=== PATIENT | male | born 1955 | race Caucasian/White ===

== ENCOUNTER → 2017-12-31 08:33 | Outpatient (CLI) | payer OTHER, SELFPAY ==
--- NOTE | 2017-12-31 | DI.CT.S_ITS ---
PROCEDURE: CT ABDOMEN PELVIS W CON INDICATIONS: 62 year-old male with left abdominal pain. TECHNIQUE: After the administration of oral and intravenous contrast, 5 mm thick sections acquired from the diaphragms to the symphysis. 5 mm thick coronal and sagittal reformats were performed. For radiation dose reduction, the following was used: automated exposure control, adjustment of mA and/or kV according to patient size. COMPARISON: [facility], RF, UGI WITH SM BOWEL FOLLOW THRU, 05/30/2017, 9:23. [facility], CT, ABDOMEN/PELVIS WITH CONTRAST, 05/03/2017, 10:11. FINDINGS: Image quality: Excellent. ABDOMEN: Lung bases: Lung bases are clear. Heart size is normal. Solid organs: Liver is normal in size and enhancement. Gallbladder wall thickness is normal. Biliary system is non-dilated. Pancreas enhances normally. Spleen is normal in size and enhancement. No adrenal nodules. Kidneys are normal in size and enhancement, without hydronephrosis. Peritoneum and bowel: Stomach, small bowel, and colon loops are normal in caliber and wall thickness. No free fluid or air. Nodes and vessels: No retroperitoneal or mesenteric adenopathy. Aorta and inferior vena cava are normal in caliber, with diffuse aortoiliac atherosclerosis. The celiac trunk, superior and inferior mesenteric arteries appear patent, without hemodynamically significant stenoses. Miscellaneous: No ventral hernias. On axial image 46, left mid abdominal wall dystrophic calcification is again noted, consistent with remote trauma or surgery. PELVIS: Genitourinary: Bladder wall thickness is normal. Prostate gland is normal in size. Miscellaneous: No inguinal hernias or adenopathy. Bones: No suspicious bony lesions. No vertebral body compression fractures. Patient is status post L2-L5 discectomies with interbody fusion, bilateral posterior fixation and fusion, and laminectomies as before. Medial right iliac bone graft donor site is again noted. IMPRESSION: 1. No acute intra-abdominal abnormalities to explain left abdominal pain. Left mid abdominal wall dystrophic calcification as before, consistent with remote trauma or surgery. 2. Status post L2-L5 posterior lumbar interbody fusion as before. Dictated by: Colten Alvarado M.D. on 12/31/2017 at 10:27 Approved by: Colten Alvarado M.D. on 12/31/2017 at 10:39
[2017-12-31 09:06] LABS: BUN Creatinine Ratio 14.4 (6-22); Blood Urea Nitrogen 13 mg/dL (9-20); Estimated Glomerular Filt Rate > 60.0 mL/min (>60)
== END ==
PROVIDERS: PCP Internal Medicine; Visit Provider Surgery
DX: R10.9 Unspecified abdominal pain (principal)
CPT/HCPCS: 36415; 74177; 82565; 84520; Q9967

== ENCOUNTER 2018-06-11 15:40 | Emergency (ER) | payer OTHER, MEDICARE, SELFPAY ==
[2018-06-11] VITALS (11 sets, daily range): BP systolic 63–138; BP diastolic 36–68; PULSE 64–89; RESP 17–18; TEMP 35.9; O2SAT 94–100
[2018-06-11] MEDS: SODIUM CHLORIDE 0.9% 1,000 ML 1000 ML IV (15:50)
[2018-06-11] MEDS: ONDANSETRON 4 MG/2 ML INJ IV (15:55)
[2018-06-11] MEDS: NITROGLYCERIN 0.4 MG SL TAB SL (16:00)
--- NOTE | 2018-06-11 16:11 | DI.RAD.S_ITS ---
PROCEDURE: XR CHEST 1V INDICATIONS: chest pain TECHNIQUE: One view of the chest was acquired. COMPARISON: [facility], CHEST 1 VIEW, 05/13/2017, 20:41. [facility], CHEST 1 VIEW, 01/21/2014, 8:57. FINDINGS: Surgical changes and devices: None. Lungs and pleura: No pleural effusions or pneumothorax. Lungs are clear. Mediastinum: Mediastinal contours appear normal. Heart size is normal. Bones and chest wall: No suspicious bony lesions. Overlying soft tissues appear unremarkable. IMPRESSION: Normal for age, source of current symptoms is not seen. Dictated by: Mustapha Mcneill M.D. on 06/11/2018 at 17:02 Approved by: Mustapha Mcneill M.D. on 06/11/2018 at 17:03
--- NOTE | 2018-06-11 16:17 | DI.CT.S_ITS ---
PROCEDURE: CT ABDOMEN PELVIS W CON INDICATIONS: abdominal pain post-op TECHNIQUE: After the administration of intravenous contrast, 5 mm thick sections acquired from the diaphragm to the symphysis. 5 mm coronal and sagittal reformats were acquired. For radiation dose reduction, the following was used: automated exposure control, adjustment of mA and/or kV according to patient size. COMPARISON: [facility], CT, CT ABDOMEN PELVIS W CON, 12/31/2017, 9:32. FINDINGS: Image quality: Excellent. ABDOMEN: Lung bases: Lung bases are clear. Heart size is normal. Solid organs: Liver is normal in size and enhancement. Gallbladder is unremarkable. Biliary system is non dilated. Pancreas enhances normally. Spleen is normal in size and enhancement. No adrenal nodules. Kidneys demonstrate normal size and enhancement, without hydronephrosis. Peritoneum and bowel: There are prominently dilated fluid-filled loops of small bowel throughout the abdomen and pelvis. There is no definitively identified free air. There is mild dependent fluid in the pelvis as well as minimal scattered areas within the abdomen and pelvis including the paracolic gutters bilaterally. Air is noted within the colon which does not demonstrate significant collapse. Scattered stool is present. Nodes and vessels: No retroperitoneal or mesenteric adenopathy by size criteria. Aorta and inferior vena cava are normal in size. Miscellaneous: No ventral hernias. No hernia is present. Air is noted within the subcutaneous tissues of the left hemiabdomen possibly related to recent surgery or iatrogenic injections. PELVIS: Genitourinary: Bladder wall thickness is normal. Miscellaneous: No inguinal hernias or adenopathy. Bones: No suspicious bony lesions. No vertebral body compression fractures. Posterior lumbar fusion is noted. IMPRESSION: 1. There are prominently dilated loops of small bowel within the abdomen pelvis without definitive transition point identified. Overall appearance is most consistent with significant partial small bowel obstruction. Scattered areas of free fluid are present. Dictated by: Jewell Monahan M.D. on 06/11/2018 at 16:50 Approved by: Jewell Monahan M.D. on 06/11/2018 at 16:54
[2018-06-11] MEDS: PROCHLORPERAZINE 10 MG/2 ML VIAL IV (16:21)
[2018-06-11 16:24] LABS: Add Manual Diff / Slide Review NO; Basophils Percent Auto 0.2 % (0-2); Eosinophils Percent Auto 1.9 % (2-4); Hematocrit 50.4 % (41-53); Hemoglobin 16.7 g/dL (13.5-17.5); Lymphocytes Percent Auto 4.9 % (25-40); Mean Corpuscular HGB Conc 33.2 % (30-36); Mean Corpuscular Hemoglobin 31.8 PG (26-34); Mean Corpuscular Volume 95.9 fL (80-100); Monocytes Percent Auto 3.9 % (3-14); Neutrophils Absolute Auto 10800 /uL (3000-5900); Neutrophils Percent Auto 89.1 % (50-75); Platelet Count 306 X10^3/uL (150-400); Red Blood Cell Count 5.26 X10^6/uL (4.5-5.9); Red Cell Distribution Width 14.6 % (11.6-14.8); White Blood Cell Count 12.1 X10^3/uL (4.5-11.0)
[2018-06-11 16:25] LABS: Prothrombin Time 10.8 SECONDS (10.1-12.7)
--- NOTE | 2018-06-11 16:26 | ED_ITS ---
HPI - Chest Pain General Chief Complaint: Chest Pain Stated Complaint: CHEST PAIN, VOMITING S/P SURGERY Time Seen by Provider: 06/11/18 15:59 Source: patient and family Mode of arrival: ambulatory Limitations: no limitations History of Present Illness HPI narrative: Patient complains of epigastric pain ever since his incisional and left inguinal hernia repairs 1 week ago. He states that he went to see his surgeon at in follow-up today, and that his surgeon thought that his symptoms were secondary to gastric reflux. However, on the way back from the doctor's office, he started to feel worse, developing worsening pain and nausea. He states that the pain really got bad after he vomited a couple of times. He states he has a burning sensation that goes up into his substernal area. He denies shortness of breath. He has no history of coronary artery disease or other heart problems. He states he has been up and about has been defecating without difficulty. He denies any fevers or recent infection. His postoperative course has otherwise been unremarkable. He rates his pain a 7/ 10. Laying flat on his back makes it worse and nothing makes it better. Pain does not radiate. Related Data Home Medications Medication Instructions Recorded Confirmed [KYOLIC IMMUNE 103] 1 tab PO BID #0 05/10/17 06/11/18 C-Ketam 1 applic TOPICAL TID 06/11/18 06/11/18 Thermacare Heatwrap Joint 06/11/18 06/11/18 Vitamin B Complex With Probiotics 1 tab PO BID 06/11/18 06/11/18 albuterol sulfate [ProAir HFA] 1 puff INHALATION PRN PRN 06/11/18 06/11/18 amlodipine 10 mg PO QPM 06/11/18 06/11/18 ascorbic acid (vitamin C) 1 g PO BID 06/11/18 06/11/18 aspirin 81 mg PO DAILY 06/11/18 06/11/18 chlorthalidone 25 mg PO DAILY 06/11/18 06/11/18 cholecalciferol (vitamin D3) 400 unit PO QPM 06/11/18 06/11/18 [Vitamin D3] clobetasol 1 applic TOPICAL BID 06/11/18 06/11/18 fluticasone-salmeterol [Advair 1 puff INHALATION BID 06/11/18 06/11/18 Diskus] ibuprofen 600 mg PO QID PRN 06/11/18 06/11/18 levothyroxine 175 mcg PO DAILY 06/11/18 06/11/18 lidocaine 1 patch TOPICAL DAILY 06/11/18 06/11/18 losartan 100 mg PO QPM 06/11/18 06/11/18 magnesium citrate 500 mg PO BID 06/11/18 06/11/18 metformin 500 mg PO BID 06/11/18 06/11/18 metoprolol succinate 100 mg PO DAILY 06/11/18 06/11/18 nitroglycerin [Nitrostat] 0.4 mg SUBLINGUAL Q5-15M PRN 06/11/18 06/11/18 ondansetron 8 mg PO BID-TID PRN 06/11/18 06/11/18 oxycodone-acetaminophen [Percocet] 1 tab PO PRN PRN 06/11/18 06/11/18 polyethylene glycol 3350 1 dose PO DIRECTED 06/11/18 06/11/18 sennosides-docusate sodium [Senna 10 tab PO DAILY 06/11/18 06/11/18 with Docusate Sodium] sitagliptin-metformin [Janumet] 1 tab PO BID 06/11/18 06/11/18 tiotropium bromide [Spiriva with 1 cap INHALATION DAILY 06/11/18 06/11/18 HandiHaler] Previous Rx's Medication Instructions Recorded trazodone 100 mg OR QPM #30 tab 09/28/16 Allergies Allergy/AdvReac Type Severity Reaction Status Date / Time doxazosin [DOXAZOSIN] Allergy Severe swelling Unverified 06/11/18 16:20 varenicline [From CHANTIX] Allergy Mild aggitation Unverified 06/11/18 16:20 lisinopril [LISINOPRIL] Allergy Unknown COUGH Unverified 06/11/18 16:20 morphine Allergy Unknown GOES Unverified 06/11/18 16:20 CRAZY atorvastatin [ATORVASTATIN] AdvReac Unknown MUSCLE ACHE Unverified 06/11/18 16: 20 carvedilol [CARVEDILOL] AdvReac Unknown DIZZINESS Unverified 06/11/18 16:20 CHOLESTEROL MEDS Allergy Unknown Uncoded 06/11/18 16:20 Review of Systems Review of Systems All systems reviewed & are unremarkable except as noted in HPI and below Constitutional Denies chills, Denies fever(s), Denies lethargy and Denies weakness Eyes Denies change in vision, Denies eye discharge, Denies irritation and Denies loss of vision ENT Ears, Nose, Mouth, and Throat: Denies change in voice, Denies neck pain and Denies sore throat Cardiovascular Reports chest pain (Burning), Denies irregular heart rhythm, Denies lightheadedness, Denies palpitations, Denies dyspnea, Denies dyspnea on exertion and Denies orthopnea Respiratory Denies cough, Denies dyspnea, Denies dyspnea on exertion and Denies wheezing Gastrointestinal Gastrointestinal: Reports abdominal pain (Epigastric), Denies change in bowel habits, Denies diarrhea, Reports nausea and Reports vomiting Genitourinary Denies hematuria, Denies flank pain, Denies urinary incontinence and Denies urinary urgency Musculoskeletal Denies neck pain Integumentary/Breasts Denies pruritus, Denies erythema, Denies rash and Denies wounds Neurologic Denies confusion, Denies loss of vision and Denies weakness Psychiatric Denies anxiety, Denies confusion, Denies depression, Denies homicidal ideation and Denies suicidal ideation Endocrine Denies palpitations Hematologic/Lymphatic Denies easy bruising Allergic/Immunologic Denies wheezing PFSH Medical History Hypothyroidism (Acute) HTN (hypertension) (Acute) Surgical History S/P hernia repair (Acute) Social History Smoking Status: Never smoker Exam Initial Vital Signs Initial Vital Signs: Vital Signs Temperature 96.7 F L 06/11/18 15:51 Pulse Rate 81 06/11/18 15:51 Respiratory Rate 17 06/11/18 15:51 Blood Pressure 128/64 06/11/18 15:51 Pulse Oximetry 99 06/11/18 15:51 Const General: cooperative, well developed and acute distress (Patient is hyperventilating and groaning in pain. He is intermittently dry heaving. Patient appears uncomfortable.) Nutritional Appearance: well nourished Orientation: alert, awake, oriented x3 and not confused [facility] Head: normocephalic and atraumatic Ears: external ears normal Nose: external nose normal and No nasal discharge Face and sinus: face symmetric and No dry mucous membranes Mouth: oral mucosae normal and moist mucous membranes Teeth and gingiva: dentition normal Eyes General: appearance normal, both eyes and all related structures Eyelids: eyelids normal Conjunctivae: conjunctivae normal Sclera: sclerae normal Pupils: PERRL EOM: EOM intact bilaterally Neck Neck: normal visual inspection, trachea midline, No lymphadenopathy, No midline deformity and No JVD Lymphatic: No lymphedema Chest Chest: normal inspection of the chest Resp Effort & Inspection: normal respiratory effort, able to speak in complete sentences, no respiratory distress and no use of accessory muscles Auscultation: clear to auscultation bilaterally, no rales, no rhonchi and no wheezes Cardio Rate: regular rate Rhythm: regular rhythm Heart Sounds: no click, no gallops, no murmurs and no rubs Pulses: normal peripheral pulses GI Inspection: non-distended Palpation: soft, no hepatosplenomegaly, No guarding, No pulsatile mass and tender (Moderate, localized to the epigastrium; otherwise minimally tender elsewhere, with the exception of appropriate tenderness around the surgical incision is in his left lower abdomen.) Auscultation: normal bowel sounds Back/Spine/Pelvis Back: No CVA tenderness Cervical Spine: cervical ROM normal and No pain with cervical ROM Thoracic/Lumbar Spine: thoracic and lumbar spine normal to inspection Skin General: no rashes or lesions noted, No jaundice and No petechiae Neuro General: alert, oriented x3, gait normal and no focal motor deficits Speech: speech normal Extrem General: full ROM, no clubbing, cyanosis or edema, no pedal edema and no calf tenderness Psych Appearance: well kempt Mental Status: mental status grossly normal Attitude: cooperative Thought Content: normal and suicidality Judgment: judgment good Course Course Narrative: Patient was given a 1 L bolus 0.9 normal saline and kept on the surveillance monitor. He was given 1 tablet and nitroglycerin by nursing staff after which he still stated initially that his pain had improved to a 4/10, but then began stating he felt worse. Patient was found to have a brief dip in his blood pressure to 67/38. Patient was laid flat blood pressure was rechecked in a few minutes found to have risen to 90/55. I did feel that the patient is most likely etiology of his symptoms was GI in nature; however, I felt that given the proximity to the heart and the symptoms radiating up into the chest, that he should also have a cardiac panel sent. I did also order CT scan the abdomen and pelvis to evaluate the patient aorta and his surgical sites. CT was done and showed a partial small-bowel obstruction. Patient had vomited about 1 L of gastric and possibly fecal contents, after which he reported feeling some relief. NG tube was placed and attached to low wall suction. As we did not have any inpatient beds available, I did contact to try to transfer this patient back to the facility where he had his surgery. did a call back and states that Dr. Joyce, the patient's surgeon, had accepted the patient in transfer. They stated the patient could be transferred as as a bed was found. Orders Ordered: ED Orders 06/11/18 15:57 EKG-12 Lead Stat 06/11/18 15:59 Complete Blood Count AUTO DIFF Stat Comprehensive Metabolic Panel Stat Lactate (Lactic Acid) Stat Lipase Stat Partial Thromboplastin Time Stat Prothrombin Time INR Stat Troponin & CK Cardiac Panel Stat 06/11/18 16:11 XR chest 1V Stat 06/11/18 16:17 CT abdomen pelvis w con Stat 06/11/18 17:37 CXR [XR chest 1V] Stat 06/11/18 17:40 Urine Microscopic Stat Nitroglycerin (Nitrostat) 0.4 mg SL [id number] PRN PRN Reason: Chest Pain Last Admin: 06/11/18 16:00 Dose: 0.4 mg Discontinued Medications Hydromorphone HCl (Dilaudid) 1 mg IV NOW ONE Stop: 06/11/18 16:59 Last Admin: 06/11/18 17:00 Dose: 1 mg Sodium Chloride (Normal Saline 0.9%) 1,000 mls @ 1,000 mls/hr IV BOLUS ONE Stop: 06/11/18 17:11 Last Infusion: 06/11/18 17:59 Dose: 0 mls/hr Admin: 06/11/18 15:50 Dose: 1,000 mls/hr Lorazepam (Ativan) 1 mg IV NOW ONE Stop: 06/11/18 17:59 Last Admin: 06/11/18 18:00 Dose: 1 mg Ondansetron HCl (Zofran) 4 mg IV NOW ONE Stop: 06/11/18 16:10 Last Admin: 06/11/18 15:55 Dose: 4 mg Prochlorperazine (Compazine) 10 mg IV NOW ONE Stop: 06/11/18 16:18 Last Admin: 06/11/18 16:21 Dose: 10 mg Vital Signs - 8 hr 06/11/18 15:51 06/11/18 16:00 06/11/18 16:05 Temperature 96.7 F L Pulse Rate 81 85 80 Respiratory Rate 17 Blood Pressure 128/64 128/64 Blood Pressure [Left Arm] 128/64 110/53 L Pulse Oximetry 99 06/11/18 16:10 06/11/18 16:15 06/11/18 16:21 Temperature Pulse Rate 85 88 76 Respiratory Rate Blood Pressure 138/68 Blood Pressure [Left Arm] 63/36 L 90/54 L Pulse Oximetry 06/11/18 16:30 06/11/18 16:40 06/11/18 16:43 Temperature Pulse Rate 85 88 80 Respiratory Rate 18 Blood Pressure 110/53 L Blood Pressure [Left Arm] 136/54 L 110/64 Pulse Oximetry 100 06/11/18 18:21 Temperature Pulse Rate 64 Respiratory Rate 18 Blood Pressure Blood Pressure [Left Arm] 123/64 Pulse Oximetry 100 MDM - Chest Pain Medical Records Data Attestation: I reviewed the patient's medical records. Lab Data Attestation: I reviewed the patient's lab results. Result diagrams: 06/11/18 15:59 06/11/18 15:59 Lab Results 06/11/18 06/11/18 06/11/18 Range/Units 15:59 15:59 15:59 WBC 12.1 H (4.5-11.0) X10^3/uL RBC 5.26 (4.5-5.9) X10^6/uL Hgb 16.7 (13.5-17.5) g/dL Hct 50.4 (41-53) % MCV 95.9 (80-100) fL MCH 31.8 (26-34) PG MCHC 33.2 (30-36) % RDW 14.6 (11.6-14.8) % Plt Count 306 (150-400) X10^3/uL Neut % (Auto) 89.1 H (50-75) % Lymph % (Auto) 4.9 L (25-40) % Chase % (Auto) 3.9 (3-14) % Eos % (Auto) 1.9 L (2-4) % Baso % (Auto) 0.2 (0-2) % Neut # (Auto) 17165 H (9714-0017) /uL PT 10.8 (10.1-12.7) SECONDS INR 1.0 (0.9-1.3) APTT 30 (26.4-36.2) SECONDS Sodium 135 L (137-145) mmol/L Potassium 4.3 (3.4-5.1) mmol/L Chloride 98 (98-107) mmol/L Carbon Dioxide 21 L (22-32) mmol/L BUN 22 H (9-20) mg/dL Creatinine 1.90 H (0.66-1.25) mg/dL Estimated GFR 36.3 L (>60) mL/min BUN/Creatinine Ratio 11.6 (6-22) Glucose 138 H (80-110) mg/dL Lactate (0.7-2.1) mmol/L Calcium 9.8 (8.4-10.2) mg/dL Total Bilirubin 0.7 (0.2-1.3) mg/dL AST 70 H (17-59) IU/L ALT 80 H (21-72) IU/L Alkaline Phosphatase 64 (38-126) U/L Total Creatine Kinase 23 L (55-170) U/L CK-MB (CK-2) TNP CK-MB (CK-2) Rel Index TNP Troponin I 0.016 (0.01-0.034) ng/mL Total Protein 7.2 (6.3-8.2) g/dL Albumin 4.4 (3.5-5.0) g/dL Globulin 2.8 (1.7-4.1) g/dL Albumin/Globulin Ratio 1.6 (1.0-2.8) Lipase 183 (23-300) U/L Urine RBC (0-5/HPF) Urine WBC (0-5/HPF) Ur Squamous Epith Cells Amorphous Sediment Urine Bacteria (None) Urine Mucus (Negative) Ur Culture Indicated? Micro UA Comment 06/11/18 06/11/18 Range/Units 15:59 17:40 WBC (4.5-11.0) X10^3/uL RBC (4.5-5.9) X10^6/uL Hgb (13.5-17.5) g/dL Hct (41-53) % MCV (80-100) fL MCH (26-34) PG MCHC (30-36) % RDW (11.6-14.8) % Plt Count (150-400) X10^3/uL Neut % (Auto) (50-75) % Lymph % (Auto) (25-40) % Chase % (Auto) (3-14) % Eos % (Auto) (2-4) % Baso % (Auto) (0-2) % Neut # (Auto) (8528-5975) /uL PT (10.1-12.7) SECONDS INR (0.9-1.3) APTT (26.4-36.2) SECONDS Sodium (137-145) mmol/L Potassium (3.4-5.1) mmol/L Chloride (98-107) mmol/L Carbon Dioxide (22-32) mmol/L BUN (9-20) mg/dL Creatinine (0.66-1.25) mg/dL Estimated GFR (>60) mL/min BUN/Creatinine Ratio (6-22) Glucose (80-110) mg/dL Lactate 1.4 (0.7-2.1) mmol/L Calcium (8.4-10.2) mg/dL Total Bilirubin (0.2-1.3) mg/dL AST (17-59) IU/L ALT (21-72) IU/L Alkaline Phosphatase (38-126) U/L Total Creatine Kinase (55-170) U/L CK-MB (CK-2) CK-MB (CK-2) Rel Index Troponin I (0.01-0.034) ng/mL Total Protein (6.3-8.2) g/dL Albumin (3.5-5.0) g/dL Globulin (1.7-4.1) g/dL Albumin/Globulin Ratio (1.0-2.8) Lipase (23-300) U/L Urine RBC None seen (0-5/HPF) Urine WBC 1-5/hpf (0-5/HPF) Ur Squamous Epith Cells 1-5 /hpf Amorphous Sediment 2+ Urine Bacteria Occasional (0-1) (None) Urine Mucus 1+ H (Negative) Ur Culture Indicated? Cult not indicated Micro UA Comment Not Reportable Urine Dip Bedside Urine Glucose Negative Bedside Urine Bilirubin - Negative Bedside Urine Ketone +/- 5 Urine Specific [place] 1.015 Bedside Urine Occult Blood - Negative Bedside Urine pH 5.5 Bedside Urine Protein ++ 100 Bedside Urine Urobilinogen - Negative Bedside Urine Nitrite - Negative Bedside Urine Leukocytes - Negative Esterase Imaging Data CT scan - abdomen: Attestation: I personally reviewed and interpreted this imaging study as follows: My impression: SBO Radiologist's impression: PROCEDURE: CT ABDOMEN PELVIS W CON INDICATIONS: abdominal pain post-op TECHNIQUE: After the administration of intravenous contrast, 5 mm thick sections acquired from the diaphragm to the symphysis. 5 mm coronal and sagittal reformats were acquired. For radiation dose reduction, the following was used: automated exposure control, adjustment of mA and/or kV according to patient size. COMPARISON: [facility], CT, CT ABDOMEN PELVIS W CON, 12/31/2017, 9:32. FINDINGS: Image quality: Excellent. ABDOMEN: Lung bases: Lung bases are clear. Heart size is normal. Solid organs: Liver is normal in size and enhancement. Gallbladder is unremarkable. Biliary system is non dilated. Pancreas enhances normally. Spleen is normal in size and enhancement. No adrenal nodules. Kidneys demonstrate normal size and enhancement, without hydronephrosis. Peritoneum and bowel: There are prominently dilated fluid-filled loops of small bowel throughout the abdomen and pelvis. There is no definitively identified free air. There is mild dependent fluid in the pelvis as well as minimal scattered areas within the abdomen and pelvis including the paracolic gutters bilaterally. Air is noted within the colon which does not demonstrate significant collapse. Scattered stool is present. Nodes and vessels: No retroperitoneal or mesenteric adenopathy by size criteria. Aorta and inferior vena cava are normal in size. Miscellaneous: No ventral hernias. No hernia is present. Air is noted within the subcutaneous tissues of the left hemiabdomen possibly related to recent surgery or iatrogenic injections. PELVIS: Genitourinary: Bladder wall thickness is normal. Miscellaneous: No inguinal hernias or adenopathy. Bones: No suspicious bony lesions. No vertebral body compression fractures. Posterior lumbar fusion is noted. IMPRESSION: 1. There are prominently dilated loops of small bowel within the abdomen pelvis without definitive transition point identified. Overall appearance is most consistent with significant partial small bowel obstruction. Scattered areas of free fluid are present. Dictated by: Jewell Monahan M.D. on 06/11/2018 at 16:50 Approved by: Jewell Monahan M.D. on 06/11/2018 at 16:54 Chest x-ray: Attestation: I personally reviewed and interpreted this imaging study as follows: My impression: Radiologist's impression: PROCEDURE: XR CHEST 1V INDICATIONS: chest pain TECHNIQUE: One view of the chest was acquired. COMPARISON: [facility], CHEST 1 VIEW, 05/13/2017, 20:41. [facility], CHEST 1 VIEW, 01/21/2014, 8:57. FINDINGS: Surgical changes and devices: None. Lungs and pleura: No pleural effusions or pneumothorax. Lungs are clear. Mediastinum: Mediastinal contours appear normal. Heart size is normal. Bones and chest wall: No suspicious bony lesions. Overlying soft tissues appear unremarkable. IMPRESSION: Normal for age, source of current symptoms is not seen. PROCEDURE: XR CHEST 1V INDICATIONS: post ng tube insertion. TECHNIQUE: One view of the chest was acquired. COMPARISON: [facility], XR CHEST 1V, 06/11/2018, 16:39. FINDINGS: Surgical changes and devices: An NG tube is present, the tip of which is projected over the gastric fundus. Lungs and pleura: No pleural effusions or pneumothorax. Lungs are clear. Mediastinum: Mediastinal contours appear normal. Heart size is normal. Bones and chest wall: No suspicious bony lesions. Overlying soft tissues appear unremarkable. IMPRESSION: No acute cardiopulmonary findings. Appropriate position of the NG tube. Dictated by: Idania Moreland M.D. on 06/11/2018 at 17:57 Approved by: Idania Moreland M.D. on 06/11/2018 at 17:58 Dictated by: Mustapha Mcneill M.D. on 06/11/2018 at 17:02 Approved by: Mustapha Mcneill M.D. on 06/11/2018 at 17:03 ECG Data Attestation: I personally reviewed and interpreted this ECG as follows: (See below) Interpretation: Twelve lead EKG performed on June 11, 2018 at 3:52 p.m.: Regular ventricular rhythm with a rate of 77 beats per minute ME interval 173 millisecond QRS duration 94 millisecond QTC interval 415 millisecond Normal axis No ectopy Interpretation: Normal sinus rhythm; possible left atrial enlargement; anteroseptal myocardial infarction of indeterminate age; in summary abnormal EKG as interpreted by ED MD. Discharge Plan Departure Prescriptions: No Action trazodone 100 MG tablet 100 mg OR QPM Qty: 30 RF: 3 [KYOLIC IMMUNE 103] 1 tab PO BID Qty: 0 RF: 0 levothyroxine 175 mcg tablet 175 mcg PO DAILY RF: 0 fluticasone-salmeterol [Advair Diskus] 250-50 mcg/dose blister with device 1 puff Inhalation BID RF: 0 clobetasol 0.05 % cream 1 applic Topical BID RF: 0 chlorthalidone 25 mg tablet 25 mg PO DAILY RF: 0 ondansetron 8 mg tablet,disintegrating 8 mg PO BID-TID PRN (Reason: Nausea) RF: 0 amlodipine 10 mg tablet 10 mg PO QPM RF: 0 ibuprofen 600 mg tablet 600 mg PO QID PRN (Reason: pain) RF: 0 losartan 100 mg tablet 100 mg PO QPM RF: 0 sitagliptin-metformin [Janumet] 50-1,000 mg tablet 1 tab PO BID RF: 0 metformin 500 mg tablet 500 mg PO BID RF: 0 metoprolol succinate 100 mg tablet extended release 24 hr 100 mg PO DAILY RF: 0 polyethylene glycol 3350 17 gram/dose powder 1 dose PO DIRECTED RF: 0 albuterol sulfate [ProAir HFA] 90 mcg/actuation HFA aerosol inhaler 1 puff Inhalation PRN PRN (Reason: Shortness Of Breath) RF: 0 tiotropium bromide [Spiriva with HandiHaler] 18 mcg capsule, w/inhalation device 1 cap Inhalation DAILY RF: 0 oxycodone-acetaminophen [Percocet] 5 MG/325 MG tablet 1 tab PO PRN PRN (Reason: pain) RF: 0 nitroglycerin [Nitrostat] 0.4 mg Tablet, Sublingual 0.4 mg SUBLINGUAL Q5-15M PRN (Reason: Chest Pain) RF: 0 aspirin 81 mg Tablet,Delayed Release (Dr/Ec) 81 mg PO DAILY RF: 0 Thermacare Heatwrap Joint RF: 0 sennosides-docusate sodium [Senna with Docusate Sodium] 8.6 MG/50 MG tablet 10 tab PO DAILY RF: 0 lidocaine 5 % Adhesive Patch,Medicated 1 patch TOPICAL DAILY RF: 0 ascorbic acid (vitamin C) 1,000 mg Tablet 1 g PO BID RF: 0 cholecalciferol (vitamin D3) [Vitamin D3] 400 unit Capsule 400 unit PO QPM RF: 0 C-Ketam 1 applic Topical TID RF: 0 Vitamin B Complex With Probiotics 1 tab PO BID RF: 0 magnesium citrate 500 mg 500 mg PO BID RF: 0
[2018-06-11 16:28] LABS: PTT Partial Thromboplastin Tim 30 SECONDS (26.4-36.2)
[2018-06-11 16:31] LABS: Alanine Aminotransferase 80 IU/L (21-72); Albumin 4.4 g/dL (3.5-5.0); Albumin Globulin Ratio 1.6 (1.0-2.8); Alkaline Phosphatase 64 U/L (38-126); Aspartate Aminotransferase 70 IU/L (17-59); BUN Creatinine Ratio 11.6 (6-22); Bilirubin Total 0.7 mg/dL (0.2-1.3); Blood Urea Nitrogen 22 mg/dL (9-20); Calcium 9.8 mg/dL (8.4-10.2); Carbon Dioxide 21 mmol/L (22-32); Chloride 98 mmol/L (98-107); Creatine Kinase 23 U/L (55-170); Estimated Glomerular Filt Rate 36.3 mL/min (>60); Globulin 2.8 g/dL (1.7-4.1); Glucose 138 mg/dL (80-110); HEMOLYSIS < 15 (0-50); Lipase 183 U/L (23-300); Potassium 4.3 mmol/L (3.4-5.1); Sodium 135 mmol/L (137-145); Total Protein 7.2 g/dL (6.3-8.2)
[2018-06-11 16:32] LABS: Lactate (Lactic Acid) 1.4 mmol/L (0.7-2.1)
[2018-06-11 16:43] LABS: Troponin I 0.016 ng/mL (0.01-0.034)
--- NOTE | 2018-06-11 16:53 | PC.NURSE ---
Patient vomiting large amount of brown bile with fecal matter;
--- NOTE | 2018-06-11 16:55 | PC.NURSE ---
Normal saline bolus started;
[2018-06-11] MEDS: HYDROMORPHONE 1 MG INJ IV (17:00)
--- NOTE | 2018-06-11 17:37 | DI.RAD.S_ITS ---
PROCEDURE: XR CHEST 1V INDICATIONS: post ng tube insertion. TECHNIQUE: One view of the chest was acquired. COMPARISON: [facility], , XR CHEST 1V, 06/11/2018, 16:39. FINDINGS: Surgical changes and devices: An NG tube is present, the tip of which is projected over the gastric fundus. Lungs and pleura: No pleural effusions or pneumothorax. Lungs are clear. Mediastinum: Mediastinal contours appear normal. Heart size is normal. Bones and chest wall: No suspicious bony lesions. Overlying soft tissues appear unremarkable. IMPRESSION: No acute cardiopulmonary findings. Appropriate position of the NG tube. Dictated by: Idania Moreland M.D. on 06/11/2018 at 17:57 Approved by: Idania Moreland M.D. on 06/11/2018 at 17:58
[2018-06-11] MEDS: LORazepam 2 MG/ML SYRINGE 1 MG IV ×2 (18:00→20:16)
[2018-06-11 18:08] LABS: RBC Urine None Seen (0-5/HPF)
[2018-06-11 18:25] LABS: Amorphous Sediment Urine 2+; Bacteria Urine Occasional (0-1); Culture Indicated Urine Cult Not Indicated; Mucus Urine 1+ (Negative); Squamous Epithelial Cell Urine 1-5 /HPF; WBC Urine 1-5/HPF (0-5/HPF)
[2018-06-11] MEDS: SODIUM CHLORIDE 0.9% 1,000 ML 150 ML IV (21:15)
== END 2018-06-11 22:00 | disposition short-term general hospital (02) ==
PROVIDERS: Emergency Provider Emergency Medicine; PCP Internal Medicine
DX: K56.609 Unspecified intestinal obstruction, unspecified as to partial versus complete obstruction (principal)
CPT/HCPCS: 36591; 71045; 74177; 80053; 81003; 81015; 82550; 83605; 83690; 84484; 85025; 85610; 85730; 93005; 96361; 96374; 96375; 96376; 99285; J0780; J1170; J2060; J2405; Q9967

== ENCOUNTER → 2018-07-17 13:30 | Outpatient (REF) | payer OTHER, MEDICARE, SELFPAY | LOC: LAB 13:30 | PROVIDERS: PCP Internal Medicine; Visit Provider Physician Assistant | DX: B00.1 Herpesviral vesicular dermatitis (principal); L08.9 Local infection of the skin and subcutaneous tissue, unspecified | CPT/HCPCS: 87070; 87147; 87205; 87255 ==

== ENCOUNTER → 2018-08-06 13:20 | Outpatient (CLI) | payer OTHER, MEDICARE, SELFPAY ==
--- NOTE | 2018-08-06 | DI.ECHO.S_ITS ---
[facility] +---------+ : : [address] : : : : [id number] : : : : Phone: [phone] Echocardiogram Report + + :Name: JAIME KING Study Date: 08/06/2018 Height: 72 in : :[facility] Exam Location: [facility] Weight: 163 lb : : Gender: Male BSA: 2.0 m2 : :: 1955 Age: 63 yrs BP: 174/68 mmHg: :Reason For Study: DYSPNEA : :Ordering Physician: Fifi : :Amrit Performed By: Michelle Dos Santos : :Referring: FIFI HINES : + + Interpretation Summary Normal sinus rhythm. Normal LV size, wall thickness. Overall there is normal wall motion with the exception of mid-inferior and mid-inferoseptal segments which demonstrate mild hypokinesis. In hindsight these findings are old compared to prior study 04/11/2017. Mild LA enlargement; otherwise normal chamber sizes. No significant valvular abnormalities. Compared to prior study 04/11/2017 no significant changes have occurred. Procedure: A two-dimensional transthoracic echocardiogram with color flow and Doppler was performed. The study quality was technically adequate. Images from the parasternal window were difficult to obtain and are suboptimal in quality. Comparison is made with the echocardiogram of 04/11/17. The patient was in normal sinus rhythm during the exam. Left Ventricle: The left ventricle is normal in size. There is normal left ventricular wall thickness. The left ventricular ejection fraction is normal. The ejection fraction is estimated to be 55-60%. Diastolic parameters suggest a pseudonormalization pattern, consistent with probable elevated filling pressures. Right Ventricle: The right ventricle is normal in size and function. Atria: The left atrium is mildly dilated. The right atrium is mild to moderately dilated. There is no Doppler evidence for an interatrial shunt. Mitral Valve: The mitral valve is normal. There is trace mitral regurgitation. Aortic Valve: The aortic valve is trileaflet. There is mild aortic valve sclerosis. The aortic valve opens well. There is trace aortic regurgitation. Tricuspid Valve: The tricuspid valve is normal. There is trace tricuspid regurgitation. The right ventricular systolic pressure is estimated to be at least 24 mmHg based on an estimated right atrial pressure of 3 mm Hg. Pulmonic Valve: The pulmonic valve is not well visualized. Great Vessels: The aortic root is moderately dilated. The ascending aorta is normal in size. The aortic arch is normal in size. The pulmonary is not well visualized. The IVC is of normal diameter and collapses greater than 50% with a sniff. This suggests a low right atrial pressure of 3 mm Hg. Pericardium/ Pleura There is no pericardial effusion. There is no pleural effusion. MMode/2D Measurements & Calculations LVIDd: 5.5 cm LVOT diam: 2.5 cm LVIDs: 3.1 cm Ao root diam: 4.3 cm FS: 42.9 % asc Aorta Diam: 3.5 cm EPSS: 0.49 cm Ao Arch Diam (distal): 2.6 cm IVSd: 0.84 cm LVPWd: 1.0 cm LV hughes. diameter/BSA (cm/m^2): 2.8 LV sys. diameter/BSA (cm/m^2): 1.6 LA A2 area: 25.6 cm2 RA long axis: 4.7 cm LA A4 area: 22.9 cm2 RA area: 20.2 cm2 LA length (vol): 6.0 cm RA vol: 74.2 ml LA vol: 82.3 ml RA : 38.0 ml/m2 LA vol index: 42.1 ml/m2 IVC diam: 1.9 cm RVD1 (basal): 4.5 cm RVD2 (mid): 3.2 cm TAPSE: 2.9 cm Doppler Measurements & Calculations Ao V2 max: 119.1 cm/sec LVOT Max Miah: 80.9 cm/sec Ao V2 mean: 80.4 cm/sec LV V1 max P.6 mmHg Ao max P.7 mmHg LV V1 VTI: 18.0 cm Ao mean P.9 mmHg CARLO(I,D): 3.5 cm2 Ao V2 VTI: 25.0 cm CARLO(V,D): 3.3 cm2 sev ratio: 0.72 CARLO indexed to BSA (cm^2/m^2): 1.8 MV E max miah: 67.8 cm/sec TR max miah: 226.2 cm/sec MV A max miah: 58.3 cm/sec TR max P.5 mmHg MV E/A: 1.2 PA V2 max: 46.9 cm/sec Med Peak E' Miah: 6.5 cm/sec PA V2 mean: 32.7 cm/sec E/E' med: 10.4 PA mean P.47 mmHg Lat Peak E' Miah: 9.2 cm/sec PA pr(Accel): 24.1 mmHg E/E' lat: 7.4 E/e' average: 8.9 MV dec time: 0.19 sec SVLVOT): 88.2 ml Reading Physician:07:23 PM
== END ==
PROVIDERS: Family Provider Internal Medicine; PCP Internal Medicine; Visit Provider Internal Medicine
DX: I35.8 Other nonrheumatic aortic valve disorders (principal); R06.00 Dyspnea, unspecified
CPT/HCPCS: 93306

== ENCOUNTER 2018-10-17 16:01 | Emergency (ER) | payer OTHER, MEDICARE, SELFPAY ==
[2018-10-17 16:13] VITALS: BP 179/85; PULSE 91; RESP 15; TEMP 36.8; O2SAT 93; BMI 21.7
--- NOTE | 2018-10-17 16:18 | DI.RAD.S_ITS ---
PROCEDURE: XR FINGER LT MIN 2V INDICATIONS: pain to digit TECHNIQUE: AP hand, 2 views of the thumb acquired. COMPARISON: None. FINDINGS: Bones: A trained associated lucency is identified involving the tuft of the distal phalanx of the thumb, which is only seen on the frontal view and not definitely confirmed on the lateral view. No displaced fractures or dislocations are evident. An old ulnar styloid process fracture appears to be present. Scattered soft tissue calcifications are evident along the ulnar aspect of the head of the middle phalanx of the middle finger and the radial aspect of the proximal phalanx of the thumb. Mild degenerative changes of the metacarpophalangeal and interphalangeal joints of the hand are present. Soft tissues: No suspicious soft tissue calcifications. A metallic density appears to be present along the radial aspect of the distal phalanx of the middle finger. No additional radiopaque foreign bodies are evident. Soft tissue swelling of the thumb is present. IMPRESSION: Possible puncture injury involving the tuft of the distal phalanx of the thumb. Clinical correlation is recommended. Dictated by: Kurtis Montoya M.D. on 10/17/2018 at 15:34 Approved by: Kurtis Montoya M.D. on 10/17/2018 at 15:38
--- NOTE | 2018-10-17 20:10 | ED_ITS ---
HPI - Skin/Abscess/Foreign Bdy <RENATA Gracia - Last Filed: 10/17/18 22:01> General Chief complaint: Skin/Abscess/Foreign Body Stated complaint: states thumb of left hand is infected Time Seen by Provider: 10/17/18 19:03 Source: patient Mode of arrival: ambulatory Limitations: no limitations History of Present Illness HPI narrative: 63-year-old male who is a nonsmoker with history of COPD. here for complaint of pain into his left thumb area. He reports that last year he injured his thumb with a drill causing injury to the distal left thumb that caused damage to the nail bed. He reports that his nail has not been growing back much until the last several weeks. He states that the nail has grown back over the last several weeks and is now causing pain and swelling to the distal part of his left thumb. He denies any new trauma to the area. Increased pain with palpation to that area. No drainage from the area. No other concerns or complaints. Related Data Home Medications Medication Instructions Recorded Confirmed [KYOLIC IMMUNE 103] 1 tab PO BID #0 05/10/17 06/11/18 C-Ketam 1 applic TOPICAL TID 06/11/18 06/11/18 Thermacare Heatwrap Joint 06/11/18 06/11/18 Vitamin B Complex With Probiotics 1 tab PO BID 06/11/18 06/11/18 albuterol sulfate [ProAir HFA] 1 puff INHALATION PRN PRN 06/11/18 06/11/18 amlodipine 10 mg PO QPM 06/11/18 06/11/18 ascorbic acid (vitamin C) 1 g PO BID 06/11/18 06/11/18 aspirin 81 mg PO DAILY 06/11/18 06/11/18 chlorthalidone 25 mg PO DAILY 06/11/18 06/11/18 cholecalciferol (vitamin D3) 400 unit PO QPM 06/11/18 06/11/18 [Vitamin D3] clobetasol 1 applic TOPICAL BID 06/11/18 06/11/18 fluticasone propion-salmeterol 1 puff INHALATION BID 06/11/18 06/11/18 [Advair Diskus] ibuprofen 600 mg PO QID PRN 06/11/18 06/11/18 levothyroxine 175 mcg PO DAILY 06/11/18 06/11/18 lidocaine 1 patch TOPICAL DAILY 06/11/18 06/11/18 losartan 100 mg PO QPM 06/11/18 06/11/18 magnesium citrate 500 mg PO BID 06/11/18 06/11/18 metformin 500 mg PO BID 06/11/18 06/11/18 metoprolol succinate 100 mg PO DAILY 06/11/18 06/11/18 nitroglycerin [Nitrostat] 0.4 mg SUBLINGUAL Q5-15M PRN 06/11/18 06/11/18 ondansetron 8 mg PO BID-TID PRN 06/11/18 06/11/18 oxycodone-acetaminophen [Percocet] 1 tab PO PRN PRN 06/11/18 06/11/18 polyethylene glycol 3350 1 dose PO DIRECTED 06/11/18 06/11/18 sennosides-docusate sodium [Senna 10 tab PO DAILY 06/11/18 06/11/18 with Docusate Sodium] sitagliptin-metformin [Janumet] 1 tab PO BID 06/11/18 06/11/18 tiotropium bromide [Spiriva with 1 cap INHALATION DAILY 06/11/18 06/11/18 HandiHaler] Previous Rx's Medication Instructions Recorded trazodone 100 mg OR QPM #30 tab 09/28/16 cephalexin 500 mg PO QID #28 cap 10/17/18 Allergies Allergy/AdvReac Type Severity Reaction Status Date / Time doxazosin [DOXAZOSIN] Allergy Severe swelling Unverified 06/11/18 16:20 varenicline [From CHANTIX] Allergy Mild aggitation Unverified 06/11/18 16:20 lisinopril [LISINOPRIL] Allergy Unknown COUGH Unverified 06/11/18 16:20 morphine Allergy Unknown GOES Unverified 06/11/18 16:20 CRAZY atorvastatin [ATORVASTATIN] AdvReac Unknown MUSCLE ACHE Unverified 06/11/18 16:20 carvedilol [CARVEDILOL] AdvReac Unknown DIZZINESS Unverified 06/11/18 16:20 CHOLESTEROL MEDS Allergy Unknown Uncoded 06/11/18 16:20 Review of Systems <RENATA Gracia - Last Filed: 10/17/18 22:01> Constitutional Denies chills, Denies fever(s), Denies lethargy and Denies weakness Eyes Denies change in vision, Denies eye discharge, Denies irritation and Denies loss of vision ENT Ears, Nose, Mouth, and Throat: Denies change in voice, Denies neck pain and Denies sore throat Cardiovascular Denies chest pain, Denies irregular heart rhythm, Denies lightheadedness, Denies palpitations, Denies dyspnea, Denies dyspnea on exertion and Denies orthopnea Respiratory Denies cough, Denies dyspnea, Denies dyspnea on exertion and Denies wheezing Gastrointestinal Gastrointestinal: Denies abdominal pain, Denies change in bowel habits, Denies diarrhea, Denies nausea and Denies vomiting Genitourinary Denies hematuria, Denies flank pain, Denies urinary incontinence and Denies urinary urgency Musculoskeletal Denies back pain, Denies muscle weakness, Denies neck pain, Denies numbness and Denies tingling Comments: Swelling and redness to the distal left thumb Integumentary/Breasts Denies pruritus, Denies erythema, Denies rash and Denies wounds Neurologic Denies loss of vision, Denies numbness, Denies tingling and Denies weakness Endocrine Denies palpitations Allergic/Immunologic Denies wheezing PFSH <RENATA Gracia - Last Filed: 10/17/18 22:01> Medical History Hypothyroidism (Acute) HTN (hypertension) (Acute) Surgical History S/P hernia repair (Acute) Social History Smoking Status: Never smoker Social History Smoking Status: Never smoker Exam <RENATA Gracia - Last Filed: 10/17/18 22:01> Initial Vital Signs Initial Vital Signs: Vital Signs Temperature 98.3 F 10/17/18 16:13 Pulse Rate 91 H 10/17/18 16:13 Respiratory Rate 15 10/17/18 16:13 Blood Pressure 179/85 H 10/17/18 16:13 Pulse Oximetry 93 10/17/18 16:13 HENMT Mouth: oral mucosae normal and moist mucous membranes Eyes General: appearance normal, both eyes and all related structures Eyelids: eyelids normal Conjunctivae: conjunctivae normal Sclera: sclerae normal Pupils: PERRL EOM: EOM intact bilaterally Resp Effort & Inspection: normal respiratory effort, able to speak in complete sentences, no respiratory distress and no use of accessory muscles Auscultation: clear to auscultation bilaterally, no rales, no rhonchi and no wheezes Cardio Rate: regular rate Rhythm: regular rhythm Heart Sounds: no click, no gallops, no murmurs and no rubs Pulses: normal peripheral pulses Skin General: no rashes or lesions noted, No jaundice and No petechiae Neuro General: alert, oriented x3, gait normal and no focal motor deficits Speech: speech normal Extrem Other: Distal left thumb is swollen and erythematous. There is induration and fluctuance to the distal thumb. Distal sensation is intact. Distal cap refill less than 2 sec. Distal thumb nail appears to be growing into the distal the left thumb <Pancho Pantoja DO - Last Filed: 10/18/18 00:31> Initial Vital Signs Initial Vital Signs: Vital Signs Temperature 98.3 F 10/17/18 16:13 Pulse Rate 91 H 10/17/18 16:13 Respiratory Rate 15 10/17/18 16:13 Blood Pressure 179/85 H 10/17/18 16:13 Pulse Oximetry 93 10/17/18 16:13 Course <RENATA Gracia - Last Filed: 10/17/18 22:01> Orders Ordered: ED Orders 10/17/18 16:18 XR finger LT min 2V Stat 10/17/18 20:08 Wound Culture and Gram Stain Stat Vital Signs - 8 hr 10/17/18 20:19 Temperature 98.7 F Pulse Rate 96 H Respiratory Rate 15 Blood Pressure [Right Arm] 166/79 H Pulse Oximetry 91 <DO Tu Newsome Last Filed: 10/18/18 00:31> Orders Ordered: ED Orders 10/17/18 16:18 XR finger LT min 2V Stat 10/17/18 20:08 Wound Culture and Gram Stain Stat Vital Signs - 8 hr 10/17/18 20:19 Temperature 98.7 F Pulse Rate 96 H Respiratory Rate 15 Blood Pressure [Right Arm] 166/79 H Pulse Oximetry 91 MDM - Skin/Abscess/Foreign Bdy <Rambo ColindresMACKENZIEP - Last Filed: 10/17/18 22:01> [facility] Narrative Medical decision making narrative: X-ray of the left thumb was obtained and shows a possible puncture injury involving the top of the distal phalanx of the thumb. Most likely this is from injury from last year. Her nail appears to be groin in the distal part of the left thumb a causing infection and felon. Distal filling was lanced with an 18 gauge needle and purulent material was able to be expressed. Culture was obtained and is pending. Sharp edges of the distal thumb nail was removed will have him use warm soaks a few times a day over the next couple of days he is also placed on cephalexin to treat infection. Due to tuft injury he is referred Orthopedics for further evaluation and treatment if needed. Discharge Plan Departure Patient Disposition: Home Clinical Impression: Felon of finger of left hand Discharge Date/Time: 10/17/18 20:23 Interventions: ED Discharge Assessment Last Done: 10/17/18 20:22 Instructions: DI for Felon Activity Restrictions/Additional Instructions: X-ray of the left thumb shows puncture injury to the distal left thumb most likely this is due to injury from last year. Signs and symptoms presents as felon which is a infection/collection of pus to the distal thumb area. This pus was removed in the emergency room. Appears that the thumb nail is growing into the distal area of the thumb causing the infection. Small amount of the sharp edges of the distal nail were removed to prevent further complications. Do warm moist soaks to the thumb a few times a day over the next few days. Dress the wound with bacitracin daily. UR placed on antibiotic called Keflex take as directed. Use [id number] Tylenol as needed for any discomfort. Follow up with Orthopedics you may call the number at number provided to schedule follow- up appointment for any worsening symptoms return emergency room. Prescriptions: New cephalexin 500 mg capsule 500 mg PO QID Qty: 28 RF: 0 No Action trazodone 100 MG tablet 100 mg OR QPM Qty: 30 RF: 3 [KYOLIC IMMUNE 103] 1 tab PO BID Qty: 0 RF: 0 levothyroxine 175 mcg tablet 175 mcg PO DAILY RF: 0 fluticasone propion-salmeterol [Advair Diskus] 250-50 mcg/dose blister with device 1 puff Inhalation BID RF: 0 clobetasol 0.05 % cream 1 applic Topical BID RF: 0 chlorthalidone 25 mg tablet 25 mg PO DAILY RF: 0 ondansetron 8 mg tablet,disintegrating 8 mg PO BID-TID PRN (Reason: Nausea) RF: 0 amlodipine 10 mg tablet 10 mg PO QPM RF: 0 ibuprofen 600 mg tablet 600 mg PO QID PRN (Reason: pain) RF: 0 losartan 100 mg tablet 100 mg PO QPM RF: 0 sitagliptin-metformin [Janumet] 50-1,000 mg tablet 1 tab PO BID RF: 0 metformin 500 mg tablet 500 mg PO BID RF: 0 metoprolol succinate 100 mg tablet extended release 24 hr 100 mg PO DAILY RF: 0 polyethylene glycol 3350 17 gram/dose powder 1 dose PO DIRECTED RF: 0 albuterol sulfate [ProAir HFA] 90 mcg/actuation HFA aerosol inhaler 1 puff Inhalation PRN PRN (Reason: Shortness Of Breath) RF: 0 tiotropium bromide [Spiriva with HandiHaler] 18 mcg capsule, w/inhalation device 1 cap Inhalation DAILY RF: 0 oxycodone-acetaminophen [Percocet] 5 MG/325 MG tablet 1 tab PO PRN PRN (Reason: pain) RF: 0 nitroglycerin [Nitrostat] 0.4 mg Tablet, Sublingual 0.4 mg SUBLINGUAL Q5-15M PRN (Reason: Chest Pain) RF: 0 aspirin 81 mg Tablet,Delayed Release (Dr/Ec) 81 mg PO DAILY RF: 0 Thermacare Heatwrap Joint RF: 0 sennosides-docusate sodium [Senna with Docusate Sodium] 8.6 MG/50 MG tablet 10 tab PO DAILY RF: 0 lidocaine 5 % Adhesive Patch,Medicated 1 patch TOPICAL DAILY RF: 0 ascorbic acid (vitamin C) 1,000 mg Tablet 1 g PO BID RF: 0 cholecalciferol (vitamin D3) [Vitamin D3] 400 unit Capsule 400 unit PO QPM RF: 0 C-Ketam 1 applic Topical TID RF: 0 Vitamin B Complex With Probiotics 1 tab PO BID RF: 0 magnesium citrate 500 mg 500 mg PO BID RF: 0 Referrals: Samra Ureña MD [Physician] - Nakia Marcus MD [Primary Care Provider] - <Pancho Pantoja DO - Last Filed: 10/18/18 00:31> Cosign ED Attending Naomi Attestation: I was immediately available in the department for consultation. Documentation has been reviewed. I agree with assessment and plan.
[2018-10-17 20:19] VITALS: BP 166/79; PULSE 96; RESP 15; TEMP 37.1; O2SAT 91
== END 2018-10-17 20:23 | disposition home or self-care (01) ==
PROVIDERS: Emergency Provider Nurse Practitioner Family; Family Provider Internal Medicine; PCP Internal Medicine
DX: L03.012 Cellulitis of left finger (principal)
CPT/HCPCS: 73140; 87070; 87075; 87077; 87147; 87186; 87205; 99282; 99283

== ENCOUNTER 2018-11-29 21:59 | Observation (INO) | payer OTHER, MEDICARE, SELFPAY ==
--- NOTE | 2018-11-29 | DI.RAD.S_ITS ---
PROCEDURE: XR CHEST 1V INDICATIONS: CHEST PAIN TECHNIQUE: One view of the chest was acquired. COMPARISON: [facility], CT, CT ANGIO CHEST PE PROTOCOL, 11/29/2018, 22:43. [facility], CR, CHEST 1 VIEW, 05/13/2017, 20:41. [facility], CR, XR CHEST 1V, 06/11/2018, 16:39. [facility], CR, XR CHEST 1V, 06/11/2018, 17:41. FINDINGS: Surgical changes and devices: Thyroidectomy clips are seen. Lungs and pleura: Lungs are clear. No pleural effusions or pneumothorax. Lungs are hyperexpanded. Mediastinum: The cardiac contours are within normal limits. The aorta demonstrates calcification and tortuosity. Bones and chest wall: No suspicious bony lesions. Age-appropriate bony degenerative changes are seen. Overlying soft tissues appear unremarkable. IMPRESSION: Hyperexpanded lungs, without an acute cardiopulmonary process identified. Dictated by: Quan Rodarte M.D. on 11/30/2018 at 7:45 Approved by: Quan Rodarte M.D. on 11/30/2018 at 7:46
[2018-11-29] MEDS: ALBUTEROL 2.5 MG/3 ML NEB (ADULT) INH (22:13)
[2018-11-29] MEDS: methylPREDNISolone 125 MG/2 ML VIAL IV (22:13)
[2018-11-29 22:14] VITALS: PULSE 97; RESP 26; O2SAT 92
[2018-11-29] MEDS: ALBUTEROL/IPRATROPIUM 3 ML AMPUL INH (22:14)
[2018-11-29 22:19] LABS: Add Manual Diff / Slide Review NO; Basophils Absolute Auto 100 /uL (0-100); Basophils Percent Auto 0.4 % (0-2); Eosinophils Absolute Auto 500 /uL (0-450); Hematocrit 48.1 % (41-53); Hemoglobin 15.6 g/dL (13.5-17.5); Lymphocytes Absolute Auto 2900 /uL (1100-4500); Lymphocytes Percent Auto 24.3 % (25-40); Mean Corpuscular HGB Conc 32.5 % (30-36); Mean Corpuscular Hemoglobin 31.1 PG (26-34); Mean Corpuscular Volume 95.9 fL (80-100); Monocytes Absolute Auto 900 /uL (0-900); Monocytes Percent Auto 7.7 % (3-14); Neutrophils Absolute Auto 7700 /uL (1500-7000); Neutrophils Percent Auto 63.6 % (50-75); Platelet Count 250 X10^3/uL (150-400); Red Blood Cell Count 5.02 X10^6/uL (4.5-5.9); Red Cell Distribution Width 15.5 % (11.6-14.8); White Blood Cell Count 12.1 X10^3/uL (4.5-11.0)
[2018-11-29 22:22] LABS: INR 0.9 (0.9-1.3); Prothrombin Time 10.1 SECONDS (10.1-12.7)
[2018-11-29 22:24] VITALS: PULSE 98; RESP 21; O2SAT 93
[2018-11-29] MEDS: ALBUTEROL 2.5 MG/3 ML NEB (ADULT) 5 MG INH (22:24)
[2018-11-29 22:25] LABS: Alanine Aminotransferase 22 IU/L (21-72); Albumin 4.2 g/dL (3.5-5.0); Albumin Globulin Ratio 1.4 (1.0-2.8); Alkaline Phosphatase 61 U/L (38-126); Aspartate Aminotransferase 23 IU/L (17-59); BUN Creatinine Ratio 13.3 (6-22); Bilirubin Total 0.3 mg/dL (0.2-1.3); Blood Urea Nitrogen 12 mg/dL (9-20); Calcium 8.7 mg/dL (8.4-10.2); Carbon Dioxide 23 mmol/L (22-32); Chloride 94 mmol/L (98-107); Creatine Kinase 144 U/L (55-170); Estimated Glomerular Filt Rate > 60.0 mL/min (>60); Globulin 2.9 g/dL (1.7-4.1); Glucose 141 mg/dL (80-110); HEMOLYSIS < 15 (0-50); PTT Partial Thromboplastin Tim 32 SECONDS (26.4-36.2); Potassium 3.8 mmol/L (3.4-5.1); Sodium 130 mmol/L (137-145); Total Protein 7.1 g/dL (6.3-8.2)
[2018-11-29 22:37] LABS: Troponin I < 0.012 ng/mL (0.01-0.034)
--- NOTE | 2018-11-29 22:38 | ED_ITS ---
HPI - SOB/Dyspnea General Chief Complaint: Shortness of Breath/Dyspnea Stated Complaint: SOB CHEST PAIN Time Seen by Provider: 11/29/18 22:10 Source: patient Mode of arrival: ambulatory Limitations: no limitations History of Present Illness Patient is a 63-year-old male presenting with acute onset shortness of breath. He does smoke cigarettes but no history of COPD he appears in acute distress speaking in only a few word sentences. He cannot get comfortable moving around. He has no chest pain. He was doing well this morning according to family and this suddenly started happening when he could not breathe. He does have an albuterol inhaler that he has been using and it is not helping. He has not had any fever. MD Complaint: shortness of breath Onset (ago): hour(s) Severity: severe Consistency/Duration: constant Relieving factors: nothing Exacerbating factors: nothing Known history of: COPD Associated symptoms: denies other symptoms Treatment prior to arrival: bronchodilator Related Data Home Medications Medication Instructions Recorded Confirmed [KYOLIC IMMUNE 103] 1 tab PO BID #0 05/10/17 11/30/18 C-Ketam 1 applic TOPICAL TID 06/11/18 11/30/18 Thermacare Heatwrap Joint 06/11/18 11/30/18 Vitamin B Complex With Probiotics 1 tab PO BID 06/11/18 11/30/18 albuterol sulfate [ProAir HFA] 1 puff INHALATION PRN PRN 06/11/18 11/30/18 amlodipine 10 mg PO QPM 06/11/18 11/30/18 ascorbic acid (vitamin C) 1 g PO BID 06/11/18 11/30/18 aspirin 81 mg PO DAILY 06/11/18 11/30/18 chlorthalidone 25 mg PO DAILY 06/11/18 11/30/18 cholecalciferol (vitamin D3) 400 unit PO QPM 06/11/18 11/30/18 [Vitamin D3] clobetasol 1 applic TOPICAL BID 06/11/18 11/30/18 fluticasone propion-salmeterol 1 puff INHALATION BID 06/11/18 11/30/18 [Advair Diskus] levothyroxine 175 mcg PO DAILY 06/11/18 11/30/18 lidocaine 1 patch TOPICAL DAILY 06/11/18 11/30/18 losartan 100 mg PO QPM 06/11/18 11/30/18 magnesium citrate 500 mg PO BID 06/11/18 11/30/18 metformin 500 mg PO BID 06/11/18 11/30/18 nitroglycerin [Nitrostat] 0.4 mg SUBLINGUAL Q5-15M PRN 06/11/18 11/30/18 sennosides-docusate sodium [Senna 10 tab PO DAILY 06/11/18 11/30/18 with Docusate Sodium] tiotropium bromide [Spiriva with 1 cap INHALATION DAILY 06/11/18 11/30/18 HandiHaler] Previous Rx's Medication Instructions Recorded trazodone 100 mg OR QPM #30 tab 09/28/16 Allergies Allergy/AdvReac Type Severity Reaction Status Date / Time doxazosin [DOXAZOSIN] Allergy Severe swelling Unverified 06/11/18 16:20 varenicline [From CHANTIX] Allergy Mild aggitation Unverified 06/11/18 16:20 lisinopril [LISINOPRIL] Allergy Unknown COUGH Unverified 06/11/18 16:20 morphine Allergy Unknown GOES Unverified 06/11/18 16:20 CRAZY atorvastatin [ATORVASTATIN] AdvReac Unknown MUSCLE ACHE Unverified 06/11/18 16:20 carvedilol [CARVEDILOL] AdvReac Unknown DIZZINESS Unverified 06/11/18 16:20 CHOLESTEROL MEDS Allergy Unknown Uncoded 06/11/18 16:20 Review of Systems Review of Systems ROS Unobtainable: All systems reviewed & are unremarkable except as noted in HPI and below Constitutional Denies chills, Denies fever(s), Denies lethargy and Denies weakness Eyes Denies change in vision, Denies eye discharge, Denies irritation and Denies loss of vision ENT Ears, Nose, Mouth, and Throat: Denies change in voice, Denies neck pain and Denies sore throat Respiratory Reports as per HPI Gastrointestinal Gastrointestinal: Denies abdominal pain, Denies change in bowel habits, Denies diarrhea, Denies nausea and Denies vomiting Genitourinary Denies hematuria, Denies flank pain, Denies urinary incontinence and Denies urinary urgency Musculoskeletal Denies neck pain Integumentary/Breasts Denies pruritus, Denies erythema, Denies rash and Denies wounds Neurologic Denies loss of vision and Denies weakness PFS Medical History Hypothyroidism (Acute) HTN (hypertension) (Acute) Surgical History S/P hernia repair (Acute) Social History household members: spouse Smoking Status: Current some day smoker Social History household members: spouse Smoking Status: Current some day smoker Exam Initial Vital Signs Initial Vital Signs: Vital Signs Pulse Rate 97 H 11/29/18 22:14 Respiratory Rate 26 H 11/29/18 22:14 Pulse Oximetry 92 11/29/18 22:14 Gen.: Acutely ill male in distress HEENT: Head is atraumatic, EOMI Neck: Supple no JVD Lungs: Decreased breath sounds bilaterally no wheezing no rales is speaking in 1 to two-word sentences Cardiac: Regular rate and rhythm no murmur Abdomen: Soft nontender nondistended Extremities: Moving all extremities peripheral pulses intact no edema 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 Skin: Warm and dry no erythema Course Orders Ordered: ED Orders 11/29/18 22:05 B Type Natriuretic Peptide Stat Complete Blood Count AUTO DIFF Stat Comprehensive Metabolic Panel Stat Magnesium Stat Partial Thromboplastin Time Stat Prothrombin Time INR Stat Troponin & CK Cardiac Panel Stat 11/29/18 22:10 Consult to Respiratory Therapy Evaluate & Treat EKG-12 Lead Stat 11/29/18 22:40 CT angio chest PE protocol Stat 11/29/18 22:48 Urinalysis and Microscopic Stat 11/30/18 Basic Metabolic Panel Routine Complete Blood Count AUTO DIFF Routine EKG-12 Lead Routine 11/30/18 01:01 Procalcitonin Stat 11/30/18 02:56 Respiratory Panel (Film Array) Stat 11/30/18 03:34 Consult to Discharge Planning Routine Acetaminophen (Tylenol) 650 mg PO Q6HR PRN PRN Reason: As Needed for Fever/Mild Pain Al Hydrox/Mg Hydrox/Simethicone (Maalox Plus) 30 ml PO Q6HR PRN PRN Reason: Dyspepsia Bisacodyl (Dulcolax) 10 mg PO DAILY PRN PRN Reason: Constipation Calcium Carbonate (Tums) 1,000 mg PO Q4HR PRN PRN Reason: Dyspepsia Docusate Sodium (Colace) 100 mg PO BID PRN PRN Reason: Constipation Enoxaparin Sodium (Lovenox) 40 mg SUBCUT DAILY NAVARRO Methylprednisolone (Solu-Medrol 125 Mg Vial) 60 mg IV Q12H NAVARRO Ondansetron HCl (Zofran) 4 mg IV Q8HR PRN PRN Reason: Nausea And Vomiting Discontinued Medications Albuterol (Ventolin) 2.5 mg INH NOW ONE Stop: 11/29/18 22:11 Last Admin: 11/29/18 22:13 Dose: 2.5 mg Albuterol (Ventolin) 5 mg INH NOW ONE Stop: 11/29/18 22:11 Last Admin: 11/29/18 22:24 Dose: 5 mg Albuterol/Ipratropium (Duoneb) 3 ml INH NOW ONE Stop: 11/29/18 22:11 Last Admin: 11/29/18 22:16 Dose: Not Given Albuterol/Ipratropium (Duoneb) 3 ml INH NOW ONE Stop: 11/29/18 22:11 Last Admin: 11/29/18 22:14 Dose: 3 ml Lorazepam (Ativan) 0.5 mg IV NOW ONE Stop: 11/29/18 22:42 Last Admin: 11/29/18 22:56 Dose: 0.5 mg Methylprednisolone (Solu-Medrol 125 Mg Vial) 125 mg IV NOW ONE Stop: 11/29/18 22:11 Last Admin: 11/29/18 22:13 Dose: 125 mg Vital Signs - 8 hr 11/29/18 23:08 11/30/18 00:39 11/30/18 01:18 Temperature 97.3 F L Pulse Rate 102 H 94 H 96 H Respiratory Rate 25 H 15 15 Blood Pressure 157/54 H Blood Pressure [Left Arm] 169/59 H 153/61 H Pulse Oximetry 93 88 L 88 L 11/30/18 01:30 11/30/18 02:21 11/30/18 04:26 Temperature 97.8 F 98.2 F Pulse Rate 94 H 90 Respiratory Rate 18 18 Blood Pressure 143/66 H 146/74 H Blood Pressure [Left Arm] Pulse Oximetry 95 MDM - SOB/Dyspnea Lab Data Attestation: I reviewed the patient's lab results. Result diagrams: 11/29/18 22:05 11/29/18 22:05 Lab Results 11/29/18 11/29/18 11/29/18 Range/Units 22:05 22:05 22:05 WBC 12.1 H (4.5-11.0) X10^3/uL RBC 5.02 (4.5-5.9) X10^6/uL Hgb 15.6 (13.5-17.5) g/dL Hct 48.1 (41-53) % MCV 95.9 (80-100) fL MCH 31.1 (26-34) PG MCHC 32.5 (30-36) % RDW 15.5 H (11.6-14.8) % Plt Count 250 (150-400) X10^3/uL Neut % (Auto) 63.6 (50-75) % Lymph % (Auto) 24.3 L (25-40) % Ford % (Auto) 7.7 (3-14) % Eos % (Auto) 4.0 (2-4) % Baso % (Auto) 0.4 (0-2) % Neut # (Auto) 7700 H (8547-3706) /uL Lymph # (Auto) 2900 (8676-0188) /uL Ford # (Auto) 900 (0-900) /uL Eos # (Auto) 500 H (0-450) /uL Baso # (Auto) 100 (0-100) /uL PT 10.1 (10.1-12.7) SECONDS INR 0.9 (0.9-1.3) APTT 32 D (26.4-36.2) SECONDS Sodium 130 L (137-145) mmol/L Potassium 3.8 (3.4-5.1) mmol/L Chloride 94 L (98-107) mmol/L Carbon Dioxide 23 (22-32) mmol/L BUN 12 (9-20) mg/dL Creatinine 0.90 (0.66-1.25) mg/dL Estimated GFR > 60.0 (>60) mL/min BUN/Creatinine Ratio 13.3 (6-22) Glucose 141 H (80-110) mg/dL Calcium 8.7 (8.4-10.2) mg/dL Magnesium 2.0 (1.6-2.3) mg/dL Total Bilirubin 0.3 (0.2-1.3) mg/dL AST 23 (17-59) IU/L ALT 22 (21-72) IU/L Alkaline Phosphatase 61 (38-126) U/L Total Creatine Kinase 144 (55-170) U/L CK-MB (CK-2) 2.37 (<2.37) ng/mL CK-MB (CK-2) Rel Index 1.6 (1.5-5.0) % Troponin I < 0.012 (0.01-0.034) ng/mL B-Natriuretic Peptide < 100 (<100) Total Protein 7.1 (6.3-8.2) g/dL Albumin 4.2 (3.5-5.0) g/dL Globulin 2.9 (1.7-4.1) g/dL Albumin/Globulin Ratio 1.4 (1.0-2.8) Procalcitonin (<0.5) ng/mL Urine Color Urine Appearance Urine pH (4.5-8.0) Ur Specific [place] (1.000-1.035) Urine Protein (Negative) Urine Glucose (UA) (Negative) g/dL Urine Ketones (NEGATIVE) Urine Occult Blood (Negative) Urine Nitrate (Negative) Urine Bilirubin (NEGATIVE) Urine Urobilinogen (0.2) E.U./dL Ur Leukocyte Esterase (NEGATIVE) Urine RBC (0-5/HPF) Urine WBC (0-5/HPF) Urine Bacteria (None) Ur Culture Indicated? Micro UA Comment Chlamy pneumoniae PCR (Not Detect) Adenovirus (PCR) (Not Detect) B.parapertussis DNA PCR (Not Detect) Coronavirus OC43 (PCR) (Not Detect) Coronavirus HKU1 (PCR) (Not Detect) Coronavirus 229E (PCR) (Not Detect) Coronavirus NL63 (PCR) (Not Detect) Human Metapneumovir PCR (Not Detect) Influenza Type A (PCR) (Not Detect) Influenza Type B (PCR) (Not Detect) M. pneumoniae (PCR) (Not Detect) Parainfluenza 1 (PCR) (Not Detect) Parainfluenza 2 (PCR) (Not Detect) Parainfluenza 3 (PCR) (Not Detect) Parainfluenza 4 (PCR) (Not Detect) RSV (PCR) (Not Detect) Entero/Rhino (PCR) (Not Detect) 11/29/18 11/30/18 11/30/18 Range/Units 22:48 01:01 02:56 WBC (4.5-11.0) X10^3/uL RBC (4.5-5.9) X10^6/uL Hgb (13.5-17.5) g/dL Hct (41-53) % MCV (80-100) fL MCH (26-34) PG MCHC (30-36) % RDW (11.6-14.8) % Plt Count (150-400) X10^3/uL Neut % (Auto) (50-75) % Lymph % (Auto) (25-40) % Ford % (Auto) (3-14) % Eos % (Auto) (2-4) % Baso % (Auto) (0-2) % Neut # (Auto) (0324-1455) /uL Lymph # (Auto) (1871-4997) /uL Ford # (Auto) (0-900) /uL Eos # (Auto) (0-450) /uL Baso # (Auto) (0-100) /uL PT (10.1-12.7) SECONDS INR (0.9-1.3) APTT (26.4-36.2) SECONDS Sodium (137-145) mmol/L Potassium (3.4-5.1) mmol/L Chloride (98-107) mmol/L Carbon Dioxide (22-32) mmol/L BUN (9-20) mg/dL Creatinine (0.66-1.25) mg/dL Estimated GFR (>60) mL/min BUN/Creatinine Ratio (6-22) Glucose (80-110) mg/dL Calcium (8.4-10.2) mg/dL Magnesium (1.6-2.3) mg/dL Total Bilirubin (0.2-1.3) mg/dL AST (17-59) IU/L ALT (21-72) IU/L Alkaline Phosphatase (38-126) U/L Total Creatine Kinase (55-170) U/L CK-MB (CK-2) (<2.37) ng/mL CK-MB (CK-2) Rel Index (1.5-5.0) % Troponin I (0.01-0.034) ng/mL B-Natriuretic Peptide (<100) Total Protein (6.3-8.2) g/dL Albumin (3.5-5.0) g/dL Globulin (1.7-4.1) g/dL Albumin/Globulin Ratio (1.0-2.8) Procalcitonin < 0.05 (<0.5) ng/mL Urine Color Yellow Urine Appearance Clear Urine pH 6.5 (4.5-8.0) Ur Specific [place] 1.020 (1.000-1.035) Urine Protein 2+ H (Negative) Urine Glucose (UA) Negative (Negative) g/dL Urine Ketones Negative (NEGATIVE) Urine Occult Blood Negative (Negative) Urine Nitrate Negative (Negative) Urine Bilirubin Negative (NEGATIVE) Urine Urobilinogen 0.2 (0.2) E.U./dL Ur Leukocyte Esterase Negative (NEGATIVE) Urine RBC None seen (0-5/HPF) Urine WBC None seen (0-5/HPF) Urine Bacteria None seen (None) Ur Culture Indicated? Cult not indicated Micro UA Comment Microscopic normal Chlamy pneumoniae PCR Not detected (Not Detect) Adenovirus (PCR) Not detected (Not Detect) B.parapertussis DNA PCR Not detected (Not Detect) Coronavirus OC43 (PCR) Not detected (Not Detect) Coronavirus HKU1 (PCR) Not detected (Not Detect) Coronavirus 229E (PCR) Not detected (Not Detect) Coronavirus NL63 (PCR) Not detected (Not Detect) Human Metapneumovir PCR Not detected (Not Detect) Influenza Type A (PCR) Not detected (Not Detect) Influenza Type B (PCR) Not detected (Not Detect) M. 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 Sinus rhythm rate [address] changes EKG 3. Normal sinus rhythm no changes rate 93 MDM Narrative Medical decision making narrative: Patient overall is feeling much better after multiple bronchodilators. He also was having some anxiety and got Ativan prior to his CT which he says seems to help the most. However patient does actually remain hypoxic. Patient will be admitted for COPD exacerbation. Discharge Plan Departure Patient Disposition: Admitted As Inpatient Clinical Impression: COPD exacerbation, Acute respiratory failure with hypoxia Discharge Date/Time: 11/30/18 01:18 Interventions: ED Discharge Assessment Last Done: 11/30/18 01:18 Admit Date/Time: 11/30/18 01:09 Admit Provider: Julio Luciano
--- NOTE | 2018-11-29 22:40 | DI.CT.S_ITS ---
PROCEDURE: CT ANGIO CHEST PE PROTOCOL INDICATIONS: hypoxia TECHNIQUE: After the administration of intravenous contrast, 2 mm thick sections acquired from the pulmonary apices to the posterior costophrenic angles. 3-dimensional maximum intensity projection (MIP) coronal and sagittal reformats were then acquired through the thorax. For radiation dose reduction, the following was used: automated exposure control, adjustment of mA and/or kV according to patient size. COMPARISON: [facility], CT, CT ABDOMEN PELVIS W CON, 06/11/2018, 16:32. [facility], CT, PE STUDY (CTA CHEST), 05/13/2017, 22:38. [facility], CR, XR CHEST 1V, 11/29/2018, 22:04. [facility], CT, PE STUDY (CTA CHEST), 01/21/2014, 9:55. FINDINGS: Image quality: There is streak artifact through the upper abdomen. Pulmonary arteries: Pulmonary arteries are normal in size, and demonstrate no intraluminal filling defects to suggest central pulmonary embolism. Lungs and pleura: Centrilobular emphysematous changes are seen. These are more prominent at the lung apices than at the lung bases. No pleural effusions or pneumothorax. Central and peripheral airways are patent. Mediastinum: Heart size is normal, without pericardial effusion. No mediastinal or hilar adenopathy. Thoracic aorta is normal in caliber and enhancement. Atherosclerotic calcification is seen, in and coronal artery calcification. Esophagus is normal in caliber. There is a small hiatal hernia. Bones and chest wall: No suspicious bony lesions. Ribs and thoracic spine appear intact throughout. Thyroid gland has been removed. No axillary or supraclavicular adenopathy. Lumbar spine fixation hardware is partially seen. Abdomen: Visualized upper abdominal solid organs appear normal in the early arterial phase of enhancement. IMPRESSION: Negative for pulmonary embolism. Emphysematous changes are seen. Incidental note is made of: Thyroidectomy Small hiatal hernia Atherosclerotic calcification, including coronary calcification Lumbar spine fixation hardware Note: No significant discrepancy from the preliminary report. Dictated by: Quan Rodarte M.D. on 11/30/2018 at 6:58 Approved by: Quan Rodarte M.D. on 11/30/2018 at 7:01
[2018-11-29 22:42] LABS: B Type Natriuretic Peptide < 100 (<100)
[2018-11-29] MEDS: LORazepam 2 MG/ML SYRINGE 0.5 MG IV (22:56)
[2018-11-29 22:58] LABS: Bacteria Urine None Seen; RBC Urine None Seen (0-5/HPF); WBC Urine None Seen (0-5/HPF)
[2018-11-29 22:59] LABS: Appearance Urine UA CLEAR; Bilirubin Urine UA NEGATIVE (NEGATIVE); Color Urine UA YELLOW; Glucose Urine UA NEGATIVE (Negative); Ketones Urine UA NEGATIVE (NEGATIVE); Leukocyte Esterase Urine UA NEGATIVE (NEGATIVE); Nitrite Urine UA NEGATIVE (Negative); Occult Blood Urine UA NEGATIVE (Negative); Protein Urine UA 2+ (Negative); Urobilinogen Urine UA 0.2 E.U./dL (0.2); pH Urine UA 6.5 (4.5-8.0)
[2018-11-29 23:06] LABS: Culture Indicated Urine Cult Not Indicated; Urine Comments Microscopic Normal
[2018-11-29 23:08] VITALS: BP 169/59; PULSE 102; RESP 25; TEMP 36.3; O2SAT 93
[2018-11-29 23:39] LABS: CKMB % Relative Index 1.6 % (1.5-5.0); Creatine Kinase MB 2.37 ng/mL (<2.37)
[2018-11-30] VITALS (20 sets, daily range): BP systolic 143–169; BP diastolic 54–91; PULSE 78–97; RESP 15–20; TEMP 36.4–37.4; O2SAT 88–98; BMI 22.6
[2018-11-30 01:33] LABS: Procalcitonin < 0.05 ng/mL (<0.5)
[2018-11-30 04:24] LABS: Adenovirus Not Detected (Not Detect); Bordetella pertussis Not Detected (Not Detect); Chlamydophila pneumoniae Not Detected (Not Detect); Coronavirus 229E Not Detected (Not Detect); Coronavirus HKU1 Not Detected (Not Detect); Coronavirus NL 63 Not Detected (Not Detect); Coronavirus OC43 Not Detected (Not Detect); Human Metapneumovirus Not Detected (Not Detect); Human Rhinovirus/Enterovirus Not Detected (Not Detect); Influenza A Not Detected (Not Detect); Influenza B Not Detected (Not Detect); Mycoplasma pneumoniae Not Detected (Not Detect); Parainfluenza Virus 1 Not Detected (Not Detect); Parainfluenza Virus 2 Not Detected (Not Detect); Parainfluenza Virus 3 Not Detected (Not Detect); Parainfluenza Virus 4 Not Detected (Not Detect); Respiratory Syncytial Virus Not Detected (Not Detect)
[2018-11-30 06:37] LABS: Add Manual Diff / Slide Review NO; Basophils Absolute Auto 0 /uL (0-100); Basophils Percent Auto 0.1 % (0-2); Eosinophils Absolute Auto 0 /uL (0-450); Eosinophils Percent Auto 0.1 % (2-4); Hematocrit 45.7 % (41-53); Hemoglobin 15.2 g/dL (13.5-17.5); Lymphocytes Absolute Auto 500 /uL (1100-4500); Lymphocytes Percent Auto 3.9 % (25-40); Mean Corpuscular HGB Conc 33.2 % (30-36); Mean Corpuscular Hemoglobin 31.6 PG (26-34); Mean Corpuscular Volume 95.3 fL (80-100); Monocytes Absolute Auto 100 /uL (0-900); Monocytes Percent Auto 0.6 % (3-14); Neutrophils Absolute Auto 11800 /uL (1500-7000); Neutrophils Percent Auto 95.3 % (50-75); Platelet Count 217 X10^3/uL (150-400); Red Cell Distribution Width 14.9 % (11.6-14.8); White Blood Cell Count 12.4 X10^3/uL (4.5-11.0)
--- NOTE | 2018-11-30 06:47 | P.HP_ITS ---
History of Present Illness Date Patient Seen: 11/30/18 Time Patient Seen: 03:00 Chief complaint: SOB CHEST PAIN Narrative: Thang Jimenes is a 63-year-old male patient with history significant for hypertension, COPD, diabetes, hypothyroidism, hyperlipidemia and chronic low back pain who presents to the ER with an acute exacerbation of shortness of breath. The patient describes an acute onset shortness of breath today to the point where he describes chest be coming very tight with associated symptoms being ?very scary? and he was panicky with diaphoresis. He has had 1 other episode similar to this in intensity. He uses inhalers Spiriva and Advair and albuterol routinely and did 3 albuterol nebulizer treatments prior to presenting to the ER for treatment. He has had a positive intermittent cough that has been nonproductive. He describes a sensitivity to chemicals and smells that will cause him to become acutely dyspneic. He has a history of COPD and is on nocturnal oxygen 2 liters/minute at home. He reports no prodromal symptoms but states he has shortness of breath off and on and use a mask frequently. Reports no recent fevers or chills, nasal congestion or sore throat. He denies chest pain or palpitations and has had no abdominal pain nausea vomiting, diarrhea or constipation. He reports no difficulty urinating Upon arrival in the ER patient had an ABG completed which showed pH of 7.39, pCO2 32.4, PO2 62, bicarb of 19.6, base excess of-5.0. He had a mild elevation in his white blood cell count of 12.1 with a hemoglobin of 15.6 and hematocrit 48.1. He had a D-dimer of 702.0 and a negative troponin 0.012 and a BNP of less than 100. His chemistries are unremarkable. He had a CT angio that revealed no PE and his chest x-ray shows no pneumonia or infiltrates. He received 2 albuterol and 2 duo nebs 1 with Solu-Medrol 125 mg IV. The patient is admitted for COPD exacerbation. Patient History Medical History (Updated 11/30/18 @ 06:57 by RENATA Navarro) Hypothyroidism (Acute) HTN (hypertension) (Acute) COPD (chronic obstructive pulmonary disease) (Acute) Chronic low back pain (Acute) Diabetes (Acute) Hyperlipidemia (Acute) Surgical History (Updated 11/30/18 @ 06:57 by RENATA Navarro) S/P hernia repair (Acute) History of back surgery (Acute) History of eye surgery (Acute) Social History household members: spouse Smoking Status: Current some day smoker Family & Social History Social History: household members spouse Prior Living Arrangements House Safety & Behavioral: Feels Safe in Current Yes Environment Been Physically Hurt or No Threatened By a Person Suicidal Ideation Description None Suicide Plan Description No Plan Tobacco & Substance use: Tobacco type cigarettes Smoking Status Current some day smoker alcohol intake frequency a few times a week Substance Use Type does not use Comment: Patient lives in a single family home with his to whom he has been for 30 years. His parents are both with his father passing away from heart disease and his mother from stroke and COPD. He has no siblings has 2 daughters both in good health. Smoking: Patient smokes 1 pack per day on and off since age 20. He quit in 2013. Alcohol: Patient states he will consume occasional Substance use: Patient denies recreation pharmaceuticals herbal cannabis products Meds Home Medications Medication Instructions Recorded Confirmed Type trazodone 100 mg OR QPM #30 tab 09/28/16 11/30/18 Rx [KYOLIC IMMUNE 103] 1 tab PO BID #0 05/10/17 11/30/18 History C-Ketam 1 applic TOPICAL TID 06/11/18 11/30/18 History Thermacare Heatwrap Joint 06/11/18 11/30/18 History Vitamin B Complex With Probiotics 1 tab PO BID 06/11/18 11/30/18 History albuterol sulfate [ProAir HFA] 1 puff INHALATION PRN PRN 06/11/18 11/30/18 History amlodipine 10 mg PO QPM 06/11/18 11/30/18 History ascorbic acid (vitamin C) 1 g PO BID 06/11/18 11/30/18 History aspirin 81 mg PO DAILY 06/11/18 11/30/18 History chlorthalidone 25 mg PO DAILY 06/11/18 11/30/18 History cholecalciferol (vitamin D3) 400 unit PO QPM 06/11/18 11/30/18 History [Vitamin D3] clobetasol 1 applic TOPICAL BID 06/11/18 11/30/18 History fluticasone propion-salmeterol 1 puff INHALATION BID 06/11/18 11/30/18 History [Advair Diskus] levothyroxine 175 mcg PO DAILY 06/11/18 11/30/18 History lidocaine 1 patch TOPICAL DAILY 06/11/18 11/30/18 History losartan 100 mg PO QPM 06/11/18 11/30/18 History magnesium citrate 500 mg PO BID 06/11/18 11/30/18 History metformin 500 mg PO BID 06/11/18 11/30/18 History nitroglycerin [Nitrostat] 0.4 mg SUBLINGUAL Q5-15M PRN 06/11/18 11/30/18 History sennosides-docusate sodium [Senna 10 tab PO DAILY 06/11/18 11/30/18 History with Docusate Sodium] tiotropium bromide [Spiriva with 1 cap INHALATION DAILY 06/11/18 11/30/18 History HandiHaler] Allergies Allergy/AdvReac Type Severity Reaction Status Date / Time doxazosin [DOXAZOSIN] Allergy Severe swelling Unverified 06/11/18 16:20 varenicline [From CHANTIX] Allergy Mild aggitation Unverified 06/11/18 16:20 lisinopril [LISINOPRIL] Allergy Unknown COUGH Unverified 06/11/18 16:20 morphine Allergy Unknown GOES Unverified 06/11/18 16:20 CRAZY atorvastatin [ATORVASTATIN] AdvReac Unknown MUSCLE ACHE Unverified 06/11/18 16:20 carvedilol [CARVEDILOL] AdvReac Unknown DIZZINESS Unverified 06/11/18 16:20 CHOLESTEROL MEDS Allergy Unknown Uncoded 06/11/18 16:20 Review of Systems Review of Systems All systems reviewed & are unremarkable except as noted in HPI and below Exam Vital Signs (past 8 hours): - 11/29/18 23:08 11/30/18 00:39 11/30/18 01:18 Temperature 97.3 F L Pulse Rate 102 H 94 H 96 H Respiratory Rate 25 H 15 15 Blood Pressure 157/54 H Blood Pressure [Left Arm] 169/59 H 153/61 H Pulse Oximetry 93 88 L 88 L 11/30/18 01:30 11/30/18 02:21 11/30/18 04:26 Temperature 97.8 F 98.2 F Pulse Rate 94 H 90 Respiratory Rate 18 18 Blood Pressure 143/66 H 146/74 H Blood Pressure [Left Arm] Pulse Oximetry 95 Oxygen Delivery Method Nasal Cannula Oxygen Flow Rate 3 Narrative Exam Narrative: GENERAL APPEARANCE: well developed, well nourished, in no acute distress. HEAD: Normocephalic, atraumatic, no scalp lesions. EYES: pupils equal, round, reactive to light and accommodation, sclera non- icteric, extraocular movement intact . EARS: normal external structures, no ear pain NOSE: sinuses non tender to percussion, no rhinorrhea ORAL CAVITY: mucosa moist without lesions or exudate, palate normal, tongue in midline. THROAT: normal, no erythema, no exudate, pharynx normal, uvula midline. NECK/THYROID: neck supple, no jugular venous distention, no carotid bruit, no thyromegaly, trachea midline. LYMPH NODES: no cervical or supraclavicular lymphadenopathy. SKIN: warm and dry, no suspicious lesions, no rashes, good turgor. HEART: regular rate and rhythm, S1-S2 without murmur, no rubs or gallops, brisk capillary refill, no edema LUNGS: Breath sounds diminished on auscultation bilaterally, no coarseness crackles or wheezing, no cough present CHEST: Symmetrical movement, no accessory muscle use, no pain to AP and lateral compression. ABDOMEN: Soft, no distention, no epigastric or abdominal tenderness on palpation, no guarding or peritoneal signs, no organomegaly, no flank or suprapubic tenderness, active bowel tones. BACK: Surgical scar with flattening lumbar lordosis, nontender to palpation EXTREMITIES: moves all extremities, strength is 5/5 and symmetrical, well perfused. NEUROLOGIC: AAO x4, no focal neurologic deficits, cranial nerves II-XII grossly intact , motor strength normal upper and lower extremities, sensory exam intact to light touch, hearing grossly normal to speech. PSYCH: alert, cognitive function intact, good eye contact, stable mood with c ongruent affect Objective Labs Result Diagrams: 11/30/18 06:30 11/30/18 06:30 Labs: Laboratory Results - last 24 hr 11/29/18 11/29/18 11/29/18 22:05 22:05 22:05 WBC 12.1 H RBC 5.02 Hgb 15.6 Hct 48.1 MCV 95.9 MCH 31.1 MCHC 32.5 RDW 15.5 H Plt Count 250 Neut % (Auto) 63.6 Lymph % (Auto) 24.3 L [place] % (Auto) 7.7 Eos % (Auto) 4.0 Baso % (Auto) 0.4 Neut # (Auto) 7700 H Lymph # (Auto) 2900 [place] # (Auto) 900 Eos # (Auto) 500 H Baso # (Auto) 100 PT 10.1 INR 0.9 APTT 32 D Sodium 130 L Potassium 3.8 Chloride 94 L Carbon Dioxide 23 BUN 12 Creatinine 0.90 Estimated GFR > 60.0 BUN/Creatinine Ratio 13.3 Glucose 141 H Calcium 8.7 Magnesium 2.0 Total Bilirubin 0.3 AST 23 ALT 22 Alkaline Phosphatase 61 Total Creatine Kinase 144 CK-MB (CK-2) 2.37 CK-MB (CK-2) Rel Index 1.6 Troponin I < 0.012 B-Natriuretic Peptide < 100 Total Protein 7.1 Albumin 4.2 Globulin 2.9 Albumin/Globulin Ratio 1.4 Procalcitonin Urine Color Urine Appearance Urine pH Ur Specific [place] Urine Protein Urine Glucose (UA) Urine Ketones Urine Occult Blood Urine Nitrate Urine Bilirubin Urine Urobilinogen Ur Leukocyte Esterase Urine RBC Urine WBC Urine Bacteria Ur Culture Indicated? Micro UA Comment Chlamy pneumoniae PCR Adenovirus (PCR) B.parapertussis DNA PCR Coronavirus OC43 (PCR) Coronavirus HKU1 (PCR) Coronavirus 229E (PCR) Coronavirus NL63 (PCR) Human Metapneumovir PCR Influenza Type A (PCR) Influenza Type B (PCR) M. pneumoniae (PCR) Parainfluenza 1 (PCR) Parainfluenza 2 (PCR) Parainfluenza 3 (PCR) Parainfluenza 4 (PCR) RSV (PCR) Entero/Rhino (PCR) 11/29/18 11/30/18 11/30/18 22:48 01:01 02:56 WBC RBC Hgb Hct MCV MCH MCHC RDW Plt Count Neut % (Auto) Lymph % (Auto) [place] % (Auto) Eos % (Auto) Baso % (Auto) Neut # (Auto) Lymph # (Auto) [place] # (Auto) Eos # (Auto) Baso # (Auto) PT INR APTT Sodium Potassium Chloride Carbon Dioxide BUN Creatinine Estimated GFR BUN/Creatinine Ratio Glucose Calcium Magnesium Total Bilirubin AST ALT Alkaline Phosphatase Total Creatine Kinase CK-MB (CK-2) CK-MB (CK-2) Rel Index Troponin I B-Natriuretic Peptide Total Protein Albumin Globulin Albumin/Globulin Ratio Procalcitonin < 0.05 Urine Color Yellow Urine Appearance Clear Urine pH 6.5 Ur Specific [place] 1.020 Urine Protein 2+ H Urine Glucose (UA) Negative Urine Ketones Negative Urine Occult Blood Negative Urine Nitrate Negative Urine Bilirubin Negative Urine Urobilinogen 0.2 Ur Leukocyte Esterase Negative Urine RBC None seen Urine WBC None seen Urine Bacteria None seen Ur Culture Indicated? Cult not indicated Micro UA Comment Microscopic normal Chlamy pneumoniae PCR Not detected Adenovirus (PCR) Not detected B.parapertussis DNA PCR Not detected Coronavirus OC43 (PCR) Not detected Coronavirus HKU1 (PCR) Not detected Coronavirus 229E (PCR) Not detected Coronavirus NL63 (PCR) Not detected Human Metapneumovir PCR Not detected Influenza Type A (PCR) Not detected Influenza Type B (PCR) Not detected M. pneumoniae (PCR) Not detected Parainfluenza 1 (PCR) Not detected Parainfluenza 2 (PCR) Not detected Parainfluenza 3 (PCR) Not detected Parainfluenza 4 (PCR) Not detected RSV (PCR) Not detected Entero/Rhino (PCR) Not detected 11/30/18 06:30 WBC 12.4 H RBC 4.80 Hgb 15.2 Hct 45.7 MCV 95.3 MCH 31.6 MCHC 33.2 RDW 14.9 H Plt Count 217 Neut % (Auto) 95.3 H D Lymph % (Auto) 3.9 L D [place] % (Auto) 0.6 L Eos % (Auto) 0.1 L Baso % (Auto) 0.1 Neut # (Auto) 74636 H Lymph # (Auto) 500 L [place] # (Auto) 100 Eos # (Auto) 0 Baso # (Auto) 0 PT INR APTT Sodium Potassium Chloride Carbon Dioxide BUN Creatinine Estimated GFR BUN/Creatinine Ratio Glucose Calcium Magnesium Total Bilirubin AST ALT Alkaline Phosphatase Total Creatine Kinase CK-MB (CK-2) CK-MB (CK-2) Rel Index Troponin I B-Natriuretic Peptide Total Protein Albumin Globulin Albumin/Globulin Ratio Procalcitonin Urine Color Urine Appearance Urine pH Ur Specific [place] Urine Protein Urine Glucose (UA) Urine Ketones Urine Occult Blood Urine Nitrate Urine Bilirubin Urine Urobilinogen Ur Leukocyte Esterase Urine RBC Urine WBC Urine Bacteria Ur Culture Indicated? Micro UA Comment Chlamy pneumoniae PCR Adenovirus (PCR) B.parapertussis DNA PCR Coronavirus OC43 (PCR) Coronavirus HKU1 (PCR) Coronavirus 229E (PCR) Coronavirus NL63 (PCR) Human Metapneumovir PCR Influenza Type A (PCR) Influenza Type B (PCR) M. pneumoniae (PCR) Parainfluenza 1 (PCR) Parainfluenza 2 (PCR) Parainfluenza 3 (PCR) Parainfluenza 4 (PCR) RSV (PCR) Entero/Rhino (PCR) Assessment & Plan Assessment & Plan narrative: This is a 63-year-old male patient who was admitted to the hospital with exacerbation of COPD and acute respiratory failure. 1. Acute respiratory failure -sudden onset of symptoms today with no identifiable trigger. Patient has self- treated with albuterol nebulizers 3 times prior to presenting for treatment at the ER -upon arrival in the ER the patient was acutely dyspneic and panicking. Patient complains of chest tightness but no chest pain. -ABG results pCO2 of 7.39, pCO2 of 32.4 PO2 of 60 with a bicarb 19.6 and base excess of -5. 2. Chronic obstructive pulmonary disease, acute on chronic -patient with dyspnea on and off that is chronic in nature, history of COPD with nocturnal oxygen at 2 liters/minute. -patient using Spiriva, Advair and albuterol inhalers at home -patient improved with DuoNeb and albuterol nebulizer treatments. -will continue DuoNeb every 6 hours as needed and albuterol nebulizer treatments every 2 hours as needed. -received Solu-Medrol 125 mg in the ER will continue Solu-Medrol 60 mg twice daily 3. Hypertension, chronic -patient with blood pressure 169/59 on arrival in the ER decreasing into the 140s following treatment -patient denies chest pain or headache. -will continue home medications of amlodipine 10 mg daily chlorthalidone 25 mg daily and losartan 100 mg daily. 4. Diabetes, chronic, presumed stable -patient denies hyper or hypoglycemic symptoms and has been taking metformin 500 mg twice daily. -glucose in the ER on admission was 141 -fingerstick blood sugar checks a.c. and HS -correctional insulin low-dose range 5. Hypothyroidism, chronic. -will continue levothyroxine 175 mcg daily The patient admitted to the hospital related to severity of symptoms and need for ongoing treatment and monitoring. Patient is admitted as an observation patient with expected length of stay to be less than 2 midnights. Scores GCS [place] coma scale eye opening: Spontaneous [place] coma scale verbal response: Orientated [place] coma scale motor response: Obey commands [place] coma scale total score: 15 Quality VTE Deep Vein Thrombosis/Pulmonary Embolism Present on Admission: No
[2018-11-30 07:00] LABS: BUN Creatinine Ratio 16.7 (6-22); Blood Urea Nitrogen 15 mg/dL (9-20); Calcium 8.9 mg/dL (8.4-10.2); Carbon Dioxide 25 mmol/L (22-32); Chloride 92 mmol/L (98-107); Estimated Glomerular Filt Rate > 60.0 mL/min (>60); Glucose 173 mg/dL (80-110); HEMOLYSIS 20 (0-50); Potassium 4.8 mmol/L (3.4-5.1); Sodium 128 mmol/L (137-145)
[2018-11-30] MEDS: ALBUTEROL/IPRATROPIUM 3 ML AMPUL INH ×2 (08:15→13:02)
[2018-11-30] MEDS: SODIUM CHLORIDE 0.9% FLUSH 10 ML IV ×2 (09:30→20:11)
[2018-11-30] MEDS: ENOXAPARIN 40 MG/0.4 ML SYRINGE SUBCUT (09:30)
[2018-11-30] MEDS: methylPREDNISolone 125 MG/2 ML VIAL 60 MG IV ×2 (09:31→20:14)
--- NOTE | 2018-11-30 11:54 | CM.DANOTE ---
DCP: Case received, EMR reviewed and met with patient. Introduced self and role. Was able to retrieve baseline history information from patient. DCP template was completed with information currently available. Patient is a 63 year old male who admitted early this morning to the care of the hospitalist team. PCP: Dr. Marcus. Payer: confirmed: [facility]/Medicare. Patient came to hospital via family vehicle due to complaints of shortness of breath, tightness in his chest. Patient has history of COPD, Diabetes, and HTN. He holds diagnosis of exacerbated COPD. Met with patient in room. Alert and oriented. He was concerned that he might have Pneumonia, for he has had this several times. He lives with his , Samira, in [place]. P: DCP to continue to follow. Patient should be able to go home when he is medically stable. Martita Paulson RN/Discharge Specialist
[2018-11-30] MEDS: ALBUTEROL 2.5 MG/3 ML NEB (ADULT) INH ×2 (18:01→22:06)
--- NOTE | 2018-11-30 18:25 | PM.PN.1 ---
Subjective Date Patient Seen: 11/30/18 Interval history: Patient is 63-year-old male admitted with COPD exacerbation. He complains of difficulty breathing and panic attacks due to same. Exam Vital Signs (past 8 hours): - 11/30/18 10:30 11/30/18 12:05 11/30/18 12:47 Temperature 97.9 F Pulse Rate 81 Respiratory Rate 16 Blood Pressure 155/80 H Pulse Oximetry 92 94 91 11/30/18 13:05 11/30/18 14:02 11/30/18 15:25 Temperature 98.8 F Pulse Rate 86 88 Respiratory Rate 20 20 Blood Pressure 169/91 H Pulse Oximetry 96 94 94 11/30/18 17:23 11/30/18 18:01 Temperature Pulse Rate 97 H Respiratory Rate 17 Blood Pressure Pulse Oximetry 94 97 Oxygen Delivery Method Nasal Cannula Oxygen Flow Rate 2 Narrative Exam Narrative: General: Alert and cooperative male with mildly labored breathing Lungs: Diminished throughout without wheeze Heart: Regular rhythm Extremities: No edema Objective Labs Result Diagrams: 11/30/18 06:30 11/30/18 06:30 Labs: Laboratory Results - last 24 hr 11/29/18 11/29/18 11/29/18 22:05 22:05 22:05 WBC 12.1 H RBC 5.02 Hgb 15.6 Hct 48.1 MCV 95.9 MCH 31.1 MCHC 32.5 RDW 15.5 H Plt Count 250 Neut % (Auto) 63.6 Lymph % (Auto) 24.3 L [place] % (Auto) 7.7 Eos % (Auto) 4.0 Baso % (Auto) 0.4 Neut # (Auto) 7700 H Lymph # (Auto) 2900 [place] # (Auto) 900 Eos # (Auto) 500 H Baso # (Auto) 100 PT 10.1 INR 0.9 APTT 32 D Sodium 130 L Potassium 3.8 Chloride 94 L Carbon Dioxide 23 BUN 12 Creatinine 0.90 Estimated GFR > 60.0 BUN/Creatinine Ratio 13.3 Glucose 141 H Calcium 8.7 Magnesium 2.0 Total Bilirubin 0.3 AST 23 ALT 22 Alkaline Phosphatase 61 Total Creatine Kinase 144 CK-MB (CK-2) 2.37 CK-MB (CK-2) Rel Index 1.6 Troponin I < 0.012 B-Natriuretic Peptide < 100 Total Protein 7.1 Albumin 4.2 Globulin 2.9 Albumin/Globulin Ratio 1.4 Procalcitonin Urine Color Urine Appearance Urine pH Ur Specific [place] Urine Protein Urine Glucose (UA) Urine Ketones Urine Occult Blood Urine Nitrate Urine Bilirubin Urine Urobilinogen Ur Leukocyte Esterase Urine RBC Urine WBC Urine Bacteria Ur Culture Indicated? Micro UA Comment Chlamy pneumoniae PCR Adenovirus (PCR) B.parapertussis DNA PCR Coronavirus OC43 (PCR) Coronavirus HKU1 (PCR) Coronavirus 229E (PCR) Coronavirus NL63 (PCR) Human Metapneumovir PCR Influenza Type A (PCR) Influenza Type B (PCR) M. pneumoniae (PCR) Parainfluenza 1 (PCR) Parainfluenza 2 (PCR) Parainfluenza 3 (PCR) Parainfluenza 4 (PCR) RSV (PCR) Entero/Rhino (PCR) 11/29/18 11/30/18 11/30/18 22:48 01:01 02:56 WBC RBC Hgb Hct MCV MCH MCHC RDW Plt Count Neut % (Auto) Lymph % (Auto) [place] % (Auto) Eos % (Auto) Baso % (Auto) Neut # (Auto) Lymph # (Auto) [place] # (Auto) Eos # (Auto) Baso # (Auto) PT INR APTT Sodium Potassium Chloride Carbon Dioxide BUN Creatinine Estimated GFR BUN/Creatinine Ratio Glucose Calcium Magnesium Total Bilirubin AST ALT Alkaline Phosphatase Total Creatine Kinase CK-MB (CK-2) CK-MB (CK-2) Rel Index Troponin I B-Natriuretic Peptide Total Protein Albumin Globulin Albumin/Globulin Ratio Procalcitonin < 0.05 Urine Color Yellow Urine Appearance Clear Urine pH 6.5 Ur Specific [place] 1.020 Urine Protein 2+ H Urine Glucose (UA) Negative Urine Ketones Negative Urine Occult Blood Negative Urine Nitrate Negative Urine Bilirubin Negative Urine Urobilinogen 0.2 Ur Leukocyte Esterase Negative Urine RBC None seen Urine WBC None seen Urine Bacteria None seen Ur Culture Indicated? Cult not indicated Micro UA Comment Microscopic normal Chlamy pneumoniae PCR Not detected Adenovirus (PCR) Not detected B.parapertussis DNA PCR Not detected Coronavirus OC43 (PCR) Not detected Coronavirus HKU1 (PCR) Not detected Coronavirus 229E (PCR) Not detected Coronavirus NL63 (PCR) Not detected Human Metapneumovir PCR Not detected Influenza Type A (PCR) Not detected Influenza Type B (PCR) Not detected M. pneumoniae (PCR) Not detected Parainfluenza 1 (PCR) Not detected Parainfluenza 2 (PCR) Not detected Parainfluenza 3 (PCR) Not detected Parainfluenza 4 (PCR) Not detected RSV (PCR) Not detected Entero/Rhino (PCR) Not detected 11/30/18 11/30/18 06:30 06:30 WBC 12.4 H RBC 4.80 Hgb 15.2 Hct 45.7 MCV 95.3 MCH 31.6 MCHC 33.2 RDW 14.9 H Plt Count 217 Neut % (Auto) 95.3 H D Lymph % (Auto) 3.9 L D [place] % (Auto) 0.6 L Eos % (Auto) 0.1 L Baso % (Auto) 0.1 Neut # (Auto) 66198 H Lymph # (Auto) 500 L [place] # (Auto) 100 Eos # (Auto) 0 Baso # (Auto) 0 PT INR APTT Sodium 128 L Potassium 4.8 Chloride 92 L Carbon Dioxide 25 BUN 15 Creatinine 0.90 Estimated GFR > 60.0 BUN/Creatinine Ratio 16.7 Glucose 173 H Calcium 8.9 Magnesium Total Bilirubin AST ALT Alkaline Phosphatase Total Creatine Kinase CK-MB (CK-2) CK-MB (CK-2) Rel Index Troponin I B-Natriuretic Peptide Total Protein Albumin Globulin Albumin/Globulin Ratio Procalcitonin Urine Color Urine Appearance Urine pH Ur Specific [place] Urine Protein Urine Glucose (UA) Urine Ketones Urine Occult Blood Urine Nitrate Urine Bilirubin Urine Urobilinogen Ur Leukocyte Esterase Urine RBC Urine WBC Urine Bacteria Ur Culture Indicated? Micro UA Comment Chlamy pneumoniae PCR Adenovirus (PCR) B.parapertussis DNA PCR Coronavirus OC43 (PCR) Coronavirus HKU1 (PCR) Coronavirus 229E (PCR) Coronavirus NL63 (PCR) Human Metapneumovir PCR Influenza Type A (PCR) Influenza Type B (PCR) M. pneumoniae (PCR) Parainfluenza 1 (PCR) Parainfluenza 2 (PCR) Parainfluenza 3 (PCR) Parainfluenza 4 (PCR) RSV (PCR) Entero/Rhino (PCR) Assessment & Plan Assessment & Plan narrative: 1. Acute respiratory failure -sudden onset of symptoms today with no identifiable trigger. Patient has self-treated with albuterol nebulizers 3 times prior to presenting for treatment at the ER -upon arrival in the ER the patient was acutely dyspneic and panicking. Patient complains of chest tightness but no chest pain. -pulse ox 88% initially, ABG results pCO2 of 7.39, pCO2 of 32.4 PO2 of 60 with a bicarb 19.6 and base excess of -5. -chest x-ray and CTA without acute findings, was noted to have emphysematous changes and coronary calcification on CT 2. Chronic obstructive pulmonary disease, acute on chronic -patient with dyspnea on and off that is chronic in nature, history of COPD with nocturnal oxygen at 2 liters/minute with his CPAP. -patient using Spiriva, Advair and albuterol inhalers at home -continue albuterol nebulizer q.4 hours -continue Solu-Medrol 60 mg q.12 hours -continue Spiriva and Advair per home routine 3. Hypertension, chronic -patient with blood pressure 169/59 on arrival in the ER decreasing into the 140s following treatment -patient denies chest pain or headache. -will continue home medications of amlodipine 10 mg daily chlorthalidone 25 mg daily and losartan 100 mg daily. 4. Diabetes, chronic, presumed stable -patient denies hyper or hypoglycemic symptoms and has been taking metformin 500 mg twice daily. -glucose in the ER on admission was 141 -fingerstick blood sugar checks a.c. and HS -correctional insulin low-dose range 5. Hypothyroidism, chronic. -continue levothyroxine 175 mcg daily 6. Panic attacks -patient reports increasing panic attacks over the last few months to the point where he is having frequent episodes, used to take Zoloft 100 mg daily for depression, feels that respiratory exacerbations also can precipitate his panic attacks, finds lorazepam helpful prescribed in the past from ER -started sertraline 100 mg daily -ordered lorazepam 1 mg q.6 hours as needed for acute anxiety and to help him sleep as he is agitated from the IV steroids, explained to patient that lorazepam is for limited as needed use, that possibly we could discharge him with a prescription for small amount of tablets but long-term this sertraline is what will control the anxiety and panic attacks Continue inpatient management for COPD exacerbation Quality VTE Deep Vein Thrombosis/Pulmonary Embolism Present on Admission: No
[2018-11-30] MEDS: LOSARTAN 50 MG TABLET 100 MG PO (20:08)
[2018-11-30] MEDS: METFORMIN HCL 500 MG TABLET PO (20:08)
[2018-11-30] MEDS: FLUTICASONE/SALMETEROL 250/50 14 PUFF DISKUS INH (20:11)
[2018-11-30] MEDS: AMLODIPINE 5 MG TABLET 10 MG PO (20:11)
[2018-11-30] MEDS: TRAZODONE 100 MG TABLET PO (20:12)
[2018-11-30] MEDS: LORazepam 1 MG TABLET PO (20:55)
[2018-12-01] VITALS (8 sets, daily range): BP systolic 146–157; BP diastolic 74–80; PULSE 76–104; RESP 15–20; TEMP 36.8–37.5; O2SAT 95–100
[2018-12-01] MEDS: ALBUTEROL 2.5 MG/3 ML NEB (ADULT) INH ×2 (05:47→11:27)
--- NOTE | 2018-12-01 07:06 | P.PN_ITS ---
Subjective Date Patient Seen: 12/01/18 Interval history: The patient is resting in bed comfortably and in no acute distress. He or she denies headache, ear pain, rhinitis, sore throat, cough, shortness of breath, chest pain, abdominal pain, nausea, vomiting, fever, chills, dysuria, diarrhea or constipation. He or she is voiding and eliminating without difficulty. He or she is up ambulating without or with assistance. Exam Vital Signs (past 8 hours): - 11/30/18 23:50 12/01/18 04:00 12/01/18 05:48 Temperature 98 F 99.5 F Pulse Rate 93 H 104 H 76 Respiratory Rate 15 17 20 Blood Pressure 152/73 H 146/74 H Pulse Oximetry 94 96 96 Oxygen Delivery Method Nasal Cannula Oxygen Flow Rate 2 Narrative Exam Narrative: General: No acute distress, well-developed, well-nourished, appropriately interactive HEENT: Normocephalic, atraumatic. External ears without defect. Pupils equal, round, and reactive to light and accommodation. Anicteric sclerae, moist conjunctivae, and no lid lag. Oropharynx free of erythema and cobble stoning with moist mucosa. Neck: Supple with full range of motion. No jugular venous distension. No bruits. No lymphadenopathy or thyromegaly. Cardiovascular: Regular rate and rhythm without murmurs, rubs, or gallops appreciated Pulmonary: Clear to auscultation bilaterally without crackles, wheezes, or rhonchi. Normal respiratory effort with no use of accessory muscles. Abdomen: Bowel tones present. Soft, nontender, nondistended. No hepatosplenomegaly or masses appreciated. Extremities: No clubbing, cyanosis, or edema. Skin: Normal temperature, turgor, and texture; no rash, ulcers, or subcutaneous nodules appreciated. Neurological: Cranial nerves grossly intact. Normal muscle strength, tone, and bulk. Reflexes, coordination, and sensory function within normal limits. No known gait impairment. Psychiatric: Normal mood and affect. Alert and oriented to person, place, and time. Objective Labs Result Diagrams: 11/30/18 06:30 11/30/18 06:30 Assessment & Plan Assessment & Plan narrative: 1. Acute respiratory failure -sudden onset of symptoms today with no identifiable trigger. Patient has self- treated with albuterol nebulizers 3 times prior to presenting for treatment at the ER -upon arrival in the ER the patient was acutely dyspneic and panicking. Patient complains of chest tightness but no chest pain. -pulse ox 88% initially, ABG results pCO2 of 7.39, pCO2 of 32.4 PO2 of 60 with a bicarb 19.6 and base excess of -5. -chest x-ray and CTA without acute findings, was noted to have emphysematous changes and coronary calcification on CT 2. Chronic obstructive pulmonary disease, acute on chronic -patient with dyspnea on and off that is chronic in nature, history of COPD with nocturnal oxygen at 2 liters/minute with his CPAP. -patient using Spiriva, Advair and albuterol inhalers at home -continue albuterol nebulizer q.4 hours -continue Solu-Medrol 60 mg q.12 hours -continue Spiriva and Advair per home routine 3. Hypertension, chronic -patient with blood pressure 169/59 on arrival in the ER decreasing into the 140s following treatment -patient denies chest pain or headache. -will continue home medications of amlodipine 10 mg daily chlorthalidone 25 mg daily and losartan 100 mg daily. 4. Diabetes, chronic, presumed stable -patient denies hyper or hypoglycemic symptoms and has been taking metformin 500 mg twice daily. -glucose in the ER on admission was 141 -fingerstick blood sugar checks a.c. and HS -correctional insulin low-dose range 5. Hypothyroidism, chronic. -continue levothyroxine 175 mcg daily 6. Panic attacks -patient reports increasing panic attacks over the last few months to the point where he is having frequent episodes, used to take Zoloft 100 mg daily for depression, feels that respiratory exacerbations also can precipitate his panic attacks, finds lorazepam helpful prescribed in the past from ER -started sertraline 100 mg daily -ordered lorazepam 1 mg q.6 hours as needed for acute anxiety and to help him sleep as he is agitated from the IV steroids, explained to patient that lorazepam is for limited as needed use, that possibly we could discharge him with a prescription for small amount of tablets but long-term this sertraline is what will control the anxiety and panic attacks Quality VTE Deep Vein Thrombosis/Pulmonary Embolism Present on Admission: No
[2018-12-01] MEDS: FLUTICASONE/SALMETEROL 250/50 14 PUFF DISKUS INH (08:26)
[2018-12-01] MEDS: TIOTROPIUM BROMIDE 18 MCG INHALER INH (08:26)
[2018-12-01] MEDS: LEVOTHYROXINE 75 MCG TABLET PO (10:35)
[2018-12-01] MEDS: CHLORTHALIDONE 25 MG TABLET PO (10:35)
[2018-12-01] MEDS: ASPIRIN EC 81 MG TABLET PO (10:35)
[2018-12-01] MEDS: LEVOTHYROXINE 100 MCG TABLET PO (10:35)
[2018-12-01] MEDS: METFORMIN HCL 500 MG TABLET PO (10:36)
[2018-12-01] MEDS: SERTRALINE 50 MG TABLET 100 MG PO (10:36)
[2018-12-01] MEDS: SODIUM CHLORIDE 0.9% FLUSH 10 ML IV (10:37)
--- NOTE | 2018-12-01 14:57 | PM.DS.1 ---
History of Present Illness Date Patient Seen: 11/30/18 Chief complaint: SOB CHEST PAIN Narrative: Written by Julio YANEZ: Thang Jimenes is a 63-year-old male patient with history significant for hypertension, COPD, diabetes, hypothyroidism, hyperlipidemia and chronic low back pain who presents to the ER with an acute exacerbation of shortness of breath. The patient describes an acute onset shortness of breath today to the point where he describes chest be coming very tight with associated symptoms being ?very scary? and he was panicky with diaphoresis. He has had 1 other episode similar to this in intensity. He uses inhalers Spiriva and Advair and albuterol routinely and did 3 albuterol nebulizer treatments prior to presenting to the ER for treatment. He has had a positive intermittent cough that has been nonproductive. He describes a sensitivity to chemicals and smells that will cause him to become acutely dyspneic. He has a history of COPD and is on nocturnal oxygen 2 liters/minute at home. He reports no prodromal symptoms but states he has shortness of breath off and on and use a mask frequently. Reports no recent fevers or chills, nasal congestion or sore throat. He denies chest pain or palpitations and has had no abdominal pain nausea vomiting, diarrhea or constipation. He reports no difficulty urinating Upon arrival in the ER patient had an ABG completed which showed pH of 7.39, pCO2 32.4, PO2 62, bicarb of 19.6, base excess of-5.0. He had a mild elevation in his white blood cell count of 12.1 with a hemoglobin of 15.6 and hematocrit 48.1. He had a D-dimer of 702.0 and a negative troponin 0.012 and a BNP of less than 100. His chemistries are unremarkable. He had a CT angio that revealed no PE and his chest x-ray shows no pneumonia or infiltrates. He received 2 albuterol and 2 duo nebs 1 with Solu-Medrol 125 mg IV. The patient is admitted for COPD exacerbation. Discharge Providers Date of admission: 11/30/18 01:09 Discharge Date: 12/01/18 Primary care physician: Nakia Marcus MD Consults: 11/29/18 22:10 Consult to Respiratory Therapy Evaluate & Treat Comment: Physician Instructions: Evaluate and treat 11/30/18 03:34 Consult to Discharge Planning Routine Comment: 11/30/18 07:27 Consult to Respiratory Therapy Evaluate & Treat Comment: Physician Instructions: Evaluate and treat 11/30/18 12:47 Consult to Respiratory Therapy Evaluate & Treat Comment: Physician Instructions: Evaluate and treat Discharge provider: Gwendolyn Anderson DO Summary Discharge Diagnosis: 1. Acute hypoxemic respiratory failure, present on admission. Resolved. 2. Acute COPD exacerbation, present on admission. Resolving. 3. Hypertension, chronic, present on admission. Stable. 4. Diabetes, chronic, present on admission. Presumed stable. 5. Hypothyroidism, chronic, present on admission. Stable. 6. Panic attacks, chronic, present on admission. Stable. 7. Tobacco dependence, chronic, present on admission. Stable. Hospital Course: 1. Acute hypoxemic respiratory failure, present on admission. Resolved. -Patient presented with sudden onset of symptoms without identifiable trigger. Patient self-treated with albuterol nebulizers x 3 times prior to presenting to ED for treatment. -Upon arrival in the ER the patient was acutely dyspneic and panicking. Patient complains of chest tightness but no chest pain. -Patient's initial oxygen saturation was 88% on room air. ABG results pCO2 of 7.39, pCO2 of 32.4 PO2 of 60 with a bicarb 19.6 and base excess of -5. -Chest x-ray and CTA without acute findings but was noted to have emphysematous changes and coronary calcification on CT. 2. Acute COPD exacerbation, present on admission. Resolving. -Patient with dyspnea on and off that is chronic in nature. History of COPD with nocturnal oxygen at 2 liters/minute with his CPAP. -Continued home regimen with albuterol nebulizer every 4 hours, Spiriva and Advair. -Continued methylprednisolone and titrated to prednisone 40 mg daily x3 additional days (to start tomorrow) to complete a 5 day burst. 3. Hypertension, chronic, present on admission. Stable. -Patient with blood pressure 169/59 on arrival in the ER decreasing into the 140s following treatment. Patient is still running mildly hypertensive despite 3 antihypertensive medications. Consider maximizing chlorthalidone per PCP. -Patient denies chest pain or headache. -Continued home medications of amlodipine 10 mg daily, chlorthalidone 25 mg daily, and losartan 100 mg daily. 4. Diabetes, chronic, present on admission. Presumed stable. -Patient is on glucocorticoid which will falsely elevate A1c and glucose levels. Did not recheck hemoglobin A1c. Previous A1c 5.9% in 09/2017. Will need repeat later on in the future through PCP to assess glycemic control. -Continued metformin 500 mg twice daily. -Continued ACHS blood glucose checks and low dose correctional scale insulin. 5. Hypothyroidism, chronic, present on admission. Stable. -Continued levothyroxine 175 mcg daily. 6. Panic attacks, chronic, present on admission. Stable. -The patient reports increasing panic attacks over the last few months. He reports he used to take Zoloft 100 mg daily for depression and anxiety. He also reports that he feels as though his respiratory exacerbations can also precipitate his panic attacks and finds lorazepam helpful when prescribed by the ED in the past. -Reinstituted sertraline 100 mg daily. Prescribed lorazepam 1 mg daily only as needed for panic attack. Discussed benzodiazepine dependence in detail and the potential for fatal withdrawal if the medication is abused or taken differently than prescribed. 7. Tobacco dependence, chronic, present on admission. Stable. -Patient reports in remission and currently on nicotine patch. -Prescribed nicotine patch 21 mg daily as needed for nicotine withdrawal. Status at Discharge Functional status at discharge: independent ambulation Overall status at discharge: patient is progressing back to baseline Exam Vital Signs (past 8 hours): - 12/01/18 07:30 12/01/18 08:00 12/01/18 09:18 Temperature 98.2 F Pulse Rate 80 86 Respiratory Rate 15 17 Blood Pressure 157/75 H Pulse Oximetry 98 96 96 12/01/18 09:19 12/01/18 10:52 12/01/18 12:00 Temperature 98.8 F Pulse Rate 86 82 Respiratory Rate 17 17 Blood Pressure 152/80 H Pulse Oximetry 96 100 95 Oxygen Delivery Method Room Air Oxygen Flow Rate 2 Narrative Exam Narrative: General: Older male sitting in bedside chair and in no acute distress, well-developed, well-nourished, anxious but appropriately interactive. HEENT: Normocephalic, atraumatic. External ears without defect. Pupils equal, round, and reactive to light. Anicteric sclerae, moist conjunctivae, and no lid lag. Neck: Supple with full range of motion. No lymphadenopathy or thyromegaly. Cardiovascular: Regular rate and rhythm without murmurs, rubs, or gallops appreciated. Pulmonary: Diminished/tight but clear to auscultation bilaterally without crackles, wheezes, or rhonchi. Normal respiratory effort with no use of accessory muscles. Abdomen: Soft, bowel sounds present, nontender, nondistended. No hepatosplenomegaly or masses appreciated. Extremities: No clubbing, cyanosis, or edema. Skin: Normal temperature, turgor, and texture; no rash, ulcers, or subcutaneous nodules appreciated. Neurological: Cranial nerves grossly intact. No known gait impairment. Psychiatric: Extremely anxious mood and normal affect. Alert and oriented to person, place, and time. Objective Labs Result Diagrams: 11/30/18 06:30 11/30/18 06:30 Discharge Plan Discharge Plan Patient Disposition: Home Discharge comment: You are being discharged home. You have COPD emphysema type and were hospitalized for acute COPD exacerbation. Your inhalers may be converted over to nebulizer form through your [employer] and prescribed by your train gateman Dr. Abdi. You were prescribed prednisone 40 mg daily for 3 additional days to finish treatment for COPD exacerbation. Continue using your inhalers and nebulizer as prescribed. You were prescribed Zoloft 100 mg daily and lorazepam 1 mg once a day if needed ONLY for panic attack. You are also prescribed a nicotine patch to help with smoking cessation which may or may not be covered by her insurance. Please follow-up with your PCP, Dr. Marcus, tomorrow at your scheduled appointment to discuss your hospitalization and medications as above. Discharge Med Rec/Prescriptions Prescriptions: New lorazepam 1 mg Tablet 1 mg PO DAILY PRN (Reason: Panic Attack(S)) Qty: 10 RF: 0 sertraline [Zoloft] 50 mg Tablet 100 mg PO DAILY Qty: 60 RF: 0 prednisone 20 mg tablet 40 mg PO DAILY Qty: 6 RF: 0 nicotine 21 mg/24 hr patch 24 hour 1 patch Transdermal DAILY Qty: 21 RF: 0 Continued trazodone 100 MG tablet 100 mg OR QPM Qty: 30 RF: 3 [KYOLIC IMMUNE 103] 1 tab PO BID Qty: 0 RF: 0 levothyroxine 175 mcg tablet 175 mcg PO DAILY RF: 0 fluticasone propion-salmeterol 250-50 mcg/dose blister with device 1 puff Inhalation BID RF: 0 clobetasol 0.05 % cream 1 applic Topical BID RF: 0 chlorthalidone 25 mg tablet 25 mg PO DAILY RF: 0 amlodipine 10 mg tablet 10 mg PO QPM RF: 0 losartan 100 mg tablet 100 mg PO QPM RF: 0 metformin 500 mg tablet 500 mg PO BID RF: 0 albuterol sulfate 90 mcg/actuation HFA aerosol inhaler 1 puff Inhalation PRN PRN (Reason: Shortness Of Breath) RF: 0 tiotropium bromide 18 mcg capsule, w/inhalation device 1 cap Inhalation DAILY RF: 0 nitroglycerin [Nitrostat] 0.4 mg Tablet, Sublingual 0.4 mg SUBLINGUAL Q5-15M PRN (Reason: Chest Pain) RF: 0 aspirin 81 mg Tablet,Delayed Release (Dr/Ec) 81 mg PO DAILY RF: 0 Thermacare Heatwrap Joint RF: 0 sennosides-docusate sodium [Senna with Docusate Sodium] 8.6 MG/50 MG tablet 10 tab PO DAILY RF: 0 lidocaine 5 % Adhesive Patch,Medicated 1 patch TOPICAL DAILY RF: 0 ascorbic acid (vitamin C) 1,000 mg Tablet 1 g PO BID RF: 0 cholecalciferol (vitamin D3) [Vitamin D3] 400 unit Capsule 400 unit PO QPM RF: 0 C-Ketam 1 applic Topical TID RF: 0 Vitamin B Complex With Probiotics 1 tab PO BID RF: 0 magnesium citrate 500 mg 500 mg PO BID RF: 0 Follow up/Referrals: Nakia Marcus MD [Primary Care Provider] - Provider Discharge Instructions Diet: Carb-consistent/Diabetic, Low-fat, Low-sodium and Low-cholesterol Visit Report/Discharge Packet Instructions: DI for Emphysema, Chronic Obstructive Pulmonary Disease, DI for Chronic Obstructive Pulmonary Disease Discharge Data Primary Care Provider: Nakia Marcus Attending Provider: Julio Luciano Admit Date/Time: 11/30/18 01:09 Quality VTE Deep Vein Thrombosis/Pulmonary Embolism Present on Admission: No
--- NOTE | 2018-12-01 16:47 | PC.NURSE ---
Evening Shift/Discharge Note- Discharge instructions and educations reviewed with patient and signed. IV line removed and bandaid applied. All persaonl belongings packed up and room rechecked. Patiet left via wheelchair to private car at 1615.
== END 2018-12-01 16:15 | disposition home or self-care (01) ==
LOC: ED 11-30 01:02 → AC 11-30 07:35
PROVIDERS: Admitting Provider Nurse Practitioner Adult Health; Emergency Provider Emergency Medicine; Family Provider Internal Medicine; PCP Internal Medicine; Visit Provider Nurse Practitioner Adult Health
DX: J96.01 Acute respiratory failure with hypoxia (principal); F17.210 Nicotine dependence, cigarettes, uncomplicated; E03.9 Hypothyroidism, unspecified; I10 Essential (primary) hypertension; J44.1 Chronic obstructive pulmonary disease with (acute) exacerbation; E11.9 Type 2 diabetes mellitus without complications; F41.0 Panic disorder [episodic paroxysmal anxiety]; Z79.84 Long term (current) use of oral hypoglycemic drugs
CPT/HCPCS: 36591; 71045; 71275; 80048; 80053; 81001; 82550; 82553; 82962; 83735; 83880; 84145; 84484; 85025; 85610; 85730; 87633; 93005; 93010; 94640; 94760; 94762; 99283; 99285; G0378; J1650; J2060; J2930; J7613; Q9967

== ENCOUNTER → 2019-06-04 15:30 | Outpatient (ROUT) | payer BC, MEDICARE, SELFPAY ==
[2018-11-30 01:27] VITALS: BMI 22.6
[2019-06-04 15:55] LABS: Blood Urea Nitrogen 10 mg/dL (9-20); Calcium 9.2 mg/dL (8.4-10.2); Carbon Dioxide 28 mmol/L (22-32); Chloride 101 mmol/L (98-107); Estimated Glomerular Filt Rate > 60.0 mL/min (>60); Glucose 203 mg/dL (80-110); HEMOLYSIS < 15 (0-50); Potassium 4.3 mmol/L (3.4-5.1); Sodium 136 mmol/L (137-145)
[2019-06-04 16:26] LABS: Prostate Specific Antigen Scrn 0.717 ng/mL (0.1-4.0)
[2019-06-04 20:36] LABS: Hemoglobin A1C% w Est Avg Glu 5.5 % (4.0-6.0)
== END ==
PROVIDERS: PCP Internal Medicine; Visit Provider Internal Medicine
DX: Z12.5 Encounter for screening for malignant neoplasm of prostate (principal); I10 Essential (primary) hypertension; E11.9 Type 2 diabetes mellitus without complications
CPT/HCPCS: 80048; 83036; G0103

== ENCOUNTER → 2019-08-22 08:22 | Outpatient (CLI) | payer BC, MEDICARE, SELFPAY ==
[2018-11-30 01:27] VITALS: BMI 22.6
--- NOTE | 2019-08-22 | DI.RAD.S_ITS ---
PROCEDURE: XR CHEST 2V INDICATIONS: Chronic obstructive pulmonary disease with (acute) TECHNIQUE: 2 views of the chest were acquired. COMPARISON: [facility], CR, XR CHEST 1V, 11/29/2018, 22:04. [facility], CR, XR CHEST 1V, 06/11/2018, 17:41. FINDINGS: Surgical changes and devices: Partially visualized lumbar posterior fusion devices.. Lungs and pleura: Lungs are abnormal, with a flattening of the hemidiaphragms and a mild degree of interstitial prominence likely reflecting long-standing history. No pleural effusions or pneumothorax. Mediastinum: Mediastinal contours are normal. Heart size is normal. Bones and chest wall: No suspicious bony abnormalities. Soft tissues appear unremarkable. IMPRESSION: Apparent severe COPD. No pneumonia found. Source of acute exacerbation is not seen. Dictated by: Mustapha Mcneill M.D. on 08/22/2019 at 8:44 Approved by: Mustapha Mcneill M.D. on 08/22/2019 at 8:45
== END ==
PROVIDERS: PCP Internal Medicine; Visit Provider Student in an Organized Health Care Education/Training Program
DX: J44.1 Chronic obstructive pulmonary disease with (acute) exacerbation (principal)
CPT/HCPCS: 71046

== ENCOUNTER → 2020-05-27 14:55 | Outpatient (ROUT) | payer BC, MEDICARE, SELFPAY ==
[2018-11-30 01:27] VITALS: BMI 22.6
[2020-05-27 19:16] LABS: Creatinine Urine Random 64.7 mg/dL; Microalbumi Creatinin Ratio Ur 8902.6 ug/mg CR (<30)
== END ==
PROVIDERS: PCP Internal Medicine; Visit Provider Internal Medicine
DX: E11.9 Type 2 diabetes mellitus without complications (principal)
CPT/HCPCS: 82043; 82570

== ENCOUNTER → 2020-05-28 08:34 | Outpatient (CLI) | payer BC, MEDICARE, SELFPAY ==
[2018-11-30 01:27] VITALS: BMI 22.6
--- NOTE | 2020-05-28 | DI.RAD.S_ITS ---
PROCEDURE: XR CHEST 2V INDICATIONS: Chronic obstructive pulmonary disease with (acute) exacerbat TECHNIQUE: 2 views of the chest were acquired. COMPARISON: [facility], CT, CT ANGIO CHEST PE, 08/06/2018, 22:25. [facility], CR, XR CHEST 2V, 08/22/2019, 8:25. FINDINGS: Surgical changes and devices: Postsurgical changes in lumbar spine. Lungs and pleura: Hyperinflation consistent with COPD. No pleural effusions or pneumothorax. Mediastinum: Mediastinal contours are normal. Heart size is normal. Bones and chest wall: No suspicious bony abnormalities. Soft tissues appear unremarkable. IMPRESSION: No acute abnormalities. COPD. Dictated by: Margot Johnston M.D. on 05/28/2020 at 9:11 Approved by: Margot Johnston M.D. on 05/28/2020 at 9:13
== END ==
PROVIDERS: PCP Internal Medicine; Referring Provider Internal Medicine; Visit Provider Internal Medicine
DX: J44.1 Chronic obstructive pulmonary disease with (acute) exacerbation (principal)
CPT/HCPCS: 71046

== ENCOUNTER → 2020-05-31 08:04 | Outpatient (CLI) | payer BC, MEDICARE, SELFPAY ==
[2018-11-30 01:27] VITALS: BMI 22.6
[2020-05-31 09:35] LABS: Blood Urea Nitrogen 16 mg/dL (9-20); Estimated Glomerular Filt Rate > 60.0 mL/min (>60)
== END ==
PROVIDERS: PCP Internal Medicine; Referring Provider Internal Medicine; Visit Provider Internal Medicine
DX: R06.00 Dyspnea, unspecified (principal)
CPT/HCPCS: 36415; 82565; 84520

== ENCOUNTER → 2020-06-01 10:22 | Outpatient (CLI) | payer BC, MEDICARE, SELFPAY ==
[2018-11-30 01:27] VITALS: BMI 22.6
--- NOTE | 2020-06-01 | DI.CT.S_ITS ---
PROCEDURE: CT ANGIO CHEST INDICATIONS: Dyspnea, unspecified TECHNIQUE: After the administration of intravenous contrast, 2 mm thick sections acquired from the pulmonary apices to the posterior costophrenic angles. 3-dimensional maximum intensity projection (MIP) coronal and sagittal reformats were then acquired through the thorax. For radiation dose reduction, the following was used: automated exposure control, adjustment of mA and/or kV according to patient size. COMPARISON: [facility], CT, CT ANGIO CHEST PE PROTOCOL, 11/29/2018, 22:43. FINDINGS: Image quality: Excellent. Pulmonary arteries: Pulmonary arteries are normal in size, and demonstrate no intraluminal filling defects to suggest central pulmonary embolism. Lungs and pleura: Moderate to advanced centrilobular emphysema is seen. Scattered scarring/atelectasis in periphery of bilateral lung alvarado are noted. No pleural effusions or pneumothorax. Central and peripheral airways are patent. Mediastinum: Heart size is normal, without pericardial effusion. Enlarged mediastinal and hilar lymph nodes are noted measures up to 1.3 cm in short axis diameter in right hilar region, and up to 1.5 cm in short axis diameter in precarinal space. Moderate atherosclerotic calcifications are seen. Thoracic aorta is normal in caliber and enhancement. Esophagus is normal in caliber, without hiatal hernia. Bones and chest wall: No suspicious bony lesions. Degenerative endplate changes throughout visualized thoracic spine and upper lumbar spine is seen. Thickened cortex of multiple mid to lower thoracic spine vertebral bodies are seen with picture frame appearance concerning for Paget's disease. No acute compression fracture or spondylolisthesis. Patient is status post thyroidectomy... No axillary or supraclavicular adenopathy. Abdomen: Visualized upper abdominal solid organs appear normal in the early arterial phase of enhancement. IMPRESSION: 1. No evidence of pulmonary emboli. No thoracic aortic aneurysm or dissection. 2. Moderate to advanced centrilobular emphysema. Scattered atelectasis in periphery of bilateral lung alvarado. No focal infiltrate, pleural effusion or pneumothorax. 3. Nonspecific prominent mediastinal and bilateral hilar lymph nodes as above. Moderate atherosclerotic disease. 4. Thickened cortex involving multiple mid to lower thoracic spine vertebral bodies, which could represent Paget's disease, suggest clinical correlation. Dictated by: Hermann Padilla M.D. on 06/01/2020 at 10:16 Approved by: Hermann Padilla M.D. on 06/01/2020 at 10:31
== END ==
PROVIDERS: PCP Internal Medicine; Referring Provider Internal Medicine; Visit Provider Internal Medicine
DX: R06.00 Dyspnea, unspecified (principal); J43.2 Centrilobular emphysema; I25.10 Atherosclerotic heart disease of native coronary artery without angina pectoris; R59.0 Localized enlarged lymph nodes
CPT/HCPCS: 71275

== ENCOUNTER → 2020-06-02 15:50 | Outpatient (ROUT) | payer BC, MEDICARE, SELFPAY ==
[2018-11-30 01:27] VITALS: BMI 22.6
[2020-06-02 16:00] LABS: UR Morphine/Opiate cutoff 300 Negative (Negative); Ur Creatinine Normal (Normal); Ur Specific Gravity Normal (Normal); Urine Amphetamines Negative (Negative); Urine Cocaine Negative (Negative); Urine Tetrahydrocannabinol Negative (Negative); Urine pH Normal (Normal)
[2020-06-02 16:01] LABS: Urine Barbiturates Negative (Negative); Urine Benzodiazepines Negative (Negative); Urine MDMA Negative (Negative); Urine Methadone Negative (Negative); Urine Methamphetamines Negative (Negative); Urine Oxycodone Positive (Negative); Urine Phencyclidine Negative (Negative); Urine Tricyclic Antidepressant Negative (Negative)
== END ==
PROVIDERS: PCP Internal Medicine; Visit Provider Internal Medicine
DX: M54.40 Lumbago with sciatica, unspecified side (principal)
CPT/HCPCS: 80305

== ENCOUNTER 2020-08-04 13:49 | Emergency (ER) | payer OTHER, MEDICARE, SELFPAY ==
[2018-11-30 01:27] VITALS: BMI 22.6
[2020-08-04] VITALS (16 sets, daily range): BP systolic 193–224; BP diastolic 86–104; PULSE 69–88; RESP 17–41; TEMP 37; O2SAT 91–97; BMI 20.4
--- NOTE | 2020-08-04 14:20 | ED.CHESTPAIN ---
HPI - Chest Pain General Chief Complaint: Chest Pain Stated Complaint: high b/p/headaches/visual changes x2 weeks Time Seen by Provider: 08/04/20 14:06 Source: patient Mode of arrival: Wheelchair Limitations: no limitations History of Present Illness HPI narrative: Patient is a 65-year-old male with history of stroke and COPD presenting with increasing shortness of breath elevate her blood pressure and chest pain. He said over the last few weeks he has had increasing shortness of breath with exertion and occasional chest pain with exertion. He has an occasional cough but nonproductive. He has been monitoring his blood pressure over the last few days it seems arranged with a systolic of 160 up to 190 however currently he has a 222/104. He does not have chest pain now but clearly is short of breath. He says that he has needed his nebulizer machine at least 4 times a day over the past few days it does not seem to be helping. He denies any fever or chills. MD complaint: chest pain and other (Shortness of breath) Duration: progressively worsening Related Data Home Medications Medication Instructions Recorded Confirmed [KYOLIC IMMUNE 103] 1 tab PO BID #0 05/10/17 11/30/18 C-Ketam 1 applic TOPICAL TID 06/11/18 11/30/18 Thermacare Heatwrap Joint 06/11/18 11/30/18 Vitamin B Complex With Probiotics 1 tab PO BID 06/11/18 11/30/18 albuterol sulfate 1 puff INHALATION PRN PRN 06/11/18 11/30/18 amlodipine 10 mg PO QPM 06/11/18 11/30/18 ascorbic acid (vitamin C) 1 g PO BID 06/11/18 11/30/18 aspirin 81 mg PO DAILY 06/11/18 11/30/18 chlorthalidone 25 mg PO DAILY 06/11/18 11/30/18 cholecalciferol (vitamin D3) 400 unit PO QPM 06/11/18 11/30/18 [Vitamin D3] clobetasol 1 applic TOPICAL BID 06/11/18 11/30/18 fluticasone propion-salmeterol 1 puff INHALATION BID 06/11/18 11/30/18 levothyroxine 175 mcg PO DAILY 06/11/18 11/30/18 lidocaine 1 patch TOPICAL DAILY 06/11/18 11/30/18 losartan 100 mg PO QPM 06/11/18 11/30/18 magnesium citrate 500 mg PO BID 06/11/18 11/30/18 metformin 500 mg PO BID 06/11/18 11/30/18 nitroglycerin [Nitrostat] 0.4 mg SUBLINGUAL Q5-15M PRN 06/11/18 11/30/18 sennosides-docusate sodium [Senna 10 tab PO DAILY 06/11/18 11/30/18 with Docusate Sodium] tiotropium bromide 1 cap INHALATION DAILY 06/11/18 11/30/18 Previous Rx's Medication Instructions Recorded trazodone 100 mg OR QPM #30 tab 09/28/16 lorazepam 1 mg PO DAILY PRN #10 tab 12/01/18 nicotine 1 patch TRANSDERMAL DAILY #21 each 12/01/18 prednisone 40 mg PO DAILY #6 tab 12/01/18 sertraline [Zoloft] 100 mg PO DAILY #60 tab 12/01/18 doxycycline hyclate 100 mg PO BID #14 cap 08/04/20 prednisone 40 mg PO DAILY #10 tab 08/04/20 Allergies Allergy/AdvReac Type Severity Reaction Status Date / Time doxazosin [DOXAZOSIN] Allergy Severe swelling Verified 08/04/20 14:02 varenicline [From CHANTIX] Allergy Mild aggitation Verified 08/04/20 14:02 lisinopril [LISINOPRIL] Allergy Unknown COUGH Verified 08/04/20 14:02 morphine Allergy Unknown GOES Verified 08/04/20 14:02 CRAZY atorvastatin [ATORVASTATIN] AdvReac Unknown MUSCLE ACHE Verified 08/04/20 14:02 carvedilol [CARVEDILOL] AdvReac Unknown DIZZINESS Verified 08/04/20 14:02 CHOLESTEROL MEDS Allergy Unknown Uncoded 06/11/18 16:20 Review of Systems Review of Systems ROS Unobtainable: All systems reviewed & are unremarkable except as noted in HPI and below Constitutional Constitutional: Denies chills, Denies fever(s), Denies lethargy and Denies weakness ENT Ears, Nose, Mouth, and Throat: Denies dizziness Cardiovascular Cardiovascular: Reports as per HPI, Reports chest pain, Reports dyspnea, Reports dyspnea on exertion and Denies orthopnea Respiratory Respiratory: Reports as per HPI, Reports cough, Reports dyspnea and Reports dyspnea on exertion Gastrointestinal Gastrointestinal: Denies abdominal pain, Denies change in bowel habits, Denies diarrhea, Denies nausea and Denies vomiting Integumentary/Breasts Skin/Breast: Denies pruritus, Denies erythema, Denies rash and Denies wounds Neurologic Neurologic: Denies dizziness and Denies weakness Patient History Medical History Chronic low back pain COPD (chronic obstructive pulmonary disease) Diabetes HTN (hypertension) Hyperlipidemia Hypothyroidism Surgical History History of back surgery History of eye surgery S/P hernia repair Social History household members: spouse Smoking Status: Former smoker Smoking Status: Former smoker alcohol intake frequency: a few times a week Substance Use Type: does not use Exam Initial Vital Signs Initial Vital Signs: Vital Signs Temperature 98.6 F 08/04/20 14:02 Pulse Rate 88 08/04/20 14:02 Respiratory Rate 28 H 08/04/20 14:02 Blood Pressure 222/104 H 08/04/20 14:02 Pulse Oximetry 95 08/04/20 14:02 GENERAL: Alert 65-year-old male in moderate respiratory distress sitting straight an upright HEENT: Head atraumatic,EOMI, pupils reactive, face symmetric, moist mucous membranes CARDIOVASCULAR: Regular rate and rhythm without murmurs, rubs or gallops. RESPIRATORY: Decreased breath sounds bilaterally in about 5 word sentences ABDOMEN: Soft, nontender. Normoactive bowel sounds all 4 quadrants. No guarding or rebound. EXTREMITIES: Normal range of motion, no clubbing or edema. Neurovascularly intact NEUROLOGICAL: Alert and oriented x4.Normal gait and speech. SKIN: Warm, dry, no laceration, no petechiae, no rashes or lesions. Course Orders Ordered: ED Orders 08/04/20 14:08 COVID19 Stat 08/04/20 14:10 Complete Blood Count AUTO DIFF Stat Comprehensive Metabolic Panel Stat Lactate (Lactic Acid) Stat Magnesium Stat NT-proBNP (BNP-Adult 18+) Stat Partial Thromboplastin Time Stat Procalcitonin Stat Prothrombin Time INR Stat Troponin & CK Cardiac Panel Stat 08/04/20 14:20 Consult to Respiratory Therapy Evaluate & Treat EKG-12 Lead Stat 08/04/20 14:21 XR chest 1V Stat 08/04/20 14:57 Blood Culture Stat 08/04/20 16:06 Troponin I Stat Discontinued Medications Albuterol (Albuterol Hfa Prepack) 1 box MISC SEEINSTR ONE Stop: 08/04/20 14:07 Last Admin: 08/04/20 14:38 Dose: 1 box Documented by: VIN Albuterol/Ipratropium (Albuterol/Ipratropium 3 Ml Ampul) 3 ml INH NOW ONE Stop: 08/04/20 14:21 Last Admin: 08/04/20 15:07 Dose: 3 ml Documented by: VIN Labetalol HCl (Labetalol 20 Mg/4 Ml Syringe) 10 mg IV NOW ONE Stop: 08/04/20 15:38 Last Admin: 08/04/20 15:42 Dose: 10 mg Documented by: NACHO Labetalol HCl (Labetalol 20 Mg/4 Ml Syringe) 10 mg IV NOW ONE Stop: 08/04/20 17:12 Last Admin: 08/04/20 17:14 Dose: 10 mg Documented by: NACHO Methylprednisolone (Methylprednisolone 125 Mg/2 Ml Vial) 125 mg IV NOW ONE Stop: 08/04/20 14:21 Last Admin: 08/04/20 14:34 Dose: 125 mg Documented by: NACHO Vital Signs Vital signs: Vital Signs - 8 hr 08/04/20 14:02 08/04/20 14:06 08/04/20 14:30 Temperature 98.6 F Pulse Rate 88 81 84 Respiratory Rate 28 H 28 H 23 Blood Pressure 222/104 H Pulse Oximetry 95 97 93 08/04/20 14:31 08/04/20 14:38 08/04/20 15:00 Temperature Pulse Rate 80 81 Respiratory Rate 22 27 H Blood Pressure 224/94 H 224/98 H Pulse Oximetry 93 94 91 08/04/20 15:10 08/04/20 15:30 08/04/20 15:31 Temperature Pulse Rate 79 79 Respiratory Rate 23 24 Blood Pressure 213/100 H Pulse Oximetry 94 92 92 08/04/20 16:00 08/04/20 16:01 08/04/20 16:08 Temperature Pulse Rate 73 73 74 Respiratory Rate 27 H 26 H 41 H Blood Pressure 204/98 H 200/94 H Pulse Oximetry 92 92 93 08/04/20 16:30 08/04/20 17:00 08/04/20 17:30 Temperature Pulse Rate 82 74 69 Respiratory Rate 30 H 19 17 Blood Pressure 193/86 H 201/95 H 205/96 H Pulse Oximetry 94 94 92 08/04/20 17:39 Temperature Pulse Rate 75 Respiratory Rate 23 Blood Pressure 193/86 H Pulse Oximetry 95 MDM - Chest Pain Lab Data Attestation: I reviewed the patient's lab results. Result diagrams: 08/04/20 14:10 08/04/20 14:10 Labs: Lab Results 08/04/20 08/04/20 08/04/20 Range/Units 14:08 14:10 14:10 WBC 9.1 (4.5-11.0) X10^3/uL RBC 4.72 (4.5-5.9) X10^6/uL Hgb 15.6 (13.5-17.5) g/dL Hct 46.5 (41-53) % MCV 98.5 (80-100) fL MCH 33.1 (26-34) PG MCHC 33.6 (30-36) % RDW 14.9 H (11.6-14.8) % Plt Count 208 (150-400) X10^3/uL Neut % (Auto) 61.7 (50-75) % Lymph % (Auto) 22.1 L (25-40) % [place] % (Auto) 8.4 (3-14) % Eos % (Auto) 7.1 H (2-4) % Baso % (Auto) 0.7 (0-2) % Neut # (Auto) 5600 (5298-2234) /uL Lymph # (Auto) 2000 (7058-3203) /uL [place] # (Auto) 800 (0-900) /uL Eos # (Auto) 700 H (0-450) /uL Baso # (Auto) 100 (0-100) /uL PT 10.3 (10.1-12.7) SECONDS INR 0.9 (0.9-1.3) APTT 37 H D (26.4-36.2) SECONDS Sodium (137-145) mmol/L Potassium (3.4-5.1) mmol/L Chloride (98-107) mmol/L Carbon Dioxide (22-32) mmol/L BUN (9-20) mg/dL Creatinine (0.66-1.25) mg/dL Estimated GFR (>60) mL/min BUN/Creatinine Ratio (6-22) Glucose (80-110) mg/dL Lactate (0.7-2.1) mmol/L Calcium (8.4-10.2) mg/dL Magnesium (1.6-2.3) mg/dL Total Bilirubin (0.2-1.3) mg/dL AST (17-59) IU/L ALT (<50) IU/L Alkaline Phosphatase (38-126) U/L Total Creatine Kinase (55-170) U/L CK-MB (CK-2) CK-MB (CK-2) Rel Index Troponin I (0.01-0.034) ng/mL NT-Pro-B Natriuret Pep (<125) pg/mL Total Protein (6.3-8.2) g/dL Albumin (3.5-5.0) g/dL Globulin (1.7-4.1) g/dL Albumin/Globulin Ratio (1.0-2.8) Procalcitonin (<0.5) ng/mL SARS-CoV-2 (PCR) Negative (Negative) 08/04/20 08/04/20 08/04/20 Range/Units 14:10 14:10 14:10 WBC (4.5-11.0) X10^3/uL RBC (4.5-5.9) X10^6/uL Hgb (13.5-17.5) g/dL Hct (41-53) % MCV (80-100) fL MCH (26-34) PG MCHC (30-36) % RDW (11.6-14.8) % Plt Count (150-400) X10^3/uL Neut % (Auto) (50-75) % Lymph % (Auto) (25-40) % [place] % (Auto) (3-14) % Eos % (Auto) (2-4) % Baso % (Auto) (0-2) % Neut # (Auto) (6962-1493) /uL Lymph # (Auto) (4766-2161) /uL [place] # (Auto) (0-900) /uL Eos # (Auto) (0-450) /uL Baso # (Auto) (0-100) /uL PT (10.1-12.7) SECONDS INR (0.9-1.3) APTT (26.4-36.2) SECONDS Sodium (137-145) mmol/L Potassium (3.4-5.1) mmol/L Chloride (98-107) mmol/L Carbon Dioxide (22-32) mmol/L BUN (9-20) mg/dL Creatinine (0.66-1.25) mg/dL Estimated GFR (>60) mL/min BUN/Creatinine Ratio (6-22) Glucose (80-110) mg/dL Lactate 1.0 (0.7-2.1) mmol/L Calcium (8.4-10.2) mg/dL Magnesium 1.9 (1.6-2.3) mg/dL Total Bilirubin (0.2-1.3) mg/dL AST (17-59) IU/L ALT (<50) IU/L Alkaline Phosphatase (38-126) U/L Total Creatine Kinase 91 (55-170) U/L CK-MB (CK-2) TNP CK-MB (CK-2) Rel Index TNP Troponin I 0.013 (0.01-0.034) ng/mL NT-Pro-B Natriuret Pep 498 H (<125) pg/mL Total Protein (6.3-8.2) g/dL Albumin (3.5-5.0) g/dL Globulin (1.7-4.1) g/dL Albumin/Globulin Ratio (1.0-2.8) Procalcitonin < 0.05 (<0.5) ng/mL SARS-CoV-2 (PCR) (Negative) 08/04/20 08/04/20 Range/Units 14:10 16:06 WBC (4.5-11.0) X10^3/uL RBC (4.5-5.9) X10^6/uL Hgb (13.5-17.5) g/dL Hct (41-53) % MCV (80-100) fL MCH (26-34) PG MCHC (30-36) % RDW (11.6-14.8) % Plt Count (150-400) X10^3/uL Neut % (Auto) (50-75) % Lymph % (Auto) (25-40) % [place] % (Auto) (3-14) % Eos % (Auto) (2-4) % Baso % (Auto) (0-2) % Neut # (Auto) (8227-9762) /uL Lymph # (Auto) (1547-8916) /uL [place] # (Auto) (0-900) /uL Eos # (Auto) (0-450) /uL Baso # (Auto) (0-100) /uL PT (10.1-12.7) SECONDS INR (0.9-1.3) APTT (26.4-36.2) SECONDS Sodium 136 L (137-145) mmol/L Potassium 4.4 (3.4-5.1) mmol/L Chloride 104 (98-107) mmol/L Carbon Dioxide 30 (22-32) mmol/L BUN 19 (9-20) mg/dL Creatinine 1.17 (0.66-1.25) mg/dL Estimated GFR > 60.0 (>60) mL/min BUN/Creatinine Ratio 16.2 (6-22) Glucose 94 (80-110) mg/dL Lactate (0.7-2.1) mmol/L Calcium 9.3 (8.4-10.2) mg/dL Magnesium (1.6-2.3) mg/dL Total Bilirubin 0.3 (0.2-1.3) mg/dL AST 27 (17-59) IU/L ALT 23 (<50) IU/L Alkaline Phosphatase 57 (38-126) U/L Total Creatine Kinase (55-170) U/L CK-MB (CK-2) CK-MB (CK-2) Rel Index Troponin I < 0.012 (0.01-0.034) ng/mL NT-Pro-B Natriuret Pep (<125) pg/mL Total Protein 6.7 (6.3-8.2) g/dL Albumin 3.9 (3.5-5.0) g/dL Globulin 2.8 (1.7-4.1) g/dL Albumin/Globulin Ratio 1.4 (1.0-2.8) Procalcitonin (<0.5) ng/mL SARS-CoV-2 (PCR) (Negative) Imaging Data Chest x-ray: Radiologist's Impression: PROCEDURE: XR CHEST 1V INDICATIONS: short of breath TECHNIQUE: One view of the chest was acquired. COMPARISON: [facility], CR, XR CHEST 2V, 05/28/2020, 8:50. FINDINGS: Surgical changes and devices: None. Lungs and pleura: There is a mild coarsened appearance of the bases bilaterally. Mediastinum: Mediastinal contours appear normal. Heart size is normal. Bones and chest wall: No suspicious bony lesions. Overlying soft tissues appear unremarkable. IMPRESSION: Mild bibasilar coarsening possibly related to dependent change/edema. However, developing areas of pneumonia cannot be definitively excluded. Dictated by: Jewell Monahan M.D. on 08/04/2020 at 14:43 Approved by: Jewell Monahan M.D. on 08/04/2020 at 14:44 ECG Data Attestation: I personally reviewed and interpreted this ECG as follows: Prior ECG tracings: available for review Interpretation: Normal sinus rhythm rate 85 p.r. interval 168 QRS [address] changes Q-waves noted in anterior septal leads similar to previous EKG in 2018 MDM Narrative Medical decision making narrative: Patient improved with inhaler and spacer his breathing looks much better. Once COVID is negative he he is given a DuoNeb he looks significantly better. However his blood pressure remains elevated. He is given 2 doses of labetalol it helps some. Clonidine is on his medication list. I discussed with him it is very important to take his medication. He has been doing a good job of keeping a log of his blood pressure. At this time he shows no sign of end-organ damage 2-troponins. I recommend he follow up with primary care provider in regards to blood pressure control. I will treat him for COPD exacerbation. Discharge Plan Departure Patient Disposition: Home Clinical Impression: Asthma exacerbation in COPD, Hypertension Instructions: Chronic Obstructive Pulmonary Disease, Essential Hypertension Activity Restrictions/Additional Instructions: *You have been diagnosed with COPD exacerbation and hypertension *What to do: Please follow-up with her primary care provider in regards to your blood pressure. Continue to check it. I recommend checking it once a day same time every day either morning or night and was cording it as you have been. *Continue to take medications as directed Prednisone 40 mg once a day start tomorrow Doxycycline 100 mg twice daily for 7 days *Follow up with your primary care provider in 2-3 days *Return to ER if you should have increasing shortness of breath, blood pressure with top number greater than 185, chest pain, fever or any new, worsening or concerning symptoms Prescriptions: New doxycycline hyclate 100 mg capsule 100 mg PO BID Qty: 14 RF: 0 prednisone 20 mg tablet 40 mg PO DAILY Qty: 10 RF: 0 No Action trazodone 100 MG tablet 100 mg OR QPM Qty: 30 RF: 3 [KYOLIC IMMUNE 103] 1 tab PO BID Qty: 0 RF: 0 levothyroxine 175 mcg tablet 175 mcg PO DAILY RF: 0 fluticasone propion-salmeterol 250-50 mcg/dose blister with device 1 puff Inhalation BID RF: 0 clobetasol 0.05 % cream 1 applic Topical BID RF: 0 chlorthalidone 25 mg tablet 25 mg PO DAILY RF: 0 amlodipine 10 mg tablet 10 mg PO QPM RF: 0 losartan 100 mg tablet 100 mg PO QPM RF: 0 metformin 500 mg tablet 500 mg PO BID RF: 0 albuterol sulfate 90 mcg/actuation HFA aerosol inhaler 1 puff Inhalation PRN PRN (Reason: Shortness Of Breath) RF: 0 tiotropium bromide 18 mcg capsule, w/inhalation device 1 cap Inhalation DAILY RF: 0 nitroglycerin [Nitrostat] 0.4 mg Tablet, Sublingual 0.4 mg SUBLINGUAL Q5-15M PRN (Reason: Chest Pain) RF: 0 aspirin 81 mg Tablet,Delayed Release (Dr/Ec) 81 mg PO DAILY RF: 0 (DME) Thermacare Heatwrap Joint RF: 0 sennosides-docusate sodium [Senna with Docusate Sodium] 8.6 MG/50 MG tablet 10 tab PO DAILY RF: 0 lidocaine 5 % Adhesive Patch,Medicated 1 patch TOPICAL DAILY RF: 0 ascorbic acid (vitamin C) 1,000 mg Tablet 1 g PO BID RF: 0 cholecalciferol (vitamin D3) [Vitamin D3] 400 unit Capsule 400 unit PO QPM RF: 0 C-Ketam 1 applic Topical TID RF: 0 Vitamin B Complex With Probiotics 1 tab PO BID RF: 0 magnesium citrate 500 mg 500 mg PO BID RF: 0 lorazepam 1 mg Tablet 1 mg PO DAILY PRN (Reason: Panic Attack(S)) Qty: 10 RF: 0 sertraline [Zoloft] 50 mg Tablet 100 mg PO DAILY Qty: 60 RF: 0 prednisone 20 mg tablet 40 mg PO DAILY Qty: 6 RF: 0 nicotine 21 mg/24 hr patch 24 hour 1 patch Transdermal DAILY Qty: 21 RF: 0 Referrals: Nakia Marcus MD [Primary Care Provider] -
[2020-08-04 14:30] LABS: INR 0.9 (0.9-1.3); Prothrombin Time 10.3 SECONDS (10.1-12.7)
[2020-08-04 14:32] LABS: Add Manual Diff / Slide Review NO; Basophils Absolute Auto 100 /uL (0-100); Basophils Percent Auto 0.7 % (0-2); Eosinophils Absolute Auto 700 /uL (0-450); Eosinophils Percent Auto 7.1 % (2-4); Hematocrit 46.5 % (41-53); Hemoglobin 15.6 g/dL (13.5-17.5); Lymphocytes Absolute Auto 2000 /uL (1100-4500); Lymphocytes Percent Auto 22.1 % (25-40); Mean Corpuscular HGB Conc 33.6 % (30-36); Mean Corpuscular Hemoglobin 33.1 PG (26-34); Mean Corpuscular Volume 98.5 fL (80-100); Monocytes Absolute Auto 800 /uL (0-900); Monocytes Percent Auto 8.4 % (3-14); Neutrophils Absolute Auto 5600 /uL (1500-7000); Neutrophils Percent Auto 61.7 % (50-75); Platelet Count 208 X10^3/uL (150-400); Red Blood Cell Count 4.72 X10^6/uL (4.5-5.9); Red Cell Distribution Width 14.9 % (11.6-14.8); White Blood Cell Count 9.1 X10^3/uL (4.5-11.0)
[2020-08-04 14:33] LABS: PTT Partial Thromboplastin Tim 37 SECONDS (26.4-36.2)
[2020-08-04] MEDS: methylPREDNISolone 125 MG/2 ML VIAL IV (14:34)
[2020-08-04] MEDS: ALBUTEROL HFA PREPACK 1 BOX MISC (14:38)
[2020-08-04 14:41] LABS: Alanine Aminotransferase 23 IU/L (<50); Albumin 3.9 g/dL (3.5-5.0); Albumin Globulin Ratio 1.4 (1.0-2.8); Alkaline Phosphatase 57 U/L (38-126); Aspartate Aminotransferase 27 IU/L (17-59); BUN Creatinine Ratio 16.2 (6-22); Bilirubin Total 0.3 mg/dL (0.2-1.3); Blood Urea Nitrogen 19 mg/dL (9-20); Calcium 9.3 mg/dL (8.4-10.2); Carbon Dioxide 30 mmol/L (22-32); Chloride 104 mmol/L (98-107); Estimated Glomerular Filt Rate > 60.0 mL/min (>60); Globulin 2.8 g/dL (1.7-4.1); Glucose 94 mg/dL (80-110); HEMOLYSIS < 15 (0-50); Potassium 4.4 mmol/L (3.4-5.1); Sodium 136 mmol/L (137-145); Total Protein 6.7 g/dL (6.3-8.2)
[2020-08-04 14:43] LABS: Creatine Kinase 91 U/L (55-170); Magnesium 1.9 mg/dL (1.6-2.3)
[2020-08-04 14:47] LABS: COVID19 -Nasal RAPID Negative (Negative)
[2020-08-04 14:55] LABS: NT-proBNP (BNP-Adult 18+) 498 pg/mL (<125); Troponin I 0.013 ng/mL (0.01-0.034)
[2020-08-04 15:04] LABS: Procalcitonin < 0.05 ng/mL (<0.5)
[2020-08-04] MEDS: ALBUTEROL/IPRATROPIUM 3 ML AMPUL INH (15:07)
[2020-08-04] MEDS: LABETALOL 20 MG/4 ML SYRINGE 10 MG IV ×2 (15:42→17:14)
[2020-08-04 16:36] LABS: Troponin I < 0.012 ng/mL (0.01-0.034)
== END 2020-08-04 17:47 | disposition home or self-care (01) ==
PROVIDERS: Emergency Provider Emergency Medicine; PCP Internal Medicine
DX: J44.1 Chronic obstructive pulmonary disease with (acute) exacerbation (principal); R07.9 Chest pain, unspecified; R06.02 Shortness of breath; R05 Cough; E11.9 Type 2 diabetes mellitus without complications; I10 Essential (primary) hypertension; E78.5 Hyperlipidemia, unspecified; E03.9 Hypothyroidism, unspecified; Z20.822 Contact with and (suspected) exposure to COVID-19
CPT/HCPCS: 36415; 71045; 80053; 82550; 83605; 83735; 83880; 84145; 84484; 85025; 85610; 85730; 87040; 87635; 93005; 93010; 94640; 96374; 96375; 96376; 99284; 99285; C9803; J2930

== ENCOUNTER → 2020-09-08 14:47 | Outpatient (ROUT) | payer OTHER, MEDICARE, SELFPAY ==
[2018-11-30 01:27] VITALS: BMI 22.6
[2020-09-08 15:02] LABS: Alanine Aminotransferase 43 IU/L (<50); Aspartate Aminotransferase 36 IU/L (17-59); Cholesterol 156 mg/dL (140-199); HDL Cholesterol 43 mg/dL (40-60); LDL Cholesterol Calculated 88 mg/dL (<100); Triglycerides 127 mg/dL (35-150)
[2020-09-08 15:04] LABS: Hemoglobin A1C% w Est Avg Glu 6.9 % (4.0-6.0)
--- OUTSIDE RECORDS SUMMARY | 2020-10-07 16:38 | XMS_ITS | Referral Summary ---
:[address] [facility] Address [address] [place] [address] Care Team Providers Name Role Phone Dayton Marcus Primary Care Provider Reason for Referral Consultation (Routine) Status Reason Specialty Diagnoses / Referred By Referred To Procedures Contact Contact Authorized Specialty Diagnoses [facility] [address] [facility] [id number] [place], Phone: [place] [address] Electronically signed by Bharat Hines MD at Encounter Details Date Type Department Care Team Description 08/30/2020 Telephone [facility] Bharat Hines MD Pulmonology [facility] [address] [place] [address] [place], [place] [phone] Allergies Active Allergy Reactions Severity Noted Date Comments Atorvastatin Other (see comments) 01/11/2017 muscle aches Carvedilol Other (see comments) 01/11/2017 Dizzine ss Doxazosin Other (see comments) 01/11/2017 angioed noemí Isosorbide Mononitrate Other (see comments) High 08/24/2020 Throat/tongue swelling, unabl e to swallow (chokin g) Latex 03/26/2018 Lisinopril Cough 01/11/2017 Morphine Palpitations Low 07/24/2014 aggitation aggitation Severe agitatio n per patient Thyqchd-Vog-Ikc Other (see comments) High 07/24/2014 Myal kandace Reductase Inhibitors Severe muscle pain Varenicline Tartrate Other (see comments) Medium 01/11/2017 aggitation documented as of this encounter (statuses as of 10/07/2020) Medications Medication Sig Dispensed Refills Start End Date Status Date albuterol 2.5 mg inhale 1 vial 0 Active /3 mL (0.083 %) via nebulizer 3 7 nebulizer solution times a day as needed for shortness of breath. aspirin 81 mg EC Take 81 mg by 0 Active tablet mouth daily 5 levothyroxine Take 175 mcg by 0 Active (SYNTHROID, mouth daily 7 LEVOTHROID) 175 mcg tablet nitroglycerin take 1 by 0 Active (NITROSTAT) 0.4 mg Sublingual 4 SL tablet route once for 5 minutes up to 3 tabs for chest pain sennosides-docusat Take 10 tablets 0 Active e sodium by mouth every 6 (SENOKOT-S) 8.6-50 evening mg hot/cold therapy use as needed 0 Active aids (THERMACARE as needed MUSCLE THERAPY) pad traZODone take 1 tablet 0 Active (DESYREL) 100 mg by oral route tablet at bedtime ascorbic acid, Take 1,000 mg 0 A ctive vitamin C, by mouth 2 (VITAMIN C) 1,000 (two) times a mg tablet day cholecalciferol, Take 400 Units 0 Active vitamin D3, 400 by mouth daily unit tablet lidocaine Place 1 patch 0 Active (LIDODERM) 5 % on the skin 2 2 patch (two) times a day EPINEPHrine 1 mL. 0 Active (EPIPEN) 0.3 7 mg/0.3 mL injection syringe metFORMIN Take 500 mg by 0 Activ e (GLUCOPHAGE) 500 mouth 2 (two) mg tablet times a day with meals magnesium 250 mg Take 500 mg by 0 Active tablet mouth 2 (two) times a day sertraline Take 100 mg by 0 Acti ve (ZOLOFT) 100 mg mouth every tablet evening LORazepam (ATIVAN) Take 1 mg by 0 Active 1 mg tablet mouth every 6 (six) hours as needed for anxiety tiotropium bromide Inhale 2 puffs 1 Inhaler 11 Active (SPIRIVA RESPIMAT) daily 9 2.5 mcg/actuation inhaler POTASSIUM CITRATE Take by mouth 2 0 Active ORAL (two) times a day DIETARY SUPPLEMENT Take by mouth 0 Active ORAL Hydroxy B12 1000mcg daily DIETARY SUPPLEMENT Take by mouth 0 Active ORAL Kyolic Immune Formula 103 twice a day amLODIPine Take 1 tablet 30 tablet 11 Activ e (NORVASC) 10 mg (10 mg total) 9 tablet by mouth daily losartan (COZAAR) Take 1 tablet 30 tablet 11 Active 100 mg tablet (100 mg total) 9 by mouth daily chlorthalidone Take 1 tablet 30 tablet 11 A ctive (HYGROTON) 25 mg (25 mg total) 9 tablet by mouth daily nystatin-triamcino Apply 1 0 A ctive lone (MYCOLOG II) application 9 cream topically 2 (two) times a day oxyCODONE Take 10 mg by 0 Active (OxyCONTIN) 10 mg mouth every 12 12 hr (twelve) hours abuse-deterrent as needed tablet fluticasone Administer 1 0 Activ e propionate spray into each 0 (FLONASE) 50 nostril daily mcg/actuation as needed nasal spray ProAir HFA 90 Inhale 2 puffs 0 A ctive mcg/actuation every 4 (four) 0 inhaler hours as needed ezetimibe (ZETIA) Take 1 tablet 30 tablet 11 06/03/20 Active 10 mg tablet (10 mg total) 0 21 by mouth daily hydrALAZINE Take 1 tablet 0 Acti ve (APRESOLINE) 25 mg by mouth 3 1 tablet (three) times a day bempedoic acid Take 180 mg by 0 Active (Nexletol) 180 mg mouth daily tablet zinc (Chelated Take 1 tablet 0 A ctive Zinc) 50 mg tablet by mouth daily phytonadione, vit Take 100 mcg by 0 Active K1, (phytonadione, mouth daily vitamin K1,) 100 mcg tablet cloNIDine Take 1 tablet 180 tablet 3 08/26/19 Activ e (CATAPRES) 0.3 mg (0.3 mg total) 1 22 tablet by mouth 2 (two) times a day azithromycin Take 1 tablet 90 tablet 0 09/16/19 Dis continued (ZITHROMAX) 250 mg (250 mg total) 0 21 (Stop Taking at tabletIndications: by mouth 3 Discharge) COPD, severe (three) times a ([facility]) week predniSONE Take 10 mg by 0 09/16/19 Disco ntinued (DELTASONE) 10 mg mouth daily 1 21 (Stop Taking at tablet Discharge) budesonide-formote Inhale 2 puffs 0 Discontinued roL (SYMBICORT) 2 (two) times a 21 (Stop Taking at 160-4.5 day Rinse mouth Disc harge) mcg/actuation with water inhaler after use to reduce aftertaste and incidence of candidiasis. Do not swallow. documented as of this encounter (statuses as of 10/07/2020) Active Problems Problem Noted Date Sleep disorder 08/30/2020 Chronic hypoxemic respiratory failure 08/24/2020 Last Assessment & Plan: Patient has chronic hypoxemic respirator y failure from COPD. He previously only qualified for nocturnal oxygen however h e is now noting desaturation at night with oxygen and in the daytime without supple mental oxygen. We will plan to complete a 6-minute walk test on follow-up visit on he is recovered from a COPD exacerbation and have him titrate his supplemental ox ygen to saturations greater than 90%. He was in agreement with this plan. COPD, severe 08/06/2019 Last Assessment & Plan: Patient has severe COPD. He had to a respiratory status or patients last year and was started on azithromycin in addition to triple therapy with Symbicort, Spiriva, albuterol. He did have elevated AEC on July hospitalization. We did obt ain an ABG which showed no evidence of chronic hypercapnic respiratory failure though is pending sleep evaluation at [facility] and awaiting his appointm ent.. He was hospitalized again in [facility] and bronchodilators changed to nebulized versions for which she had significant clinical benefit as he was unlikely getting the other MDI medications abbiei alycia. He did not think he would be able to tolerate pulmonary rehabilitation but will perform exercises at home including weight exercises for upper body and cardiovascular activities. He does have PF Ts coming up at 10/08/2020 that I encoura ged him to follow through. He would like a portable nebulizer for which she has one at home and we will send a prescription. We will plan to follow-up in 2 [facility] to assess his progress. In the [facility] he should continue azithromycin, regular exercise program, and his ICS, LABA, LAMA nebulized (brovana, budesonide, duoneb). COPD exacerbation 08/06/2019 Last Assessment & Plan: Patient had another COPD exacerbation on 08/06/2020. He had an AEC of 700. He is improving with a prolonged corticosteroi d taper and increased use of rescue albuterol. Recommend he complete his cu rrent regimen and continue albuterol nebulized as needed. He is already on a zithromycin 3 times a week however there may be another trigger including atopic give n to exacerbations this winter. He did not have any benefit from Singulair in the p ast. We could consider asthma overlap with COPD and biologic asthma therapy in the future. Cerebrovascular accident (CVA) due to stenosis of righ t posterior cerebral 05/28/2017 artery Rectal bleeding 05/28/2017 Statin intolerance 05/28/2017 CAD (coronary artery disease) 05/11/2017 Overview: Reassuring - HTN only; Cath 06/27/2012 PVD (peripheral vascular disease) 05/11/2017 Overview: B/l TRIBAL JUDGE bruit - non-obstructive disease with biphasic flow bilateraly 02/2014 No AAA on screening u/s following abnorm al exam 02/2014 Diabetes 05/11/2017 Hypertension 05/11/2017 Last Assessment & Plan: Patient's hypertension appears to be per sistently uncontrolled despite escalation of his antihypertensives at his ED visit on 08/06/2020 and reports systolic blood pressures up to the 190s. I will defer to Dr. Azul regarding treatment. Dyslipidemia 05/11/2017 Family history of coronary artery disease 05/11/2017 Overview: Less than 60 years of age documented as of this encounter (statuses as of 10/07/2020) Immunizations Name Administration Dates Next Due FLU High Dose 65+ (Fluzone) 04/28/2020 Influenza, Seasonal, Injectable 05/19/2019, 05/02/2018, 04/22, 05/13/2015, 03/07/2015, 04/27/2014 Pneumococcal Conjugate PCV13 06/04/2019, 09/13/2015 ([id number]) Pneumococcal Polysaccharide PPV23 06/04/2019, 12/30/2001 ([id number]) TD Preservative Free (Tenivac) 12/30/2005 Tdap (Boostrix,Adacel) 06/04/2019 documented as of this encounter Social History Tobacco Use Types Packs/Day Years Used Date Former Smoker Cigarettes 1 40 Quit: 11/22/19 14 Smokeless Tobacco: Never Used Alcohol Use Drinks/Week oz/Week Comments No Sex Assigned at Date Recorded Male 02/05/2019 1:15 PM PDT Job Start Date Occupation Industry Not on file Not on file Not on file documented as of this encounter Miscellaneous Notes Telephone Encounter - Sujata Crabtree RN - 08/30/2020 12:48 PM PSTI called patient, notified of ABG results and Dr. Hines's recommendations as stated previously. Patient verbalized understanding and agreement with plan, requested we send referral over to [facility]. I told patient I will have our referrals team work on that. He is welcome to call back if he hasn'theard back from [facility] in a couple weeks. Patient verbalized understanding and agreement with plan, no further questions/concerns/requests at this time. Referrals team, will you send Sleep Med consult to [facility]? Thanks! elephone Encounter - Bharat Hines MD - 08/30/2020 8:23 AM PSTABG showed no evidence of CO2 retention so we have to proceed down route of sleep apnea testing to see if he is candidate and would benefit from CPAP or similar at night. I have placed the referral. documented in this encounter Plan of Treatment Upcoming Encounters Date Type Specialty Care Team Description 10/08/2020 Appointment Respiratory Therapy Mickey Hines MD [address] [place] [address] Scheduled Referrals Name Type Priority Associated Diagnoses Order S brenna KO Referral to Outpatient Referral Routine Sleep disorder Ordered: [facility] 08/30/2020 documented as of this encounter Visit Diagnoses Diagnosis Sleep disorder - Primary Unspecified sleep disturbance documented in this encounter Insurance Payer Benefit Plan / Group Subscriber ID Effective Dates Phone Address Type MEDICARE MEDICARE PART A AND B [id number] 2002-Present ANGELA MILLER [id number] 2020-Present documented as of this encounter Advance Directives Documents on File Type Date Recorded Patient Web Services Professional Explanati on Advance Directives 09/13/2020 5:[address] [facility] and Living Will Latest Code Status on File Code Status Date Activated Date Inactivated Comments DNR 09/13/2020 9:32 PM 09/16/2020 3:57 PM
== END ==
PROVIDERS: PCP Internal Medicine; Visit Provider Internal Medicine
DX: E78.5 Hyperlipidemia, unspecified (principal); E11.42 Type 2 diabetes mellitus with diabetic polyneuropathy
CPT/HCPCS: 80061; 83036; 84450; 84460

== ENCOUNTER → 2020-11-23 08:06 | Outpatient (CLI) | payer OTHER, MEDICARE, SELFPAY ==
[2018-11-30 01:27] VITALS: BMI 22.6
[2020-11-23 10:51] LABS: COVID19 -Nasal RAPID Negative (Negative)
== END ==
PROVIDERS: PCP Internal Medicine; Visit Provider Family Medicine Sleep Medicine
DX: Z20.822 Contact with and (suspected) exposure to COVID-19 (principal)
CPT/HCPCS: 87635; 95811

== ENCOUNTER → 2020-12-14 09:29 | Outpatient (CLI) | payer OTHER, MEDICARE, SELFPAY ==
[2018-11-30 01:27] VITALS: BMI 22.6
== END ==
PROVIDERS: Family Provider Internal Medicine; PCP Internal Medicine; Referring Provider Internal Medicine; Visit Provider Family Medicine
DX: E11.622 Type 2 diabetes mellitus with other skin ulcer (principal); M19.071 Primary osteoarthritis, right ankle and foot; M77.31 Calcaneal spur, right foot
CPT/HCPCS: 73630; 97597; 99204; 99213

== ENCOUNTER → 2020-12-14 10:16 | Outpatient (CLI) | payer OTHER, MEDICARE, SELFPAY ==
[2018-11-30 01:27] VITALS: BMI 22.6
--- NOTE | 2020-12-14 10:22 | DI.RAD.S_ITS ---
PROCEDURE: XR FOOT RT 2V INDICATIONS: Rt FOOT EVALUATE OSTEOMYSLITIS TECHNIQUE: 3 views of the foot were acquired. COMPARISON: None. FINDINGS: Bones: No fractures or dislocations. No suspicious bony lesions. No osseous erosive changes. No periosteal reaction. Plantar calcaneal bone spur. Midfoot osteoarthritis. Soft tissues: No tibiotalar joint effusion. Achilles tendon appears normal. No soft tissue gas. IMPRESSION: No jairo evidence of osteomyelitis. Plain film radiographs can be insensitive to osteomyelitis during the initial 15 days of the disease process. If there is clinical concern for osteomyelitis, then three-phase nuclear medicine bone scan should be considered for further evaluation. Dictated by: Sydnie Pringle MD, PhD on 12/14/2020 at 16:31 Approved by: Sydnie Pringle MD, PhD on 12/14/2020 at 16:32
== END ==
PROVIDERS: Family Provider Internal Medicine; PCP Internal Medicine; Referring Provider Family Medicine; Visit Provider Family Medicine
DX: E11.622 Type 2 diabetes mellitus with other skin ulcer (principal); M19.071 Primary osteoarthritis, right ankle and foot; M77.31 Calcaneal spur, right foot
CPT/HCPCS: 73630

== ENCOUNTER → 2020-12-22 10:39 | Outpatient (CLI) | payer OTHER, MEDICARE, SELFPAY ==
[2018-11-30 01:27] VITALS: BMI 22.6
== END ==
PROVIDERS: Family Provider Internal Medicine; PCP Internal Medicine; Referring Provider Internal Medicine; Visit Provider Family Medicine
DX: E11.621 Type 2 diabetes mellitus with foot ulcer (principal); L97.511 Non-pressure chronic ulcer of other part of right foot limited to breakdown of skin; E11.51 Type 2 diabetes mellitus with diabetic peripheral angiopathy without gangrene; E11.40 Type 2 diabetes mellitus with diabetic neuropathy, unspecified; J44.9 Chronic obstructive pulmonary disease, unspecified
CPT/HCPCS: 99213

== ENCOUNTER → 2021-01-04 15:32 | Outpatient (CLI) | payer OTHER, MEDICARE, SELFPAY ==
[2018-11-30 01:27] VITALS: BMI 22.6
== END ==
PROVIDERS: Family Provider Internal Medicine; PCP Internal Medicine; Referring Provider Internal Medicine; Visit Provider Family Medicine
DX: E11.621 Type 2 diabetes mellitus with foot ulcer (principal); L97.515 Non-pressure chronic ulcer of other part of right foot with muscle involvement without evidence of necrosis; E11.51 Type 2 diabetes mellitus with diabetic peripheral angiopathy without gangrene; E11.40 Type 2 diabetes mellitus with diabetic neuropathy, unspecified; I87.2 Venous insufficiency (chronic) (peripheral); J44.9 Chronic obstructive pulmonary disease, unspecified; Z87.891 Personal history of nicotine dependence
CPT/HCPCS: 99213

== ENCOUNTER → 2021-01-20 13:52 | Outpatient (CLI) | payer OTHER, MEDICARE, SELFPAY ==
[2018-11-30 01:27] VITALS: BMI 22.6
== END ==
PROVIDERS: Family Provider Internal Medicine; PCP Internal Medicine; Referring Provider Internal Medicine; Visit Provider Family Medicine
DX: E11.621 Type 2 diabetes mellitus with foot ulcer (principal); L97.512 Non-pressure chronic ulcer of other part of right foot with fat layer exposed; I73.9 Peripheral vascular disease, unspecified; Z95.820 Peripheral vascular angioplasty status with implants and grafts; J44.9 Chronic obstructive pulmonary disease, unspecified
CPT/HCPCS: 11042; 99213

== ENCOUNTER → 2021-04-27 07:34 | Outpatient (CLI) | payer OTHER, MEDICARE, SELFPAY ==
[2018-11-30 01:27] VITALS: BMI 22.6
--- NOTE | 2021-04-27 | DI.MRI.S_ITS ---
PROCEDURE: MR FOOT RT WO/W CON INDICATIONS: Non-pressure chronic ulcer TECHNIQUE: Noncontrast coronal T1 spin echo and STIR, sagittal T1 spin echo with fat saturation and STIR, axial T1 spin echo and T2 fast spin echo with fat saturation. After the administration of contrast, axial/sagittal/coronal T1 spin echo with fat saturation through the right foot . COMPARISON: None. FINDINGS: Image quality: Excellent. Bones: Lmwq-hv-kbctqttj midfoot and forefoot joint osteoarthritic changes are seen more prominent in 1st interphalangeal joint and 1st MTP joint. There is no marrow edema. No metatarsal stress fractures. No bony erosion or cortical destruction. No area of abnormal intraosseous enhancement. Soft tissues: Ulceration involving medial aspect of 1st MTP joint is seen. There is significant soft tissue swelling and edema particularly over dorsal aspect of midfoot and forefoot extending to dorsal aspect of 2nd and 3rd toes. No discrete drainable abscess collection is identified. No soft tissue masses are visualized. The scanned muscles demonstrate normal overall bulk and internal signal. IMPRESSION: 1. Ulceration involving medial aspect of 1st MTP joint. Extensive cellulitis in dorsal aspect of midfoot and forefoot particularly over 2nd and 3rd toes. No discrete drainable abscess collection is seen. No enhancing soft tissue mass. 2. No evidence of osteomyelitis. Midfoot and forefoot joint osteoarthritis more prominent in 1st toe as above. Dictated by: Hermann Padilla M.D. on 04/27/2021 at 10:16 Approved by: Hermann Padilla M.D. on 04/27/2021 at 10:19
== END ==
PROVIDERS: Family Provider Internal Medicine; PCP Internal Medicine; Referring Provider Podiatrist; Visit Provider Podiatrist
DX: L97.413 Non-pressure chronic ulcer of right heel and midfoot with necrosis of muscle (principal); M19.071 Primary osteoarthritis, right ankle and foot
CPT/HCPCS: 73720; A9579

== ENCOUNTER → 2021-05-31 08:47 | Outpatient (CLI) | payer OTHER, MEDICARE, SELFPAY ==
[2018-11-30 01:27] VITALS: BMI 22.6
== END ==
PROVIDERS: Family Provider Internal Medicine; PCP Internal Medicine; Referring Provider Internal Medicine; Visit Provider Family Medicine
DX: E11.52 Type 2 diabetes mellitus with diabetic peripheral angiopathy with gangrene (principal); L97.518 Non-pressure chronic ulcer of other part of right foot with other specified severity; Z95.820 Peripheral vascular angioplasty status with implants and grafts; J44.9 Chronic obstructive pulmonary disease, unspecified
CPT/HCPCS: 93923; 99214

== ENCOUNTER → 2021-05-31 10:45 | Outpatient (CLI) | payer OTHER, MEDICARE, SELFPAY ==
[2018-11-30 01:27] VITALS: BMI 22.6
[2021-05-31 11:25] LABS: HCO3 VBG 28 mmol/L (23-28); PO2 VBG 17 mmHg (35-45); Total CO2 VBG 30 mmol/L (24-29); pH VBG 7.39 (7.33-7.43)
[2021-05-31 11:26] LABS: Oxygen Saturation VBG 23 % (70-75)
[2021-05-31 12:10] LABS: Add Manual Diff / Slide Review NO; Basophils Absolute Auto 0 /uL (0-100); Eosinophils Absolute Auto 0 /uL (0-450); Hematocrit 31.5 % (41-53); Hemoglobin 10.2 g/dL (13.5-17.5); Lymphocytes Absolute Auto 1600 /uL (1100-4500); Lymphocytes Percent Auto 14.3 % (25-40); Mean Corpuscular HGB Conc 32.3 % (30-36); Mean Corpuscular Hemoglobin 30.7 PG (26-34); Mean Corpuscular Volume 95.1 fL (80-100); Monocytes Absolute Auto 800 /uL (0-900); Monocytes Percent Auto 6.8 % (3-14); Neutrophils Absolute Auto 9000 /uL (1500-7000); Neutrophils Percent Auto 78.9 % (50-75); Platelet Count 315 X10^3/uL (150-400); Red Blood Cell Count 3.31 X10^6/uL (4.5-5.9); Red Cell Distribution Width 15.1 % (11.6-14.8); White Blood Cell Count 11.5 X10^3/uL (4.5-11.0)
[2021-05-31 12:25] LABS: Hemoglobin A1C% w Est Avg Glu 6.2 % (4.0-6.0)
[2021-05-31 12:33] LABS: Erythrocyte Sedimentation Rate 81 MM/HR (0-15)
[2021-05-31 12:34] LABS: Alanine Aminotransferase 14 IU/L (<50); Albumin 4.2 g/dL (3.5-5.0); Alkaline Phosphatase 71 U/L (38-126); Aspartate Aminotransferase 19 IU/L (17-59); BUN Creatinine Ratio 16.5 (6-22); Bilirubin Total 0.2 mg/dL (0.2-1.3); Blood Urea Nitrogen 27 mg/dL (9-20); C-Reactive Protein Quant 2.6 mg/dL (<1.0); Calcium 9.2 mg/dL (8.4-10.2); Carbon Dioxide 28 mmol/L (22-32); Chloride 103 mmol/L (98-107); Estimated Glomerular Filt Rate 42.6 mL/min (>60); Globulin 2.1 g/dL (1.7-4.1); Glucose 95 mg/dL (80-110); HEMOLYSIS < 15 (0-50); Potassium 5.1 mmol/L (3.4-5.1); Sodium 138 mmol/L (137-145); Total Protein 6.3 g/dL (6.3-8.2)
[2021-05-31 12:39] LABS: Prealbumin 31.4 mg/dL (17.6-36.0)
== END ==
PROVIDERS: Family Provider Internal Medicine; PCP Internal Medicine; Referring Provider Family Medicine; Visit Provider Family Medicine
DX: E11.621 Type 2 diabetes mellitus with foot ulcer (principal); J44.9 Chronic obstructive pulmonary disease, unspecified
CPT/HCPCS: 36415; 80053; 82805; 83036; 84134; 85025; 85651; 86140

== ENCOUNTER → 2021-06-14 08:32 | Outpatient (CLI) | payer OTHER, MEDICARE, SELFPAY ==
[2018-11-30 01:27] VITALS: BMI 22.6
== END ==
PROVIDERS: Family Provider Internal Medicine; PCP Internal Medicine; Referring Provider Internal Medicine; Visit Provider Family Medicine
DX: E11.621 Type 2 diabetes mellitus with foot ulcer (principal); L97.518 Non-pressure chronic ulcer of other part of right foot with other specified severity; L97.515 Non-pressure chronic ulcer of other part of right foot with muscle involvement without evidence of necrosis; Z95.820 Peripheral vascular angioplasty status with implants and grafts; J44.9 Chronic obstructive pulmonary disease, unspecified; L08.9 Local infection of the skin and subcutaneous tissue, unspecified; E11.52 Type 2 diabetes mellitus with diabetic peripheral angiopathy with gangrene
CPT/HCPCS: 11042; 87070; 87077; 87186; 87205; 99214

== ENCOUNTER → 2021-06-15 08:18 | Outpatient (CLI) | payer OTHER, MEDICARE, SELFPAY ==
[2018-11-30 01:27] VITALS: BMI 22.6
--- NOTE | 2021-06-15 | DI.RAD.S_ITS ---
PROCEDURE: XR CHEST 1V INDICATIONS: PRE-HBO TREATMENT IN COPD TECHNIQUE: One view of the chest was acquired. COMPARISON: [facility], CR, XR CHEST 1V, 08/04/2020, 14:27. FINDINGS: Surgical changes and devices: None. Lungs and pleura: Coarsened interstitial markings. Upper lung zone lucency, compatible with emphysematous change. No consolidation, pleural effusions or pneumothorax. Mediastinum: Mediastinal contours appear normal. Heart size is normal. Bones and chest wall: No suspicious bony lesions. Partially imaged posterior element fixation of the lumbar spine. Calcific tendinopathy of the right rotator cuff. IMPRESSION: 1. No significant interval change. Dictated by: Manav Solitario M.D. on 06/15/2021 at 9:24 Approved by: Manav Solitario M.D. on 06/15/2021 at 9:31
== END ==
PROVIDERS: Family Provider Internal Medicine; PCP Internal Medicine; Referring Provider Family Medicine; Visit Provider Family Medicine
DX: J44.9 Chronic obstructive pulmonary disease, unspecified (principal)
CPT/HCPCS: 71045

== ENCOUNTER → 2021-06-21 09:37 | Outpatient (CLI) | payer OTHER, MEDICARE, SELFPAY ==
[2018-11-30 01:27] VITALS: BMI 22.6
== END ==
PROVIDERS: Family Provider Internal Medicine; PCP Internal Medicine; Referring Provider Internal Medicine; Visit Provider Family Medicine
DX: E11.621 Type 2 diabetes mellitus with foot ulcer (principal); L97.516 Non-pressure chronic ulcer of other part of right foot with bone involvement without evidence of necrosis; L97.513 Non-pressure chronic ulcer of other part of right foot with necrosis of muscle; E11.52 Type 2 diabetes mellitus with diabetic peripheral angiopathy with gangrene; Z85.820 Personal history of malignant melanoma of skin; J44.9 Chronic obstructive pulmonary disease, unspecified; L08.9 Local infection of the skin and subcutaneous tissue, unspecified; I73.9 Peripheral vascular disease, unspecified
CPT/HCPCS: 11043; 11046; 87070; 87075; 87186; 87205; 99214

== ENCOUNTER → 2021-06-22 12:51 | Outpatient (CLI) | payer OTHER, MEDICARE, SELFPAY ==
[2018-11-30 01:27] VITALS: BMI 22.6
--- NOTE | 2021-06-22 12:59 | DI.RAD.S_ITS ---
PROCEDURE: XR FOOT RT MIN 3V INDICATIONS: OSTEOMYELITIS 1ST DIGIT TECHNIQUE: 3 views of the foot were acquired. COMPARISON: [facility], CR, XR FOOT RT 2V, 12/14/2020, 10:31. FINDINGS: Bones: No acute, displaced fracture. No appreciable cortical irregularity/destruction of the 1st digit to suggest osteomyelitis. Mild narrowing of the 1st MTP and cuneonavicular articulations with with osteophytosis. Flattening of the 2nd metatarsal head, compatible with Freiberg's infraction. No suspicious bony lesions. Medial bipartite hallux sesamoid. Soft tissues: No tibiotalar joint effusion. Suggestion of an ulcer overlying the 1st in PT joint. IMPRESSION: No significant osseous abnormality. Dictated by: Manav Solitario M.D. on 06/22/2021 at 14:42 Approved by: Manav Solitario M.D. on 06/22/2021 at 14:45
== END ==
PROVIDERS: Family Provider Internal Medicine; PCP Internal Medicine; Referring Provider Internal Medicine; Visit Provider Internal Medicine
DX: M86.9 Osteomyelitis, unspecified (principal)
CPT/HCPCS: 73630

== ENCOUNTER → 2021-06-30 11:14 | Outpatient (CLI) | payer OTHER, MEDICARE, SELFPAY ==
[2018-11-30 01:27] VITALS: BMI 22.6
== END ==
PROVIDERS: Family Provider Internal Medicine; PCP Internal Medicine; Referring Provider Internal Medicine; Visit Provider Family Medicine
DX: E11.52 Type 2 diabetes mellitus with diabetic peripheral angiopathy with gangrene (principal); L97.516 Non-pressure chronic ulcer of other part of right foot with bone involvement without evidence of necrosis; Z95.820 Peripheral vascular angioplasty status with implants and grafts; J44.9 Chronic obstructive pulmonary disease, unspecified; L08.9 Local infection of the skin and subcutaneous tissue, unspecified
CPT/HCPCS: 99183; G0277

== ENCOUNTER → 2021-07-01 13:22 | Outpatient (CLI) | payer OTHER, MEDICARE, SELFPAY ==
[2018-11-30 01:27] VITALS: BMI 22.6
== END ==
PROVIDERS: Family Provider Internal Medicine; PCP Internal Medicine; Referring Provider Internal Medicine; Visit Provider Nurse Practitioner Family
DX: E11.52 Type 2 diabetes mellitus with diabetic peripheral angiopathy with gangrene (principal); L97.516 Non-pressure chronic ulcer of other part of right foot with bone involvement without evidence of necrosis; Z95.820 Peripheral vascular angioplasty status with implants and grafts; J44.9 Chronic obstructive pulmonary disease, unspecified; L08.9 Local infection of the skin and subcutaneous tissue, unspecified
CPT/HCPCS: 99183; G0277

== ENCOUNTER → 2021-07-05 13:01 | Outpatient (CLI) | payer OTHER, MEDICARE, SELFPAY ==
[2018-11-30 01:27] VITALS: BMI 22.6
== END ==
PROVIDERS: Family Provider Internal Medicine; PCP Internal Medicine; Referring Provider Internal Medicine; Visit Provider Family Medicine
DX: E11.52 Type 2 diabetes mellitus with diabetic peripheral angiopathy with gangrene (principal); L97.516 Non-pressure chronic ulcer of other part of right foot with bone involvement without evidence of necrosis; Z95.820 Peripheral vascular angioplasty status with implants and grafts; J44.9 Chronic obstructive pulmonary disease, unspecified; L08.9 Local infection of the skin and subcutaneous tissue, unspecified
CPT/HCPCS: 99183; G0277

== ENCOUNTER → 2021-07-11 13:38 | Outpatient (CLI) | payer OTHER, MEDICARE, SELFPAY ==
[2018-11-30 01:27] VITALS: BMI 22.6
== END ==
PROVIDERS: Family Provider Internal Medicine; PCP Internal Medicine; Referring Provider Internal Medicine; Visit Provider Family Medicine
DX: E11.52 Type 2 diabetes mellitus with diabetic peripheral angiopathy with gangrene (principal); L97.516 Non-pressure chronic ulcer of other part of right foot with bone involvement without evidence of necrosis; Z95.820 Peripheral vascular angioplasty status with implants and grafts; J44.9 Chronic obstructive pulmonary disease, unspecified; L08.9 Local infection of the skin and subcutaneous tissue, unspecified
CPT/HCPCS: 99183; G0277

== ENCOUNTER → 2021-07-12 13:03 | Outpatient (CLI) | payer OTHER, MEDICARE, SELFPAY ==
[2018-11-30 01:27] VITALS: BMI 22.6
== END ==
PROVIDERS: Family Provider Internal Medicine; PCP Internal Medicine; Referring Provider Internal Medicine; Visit Provider Family Medicine
DX: E11.52 Type 2 diabetes mellitus with diabetic peripheral angiopathy with gangrene (principal); L97.516 Non-pressure chronic ulcer of other part of right foot with bone involvement without evidence of necrosis; Z95.820 Peripheral vascular angioplasty status with implants and grafts; J44.9 Chronic obstructive pulmonary disease, unspecified; L08.9 Local infection of the skin and subcutaneous tissue, unspecified
CPT/HCPCS: 99183; G0277

== ENCOUNTER → 2021-07-13 12:00 | Outpatient (CLI) | payer OTHER, MEDICARE, SELFPAY ==
[2018-11-30 01:27] VITALS: BMI 22.6
== END ==
PROVIDERS: Family Provider Internal Medicine; PCP Internal Medicine; Referring Provider Internal Medicine; Visit Provider Family Medicine
DX: E11.52 Type 2 diabetes mellitus with diabetic peripheral angiopathy with gangrene (principal); L97.516 Non-pressure chronic ulcer of other part of right foot with bone involvement without evidence of necrosis; Z95.820 Peripheral vascular angioplasty status with implants and grafts; J44.9 Chronic obstructive pulmonary disease, unspecified; L08.9 Local infection of the skin and subcutaneous tissue, unspecified
CPT/HCPCS: 11043; 11046; 99183; 99213; G0277

== ENCOUNTER → 2021-07-19 13:00 | Outpatient (CLI) | payer OTHER, MEDICARE, SELFPAY ==
[2018-11-30 01:27] VITALS: BMI 22.6
== END ==
PROVIDERS: Family Provider Internal Medicine; PCP Internal Medicine; Referring Provider Internal Medicine; Visit Provider Family Medicine
DX: E11.52 Type 2 diabetes mellitus with diabetic peripheral angiopathy with gangrene (principal); L97.516 Non-pressure chronic ulcer of other part of right foot with bone involvement without evidence of necrosis; L08.9 Local infection of the skin and subcutaneous tissue, unspecified; Z95.820 Peripheral vascular angioplasty status with implants and grafts; J44.9 Chronic obstructive pulmonary disease, unspecified
CPT/HCPCS: 99183; G0277

== ENCOUNTER → 2021-07-21 14:32 | Outpatient (CLI) | payer OTHER, MEDICARE, SELFPAY ==
[2018-11-30 01:27] VITALS: BMI 22.6
== END ==
PROVIDERS: Family Provider Internal Medicine; PCP Internal Medicine; Referring Provider Internal Medicine; Visit Provider Nurse Practitioner Family
DX: E11.52 Type 2 diabetes mellitus with diabetic peripheral angiopathy with gangrene (principal); L97.516 Non-pressure chronic ulcer of other part of right foot with bone involvement without evidence of necrosis; Z95.820 Peripheral vascular angioplasty status with implants and grafts; J44.9 Chronic obstructive pulmonary disease, unspecified; L08.9 Local infection of the skin and subcutaneous tissue, unspecified
CPT/HCPCS: 99183; G0277

== ENCOUNTER → 2021-07-25 13:59 | Outpatient (CLI) | payer OTHER, MEDICARE, SELFPAY ==
[2018-11-30 01:27] VITALS: BMI 22.6
== END ==
PROVIDERS: Family Provider Internal Medicine; PCP Internal Medicine; Referring Provider Internal Medicine; Visit Provider Family Medicine
DX: E11.52 Type 2 diabetes mellitus with diabetic peripheral angiopathy with gangrene (principal); L97.516 Non-pressure chronic ulcer of other part of right foot with bone involvement without evidence of necrosis; Z95.820 Peripheral vascular angioplasty status with implants and grafts; J44.9 Chronic obstructive pulmonary disease, unspecified; L08.9 Local infection of the skin and subcutaneous tissue, unspecified
CPT/HCPCS: 99183; G0277

== ENCOUNTER → 2021-07-26 15:49 | Outpatient (CLI) | payer OTHER, SELFPAY ==
[2018-11-30 01:27] VITALS: BMI 22.6
== END ==
PROVIDERS: Family Provider Internal Medicine; PCP Internal Medicine; Referring Provider Internal Medicine; Visit Provider Family Medicine
DX: E11.621 Type 2 diabetes mellitus with foot ulcer (principal); L97.516 Non-pressure chronic ulcer of other part of right foot with bone involvement without evidence of necrosis; E11.52 Type 2 diabetes mellitus with diabetic peripheral angiopathy with gangrene; Z95.820 Peripheral vascular angioplasty status with implants and grafts; J44.9 Chronic obstructive pulmonary disease, unspecified; L08.9 Local infection of the skin and subcutaneous tissue, unspecified
CPT/HCPCS: 99183; G0277

== ENCOUNTER → 2021-07-27 14:17 | Outpatient (CLI) | payer OTHER, SELFPAY ==
[2018-11-30 01:27] VITALS: BMI 22.6
== END ==
PROVIDERS: Family Provider Internal Medicine; PCP Internal Medicine; Referring Provider Internal Medicine; Visit Provider Family Medicine
DX: E11.621 Type 2 diabetes mellitus with foot ulcer (principal); L97.516 Non-pressure chronic ulcer of other part of right foot with bone involvement without evidence of necrosis; E11.52 Type 2 diabetes mellitus with diabetic peripheral angiopathy with gangrene; Z95.820 Peripheral vascular angioplasty status with implants and grafts; J44.9 Chronic obstructive pulmonary disease, unspecified; L08.9 Local infection of the skin and subcutaneous tissue, unspecified
CPT/HCPCS: 99183; G0277

== ENCOUNTER → 2021-07-28 12:24 | Outpatient (CLI) | payer OTHER, SELFPAY ==
[2018-11-30 01:27] VITALS: BMI 22.6
== END ==
PROVIDERS: Family Provider Internal Medicine; PCP Internal Medicine; Referring Provider Internal Medicine; Visit Provider Family Medicine
DX: E11.621 Type 2 diabetes mellitus with foot ulcer (principal); L97.516 Non-pressure chronic ulcer of other part of right foot with bone involvement without evidence of necrosis; E11.52 Type 2 diabetes mellitus with diabetic peripheral angiopathy with gangrene; Z95.820 Peripheral vascular angioplasty status with implants and grafts; J44.9 Chronic obstructive pulmonary disease, unspecified; L08.9 Local infection of the skin and subcutaneous tissue, unspecified
CPT/HCPCS: 99183; G0277

== ENCOUNTER → 2021-08-01 12:59 | Outpatient (CLI) | payer OTHER, SELFPAY ==
[2018-11-30 01:27] VITALS: BMI 22.6
== END ==
PROVIDERS: Family Provider Internal Medicine; PCP Internal Medicine; Referring Provider Internal Medicine; Visit Provider Family Medicine
DX: E11.621 Type 2 diabetes mellitus with foot ulcer (principal); L97.516 Non-pressure chronic ulcer of other part of right foot with bone involvement without evidence of necrosis; E11.52 Type 2 diabetes mellitus with diabetic peripheral angiopathy with gangrene; Z95.820 Peripheral vascular angioplasty status with implants and grafts; J44.9 Chronic obstructive pulmonary disease, unspecified; L08.9 Local infection of the skin and subcutaneous tissue, unspecified
CPT/HCPCS: 99183; G0277

== ENCOUNTER → 2021-08-02 11:50 | Outpatient (CLI) | payer OTHER, SELFPAY ==
[2018-11-30 01:27] VITALS: BMI 22.6
== END ==
PROVIDERS: Family Provider Internal Medicine; PCP Internal Medicine; Referring Provider Internal Medicine; Visit Provider Family Medicine
DX: E11.621 Type 2 diabetes mellitus with foot ulcer (principal); L97.516 Non-pressure chronic ulcer of other part of right foot with bone involvement without evidence of necrosis; E11.52 Type 2 diabetes mellitus with diabetic peripheral angiopathy with gangrene; Z95.820 Peripheral vascular angioplasty status with implants and grafts; J44.9 Chronic obstructive pulmonary disease, unspecified; L08.9 Local infection of the skin and subcutaneous tissue, unspecified
CPT/HCPCS: 99183; G0277

== ENCOUNTER → 2021-08-03 14:35 | Outpatient (CLI) | payer OTHER, SELFPAY ==
[2018-11-30 01:27] VITALS: BMI 22.6
== END ==
PROVIDERS: Family Provider Internal Medicine; PCP Internal Medicine; Referring Provider Internal Medicine; Visit Provider Family Medicine
DX: E11.621 Type 2 diabetes mellitus with foot ulcer (principal); L97.516 Non-pressure chronic ulcer of other part of right foot with bone involvement without evidence of necrosis; E11.52 Type 2 diabetes mellitus with diabetic peripheral angiopathy with gangrene; Z95.820 Peripheral vascular angioplasty status with implants and grafts; J44.9 Chronic obstructive pulmonary disease, unspecified; L08.9 Local infection of the skin and subcutaneous tissue, unspecified
CPT/HCPCS: 99183; G0277

== ENCOUNTER → 2021-08-04 13:27 | Outpatient (CLI) | payer OTHER, SELFPAY ==
[2018-11-30 01:27] VITALS: BMI 22.6
== END ==
PROVIDERS: Family Provider Internal Medicine; PCP Internal Medicine; Referring Provider Internal Medicine; Visit Provider Family Medicine
DX: E11.621 Type 2 diabetes mellitus with foot ulcer (principal); L97.516 Non-pressure chronic ulcer of other part of right foot with bone involvement without evidence of necrosis; E11.52 Type 2 diabetes mellitus with diabetic peripheral angiopathy with gangrene; Z95.820 Peripheral vascular angioplasty status with implants and grafts; J44.9 Chronic obstructive pulmonary disease, unspecified; L08.9 Local infection of the skin and subcutaneous tissue, unspecified
CPT/HCPCS: 99183; G0277

== ENCOUNTER → 2021-08-05 14:38 | Outpatient (CLI) | payer OTHER, SELFPAY ==
[2018-11-30 01:27] VITALS: BMI 22.6
== END ==
PROVIDERS: Family Provider Internal Medicine; PCP Internal Medicine; Referring Provider Internal Medicine; Visit Provider Nurse Practitioner Family
DX: E11.621 Type 2 diabetes mellitus with foot ulcer (principal); L97.516 Non-pressure chronic ulcer of other part of right foot with bone involvement without evidence of necrosis; E11.52 Type 2 diabetes mellitus with diabetic peripheral angiopathy with gangrene; Z95.820 Peripheral vascular angioplasty status with implants and grafts; J44.9 Chronic obstructive pulmonary disease, unspecified; L08.9 Local infection of the skin and subcutaneous tissue, unspecified
CPT/HCPCS: 99183; G0277

== ENCOUNTER → 2021-08-08 14:10 | Outpatient (CLI) | payer OTHER, SELFPAY ==
[2018-11-30 01:27] VITALS: BMI 22.6
== END ==
PROVIDERS: Family Provider Internal Medicine; PCP Internal Medicine; Referring Provider Internal Medicine; Visit Provider Family Medicine
DX: E11.621 Type 2 diabetes mellitus with foot ulcer (principal); L97.516 Non-pressure chronic ulcer of other part of right foot with bone involvement without evidence of necrosis; E11.52 Type 2 diabetes mellitus with diabetic peripheral angiopathy with gangrene; L08.9 Local infection of the skin and subcutaneous tissue, unspecified; J44.9 Chronic obstructive pulmonary disease, unspecified; Z95.820 Peripheral vascular angioplasty status with implants and grafts
CPT/HCPCS: 11043; 87070; 87075; 87077; 87186; 87205; 99183; G0277

== ENCOUNTER → 2021-08-09 12:13 | Outpatient (CLI) | payer OTHER, SELFPAY ==
[2018-11-30 01:27] VITALS: BMI 22.6
== END ==
PROVIDERS: Family Provider Internal Medicine; PCP Internal Medicine; Referring Provider Internal Medicine; Visit Provider Family Medicine
DX: E11.621 Type 2 diabetes mellitus with foot ulcer (principal); L97.516 Non-pressure chronic ulcer of other part of right foot with bone involvement without evidence of necrosis; E11.52 Type 2 diabetes mellitus with diabetic peripheral angiopathy with gangrene; Z95.820 Peripheral vascular angioplasty status with implants and grafts; J44.9 Chronic obstructive pulmonary disease, unspecified; L08.9 Local infection of the skin and subcutaneous tissue, unspecified
CPT/HCPCS: 99183; G0277

== ENCOUNTER → 2021-08-10 13:05 | Outpatient (CLI) | payer OTHER, SELFPAY ==
[2018-11-30 01:27] VITALS: BMI 22.6
== END ==
PROVIDERS: Family Provider Internal Medicine; PCP Internal Medicine; Referring Provider Internal Medicine; Visit Provider Family Medicine
DX: E11.621 Type 2 diabetes mellitus with foot ulcer (principal); L97.516 Non-pressure chronic ulcer of other part of right foot with bone involvement without evidence of necrosis; E11.52 Type 2 diabetes mellitus with diabetic peripheral angiopathy with gangrene; Z95.820 Peripheral vascular angioplasty status with implants and grafts; J44.9 Chronic obstructive pulmonary disease, unspecified; L08.9 Local infection of the skin and subcutaneous tissue, unspecified
CPT/HCPCS: 99183; G0277

== ENCOUNTER → 2021-08-11 13:04 | Outpatient (CLI) | payer OTHER, SELFPAY ==
[2018-11-30 01:27] VITALS: BMI 22.6
== END ==
PROVIDERS: Family Provider Internal Medicine; PCP Internal Medicine; Referring Provider Internal Medicine; Visit Provider Family Medicine
DX: E11.621 Type 2 diabetes mellitus with foot ulcer (principal); L97.516 Non-pressure chronic ulcer of other part of right foot with bone involvement without evidence of necrosis; E11.52 Type 2 diabetes mellitus with diabetic peripheral angiopathy with gangrene; L08.9 Local infection of the skin and subcutaneous tissue, unspecified; J44.9 Chronic obstructive pulmonary disease, unspecified; Z95.820 Peripheral vascular angioplasty status with implants and grafts
CPT/HCPCS: 99183; G0277

== ENCOUNTER → 2021-08-15 11:08 | Outpatient (CLI) | payer OTHER, SELFPAY ==
[2018-11-30 01:27] VITALS: BMI 22.6
== END ==
PROVIDERS: Family Provider Internal Medicine; PCP Internal Medicine; Referring Provider Internal Medicine; Visit Provider Family Medicine
DX: E11.621 Type 2 diabetes mellitus with foot ulcer (principal); E11.52 Type 2 diabetes mellitus with diabetic peripheral angiopathy with gangrene; L97.516 Non-pressure chronic ulcer of other part of right foot with bone involvement without evidence of necrosis; L08.9 Local infection of the skin and subcutaneous tissue, unspecified; J44.9 Chronic obstructive pulmonary disease, unspecified; Z95.820 Peripheral vascular angioplasty status with implants and grafts
CPT/HCPCS: 99183; G0277

== ENCOUNTER → 2021-08-16 14:20 | Outpatient (CLI) | payer OTHER, SELFPAY ==
[2018-11-30 01:27] VITALS: BMI 22.6
== END ==
PROVIDERS: Family Provider Internal Medicine; PCP Internal Medicine; Referring Provider Internal Medicine; Visit Provider Family Medicine
DX: E11.621 Type 2 diabetes mellitus with foot ulcer (principal); E11.52 Type 2 diabetes mellitus with diabetic peripheral angiopathy with gangrene; L97.516 Non-pressure chronic ulcer of other part of right foot with bone involvement without evidence of necrosis; J44.9 Chronic obstructive pulmonary disease, unspecified; L08.9 Local infection of the skin and subcutaneous tissue, unspecified; Z95.820 Peripheral vascular angioplasty status with implants and grafts
CPT/HCPCS: 99183; G0277

== ENCOUNTER → 2021-08-17 11:29 | Outpatient (CLI) | payer OTHER, SELFPAY ==
[2018-11-30 01:27] VITALS: BMI 22.6
== END ==
PROVIDERS: Family Provider Internal Medicine; PCP Internal Medicine; Referring Provider Internal Medicine; Visit Provider Family Medicine
DX: E11.621 Type 2 diabetes mellitus with foot ulcer (principal); E11.52 Type 2 diabetes mellitus with diabetic peripheral angiopathy with gangrene; L97.516 Non-pressure chronic ulcer of other part of right foot with bone involvement without evidence of necrosis; L08.9 Local infection of the skin and subcutaneous tissue, unspecified; J44.9 Chronic obstructive pulmonary disease, unspecified; Z95.820 Peripheral vascular angioplasty status with implants and grafts
CPT/HCPCS: 99183; G0277

== ENCOUNTER → 2021-08-18 10:09 | Outpatient (CLI) | payer OTHER, SELFPAY ==
[2018-11-30 01:27] VITALS: BMI 22.6
== END ==
PROVIDERS: Family Provider Internal Medicine; PCP Internal Medicine; Referring Provider Internal Medicine; Visit Provider Family Medicine
DX: E11.621 Type 2 diabetes mellitus with foot ulcer (principal); E11.52 Type 2 diabetes mellitus with diabetic peripheral angiopathy with gangrene; L97.516 Non-pressure chronic ulcer of other part of right foot with bone involvement without evidence of necrosis; L08.9 Local infection of the skin and subcutaneous tissue, unspecified; J44.9 Chronic obstructive pulmonary disease, unspecified; Z95.820 Peripheral vascular angioplasty status with implants and grafts
CPT/HCPCS: 99183; G0277

== ENCOUNTER → 2021-08-22 11:51 | Outpatient (CLI) | payer OTHER, SELFPAY ==
[2018-11-30 01:27] VITALS: BMI 22.6
== END ==
PROVIDERS: Family Provider Internal Medicine; PCP Internal Medicine; Referring Provider Internal Medicine; Visit Provider Family Medicine
DX: E11.52 Type 2 diabetes mellitus with diabetic peripheral angiopathy with gangrene (principal); E11.621 Type 2 diabetes mellitus with foot ulcer; L97.516 Non-pressure chronic ulcer of other part of right foot with bone involvement without evidence of necrosis; L08.9 Local infection of the skin and subcutaneous tissue, unspecified; J44.9 Chronic obstructive pulmonary disease, unspecified; Z95.820 Peripheral vascular angioplasty status with implants and grafts; Z99.81 Dependence on supplemental oxygen; D84.89 Other immunodeficiencies; J96.11 Chronic respiratory failure with hypoxia; J82.83 Eosinophilic asthma; N18.30 Chronic kidney disease, stage 3 unspecified; E11.21 Type 2 diabetes mellitus with diabetic nephropathy; J34.89 Other specified disorders of nose and nasal sinuses; M79.10 Myalgia, unspecified site; R05.9 Cough, unspecified; E11.40 Type 2 diabetes mellitus with diabetic neuropathy, unspecified; B96.5 Pseudomonas (aeruginosa) (mallei) (pseudomallei) as the cause of diseases classified elsewhere
CPT/HCPCS: 99183; 99213; G0277

== ENCOUNTER → 2021-08-25 10:55 | Outpatient (CLI) | payer OTHER, SELFPAY ==
[2018-11-30 01:27] VITALS: BMI 22.6
== END ==
PROVIDERS: Family Provider Internal Medicine; PCP Internal Medicine; Referring Provider Internal Medicine; Visit Provider Family Medicine
DX: E11.52 Type 2 diabetes mellitus with diabetic peripheral angiopathy with gangrene (principal); L97.516 Non-pressure chronic ulcer of other part of right foot with bone involvement without evidence of necrosis; Z95.820 Peripheral vascular angioplasty status with implants and grafts; J44.9 Chronic obstructive pulmonary disease, unspecified; L08.9 Local infection of the skin and subcutaneous tissue, unspecified; B96.5 Pseudomonas (aeruginosa) (mallei) (pseudomallei) as the cause of diseases classified elsewhere; R05.9 Cough, unspecified; M79.10 Myalgia, unspecified site; J34.89 Other specified disorders of nose and nasal sinuses
CPT/HCPCS: 99183; G0277

== ENCOUNTER → 2021-08-26 11:07 | Outpatient (CLI) | payer OTHER, SELFPAY ==
[2018-11-30 01:27] VITALS: BMI 22.6
== END ==
PROVIDERS: Family Provider Internal Medicine; PCP Internal Medicine; Referring Provider Internal Medicine; Visit Provider Nurse Practitioner Family
DX: E11.621 Type 2 diabetes mellitus with foot ulcer (principal); E11.52 Type 2 diabetes mellitus with diabetic peripheral angiopathy with gangrene; L97.516 Non-pressure chronic ulcer of other part of right foot with bone involvement without evidence of necrosis
CPT/HCPCS: 99183; G0277

== ENCOUNTER → 2021-08-30 11:19 | Outpatient (CLI) | payer BC, MEDICARE, SELFPAY ==
[2018-11-30 01:27] VITALS: BMI 22.6
== END ==
PROVIDERS: Family Provider Internal Medicine; PCP Internal Medicine; Referring Provider Internal Medicine; Visit Provider Family Medicine
DX: E11.52 Type 2 diabetes mellitus with diabetic peripheral angiopathy with gangrene (principal); L97.516 Non-pressure chronic ulcer of other part of right foot with bone involvement without evidence of necrosis; Z95.820 Peripheral vascular angioplasty status with implants and grafts; J44.9 Chronic obstructive pulmonary disease, unspecified; L08.9 Local infection of the skin and subcutaneous tissue, unspecified; B96.5 Pseudomonas (aeruginosa) (mallei) (pseudomallei) as the cause of diseases classified elsewhere; R05.9 Cough, unspecified; M79.10 Myalgia, unspecified site; J34.89 Other specified disorders of nose and nasal sinuses
CPT/HCPCS: 99183; G0277

== ENCOUNTER → 2021-08-31 13:48 | Outpatient (CLI) | payer BC, MEDICARE, SELFPAY ==
[2018-11-30 01:27] VITALS: BMI 22.6
== END ==
PROVIDERS: Family Provider Internal Medicine; PCP Internal Medicine; Referring Provider Internal Medicine; Visit Provider Family Medicine
DX: E11.52 Type 2 diabetes mellitus with diabetic peripheral angiopathy with gangrene (principal); L97.516 Non-pressure chronic ulcer of other part of right foot with bone involvement without evidence of necrosis; Z95.820 Peripheral vascular angioplasty status with implants and grafts; J44.9 Chronic obstructive pulmonary disease, unspecified; L08.9 Local infection of the skin and subcutaneous tissue, unspecified; B96.5 Pseudomonas (aeruginosa) (mallei) (pseudomallei) as the cause of diseases classified elsewhere; R05.9 Cough, unspecified; M79.10 Myalgia, unspecified site; J34.89 Other specified disorders of nose and nasal sinuses
CPT/HCPCS: 99183; G0277

== ENCOUNTER → 2021-09-05 09:33 | Outpatient (CLI) | payer BC, MEDICARE, SELFPAY ==
[2018-11-30 01:27] VITALS: BMI 22.6
== END ==
PROVIDERS: Family Provider Internal Medicine; PCP Internal Medicine; Referring Provider Internal Medicine; Visit Provider Family Medicine
DX: E11.52 Type 2 diabetes mellitus with diabetic peripheral angiopathy with gangrene (principal); L97.516 Non-pressure chronic ulcer of other part of right foot with bone involvement without evidence of necrosis; Z95.820 Peripheral vascular angioplasty status with implants and grafts; J44.9 Chronic obstructive pulmonary disease, unspecified; L08.9 Local infection of the skin and subcutaneous tissue, unspecified; B96.5 Pseudomonas (aeruginosa) (mallei) (pseudomallei) as the cause of diseases classified elsewhere; R05.9 Cough, unspecified; M79.10 Myalgia, unspecified site; J34.89 Other specified disorders of nose and nasal sinuses
CPT/HCPCS: 99183; G0277

== ENCOUNTER → 2021-09-06 09:54 | Outpatient (CLI) | payer BC, MEDICARE, SELFPAY ==
[2018-11-30 01:27] VITALS: BMI 22.6
== END ==
PROVIDERS: Family Provider Internal Medicine; PCP Internal Medicine; Referring Provider Internal Medicine; Visit Provider Family Medicine
DX: E11.52 Type 2 diabetes mellitus with diabetic peripheral angiopathy with gangrene (principal); L97.516 Non-pressure chronic ulcer of other part of right foot with bone involvement without evidence of necrosis; Z95.820 Peripheral vascular angioplasty status with implants and grafts; J44.9 Chronic obstructive pulmonary disease, unspecified; L08.9 Local infection of the skin and subcutaneous tissue, unspecified; B96.5 Pseudomonas (aeruginosa) (mallei) (pseudomallei) as the cause of diseases classified elsewhere; R05.9 Cough, unspecified; M79.10 Myalgia, unspecified site; J34.89 Other specified disorders of nose and nasal sinuses
CPT/HCPCS: 99183; G0277

== ENCOUNTER → 2021-09-07 09:32 | Outpatient (CLI) | payer BC, MEDICARE, SELFPAY ==
[2018-11-30 01:27] VITALS: BMI 22.6
== END ==
PROVIDERS: Family Provider Internal Medicine; PCP Internal Medicine; Referring Provider Internal Medicine; Visit Provider Family Medicine
DX: E11.52 Type 2 diabetes mellitus with diabetic peripheral angiopathy with gangrene (principal); L97.516 Non-pressure chronic ulcer of other part of right foot with bone involvement without evidence of necrosis; Z95.820 Peripheral vascular angioplasty status with implants and grafts; J44.9 Chronic obstructive pulmonary disease, unspecified; L08.9 Local infection of the skin and subcutaneous tissue, unspecified; B96.5 Pseudomonas (aeruginosa) (mallei) (pseudomallei) as the cause of diseases classified elsewhere; R05.9 Cough, unspecified; M79.10 Myalgia, unspecified site; J34.89 Other specified disorders of nose and nasal sinuses
CPT/HCPCS: 99183; G0277

== ENCOUNTER → 2022-02-25 08:59 | Outpatient (CLI) | payer OTHER, SELFPAY ==
[2018-11-30 01:27] VITALS: BMI 22.6
--- NOTE | 2022-02-25 | DI.MRI.S_ITS ---
PROCEDURE: MR LUMBAR SPINE WO CON INDICATIONS: Dorsalgia, unspecified, Lumbar spinal stenosis TECHNIQUE: Noncontrast sagittal T1 spin echo and T2 fast echo, sagittal STIR, and T2 fast spin echo through the lumbar spine. In cases with scoliosis, additional coronal T2 fast spin echo may be performed. COMPARISON: [facility], CT, L-SPINE WITHOUT CONTRAST, 04/15/2014, 10:40. [facility], MR, L-SPINE WITHOUT CONTRAST, 10/08/2012, 10:07. FINDINGS: Image quality: Excellent. Alignment and Curvature: Trace retrolisthesis of L1 on L2 and of L5 on S1. Remote posterior laminectomy from L2-L3 through S1. Remote posterior lateral traci and pedicle screw fixation bridging L2 through L5, with bilateral pedicle screws in L2, L4, and L5. Multilevel interbody fusion from L2-L3 through L4-L5. Bone Marrow: Marrow is of normal overall signal. No acute vertebral body compression fractures. Spinal Cord: Conus medullaris terminates at the L2 level. Visualized cord demonstrates normal signal and size. Paraspinous Soft Tissues: No paravertebral masses. T12-L1: Normal appearance. L1-L2: Disc bulge. Facet hypertrophy. Moderate to severe canal stenosis. Moderate to severe right foraminal narrowing with flattening deformity on the exiting right L1 nerve root. Moderate left foraminal narrowing with flattening deformity on the exiting left L1 nerve root. L2-L3: Posterior decompressive laminectomy. No canal stenosis. Xpeh-wt-wzjiqvhv bilateral foraminal narrowing. L3-L4: Decompressive laminectomy. No canal stenosis. Oqpm-mj-lpjylsxu bilateral foraminal narrowing. L4-L5: Decompressive laminectomy. No canal stenosis. Ezwc-bb-flcmfrus bilateral foraminal narrowing. L5-S1: Decompressive laminectomy. No canal stenosis. Severe bilateral foraminal narrowing with bilateral foraminal L5 nerve root impingement. IMPRESSION: 1. Extensive previous multilevel laminectomy and fusion, spanning from L2 through S1. 2. Moderate to severe canal stenosis just above the laminectomy and fusion, at L1-L2. 3. There is significant bilateral foraminal narrowing at L1-L2 and L5-S1 as described above. Dictated by: Venancio Morris M.D. on 02/27/2022 at 16:31 Approved by: Venancio Morris M.D. on 02/27/2022 at 16:41
--- NOTE | 2022-02-25 | DI.MRI.S_ITS ---
PROCEDURE: MR THORACIC SPINE WO CON INDICATIONS: Dorsalgia, unspecified, Lumbar spinal stenosis TECHNIQUE: Noncontrast sagittal T1 spine echo and T2 fast spin echo, sagittal STIR, and T2 fast spin echo through the thoracic spine. COMPARISON: None. FINDINGS: Image quality: Excellent. Alignment and Curvature: Trace degenerative anterolisthesis of T5 and T6. Trace degenerative retrolisthesis of T11 on T12. Bone Marrow: Marrow is of normal overall signal. No acute vertebral body compression fractures. Spinal Cord: At T10-T11, the site of a large central posterior disc protrusion and canal stenosis secondary to disc protrusion and facet arthropathy, there is subtle diffuse cord signal abnormality consistent with myelomalacia. Paraspinous Soft Tissues: No paravertebral masses. Miscellaneous: T2-T3: Mild right paracentral disc protrusion without canal stenosis. Right foraminal disc bulge with zkvq-ao-zewxotfs right foraminal stenosis. T3-T4: No canal stenosis. Bilateral foraminal disc bulges without canal stenosis. T5-T6: Mild central posterior disc protrusion indenting on the cord without canal stenosis. No foraminal stenosis. T6-T7: Moderate left paracentral disc protrusion. There is no central canal stenosis. There is left lateral recess stenosis. There is no significant foraminal stenosis. T8-T9: Mild central posterior disc protrusion indents on the cord without canal stenosis. Mild bilateral foraminal stenosis. T10-T11: Moderately large central posterior disc protrusion and facet and ligament hypertrophy result in moderate to severe canal stenosis. There is vague cord signal abnormality consistent with myelomalacia. T11-T12: Mild diffuse disc bulge, eccentric to the right, without canal stenosis. Moderate bilateral foraminal stenosis with flattening deformity on the exiting bilateral T11 nerve roots. T12-L1: Mild disc bulge. Facet hypertrophy. No significant canal stenosis. Mlxz-mg-ktmatphc bilateral foraminal stenosis. IMPRESSION: 1. There is diffuse spondylitic change. 2. Multilevel disc protrusions are present. 3. The most significant finding is at T10-T11, where a moderately large central posterior disc protrusion contributes to moderate to severe canal stenosis. There is vague cord signal abnormality at this level consistent with myelomalacia. 4. At T11-T12, there is moderate bilateral foraminal narrowing. Dictated by: Venancio Morris M.D. on 02/27/2022 at 8:43 Approved by: Venancio Morris M.D. on 02/27/2022 at 8:52
== END ==
PROVIDERS: Family Provider Internal Medicine; PCP Internal Medicine; Referring Provider Internal Medicine; Visit Provider Internal Medicine
DX: M48.04 Spinal stenosis, thoracic region (principal); M48.062 Spinal stenosis, lumbar region with neurogenic claudication; M48.07 Spinal stenosis, lumbosacral region; M47.814 Spondylosis without myelopathy or radiculopathy, thoracic region; M51.24 Other intervertebral disc displacement, thoracic region; M54.9 Dorsalgia, unspecified; Z98.1 Arthrodesis status
CPT/HCPCS: 72146; 72148

== ENCOUNTER 2023-04-12 09:56 | Inpatient (IN) | payer BC, MEDICARE, SELFPAY ==
[2018-11-30 01:27] VITALS: BMI 22.6
[2023-04-12] VITALS (32 sets, daily range): BP systolic 155–209; BP diastolic 43–84; PULSE 64–91; RESP 14–30; TEMP 36.2–37.1; O2SAT 91–100; BMI 16.9; BMI 18.8
--- NOTE | 2023-04-12 10:13 | DI.CT.S_ITS ---
PROCEDURE: CT ABDOMEN PELVIS W CON INDICATIONS: IV contrast only/abdominal pain TECHNIQUE: After the administration of intravenous contrast, axial sections acquired from the lung bases to the pubic symphysis. Coronal and sagittal reformats were performed. For radiation dose reduction, the following was used: automated exposure control, adjustment of mA and/or kV according to patient size. COMPARISON: [facility], CT, CT ABDOMEN PELVIS W CON, 06/11/2018, 16:32. FINDINGS: Image quality: Good Lower chest: Basal scarring/atelectasis. The there are mitral annular calcifications. Nonspecific mild distal esophageal wall thickening. Solid organs: The liver is unremarkable. Gallbladder is unremarkable. Similar prominent biliary system. No pathologic pancreatic ductal dilation. No splenomegaly. No adrenal nodules. No hydronephrosis. Vessels and lymph nodes: There are atherosclerotic calcifications. The main portal vein appears patent. No abdominal aortic aneurysm. Atherosclerotic disease is moderate to severe. Bowel and peritoneum: Moderate diffuse dilation of the small bowel with a possible transition point in the mid abdomen centrally. Relatively under distended distal small bowel loops. The colon is also relatively under distended. No drainable abscess or pathologic ascites is identified. Body wall: Small left inguinal hernia, containing fluid. Pelvis: Bladder is unremarkable. The prostate is not well evaluated on CT. Bones: There are degenerative changes, no acute or suspicious osseous finding. Lower lumbar postsurgical changes. IMPRESSION: Small bowel obstruction, with suspected transition point in the mid abdomen central bowel loops. Small left inguinal hernia, currently with fluid on CT. Consider sonographic correlation for dynamic assessment of any involved bowel. Other findings as above. Dictated by: Joseph Joy M.D. on 04/12/2023 at 12:27 Approved by: Joseph Joy M.D. on 04/12/2023 at 12:35
--- NOTE | 2023-04-12 10:13 | ED_ITS ---
HPI - Abdominal Pain General Chief Complaint: Abdominal Pain Stated Complaint: N/V/ abd/back pain T-2 Time Seen by Provider: 04/12/23 10:11 Mode of arrival: Wheelchair History of Present Illness HPI narrative: Patient complains of lower abdominal pain for the past 1 week worsened today. Last bowel movement 2 days ago. He states his bowel movements have not been normal and regular. History abdominal hernia as well as multiple back surgeries. Patient states he is had Dilaudid without allergic reaction in the past. No urinary complaints. No black or bloody stools. No prior history of bowel obstruction. Patient is uncomfortable. Nontoxic appearing Related Data Home Medications Medication Instructions Recorded Confirmed C-Ketam 1 applic topical TID 06/11/18 04/12/23 Thermacare Heatwrap Joint 06/11/18 04/12/23 albuterol sulfate 90 mcg/actuation 1 puff inhalation PRN PRN 06/11/18 04/12/23 aerosol inhaler Shortness Of Breath amlodipine 10 mg tablet 10 mg PO QPM 06/11/18 04/12/23 ascorbic acid (vitamin C) 1,000 mg 1 g PO BID 06/11/18 04/12/23 tablet cholecalciferol (vitamin D3) 10 400 unit PO QPM 06/11/18 04/12/23 mcg (400 unit) capsule (Vitamin D3) levothyroxine 175 mcg tablet 175 mcg PO DAILY 06/11/18 04/12/23 lidocaine 5 % topical patch 1 patch topical DAILY 06/11/18 04/12/23 magnesium citrate 1,000 mg PO BID 06/11/18 04/12/23 nitroglycerin 0.4 mg sublingual 0.4 mg sublingual Q5-15M PRN Chest 06/11/18 04/12/23 tablet (Nitrostat) Pain arformoterol 15 mcg/2 mL solution 15 mcg inhalation DAILY 10/18/20 04/12/23 for nebulization (Brovana) azithromycin 250 mg tablet 250 mg PO .tiw 10/18/20 04/12/23 budesonide 0.5 mg/2 mL suspension 0.5 mg inhalation BID 10/18/20 04/12/23 for nebulization clonidine HCl 0.3 mg tablet 0.3 mg PO TID 10/18/20 04/12/23 lorazepam 1 mg tablet 0.5 mg PO DAILY PRN Panic Attack(S) 10/18/20 04/12/23 benralizumab 30 mg/mL subcutaneous 30 mg SUBCUT Q8W 02/13/23 04/12/23 auto-injector evolocumab 140 mg/mL subcutaneous 140 mg SUBCUT Q2W 02/13/23 04/12/23 pen injector (Pedro Pablo Pfeiffer) ferrous sulfate 325 mg (65 mg 65 mg PO 3XW 02/13/23 04/12/23 iron) tablet,delayed release folic acid 1 mg tablet 1 mg PO DAILY 02/13/23 04/12/23 furosemide 40 mg tablet 40 mg PO DAILY 02/13/23 04/12/23 hydralazine 50 mg tablet 100 mg PO TID 02/13/23 04/12/23 lactulose 10 gram/15 mL oral 20 g PO TID 02/13/23 04/12/23 solution (Enulose) losartan 100 mg tablet 50 mg PO DAILY 02/13/23 04/12/23 montelukast 10 mg tablet 10 mg PO BEDTIME 02/13/23 04/12/23 oxybutynin chloride 10 mg 10 mg PO DAILY 02/13/23 04/12/23 tablet,extended release 24 hr red beet root 250 mg-sour alvarez 2 tab PO DAILY 02/13/23 04/12/23 extract 0.5 mg chewable tablet vitamin B complex (B 1 tab PO DAILY 02/13/23 04/12/23 Complex-Vitamin B12 tablet) oxycodone 10 mg tablet,crush 10 mg PO BID PRN PAIN 04/12/23 04/12/23 resistant,extended release 12 hr (OxyContin) sertraline 50 mg tablet (Zoloft) 150 mg PO BEDTIME 04/12/23 04/12/23 trazodone 100 mg tablet 150 mg PO QPM 04/12/23 04/12/23 Allergies Allergy/AdvReac Type Severity Reaction Status Date / Time doxazosin [DOXAZOSIN] Allergy Severe swelling Verified 04/12/23 10:06 bempedoic acid Allergy Verified 04/12/23 10:06 [From Nexletol] gabapentin Allergy Verified 04/12/23 10:06 spironolactone Allergy Verified 04/12/23 10:06 Latex, Natural Rubber AdvReac Intermediate Blister Verified 04/13/23 19:26 varenicline [From CHANTIX] AdvReac Mild aggitation Verified 04/13/23 09:40 atorvastatin [ATORVASTATIN] AdvReac Unknown MUSCLE ACHE Verified 04/12/23 10:06 carvedilol [CARVEDILOL] AdvReac Unknown DIZZINESS Verified 04/12/23 10:06 lisinopril [LISINOPRIL] AdvReac Unknown COUGH Verified 04/13/23 09:40 morphine AdvReac Unknown GOES Verified 04/13/23 09:40 SAMEER Review of Systems Review of Systems Narrative: GENERAL: negative chills, fatigue, malaise, fever, sweats. HEENT: negative sinus pain, ear pain, sore throat RESPIRATORY: negative dyspnea, cough CARDIOVASCULAR: negative chest pain, palpitations GASTROINTESTINAL: negative nausea, vomiting, positive abdominal pain : negative dysuria, frequency, hematuria MUSCULOSKELETAL: negative muscle or bony pain SKIN: negative rash, skin lesions NEUROLOGIC: negative weakness, numbness ROS Unobtainable: All systems reviewed & are unremarkable except as noted in HPI and below Patient History Medical History Acute on chronic respiratory failure with hypoxia CAD (coronary artery disease) (05/11/17) Centrilobular emphysema Cerebrovascular accident (CVA) due to stenosis of right posterior cerebral artery (05/28/17) Chronic hypoxemic respiratory failure (08/24/20) Chronic pain syndrome (08/25/15) COPD exacerbation Family history of coronary artery disease (05/11/17) Fatigue due to sleep pattern disturbance Former smoker (08/25/15) HTN (hypertension) 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 Hyperlipidemia Hypothyroidism Insomnia due to medical condition Nocturnal hypoxemia Obstructive sleep apnea, adult Periodic limb movement disorder (PLMD) PVD (peripheral vascular disease) (05/11/17) Rectal bleeding (05/28/17) Statin intolerance (05/28/17) 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) Surgical History Fusion of spine of thoracolumbar region (08/25/15) Fusion of spine, thoracolumbar region History of eye surgery History of spinal surgery (08/25/15) S/P hernia repair Family History Family/Other Heart disease Father Heart disease Mother Loud snoring Obesity Hypertension Depression Dementia Other Family history of coronary artery disease Social History household members: spouse and family Smoking Status: Former smoker alcohol intake: current Smoking Status: Former smoker alcohol intake frequency: a few times a week Substance Use Type: does not use Exam Narrative Exam Narrative: GENERAL: in no distress, not toxic not dyspneic HEAD: Normocephalic. EYES: Pupils equal round ENT: Mucous membranes moist. NECK: Trachea midline. CARDIOVASCULAR: Regular rate and rhythm RESPIRATORY: Clear to auscultation. Breath sounds equal bilaterally. No wheezes, rales, or rhonchi. GASTROINTESTINAL: Abdomen is distended lower half. Tympanic on percussion. Tender to touch. Decreased bowel sounds. No peritoneal signs. No pain out of proportion to exam. EXTREMITIES: No gross deformities. Surgical Right leg amputation NEURO: AOx4. SKIN: Warm and dry PSYCH: Not anxious, is cooperative Initial Vital Signs Initial Vital Signs: Vital Signs Temperature 98.6 F 04/12/23 09:58 Pulse Rate 91 H 04/12/23 09:58 Respiratory Rate 28 H 04/12/23 09:58 Blood Pressure 164/77 H 04/12/23 09:58 Pulse Oximetry 95 04/12/23 09:58 Oxygen Delivery Method Room Air 04/12/23 09:58 Course Orders Ordered: Discontinued Medications Albuterol (Albuterol 2.5 Mg/3 Ml Neb (Adult)) 2.5 mg INH [id number] PRN PRN Reason: Shortness Of Breath Albuterol/Ipratropium (Albuterol/Ipratropium 3 Ml Ampul) 3 ml INH [id number] [facility] Last Admin: 04/13/23 23:02 Dose: 3 ml Documented By: Admin: 04/13/23 21:07 Dose: Not Given Documented By: Admin: 04/13/23 18:05 Dose: 3 ml Documented By: Admin: 04/13/23 14:56 Dose: 3 ml Documented By: Admin: 04/13/23 10:40 Dose: 3 ml Documented By: Admin: 04/13/23 07:00 Dose: Not Given Documented By: Admin: 04/12/23 19:53 Dose: 3 ml Documented By: MR Albuterol/Ipratropium (Albuterol/Ipratropium 3 Ml Ampul) 3 ml INH RTQ4HR PRN PRN Reason: Shortness Of Breath Budesonide (Budesonide 0.5 Mg/2 Ml Neb) 0.5 mg INH RTBID [facility] Last Admin: 04/13/23 20:52 Dose: 0.5 mg Documented By: Admin: 04/13/23 07:00 Dose: Not Given Documented By: Admin: 04/12/23 19:53 Dose: 0.5 mg Documented By: MR Famotidine (Famotidine 20 Mg/2 Ml Vial) 20 mg IV Q24H [facility] Last Admin: 04/13/23 21:10 Dose: 20 mg Documented By: Fentanyl (Fentanyl 100 Mcg/2 Ml Inj) 25 mcg IV NOW ONE Stop: 04/13/23 08:48 Last Admin: 04/13/23 08:53 Dose: 25 mcg Documented By: AMY Fentanyl (Fentanyl 100 Mcg/2 Ml Inj) 25 mcg IV Q1H PRN PRN Reason: Pain, Severe (7-10) Last Admin: 04/13/23 10:47 Dose: 25 mcg Documented By: AMY Hydromorphone HCl (Hydromorphone 1 Mg Inj) 1 mg IV NOW ONE Stop: 04/12/23 10:12 Last Admin: 04/12/23 10:14 Dose: 1 mg Documented By: Hydromorphone HCl (Hydromorphone 1 Mg Inj) 1 mg IV NOW ONE Stop: 04/12/23 10:48 Last Admin: 04/12/23 10:54 Dose: 1 mg Documented By: Hydromorphone HCl (Hydromorphone 1 Mg Inj) 1 mg IV Q3HR PRN PRN Reason: Pain, Moderate (4-6) Last Admin: 04/12/23 16:57 Dose: 1 mg Documented By: Admin: 04/12/23 15:09 Dose: 1 mg Documented By: Admin: 04/12/23 13:27 Dose: 1 mg Documented By: ST Hydromorphone HCl (Hydromorphone 0.5 Mg Inj) 2 mg IV Q2H PRN PRN Reason: Pain, Severe (7-10) Hydromorphone HCl (Hydromorphone 1 Mg Inj) 2 mg IV Q2H PRN PRN Reason: Pain, Severe (7-10) Last Admin: 04/13/23 02:26 Dose: 2 mg Documented By: Admin: 04/13/23 00:30 Dose: 2 mg Documented By: Admin: 04/12/23 20:56 Dose: 2 mg Documented By: Admin: 04/12/23 18:17 Dose: 2 mg Documented By: VICTORINA Hydromorphone HCl (Hydromorphone 0.5 Mg Inj) 0.5 mg IV Q2H PRN PRN Reason: Pain, Severe (7-10) Last Admin: 04/14/23 04:32 Dose: 0.5 mg Documented By: Admin: 04/13/23 21:00 Dose: 0.5 mg Documented By: FR Sodium Chloride (Normal Saline 0.9%) 500 mls @ 1,000 mls/hr IV BOLUS ONE Stop: 04/12/23 10:40 Last Infusion: 04/12/23 10:52 Dose: Infused Documented By: Admin: 04/12/23 10:22 Dose: 1,000 mls/hr Documented By: ST Sodium Chloride (Normal Saline 0.9%) 1,000 mls @ 1,000 mls/hr IV BOLUS ONE Stop: 04/12/23 13:36 Last Infusion: 04/12/23 14:41 Dose: Infused Documented By: Admin: 04/12/23 13:29 Dose: 1,000 mls/hr Documented By: ST Sodium Chloride (Normal Saline 0.9%) 500 mls @ 1,000 mls/hr IV BOLUS ONE Stop: 04/12/23 15:06 Last Infusion: 04/12/23 15:12 Dose: Infused Documented By: Admin: 04/12/23 14:41 Dose: 1,000 mls/hr Documented By: ST Sodium Chloride (Normal Saline 0.9%) 1,000 mls @ 100 mls/hr IV CONT [facility]O Last Infusion: 04/13/23 13:48 Dose: Infused Documented By: Admin: 04/13/23 03:48 Dose: 100 mls/hr Documented By: Infusion: 04/13/23 03:48 Dose: Infused Documented By: Admin: 04/12/23 18:08 Dose: 100 mls/hr Documented By: VICTORINA Propofol (Propofol) 1,000 mg in 100 mls @ 1.89 mls/hr IV TITRATE [facility]O; Protocol Last Admin: 04/14/23 11:12 Dose: 45 mcg/kg/min, 17.01 mls/hr Documented By: Titration: 04/14/23 10:24 Dose: Infused Documented By: Admin: 04/14/23 04:31 Dose: 45 mcg/kg/min, 17.01 mls/hr Documented By: Titration: 04/14/23 04:31 Dose: Infused Documented By: Admin: 04/14/23 02:02 Dose: 45 mcg/kg/min, 17.01 mls/hr Documented By: Titration: 04/14/23 02:02 Dose: Infused Documented By: Admin: 04/13/23 21:00 Dose: 40 mcg/kg/min, 15.12 mls/hr Documented By: Titration: 04/13/23 21:00 Dose: Infused Documented By: Titration: 04/13/23 17:24 Dose: 40 mcg/kg/min, 15.12 mls/hr Documented By: Admin: 04/13/23 15:49 Dose: 50 mcg/kg/min, 18.9 mls/hr Documented By: Titration: 04/13/23 15:49 Dose: Infused Documented By: Titration: 04/13/23 13:45 Dose: 50 mcg/kg/min, 18.9 mls/hr Documented By: Titration: 04/13/23 11:40 Dose: 0 mcg/kg/min, 0 mls/hr Documented By: Titration: 04/13/23 11:13 Dose: 50 mcg/kg/min, 18.9 mls/hr Documented By: Titration: 04/13/23 11:05 Dose: 45 mcg/kg/min, 17.01 mls/hr Documented By: Titration: 04/13/23 10:38 Dose: 40 mcg/kg/min, 15.12 mls/hr Documented By: Titration: 04/13/23 10:28 Dose: 35 mcg/kg/min, 13.23 mls/hr Documented By: Titration: 04/13/23 08:30 Dose: 30 mcg/kg/min, 11.34 mls/hr Documented By: Admin: 04/13/23 08:05 Dose: 5 mcg/kg/min, 1.89 mls/hr Documented By: AMY NOREPINEPHRINE BITARTRATE/D5W (Levophed) 4 mg in 250 mls @ 23.625 mls/hr IV TITRATE [facility]ARRO; Protocol Last Titration: 04/14/23 09:59 Dose: 0.1 mcg/kg/min, 23.625 mls/hr Documented By: Admin: 04/14/23 06:25 Dose: 0.15 mcg/kg/min, 35.438 mls/hr Documented By: Titration: 04/14/23 06:25 Dose: Infused Documented By: Admin: 04/13/23 23:14 Dose: 0.1 mcg/kg/min, 23.625 mls/hr Documented By: Admin: 04/13/23 09:27 Dose: Not Given Documented By: MAY Fentanyl 1,000 mcg/ Dextrose 250 mls @ 11.025 mls/hr IV TITRATE [facility]O; Protocol Last Admin: 04/14/23 10:52 Dose: 2.5 mcg/kg/hr, 39.375 mls/hr Documented By: Titration: 04/14/23 10:52 Dose: Infused Documented By: Admin: 04/14/23 04:31 Dose: 2.5 mcg/kg/hr, 39.375 mls/hr Documented By: Titration: 04/14/23 04:31 Dose: Infused Documented By: Admin: 04/13/23 21:00 Dose: 2 mcg/kg/hr, 31.5 mls/hr Documented By: Titration: 04/13/23 20:34 Dose: Infused Documented By: Titration: 04/13/23 13:45 Dose: 2 mcg/kg/hr, 31.5 mls/hr Documented By: Titration: 04/13/23 11:40 Dose: 0 mcg/kg/hr, 0 mls/hr Documented By: Titration: 04/13/23 11:25 Dose: 2 mcg/kg/hr, 31.5 mls/hr Documented By: Titration: 04/13/23 11:15 Dose: 1.3 mcg/kg/hr, 20.475 mls/hr Documented By: Titration: 04/13/23 11:05 Dose: 1.1 mcg/kg/hr, 17.325 mls/hr Documented By: Titration: 04/13/23 10:37 Dose: 1 mcg/kg/hr, 15.75 mls/hr Documented By: Titration: 04/13/23 10:28 Dose: 0.8 mcg/kg/hr, 12.6 mls/hr Documented By: Admin: 04/13/23 09:23 Dose: 0.7 mcg/kg/hr, 11.025 mls/hr Documented By: AMY Lactated Ringer's (Lactated Ringers) 1,000 mls @ 100 mls/hr IV CONT [facility]ARRO Last Infusion: 04/13/23 19:00 Dose: 0 mls/hr Documented By: Admin: 04/13/23 10:05 Dose: 100 mls/hr Documented By: AMY Piperacillin Sod/Tazobactam (Sod 3.375 gm/ Sodium Chloride) 100 mls @ 25 mls/hr IV Q8H [facility] Last Infusion: 04/14/23 06:15 Dose: Infused Documented By: Admin: 04/14/23 01:51 Dose: 25 mls/hr Documented By: Admin: 04/13/23 20:00 Dose: Not Given Documented By: Infusion: 04/13/23 15:20 Dose: Infused Documented By: Admin: 04/13/23 11:12 Dose: 25 mls/hr Documented By: AMY Albumin Human (Albuminar) 50 gm in 200 mls @ 60 mls/hr IV NOW ONE Stop: 04/13/23 14:46 Last Admin: 04/13/23 19:00 Dose: Not Given Documented By: FR dexmedeTOMIDine in 0.9 % NaCL (Precedex) 400 mcg in 100 mls @ 3.075 mls/hr IV TITRATE [facility]; Protocol Last Admin: 04/14/23 09:47 Dose: 1.4 mcg/kg/hr, 21.525 mls/hr Documented By: Titration: 04/14/23 09:47 Dose: Infused Documented By: Titration: 04/14/23 09:03 Dose: 1.4 mcg/kg/hr, 21.525 mls/hr Documented By: Titration: 04/14/23 07:25 Dose: 1.2 mcg/kg/hr, 18.45 mls/hr Documented By: Admin: 04/14/23 04:30 Dose: 1 mcg/kg/hr, 15.375 mls/hr Documented By: Titration: 04/14/23 04:30 Dose: Infused Documented By: Admin: 04/13/23 21:00 Dose: 0.6 mcg/kg/hr, 9.225 mls/hr Documented By: Titration: 04/13/23 21:00 Dose: Infused Documented By: Titration: 04/13/23 15:00 Dose: 0.5 mcg/kg/hr, 7.688 mls/hr Documented By: Admin: 04/13/23 14:36 Dose: 0.2 mcg/kg/hr, 3.075 mls/hr Documented By: AMY Dextrose/Lactated Ringer's (Dextrose 5%-Lactated Ringers) 1,000 mls @ 100 mls/hr IV CONT [facility]O Last Admin: 04/13/23 15:10 Dose: 100 mls/hr Documented By: AMY Sodium Bicarbonate 50 meq/ (Dextrose) 150 mls @ 150 mls/hr IV Q1H [facility] Stop: 04/14/23 00:59 Last Admin: 04/13/23 23:41 Dose: Not Given Documented By: FR Sodium Bicarbonate 50 meq/ (Dextrose) 100 mls @ 150 mls/hr IV Q1H [facility] Stop: 04/14/23 01:09 Last Infusion: 04/14/23 00:15 Dose: Infused Documented By: Admin: 04/13/23 23:30 Dose: 150 mls/hr Documented By: Infusion: 04/13/23 23:23 Dose: Infused Documented By: Admin: 04/13/23 22:42 Dose: 150 mls/hr Documented By: Infusion: 04/13/23 22:42 Dose: Infused Documented By: Admin: 04/13/23 22:21 Dose: 150 mls/hr Documented By: FR Calcium Gluconate 9.3 meq/ (Sodium Chloride) 70 mls @ 140 mls/hr IV NOW ONE Stop: 04/14/23 09:08 Last Infusion: 04/14/23 11:44 Dose: Infused Documented By: Admin: 04/14/23 09:29 Dose: 140 mls/hr Documented By: JUSTA Albumin Human (Albuminar) 25 gm in 100 mls @ 60 mls/hr IV Q3HR [facility] Stop: 04/14/23 13:00 Vancomycin HCl (Vancomycin) 1,000 mg in 200 mls @ 200 mls/hr IV NOW ONE Stop: 04/14/23 10:59 Last Infusion: 04/14/23 11:44 Dose: Infused Documented By: Admin: 04/14/23 09:15 Dose: 200 mls/hr Documented By: JUSTA Sodium Chloride (Normal Saline 0.9%) 500 mls @ 1,000 mls/hr IV BOLUS ONE Stop: 04/14/23 09:35 Last Infusion: 04/14/23 11:44 Dose: Infused Documented By: Admin: 04/14/23 09:15 Dose: 1,000 mls/hr Documented By: JUSTA Piperacillin Sod/Tazobactam (Sod 3.375 gm/ Sodium Chloride) 100 mls @ 25 mls/hr IV Q12H [facility] Lorazepam (Lorazepam 2 Mg/Ml Inj) 1 mg IV Q4HR PRN PRN Reason: Anxiety Last Admin: 04/13/23 02:19 Dose: 1 mg Documented By: Admin: 04/12/23 22:12 Dose: 1 mg Documented By: Admin: 04/12/23 18:38 Dose: 1 mg Documented By: VICTORINA Methylprednisolone (Methylprednisolone 125 Mg/2 Ml Vial) 80 mg IV NOW ONE Stop: 04/13/23 09:09 Last Admin: 04/13/23 09:47 Dose: 80 mg Documented By: AMY Methylprednisolone (Methylprednisolone 125 Mg/2 Ml Vial) 60 mg IV Q12H [facility] Stop: 04/16/23 06:01 Last Admin: 04/14/23 06:28 Dose: 60 mg Documented By: Admin: 04/13/23 18:39 Dose: 60 mg Documented By: AMY Midazolam HCl (Midazolam 2 Mg/2 Ml Vial) 2 mg IV Q6H PRN PRN Reason: agitated while intubated Last Admin: 04/14/23 09:20 Dose: 2 mg Documented By: JUSTA Midazolam HCl (Midazolam 5 Mg/Ml Vial) 1 mg IV Q2H PRN PRN Reason: acute agitation while intubate Naloxone HCl (Naloxone 0.4 Mg/Ml Vial) 0.2 mg IV Q2MIN PRN PRN Reason: Opiate Reversal Ondansetron HCl (Ondansetron 4 Mg/2 Ml Inj) 4 mg IV NOW ONE Stop: 04/12/23 10:12 Last Admin: 04/12/23 10:14 Dose: 4 mg Documented By: Ondansetron HCl (Ondansetron 4 Mg/2 Ml Inj) 4 mg IV Q4HR PRN PRN Reason: Nausea And Vomiting Last Admin: 04/13/23 02:19 Dose: 4 mg Documented By: Admin: 04/12/23 22:12 Dose: 4 mg Documented By: Admin: 04/12/23 18:38 Dose: 4 mg Documented By: VICTORINA Sodium Bicarbonate (Sodium Bicarb 8.4% Syringe) 50 meq IV 1615,1645,1715 [facility] Stop: 04/13/23 17:16 Last Admin: 04/13/23 17:21 Dose: 50 meq Documented By: Admin: 04/13/23 16:55 Dose: 50 meq Documented By: Admin: 04/13/23 16:24 Dose: 50 meq Documented By: AMY Sodium Bicarbonate (Sodium Bicarb 8.4% Syringe) 50 meq IV 1800,1815 [facility] Stop: 04/13/23 18:16 Last Admin: 04/13/23 18:39 Dose: 50 meq Documented By: Admin: 04/13/23 18:07 Dose: 50 meq Documented By: AMY Sodium Bicarbonate (Sodium Bicarb 8.4% Syringe) 150 meq IV NOW ONE Stop: 04/13/23 20:54 Last Admin: 04/13/23 23:39 Dose: 150 meq Documented By: Vancomycin HCl (Vancomycin Per Pharmacy) 1 request MISC NOW ONE Stop: 04/14/23 09:02 Vancomycin HCl (Vancomycin Per Pharmacy) 1 request MISC PRN PRN PRN Reason: vancomycin protocol Vital Signs Vital signs: Vital Signs - 8 hr 04/12/23 09:58 04/12/23 10:08 04/12/23 10:30 Temperature 98.6 F Pulse Rate 91 H 88 Respiratory Rate 28 H 30 H Blood Pressure 164/77 H 161/72 H Pulse Oximetry 95 98 Oxygen Delivery Method Room Air Nasal Cannula Oxygen Flow Rate 3 04/12/23 10:30 04/12/23 11:00 04/12/23 11:01 Temperature Pulse Rate 79 72 Respiratory Rate 28 H 24 Blood Pressure 162/69 H Pulse Oximetry 92 99 Oxygen Delivery Method Nasal Cannula Oxygen Flow Rate 3 04/12/23 11:01 04/12/23 11:30 04/12/23 11:31 Temperature Pulse Rate 73 68 71 Respiratory Rate 29 H 19 28 H Blood Pressure Pulse Oximetry 98 100 99 Oxygen Delivery Method Oxygen Flow Rate 04/12/23 11:31 04/12/23 11:44 04/12/23 11:44 Temperature Pulse Rate 70 Respiratory Rate 17 Blood Pressure 188/81 H 169/58 H Pulse Oximetry 98 Oxygen Delivery Method Oxygen Flow Rate 04/12/23 12:00 04/12/23 12:30 04/12/23 12:30 Temperature Pulse Rate 64 68 Respiratory Rate 18 14 Blood Pressure 171/81 H Pulse Oximetry 99 99 Oxygen Delivery Method Oxygen Flow Rate 04/12/23 13:00 04/12/23 13:01 04/12/23 13:01 Temperature Pulse Rate 82 82 Respiratory Rate Blood Pressure 164/84 H Pulse Oximetry 94 93 Oxygen Delivery Method Oxygen Flow Rate 04/12/23 13:30 04/12/23 13:31 04/12/23 13:31 Temperature Pulse Rate 80 79 Respiratory Rate 25 H 24 Blood Pressure 201/84 H Pulse Oximetry 91 93 Oxygen Delivery Method Oxygen Flow Rate 04/12/23 13:36 04/12/23 13:36 04/12/23 14:00 Temperature Pulse Rate 77 69 Respiratory Rate 17 24 Blood Pressure 176/82 H Pulse Oximetry 95 96 Oxygen Delivery Method Oxygen Flow Rate 04/12/23 14:01 04/12/23 14:01 04/12/23 14:30 Temperature Pulse Rate 73 71 Respiratory Rate 24 28 H Blood Pressure 155/77 H Pulse Oximetry 96 97 Oxygen Delivery Method Oxygen Flow Rate 04/12/23 14:31 04/12/23 14:31 Temperature Pulse Rate 68 Respiratory Rate 24 Blood Pressure 193/78 H Pulse Oximetry 97 Oxygen Delivery Method Oxygen Flow Rate MDM - Abdominal Pain Lab Data 04/14/23 04:05 04/14/23 04:05 Labs: Lab Results 04/12/23 04/12/23 04/12/23 Range/Units 10:05 11:25 15:12 WBC 12.5 H (4.5-11.0) X10^3/uL RBC 3.33 L (4.5-5.9) X10^6/uL Hgb 10.7 L (13.5-17.5) g/dL Hct 31.8 L (41-53) % MCV 95.3 (80-100) fL MCH 32.2 (26-34) PG MCHC 33.8 (30-36) % RDW 14.0 (11.6-14.8) % Plt Count 279 (150-400) X10^3/uL Neut % (Auto) 77.1 H (50-75) % Lymph % (Auto) 15.3 L (25-40) % [place] % (Auto) 7.1 (3-14) % Eos % (Auto) 0.0 L (2-4) % Baso % (Auto) 0.5 (0-2) % Neut # (Auto) 9600 H (3041-6475) /uL Lymph # (Auto) 1900 (2128-2884) /uL [place] # (Auto) 900 (0-900) /uL Eos # (Auto) 0 (0-450) /uL Baso # (Auto) 100 (0-100) /uL Sodium 130 L 132 L (137-145) mmol/L Potassium 4.5 4.2 (3.4-5.1) mmol/L Chloride 97 L 101 (98-107) mmol/L Carbon Dioxide 25 25 (22-32) mmol/L BUN 46 H 42 H (9-20) mg/dL Creatinine 2.46 H 2.28 H (0.66-1.25) mg/dL Estimated GFR 28 L 31 L (>60) mL/min BUN/Creatinine Ratio 18.7 18.4 (6-22) Glucose 105 82 (80-110) mg/dL Calcium 8.3 L 7.9 L (8.4-10.2) mg/dL Total Bilirubin 0.4 (0.2-1.3) mg/dL AST 27 (17-59) IU/L ALT 21 (<50) IU/L Alkaline Phosphatase 55 (38-126) U/L Total Protein 6.1 L (6.3-8.2) g/dL Albumin 3.8 (3.5-5.0) g/dL Globulin 2.3 (1.7-4.1) g/dL Albumin/Globulin Ratio 1.7 (1.0-2.8) Lipase 102 (23-300) U/L Imaging Data CT scan - abdomen/pelvis: Radiologist's Impression: [address] [address] [address] Scan Report Signed Patient: Ross Jimenes MR#: [id number] : 1955 Acct:[id number] Age/Sex: 67 / M Date of Service: 04/12/23 Loc: ED Accession Number: [id number] ?? Procedure: CT abdomen pelvis w con Ordering Provider: Ramon Garza MD PROCEDURE:? CT ABDOMEN PELVIS W CON ? INDICATIONS:? IV contrast only/abdominal pain ? TECHNIQUE:? After the administration of intravenous contrast, axial sections acquired from the lung bases to the pubic symphysis.? Coronal and sagittal reformats were performed.? For radiation dose reduction, the following was used:? automated exposure control, adjustment of mA and/or kV according to patient size.? ? COMPARISON:? [facility], CT, CT ABDOMEN PELVIS W CON, 06/11/2018, 16:32. ? FINDINGS:? Image quality:? Good ? Lower chest:? Basal scarring/atelectasis.? The there are mitral annular calcifications.? Nonspecific mild distal esophageal wall thickening. ? Solid organs:? The liver is unremarkable.? Gallbladder is unremarkable.? Similar prominent biliary system.? No pathologic pancreatic ductal dilation.? No splenomegaly.? No adrenal nodules.? No hydronephrosis. ? Vessels and lymph nodes:? There are atherosclerotic calcifications.? The main portal vein appears patent.? No abdominal aortic aneurysm.? Atherosclerotic disease is moderate to severe. ? Bowel and peritoneum:? Moderate diffuse dilation of the small bowel with a possible transition point in the mid abdomen centrally.? Relatively under distended distal small bowel loops.? The colon is also relatively under distended.? No drainable abscess or pathologic ascites is identified. ? Body wall:? Small left inguinal hernia, containing fluid. ? Pelvis:? Bladder is unremarkable.? The prostate is not well evaluated on CT. ? Bones:? There are degenerative changes, no acute or suspicious osseous finding.? Lower lumbar postsurgical changes. ? ? IMPRESSION:? Small bowel obstruction, with suspected transition point in the mid abdomen central bowel loops. Small left inguinal hernia, currently with fluid on CT.? Consider sonographic correlation for dynamic assessment of any involved bowel. ? Other findings as above. ? ? Dictated by: Joseph Joy M.D. on 04/12/2023 at 12:27 ? ? Approved by: Joseph Joy M.D. on 04/12/2023 at 12:35 ? [facility] Narrative Medical decision making narrative: Patient complains of lower abdominal pain for the past 1 week worsened today. Last bowel movement 2 days ago. He states his bowel movements have not been normal and regular. History abdominal hernia as well as multiple back surgeries. Patient states he is had Dilaudid without allergic reaction in the past. No urinary complaints. No black or bloody stools. No prior history of bowel obstruction. Patient is uncomfortable. Nontoxic appearing After history and exam Dilaudid normal saline Zofran CT abdomen pelvis CBC CMP lipase urinalysis [facility] CC: Abdominal pain Complicating co-morbidities: History of hernia Data collected from: Patient and daughter Medical records reviewed: No recent visit for this complaint Differential considered: Includes but not limited to aortic dissection aortic aneurysm bowel obstruction bowel perforation volvulus diverticulitis kidney stone appendicitis cholecystitis Exam documented above, pertinent findings include: Tender distended abdomen Lab Test results independently reviewed as above. Pertinent findings: WBC 12.5 hemoglobin 10.7 sodium 130 potassium 4.5 bicarb 25 BUN 46 creatinine 2.46 GFR 28 Imaging studies independently reviewed: CT abdomen pelvis small-bowel obstruction present Consultations: 12:40 p.m.. Spoke with general surgery Dr. Brink, he will follow in consult, given patient's comorbidities/medical history please admit to hospitalist, no NG tube indicated this time. There is no vomiting. He is ordering Gastrografin swallow test 1:00 p.m.. Spoke with hospitalist, Dr. Vera. He would like repeat creatinine to be done before admission 4:[address] Vera again, he will admit patient to observation Treatments: Dilaudid Zofran normal saline Re-evaluations: 12:45 p.m. spoke with patient and family. Needs admission for bowel obstruction. Pain is controlled at this time. No vomiting. Discussion: Appropriate for admission for small-bowel obstruction. General surgery has been contacted. As well as hospitalist services. Diagnosis: Small-bowel obstruction Discharge Plan Departure Patient Disposition: Admitted As Inpatient Clinical Impression: Small bowel obstruction Admit Date/Time: 04/12/23 16:20 Admit Provider: Julio Vera
[2023-04-12] MEDS: ONDANSETRON 4 MG/2 ML INJ IV ×3 (10:14→22:12)
[2023-04-12] MEDS: HYDROMORPHONE 1 MG INJ IV ×5 (10:14→16:57)
[2023-04-12] MEDS: SODIUM CHLORIDE 0.9% 500 ML 1000 ML IV ×2 (10:22→14:41)
[2023-04-12 11:05] LABS: Add Manual Diff / Slide Review NO; Basophils Absolute Auto 100 /uL (0-100); Basophils Percent Auto 0.5 % (0-2); Eosinophils Absolute Auto 0 /uL (0-450); Hematocrit 31.8 % (41-53); Hemoglobin 10.7 g/dL (13.5-17.5); Lymphocytes Absolute Auto 1900 /uL (1100-4500); Lymphocytes Percent Auto 15.3 % (25-40); Mean Corpuscular HGB Conc 33.8 % (30-36); Mean Corpuscular Hemoglobin 32.2 PG (26-34); Mean Corpuscular Volume 95.3 fL (80-100); Monocytes Absolute Auto 900 /uL (0-900); Monocytes Percent Auto 7.1 % (3-14); Neutrophils Absolute Auto 9600 /uL (1500-7000); Neutrophils Percent Auto 77.1 % (50-75); Platelet Count 279 X10^3/uL (150-400); Red Blood Cell Count 3.33 X10^6/uL (4.5-5.9); White Blood Cell Count 12.5 X10^3/uL (4.5-11.0)
--- NOTE | 2023-04-12 11:25 | PC.NURSE ---
Lab contacted to check on chemistry results. Told re-draw needed. notified pt has not been to CT.
[2023-04-12 12:27] LABS: Alanine Aminotransferase 21 IU/L (<50); Albumin 3.8 g/dL (3.5-5.0); Albumin Globulin Ratio 1.7 (1.0-2.8); Alkaline Phosphatase 55 U/L (38-126); Aspartate Aminotransferase 27 IU/L (17-59); BUN Creatinine Ratio 18.7 (6-22); Bilirubin Total 0.4 mg/dL (0.2-1.3); Blood Urea Nitrogen 46 mg/dL (9-20); Calcium 8.3 mg/dL (8.4-10.2); Carbon Dioxide 25 mmol/L (22-32); Chloride 97 mmol/L (98-107); Estimated Glomerular Filt Rate 28 mL/min (>60); Globulin 2.3 g/dL (1.7-4.1); Glucose 105 mg/dL (80-110); HEMOLYSIS < 15 (0-50); Lipase 102 U/L (23-300); Potassium 4.5 mmol/L (3.4-5.1); Sodium 130 mmol/L (137-145); Total Protein 6.1 g/dL (6.3-8.2)
--- NOTE | 2023-04-12 12:42 | DI.RAD.S_ITS ---
PROCEDURE: XR GASTROGRAFIN CHALLENGE COMPARISON: [facility], CT, CT ABDOMEN PELVIS W CON, 04/12/2023, 11:34. INDICATIONS: small bowel obstruction FINDINGS: Single view of the abdomen obtained 4 hours following the administration of oral contrast demonstrates persistent retention of contrast in the stomach. Multiple gas distended loops of small bowel are demonstrated consistent with small bowel obstruction as seen on recent CT. There is excreted contrast within the bladder from recent CT. IMPRESSION: 1. Persistent retention of oral contrast in the stomach. Recommend follow-up imaging in 4 hours for further evaluation. Dictated by: Gilbert Mayes M.D. on 04/12/2023 at 20:33 Approved by: Gilbert Mayes M.D. on 04/12/2023 at 20:40
[2023-04-12] MEDS: SODIUM CHLORIDE 0.9% 1,000 ML 1000 ML IV (13:29)
[2023-04-12 15:38] LABS: BUN Creatinine Ratio 18.4 (6-22); Blood Urea Nitrogen 42 mg/dL (9-20); Calcium 7.9 mg/dL (8.4-10.2); Carbon Dioxide 25 mmol/L (22-32); Chloride 101 mmol/L (98-107); Estimated Glomerular Filt Rate 31 mL/min (>60); Glucose 82 mg/dL (80-110); HEMOLYSIS < 15 (0-50); Potassium 4.2 mmol/L (3.4-5.1); Sodium 132 mmol/L (137-145)
--- NOTE | 2023-04-12 16:38 | PM.HP.1 ---
History of Present Illness History of Present Illness Date Patient Seen: 04/12/23 Time Patient Seen: 16:38 Chief complaint: N/V/ abd/back pain T-2 Narrative: Thang Jimenes is a 63-year-old male patient with history significant for hypertension, COPD, diabetes, hypothyroidism, hyperlipidemia, PVD with R leg amputation, prior CVA, and chronic low back pain with prior abdominal hernia surgeries who presents with abdominal pain, nausea, and vomiting for the past two days. He has been trying to manage at home but has had worsening abdominal pain, predominantly lower quadrant but now more diffuse with abdominal distension, nausea, and NBNB emesis. His last bowel movement was 3 days ago, he does not remember the last time he passed any gas. He has never had a bowel obstruction before. In the ER, patient was hypertensive. CT scan showed small bowel obstruction. Gastrografin study was ordered by the general surgeon. He appears uncomfortable but has no nausea or vomiting and does not currently have an NG tube. He was admitted to medicine given multiple medical comorbidities with general surgery consultation. 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 Hyperlipidemia Hypothyroidism Insomnia due to medical condition Nocturnal hypoxemia Obstructive sleep apnea, adult Periodic limb movement disorder (PLMD) PVD (peripheral vascular disease) (05/11/17) Rectal bleeding (05/28/17) Statin intolerance (05/28/17) 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) Surgical History Fusion of spine of thoracolumbar region (08/25/15) Fusion of spine, thoracolumbar region History of eye surgery History of spinal surgery (08/25/15) S/P hernia repair Family History Family/Other Heart disease Father Heart disease Mother Loud snoring Obesity Hypertension Depression Dementia Other Family history of coronary artery disease Social History household members: spouse Smoking Status: Former smoker Meds Home Medications and Allergies Home Medications Medication Instructions Recorded Confirmed Type trazodone 100 mg tablet 100 mg OR QPM #30 tabs 09/28/16 02/13/23 Rx C-Ketam 1 applic topical TID 06/11/18 02/13/23 History Thermacare Heatwrap Joint 06/11/18 02/13/23 History albuterol sulfate 90 mcg/actuation 1 puff inhalation PRN PRN 06/11/18 02/13/23 History aerosol inhaler Shortness Of Breath amlodipine 10 mg tablet 10 mg PO QPM 06/11/18 02/13/23 History ascorbic acid (vitamin C) 1,000 mg 1 g PO BID 06/11/18 02/13/23 History tablet aspirin 81 mg tablet,delayed 81 mg PO DAILY 06/11/18 02/13/23 History release cholecalciferol (vitamin D3) 10 400 unit PO QPM 06/11/18 02/13/23 History mcg (400 unit) capsule (Vitamin D3) levothyroxine 175 mcg tablet 175 mcg PO DAILY 06/11/18 02/13/23 History lidocaine 5 % topical patch 1 patch topical DAILY 06/11/18 02/13/23 History magnesium citrate 500 mg PO BID 06/11/18 02/13/23 History nitroglycerin 0.4 mg sublingual 0.4 mg sublingual Q5-15M PRN Chest 06/11/18 02/13/23 History tablet (Nitrostat) Pain sertraline 50 mg tablet (Zoloft) 100 mg PO DAILY #60 tabs 12/01/18 02/13/23 Rx arformoterol 15 mcg/2 mL solution 15 mcg inhalation DAILY 10/18/20 02/13/23 History for nebulization (Brovana) azithromycin 250 mg tablet 250 mg PO .tiw 10/18/20 02/13/23 History budesonide 0.5 mg/2 mL suspension 0.5 mg inhalation BID 10/18/20 02/13/23 History for nebulization clonidine HCl 0.3 mg tablet 0.3 mg PO BID 10/18/20 02/13/23 History lorazepam 1 mg tablet 0.5 mg PO DAILY PRN Panic Attack(S) 10/18/20 02/13/23 History oxycodone 10 mg tablet,crush 10 mg PO ONCE PRN 10/18/20 02/13/23 History resistant,extended release 12 hr (OxyContin) sennosides 8.6 mg tablet (Senokot) 8.6 mg PO DAILY 10/18/20 02/13/23 History benralizumab 30 mg/mL subcutaneous 30 mg SUBCUT Q8W 02/13/23 02/13/23 History auto-injector evolocumab 140 mg/mL subcutaneous 140 mg SUBCUT Q2W 02/13/23 02/13/23 History pen injector (Pedro Pablo Pfeiffer) ferrous sulfate 325 mg (65 mg 325 mg PO DAILY 02/13/23 02/13/23 History iron) tablet,delayed release folic acid 1 mg tablet 1 mg PO DAILY 02/13/23 02/13/23 History furosemide 40 mg tablet 40 mg PO DAILY 02/13/23 02/13/23 History hydralazine 50 mg tablet 50 mg PO TID 02/13/23 02/13/23 History lactulose 10 gram/15 mL oral 20 g PO TID 02/13/23 02/13/23 History solution (Enulose) losartan 100 mg tablet 50 mg PO QPM 02/13/23 02/13/23 History montelukast 10 mg tablet 10 mg PO DAILY 02/13/23 02/13/23 History oxybutynin chloride 10 mg 10 mg PO DAILY 02/13/23 02/13/23 History tablet,extended release 24 hr red beet root 250 mg-sour alvarez tab PO 02/13/23 02/13/23 History extract 0.5 mg chewable tablet vitamin B complex (B 1 tab PO DAILY 02/13/23 02/13/23 History Complex-Vitamin B12 tablet) Allergies Allergy/AdvReac Type Severity Reaction Status Date / Time doxazosin [DOXAZOSIN] Allergy Severe swelling Verified 04/12/23 10:06 varenicline [From CHANTIX] Allergy Mild aggitation Verified 04/12/23 10:06 lisinopril [LISINOPRIL] Allergy Unknown COUGH Verified 04/12/23 10:06 morphine Allergy Unknown GOES Verified 04/12/23 10:06 CRAZY bempedoic acid Allergy Verified 04/12/23 10:06 [From Nexletol] gabapentin Allergy Verified 04/12/23 10:06 spironolactone Allergy Verified 04/12/23 10:06 atorvastatin [ATORVASTATIN] AdvReac Unknown MUSCLE ACHE Verified 04/12/23 10:06 carvedilol [CARVEDILOL] AdvReac Unknown DIZZINESS Verified 04/12/23 10:06 CHOLESTEROL MEDS Allergy Unknown Uncoded 02/13/23 10:07 Review of Systems Review of Systems Narrative: All other systems reviewed with the patient and are negative unless otherwise stated. Exam Vital Signs (past 8 hours): - 04/12/23 09:58 04/12/23 10:08 04/12/23 10:30 Temperature 98.6 F Pulse Rate 91 H 88 Respiratory Rate 28 H 30 H Blood Pressure 164/77 H 161/72 H Pulse Oximetry 95 98 Oxygen Delivery Method Room Air Nasal Cannula Oxygen Flow Rate 3 04/12/23 10:30 04/12/23 11:00 04/12/23 11:01 Temperature Pulse Rate 79 72 Respiratory Rate 28 H 24 Blood Pressure 162/69 H Pulse Oximetry 92 99 Oxygen Delivery Method Nasal Cannula Oxygen Flow Rate 3 04/12/23 11:01 04/12/23 11:30 04/12/23 11:31 Temperature Pulse Rate 73 68 71 Respiratory Rate 29 H 19 28 H Blood Pressure Pulse Oximetry 98 100 99 Oxygen Delivery Method Oxygen Flow Rate 04/12/23 11:31 04/12/23 11:44 04/12/23 11:44 Temperature Pulse Rate 70 Respiratory Rate 17 Blood Pressure 188/81 H 169/58 H Pulse Oximetry 98 Oxygen Delivery Method Oxygen Flow Rate 04/12/23 12:00 04/12/23 12:30 04/12/23 12:30 Temperature Pulse Rate 64 68 Respiratory Rate 18 14 Blood Pressure 171/81 H Pulse Oximetry 99 99 Oxygen Delivery Method Oxygen Flow Rate 3 04/12/23 13:00 04/12/23 13:01 04/12/23 13:01 Temperature Pulse Rate 82 82 Respiratory Rate Blood Pressure 164/84 H Pulse Oximetry 94 93 Oxygen Delivery Method Oxygen Flow Rate 04/12/23 13:30 04/12/23 13:31 04/12/23 13:31 Temperature Pulse Rate 80 79 Respiratory Rate 25 H 24 Blood Pressure 201/84 H Pulse Oximetry 91 93 Oxygen Delivery Method Oxygen Flow Rate 04/12/23 13:36 04/12/23 13:36 04/12/23 14:00 Temperature Pulse Rate 77 69 Respiratory Rate 17 24 Blood Pressure 176/82 H Pulse Oximetry 95 96 Oxygen Delivery Method Oxygen Flow Rate 04/12/23 14:01 04/12/23 14:01 04/12/23 14:30 Temperature Pulse Rate 73 71 Respiratory Rate 24 28 H Blood Pressure 155/77 H Pulse Oximetry 96 97 Oxygen Delivery Method Oxygen Flow Rate 04/12/23 14:31 04/12/23 14:31 Temperature Pulse Rate 68 Respiratory Rate 24 Blood Pressure 193/78 H Pulse Oximetry 97 Oxygen Delivery Method Oxygen Flow Rate Oxygen Delivery Method Nasal Cannula Oxygen Flow Rate 3 Narrative Exam Narrative: General:? Patient is well developed and well nourished, appears very uncomfortable with emesis bag in his hand and constant motion trying to get comfortable. HEENT:? Normocephalic, atraumatic, extraocular muscles intact, oral pharynx is clear and mucous membranes are moist. Neck: supple and symmetric, trachea is midline, no cervical adenopathy. Negative for JVD Chest:? Normal AP diameter and contour without kyphoscoliosis, no tachypnea, equal chest rise bilaterally. Lungs:? CTA b/l no wheezing rhonchi or rales. Cardio:?RRR no m/r/g. Abdomen: Distended with diffuse tenderness. Musculoskeletal:? Muscle strength and tone are equal within normal limits, no deformity. Extremities: No edema or joint effusions. No cyanosis or clubbing. R leg amputation, well healed. Skin:? Pale,? Warm to touch,dry and intact without rashes, ulcerations or petechiae.? Neuro:? Alert and orientated x3, no focal deficits. Psych:? Patient has a well-kept appearance, appropriate affect, mental status attitude thought context and judgment are appropriate for age. Objective Labs 04/12/23 10:05 04/12/23 15:12 Labs: Laboratory Results - last 24 hr 04/12/23 04/12/23 04/12/23 10:05 11:25 15:12 WBC 12.5 H RBC 3.33 L Hgb 10.7 L Hct 31.8 L MCV 95.3 MCH 32.2 MCHC 33.8 RDW 14.0 Plt Count 279 Neut % (Auto) 77.1 H Lymph % (Auto) 15.3 L Piatt % (Auto) 7.1 Eos % (Auto) 0.0 L Baso % (Auto) 0.5 Neut # (Auto) 9600 H Lymph # (Auto) 1900 Piatt # (Auto) 900 Eos # (Auto) 0 Baso # (Auto) 100 Sodium 130 L 132 L Potassium 4.5 4.2 Chloride 97 L 101 Carbon Dioxide 25 25 BUN 46 H 42 H Creatinine 2.46 H 2.28 H Estimated GFR 28 L 31 L BUN/Creatinine Ratio 18.7 18.4 Glucose 105 82 Calcium 8.3 L 7.9 L Total Bilirubin 0.4 AST 27 ALT 21 Alkaline Phosphatase 55 Total Protein 6.1 L Albumin 3.8 Globulin 2.3 Albumin/Globulin Ratio 1.7 Lipase 102 Assessment & Plan Assessment & Plan narrative: 1. Small bowel obstruction, likely due to adhesions, present on admission - NPO, continue IV fluids. - general surgery consultation, they have ordered gastrograffin study - if any vomiting place NG tube. 2. GILMA - related to dehydration and bowel obstruction. Cr 2.46 on presentation improved to 2.28 with fluids. Baseline presumed to be around 1 based on previous lab values in our hospital system. - continue IV fluids and monitor Creatinine. - hold home diuretic and losartan. 3. Chronic obstructive pulmonary disease, chronic - replace home medications with formulary nebs - goal O2 >88% while on room air. 4. Hypertension, chronic -prn hydralazine IV for now for SBP >180, though his BP is expected to be high in the setting of pain. - resume home medications when able to tolerate PO. 5. Diabetes, chronic, presumed stable - blood sugars ordrered q6 along with sliding scale 6. Hypothyroidism, chronic. - resume levothyroxine when able to tolerate PO 7. PVD s/p R extremity amputation, hx of CVA and statin intolerance Code: Full, surrogate is patient's spouse and / or daughter DVT: SCD given possible surgery I have utilized all available immediate resources to obtain, update, or review the patient's current medications. Dispo: observation for now, if patient goes to OR or NG tube placed will make inpatient. Additional history obtained via discussion with the ER provider, family as well.I have reviewed prior documentation, labs and imaging as well as presenting documentation, imaging personally, and lab evaluation to formulate current assessment and plan as noted above. Quality MIPS - Admit I confirm the patient?s Advance Care Plan is present, Code status is documented, Surrogate decision maker is in patient?s record [If Yes, STOP here]: Yes
--- NOTE | 2023-04-12 16:59 | PC.NURSE ---
Called report to EVERARDO Rogers
--- NOTE | 2023-04-12 17:31 | P.CONS_ITS ---
History of Present Illness Consult details Date Patient Seen: 04/12/23 Chief complaint: N/V/ abd/back pain T-2 Narrative: Mr. Jimenes is a 67-year-old man history of peripheral vascular disease, diabetes and abdominal hernioplasty who presents to [facility] Emergency Department with complaint of abdominal pain and nausea. CT abdomen pelvis which I have reviewed personally demonstrates dilated loops of small bowel possible transition point within the mid abdomen, no free air or free fluid. At admission afebrile vital signs are within normal limits. White blood cell count 13, creatinine 2.3. Multiple comorbidities -obstructive sleep apnea -insulin-dependent diabetes -history CVA -COPD not on home oxygen -peripheral vascular disease status post right below-knee amputation -chronic kidney disease Meds Home Medications and Allergies Home Medications Medication Instructions Recorded Confirmed Type C-Ketam 1 applic topical TID 06/11/18 04/12/23 History Thermacare Heatwrap Joint 06/11/18 04/12/23 History albuterol sulfate 90 mcg/actuation 1 puff inhalation PRN PRN 06/11/18 02/13/23 History aerosol inhaler Shortness Of Breath amlodipine 10 mg tablet 10 mg PO QPM 06/11/18 04/12/23 History ascorbic acid (vitamin C) 1,000 mg 1 g PO BID 06/11/18 02/13/23 History tablet cholecalciferol (vitamin D3) 10 400 unit PO QPM 06/11/18 02/13/23 History mcg (400 unit) capsule (Vitamin D3) levothyroxine 175 mcg tablet 175 mcg PO DAILY 06/11/18 04/12/23 History lidocaine 5 % topical patch 1 patch topical DAILY 06/11/18 02/13/23 History magnesium citrate 500 mg PO BID 06/11/18 02/13/23 History nitroglycerin 0.4 mg sublingual 0.4 mg sublingual Q5-15M PRN Chest 06/11/18 04/12/23 History tablet (Nitrostat) Pain arformoterol 15 mcg/2 mL solution 15 mcg inhalation DAILY 10/18/20 02/13/23 History for nebulization (Brovana) azithromycin 250 mg tablet 250 mg PO .tiw 10/18/20 04/12/23 History budesonide 0.5 mg/2 mL suspension 0.5 mg inhalation BID 10/18/20 04/12/23 History for nebulization clonidine HCl 0.3 mg tablet 0.3 mg PO TID 10/18/20 04/12/23 History lorazepam 1 mg tablet 0.5 mg PO DAILY PRN Panic Attack(S) 10/18/20 04/12/23 History oxycodone 10 mg tablet,crush 10 mg PO ONCE PRN 10/18/20 02/13/23 History resistant,extended release 12 hr (OxyContin) sennosides 8.6 mg tablet (Senokot) 8.6 mg PO DAILY 10/18/20 02/13/23 History benralizumab 30 mg/mL subcutaneous 30 mg SUBCUT Q8W 02/13/23 04/12/23 History auto-injector evolocumab 140 mg/mL subcutaneous 140 mg SUBCUT Q2W 02/13/23 02/13/23 History pen injector (Pedro Pablo SureEranick) ferrous sulfate 325 mg (65 mg 65 mg PO 3XW 02/13/23 04/12/23 History iron) tablet,delayed release folic acid 1 mg tablet 1 mg PO DAILY 02/13/23 02/13/23 History furosemide 40 mg tablet 40 mg PO DAILY 02/13/23 04/12/23 History hydralazine 50 mg tablet 100 mg PO TID 02/13/23 04/12/23 History lactulose 10 gram/15 mL oral 20 g PO TID 02/13/23 02/13/23 History solution (Enulose) losartan 100 mg tablet 50 mg PO DAILY 02/13/23 04/12/23 History montelukast 10 mg tablet 10 mg PO BEDTIME 02/13/23 04/12/23 History oxybutynin chloride 10 mg 10 mg PO DAILY 02/13/23 04/12/23 History tablet,extended release 24 hr red beet root 250 mg-sour alvarez tab PO 02/13/23 02/13/23 History extract 0.5 mg chewable tablet vitamin B complex (B 1 tab PO DAILY 02/13/23 04/12/23 History Complex-Vitamin B12 tablet) oxycodone 10 mg tablet,crush 10 mg PO BID PRN PAIN 04/12/23 04/12/23 History resistant,extended release 12 hr (OxyContin) sertraline 50 mg tablet (Zoloft) 150 mg PO BEDTIME 04/12/23 04/12/23 History trazodone 100 mg tablet 150 mg PO QPM 04/12/23 04/12/23 History Allergies Allergy/AdvReac Type Severity Reaction Status Date / Time doxazosin [DOXAZOSIN] Allergy Severe swelling Verified 04/12/23 10:06 varenicline [From CHANTIX] Allergy Mild aggitation Verified 04/12/23 10:06 lisinopril [LISINOPRIL] Allergy Unknown COUGH Verified 04/12/23 10:06 morphine Allergy Unknown GOES Verified 04/12/23 10:06 CRAZY bempedoic acid Allergy Verified 04/12/23 10:06 [From Nexletol] gabapentin Allergy Verified 04/12/23 10:06 spironolactone Allergy Verified 04/12/23 10:06 atorvastatin [ATORVASTATIN] AdvReac Unknown MUSCLE ACHE Verified 04/12/23 10:06 carvedilol [CARVEDILOL] AdvReac Unknown DIZZINESS Verified 04/12/23 10:06 CHOLESTEROL MEDS Allergy Unknown Uncoded 02/13/23 10:07 Exam Vital Signs (past 8 hours): - 04/12/23 09:58 04/12/23 10:08 04/12/23 10:30 Temperature 98.6 F Pulse Rate 91 H 88 Respiratory Rate 28 H 30 H Blood Pressure 164/77 H 161/72 H Pulse Oximetry 95 98 Oxygen Delivery Method Room Air Nasal Cannula Oxygen Flow Rate 3 04/12/23 10:30 04/12/23 11:00 04/12/23 11:01 Temperature Pulse Rate 79 72 Respiratory Rate 28 H 24 Blood Pressure 162/69 H Pulse Oximetry 92 99 Oxygen Delivery Method Nasal Cannula Oxygen Flow Rate 3 04/12/23 11:01 04/12/23 11:30 04/12/23 11:31 Temperature Pulse Rate 73 68 71 Respiratory Rate 29 H 19 28 H Blood Pressure Pulse Oximetry 98 100 99 Oxygen Delivery Method Oxygen Flow Rate 04/12/23 11:31 04/12/23 11:44 04/12/23 11:44 Temperature Pulse Rate 70 Respiratory Rate 17 Blood Pressure 188/81 H 169/58 H Pulse Oximetry 98 Oxygen Delivery Method Oxygen Flow Rate 04/12/23 12:00 04/12/23 12:30 04/12/23 12:30 Temperature Pulse Rate 64 68 Respiratory Rate 18 14 Blood Pressure 171/81 H Pulse Oximetry 99 99 Oxygen Delivery Method Oxygen Flow Rate 3 04/12/23 13:00 04/12/23 13:01 04/12/23 13:01 Temperature Pulse Rate 82 82 Respiratory Rate Blood Pressure 164/84 H Pulse Oximetry 94 93 Oxygen Delivery Method Oxygen Flow Rate 04/12/23 13:30 04/12/23 13:31 04/12/23 13:31 Temperature Pulse Rate 80 79 Respiratory Rate 25 H 24 Blood Pressure 201/84 H Pulse Oximetry 91 93 Oxygen Delivery Method Oxygen Flow Rate 04/12/23 13:36 04/12/23 13:36 04/12/23 14:00 Temperature Pulse Rate 77 69 Respiratory Rate 17 24 Blood Pressure 176/82 H Pulse Oximetry 95 96 Oxygen Delivery Method Oxygen Flow Rate 04/12/23 14:01 04/12/23 14:01 04/12/23 14:30 Temperature Pulse Rate 73 71 Respiratory Rate 24 28 H Blood Pressure 155/77 H Pulse Oximetry 96 97 Oxygen Delivery Method Oxygen Flow Rate 04/12/23 14:31 04/12/23 14:31 04/12/23 15:00 Temperature Pulse Rate 68 67 Respiratory Rate 24 17 Blood Pressure 193/78 H Pulse Oximetry 97 97 Oxygen Delivery Method Oxygen Flow Rate 04/12/23 15:01 04/12/23 15:01 04/12/23 15:30 Temperature Pulse Rate 71 Respiratory Rate 17 19 Blood Pressure 182/74 H Pulse Oximetry 96 96 Oxygen Delivery Method Nasal Cannula Oxygen Flow Rate 3 04/12/23 15:31 04/12/23 15:31 04/12/23 16:00 Temperature Pulse Rate 75 Respiratory Rate 17 Blood Pressure 183/73 H 209/84 H Pulse Oximetry 96 Oxygen Delivery Method Oxygen Flow Rate 04/12/23 16:00 04/12/23 16:30 04/12/23 16:31 Temperature Pulse Rate 71 74 Respiratory Rate 14 15 Blood Pressure 171/77 H Pulse Oximetry 93 91 Oxygen Delivery Method Oxygen Flow Rate 04/12/23 16:31 04/12/23 17:02 Temperature Pulse Rate 74 Respiratory Rate 20 Blood Pressure Pulse Oximetry 93 94 Oxygen Delivery Method Nasal Cannula Oxygen Flow Rate 3 Oxygen Delivery Method Nasal Cannula Oxygen Flow Rate 3 Narrative Exam Narrative: General thin elderly man appears uncomfortable. Chest mildly labored respiration Cardiac sinus rhythm on monitor Abdomen distended no peritonitis tender. Objective Labs 04/12/23 10:05 04/12/23 15:12 Labs: Laboratory Results - last 24 hr 04/12/23 04/12/23 04/12/23 10:05 11:25 15:12 WBC 12.5 H RBC 3.33 L Hgb 10.7 L Hct 31.8 L MCV 95.3 MCH 32.2 MCHC 33.8 RDW 14.0 Plt Count 279 Neut % (Auto) 77.1 H Lymph % (Auto) 15.3 L Reagan % (Auto) 7.1 Eos % (Auto) 0.0 L Baso % (Auto) 0.5 Neut # (Auto) 9600 H Lymph # (Auto) 1900 Reagan # (Auto) 900 Eos # (Auto) 0 Baso # (Auto) 100 Sodium 130 L 132 L Potassium 4.5 4.2 Chloride 97 L 101 Carbon Dioxide 25 25 BUN 46 H 42 H Creatinine 2.46 H 2.28 H Estimated GFR 28 L 31 L BUN/Creatinine Ratio 18.7 18.4 Glucose 105 82 Calcium 8.3 L 7.9 L Total Bilirubin 0.4 AST 27 ALT 21 Alkaline Phosphatase 55 Total Protein 6.1 L Albumin 3.8 Globulin 2.3 Albumin/Globulin Ratio 1.7 Lipase 102 [facility] Medical History Acute on chronic respiratory failure with hypoxia CAD (coronary artery disease) (05/11/17) Centrilobular emphysema Cerebrovascular accident (CVA) due to stenosis of right posterior cerebral artery (05/28/17) Chronic hypoxemic respiratory failure (08/24/20) Chronic pain syndrome (08/25/15) COPD exacerbation Family history of coronary artery disease (05/11/17) Fatigue due to sleep pattern disturbance Former smoker (08/25/15) HTN (hypertension) 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 Hyperlipidemia Hypothyroidism Insomnia due to medical condition Nocturnal hypoxemia Obstructive sleep apnea, adult Periodic limb movement disorder (PLMD) PVD (peripheral vascular disease) (05/11/17) Rectal bleeding (05/28/17) Statin intolerance (05/28/17) 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) Surgical History Fusion of spine of thoracolumbar region (08/25/15) Fusion of spine, thoracolumbar region History of eye surgery History of spinal surgery (08/25/15) S/P hernia repair Family History Family/Other Heart disease Father Heart disease Mother Loud snoring Obesity Hypertension Depression Dementia Other Family history of coronary artery disease Social History household members: spouse Tobacco & Substance Use Smoking Status: Former smoker alcohol intake: current Assessment & Plan Assessment & Plan narrative: 67-year-old man history of COPD, peripheral vascular disease and insulin- dependent diabetes with a small-bowel obstruction. No peritonitis fever or free fluid demonstrated on imaging. At this point we will proceed with non operative management. Gastrografin challenge has been ordered if emesis nasogastric tube placement.
[2023-04-12] MEDS: SODIUM CHLORIDE 0.9% 1,000 ML 100 ML IV (18:08)
[2023-04-12] MEDS: HYDROMORPHONE 1 MG INJ 2 MG IV ×2 (18:17→20:56)
[2023-04-12] MEDS: LORazepam 2 MG/ML INJ 1 MG IV ×2 (18:38→22:12)
--- NOTE | 2023-04-12 19:01 | PC.NURSE ---
Day shift: Patient arrived to floor @ 1715. VSS, hypertensive, O2 sats are at 92% on 2L O2 via NC. Blood sugar checked at 1800: 80. Patient was in a position, rolling/shaking, and groaning in pain. Spoke with MD Vera who okay'ed 2mg IV Dilaudid, and also ordered 1mg IV Ativan. Given ordered medications with good effect, patient currently resting in bed stating he feels better and looks visibly relaxed. Call light within reach, bed alarm is on.
[2023-04-12] MEDS: ALBUTEROL/IPRATROPIUM 3 ML AMPUL INH (19:53)
[2023-04-12] MEDS: BUDESONIDE 0.5 MG/2 ML NEB INH (19:53)
[2023-04-13] VITALS (84 sets, daily range): BP systolic 73–212; BP diastolic 43–120; PULSE 71–113; RESP 9–40; TEMP 22–37.1; O2SAT 87–100
--- NOTE | 2023-04-13 | PATH_ITS ---
[facility] Accession Number: [id number] No. of containers..01 Tissue . 01 Material submitted: . small bowel - SMALL BOWEL . 01 Diagnosis: Small Bowel, Focal Resection: Small bowel with active inflammation and mildly increased intraepithelial lymphocytes with preserved villous architecture. Mesh (for gross examination) with associated serosal hemorrhage No infectious organisms, granulomas, significant villous blunting, dysplasia or malignancy identified. Resection margins appear viable. MRV 04/18/2023 1614 Local . 01 Comment: Per chart report, patient present's with small bowel obstruction, likely due to adhesions. The presence of mildly increased intraepithelial lymphocytes is a nonspecific finding but may be seen in a variety of conditions including early onset or treated celiac sprue. Correlation with serologic studies is recommended if clinically indicated. . 01 Electronically signed: . Yeimy Hernandez MD, Pathologist NPI- [id number] . 01 Gross description: . The specimen is received in formalin labeled with the patient's name, , and small bowel, and consists of an unoriented portion of small bowel measuring 21.8 cm in length by 2.8 cm in average diameter with a small amount of mesentery extending out to 2.7 cm. One staple line is inked blue. The opposite staple line is inked black. The mesenteric margin is inked green. The serosa has an adherent fragment of material consistent with mesh measuring 5.5 x 1.9 cm and is located 3.2 cm from the blue-inked margin. The lumen contains green fluid and is patent. The mucosa is joe and velvety with normal-appearing folds. No polyps, lesions, or disruptions adjacent to the adherent mesh are identified. The pugh average 0.2 cm thick with no diverticula or perforations identified. Palpation reveals a joe lymph node candidate measuring 0.3 cm in greatest dimension. Head Of Loss Prevention sections are submitted as follows: A1: Head Of Loss Prevention margins en face. A2: Full-thickness sections adjacent to adherent mesh. A3: Unremarkable full-thickness sections. A4: Single intact lymph node candidate. ([id number]) /FRR 04/14/2023 1838 Local . 01 Pathologist provided ICD-10: K52.89 . 01 CPT . 827816 Specimen Comment: A courtesy copy of this report has been sent to [phone] Performed at: 01 [facility] [address] [place] [address] [address] [facility], [place], [place] [id number] MD Gilbert Geronimo MD Phone: [phone]
--- NOTE | 2023-04-13 | DI.RAD.S_ITS ---
PROCEDURE: XR CHEST 1V INDICATIONS: CENTRAL LINE PLACEMENt, INTUBATION TECHNIQUE: One view of the chest was acquired. COMPARISON: [facility], CR, XR CHEST 1V, 06/15/2021, 8:18. FINDINGS: Surgical changes and devices: Endotracheal tube is in place. The tip is in good position above the coni. Right IJ central venous line is appropriate in its course. The tip terminates in the mid SVC. And OG tubes placed and the side hole is below the level of the diaphragm. The tip is not included on this field of view. There are overlying monitoring wires. Lungs and pleura: Left mid and lower lung alveolar opacity. Mild right lower lung opacity. Findings superimposed on mildly hyperlucent, hyperinflated lungs. Mediastinum: Mediastinal contours appear normal. Heart size is normal. Bones and chest wall: No suspicious bony lesions. Overlying soft tissues appear unremarkable. IMPRESSION: 1. Appropriate position of tubes and lines. 2. Bilateral pulmonary opacities, left much worse than right. Dictated by: Cortney Torres M.D. on 04/13/2023 at 10:30 Approved by: Cortney Torres M.D. on 04/13/2023 at 10:31
[2023-04-13] MEDS: HYDROMORPHONE 1 MG INJ 2 MG IV ×2 (00:30→02:26)
[2023-04-13] MEDS: LORazepam 2 MG/ML INJ 1 MG IV (02:19)
[2023-04-13] MEDS: ONDANSETRON 4 MG/2 ML INJ IV (02:19)
[2023-04-13] MEDS: NALOXONE 0.4 MG/ML VIAL IV ×2 (03:21→03:34)
[2023-04-13] MEDS: SODIUM CHLORIDE 0.9% 1,000 ML 100 ML IV (03:48)
--- NOTE | 2023-04-13 06:00 | DI.RAD.S_ITS ---
PROCEDURE: XR ABDOMEN 1V INDICATIONS: f/u gastrografin challenge and OG Placement TECHNIQUE: One view of the abdomen acquired. COMPARISON: None. FINDINGS: Surgical changes and devices: There is an orogastric tube present in the left upper quadrant of the abdomen. There are surgical clips projecting over the midline abdomen and lumbar spinal fusion hardware. Bowel: There is motion artifact on the film. Faintly opacified bowel loops are seen which appear distended. There may be oral contrast in the proximal colon. Soft tissues: Excreted contrast in the urinary bladder. No suspicious calcifications. There is a right iliac vascular stent. Heavy vascular calcification. Bones: No suspicious bony lesions. IMPRESSION: 1. Partial visualization of persistently dilated bowel loops. 2. Expected appearance of OG tube placement. 3. Heavy vascular calcification. Dictated by: Cortney Torres M.D. on 04/13/2023 at 10:27 Approved by: Cortney Torres M.D. on 04/13/2023 at 10:30
--- NOTE | 2023-04-13 06:16 | PM.EVENT ---
Event Note Event Note (Rapid Response, Code, or fall): received a call that pt is hypoxic and contines to experience pain chart reviewed 67 y/o M pt with sbo and hx of copd and multiple other medical problmes, surgery cosnulted with initial conservative management pt received narcotics for pain control. due to worsening hypoxia pt also received some narcan with some initial immprovemnt, however again showed hypoxia and pt expweiwncing abd pain. A gastrografin was ordered earlier which showed SBP. surgery was informed and ordered x ray ABGs ordered which showed hypovia and hypercarbic acidosis. pt transfered to icu. calling eICU pilling machine operator to discuss possible need for intubation. messages left at both [phone] and [phone] STAT labs orderd.
[2023-04-13 06:22] LABS: Add Manual Diff / Slide Review NO; Basophils Absolute Auto 0 /uL (0-100); Basophils Percent Auto 0.1 % (0-2); Eosinophils Absolute Auto 0 /uL (0-450); Hemoglobin 11.3 g/dL (13.5-17.5); Lymphocytes Absolute Auto 500 /uL (1100-4500); Lymphocytes Percent Auto 5.5 % (25-40); Mean Corpuscular HGB Conc 33.4 % (30-36); Monocytes Absolute Auto 0 /uL (0-900); Monocytes Percent Auto 0.6 % (3-14); Neutrophils Absolute Auto 8000 /uL (1500-7000); Neutrophils Percent Auto 93.8 % (50-75); Platelet Count 300 X10^3/uL (150-400); Red Blood Cell Count 3.54 X10^6/uL (4.5-5.9); Red Cell Distribution Width 13.8 % (11.6-14.8); White Blood Cell Count 8.5 X10^3/uL (4.5-11.0)
[2023-04-13 06:27] LABS: pH ABG 7.21 (7.35-7.45)
[2023-04-13 06:28] LABS: HCO3 ABG 25 mmol/L (23-27); Oxygen Saturation ABG 77 % (95-100); PCO2 ABG 61.7 mmHg (35-45); PO2 ABG 51 mmHg (80-100); TCO2 ABG 26 mmol/L (23-27)
[2023-04-13 06:29] LABS: Fractionated Inspired Oxygen 60
[2023-04-13 06:33] LABS: Blood Urea Nitrogen 47 mg/dL (9-20); Calcium 7.9 mg/dL (8.4-10.2); Carbon Dioxide 23 mmol/L (22-32); Chloride 103 mmol/L (98-107); Estimated Glomerular Filt Rate 25 mL/min (>60); Glucose 108 mg/dL (80-110); HEMOLYSIS < 15 (0-50); Magnesium 4.1 mg/dL (1.6-2.3); Potassium 4.5 mmol/L (3.4-5.1); Sodium 139 mmol/L (137-145)
--- NOTE | 2023-04-13 06:38 | PC.NURSE ---
Pain control difficult to manage, oxygen level declining. RT notified. Hospitalist notified, requested to contact surgery. Narcan given x 2, patient improved. Very large BM. Overall oxygen sats stabilized and improved. RT came up to do ABG resulting in critical levels. Hospitalist notified and transferred to ICU @ 0620.
[2023-04-13 07:06] LABS: Lactate (Lactic Acid) 1.3 mmol/L (0.7-2.1)
[2023-04-13] MEDS: propofoL 1,000 MG/100 ML VIAL 1.89 MG IV (08:05)
[2023-04-13 08:26] LABS: Fractionated Inspired Oxygen 60; HCO3 ABG 26 mmol/L (23-27); Oxygen Saturation ABG 83 % (95-100); PCO2 ABG 65.5 mmHg (35-45); PO2 ABG 59 mmHg (80-100); TCO2 ABG 28 mmol/L (23-27)
[2023-04-13 08:27] LABS: pH ABG 7.21 (7.35-7.45)
[2023-04-13] MEDS: fentaNYL 100 MCG/2 ML INJ 25 MCG IV ×2 (08:53→10:47)
--- NOTE | 2023-04-13 08:53 | P.PN_ITS ---
Subjective Subjective Date Patient Seen: 04/13/23 Time Patient Seen: 08:53 Interval history: respiratory decompensation overnight. Intubated this am. Abdomen remains distended. Gastrografin study demonstrates contrast remains within the stomach after four hours, 1 L of small bowel content suction from abdomen this am with NGT. Exam Vital Signs (past 8 hours): - 04/13/23 05:29 04/13/23 01:00 04/13/23 06:16 Temperature 97.5 F L Pulse Rate 113 H 109 H Respiratory Rate 25 H 23 Blood Pressure 160/55 H Pulse Oximetry 87 L 93 93 Oxygen Delivery Method Nasal Cannula Oxygen Flow Rate 16 2.5 Fraction of Inspired Oxygen 04/13/23 05:00 04/13/23 06:35 04/13/23 06:30 Temperature Pulse Rate Respiratory Rate Blood Pressure 102/55 L 102/55 L Pulse Oximetry 87 L Oxygen Delivery Method High Flow Nasal Cannula Simple Mask Oxygen Flow Rate 15 Fraction of Inspired Oxygen 60 04/13/23 06:30 04/13/23 06:47 04/13/23 06:47 Temperature Pulse Rate 111 H 110 H Respiratory Rate 24 37 H Blood Pressure 119/58 L Pulse Oximetry 96 87 L Oxygen Delivery Method Oxygen Flow Rate 10 Fraction of Inspired Oxygen 04/13/23 07:00 04/13/23 07:00 04/13/23 07:15 Temperature Pulse Rate 106 H 107 H Respiratory Rate 40 H 30 H Blood Pressure 114/58 L Pulse Oximetry 89 L 90 L Oxygen Delivery Method Oxygen Flow Rate Fraction of Inspired Oxygen 04/13/23 07:15 04/13/23 07:30 04/13/23 07:30 Temperature Pulse Rate 108 H Respiratory Rate 24 Blood Pressure 114/53 L 110/57 L Pulse Oximetry 92 Oxygen Delivery Method Oxygen Flow Rate Fraction of Inspired Oxygen 04/13/23 07:36 04/13/23 07:36 04/13/23 07:39 Temperature Pulse Rate 104 H 106 H Respiratory Rate 23 24 Blood Pressure 116/65 Pulse Oximetry 93 93 Oxygen Delivery Method Oxygen Flow Rate Fraction of Inspired Oxygen 04/13/23 07:39 04/13/23 07:42 04/13/23 07:42 Temperature Pulse Rate 107 H Respiratory Rate 24 Blood Pressure 152/94 H 157/70 H Pulse Oximetry 92 Oxygen Delivery Method Oxygen Flow Rate Fraction of Inspired Oxygen 04/13/23 07:45 04/13/23 07:45 04/13/23 07:48 Temperature Pulse Rate 106 H 108 H Respiratory Rate 23 26 H Blood Pressure 165/70 H Pulse Oximetry 92 92 Oxygen Delivery Method Oxygen Flow Rate Fraction of Inspired Oxygen 04/13/23 07:48 04/13/23 07:52 04/13/23 07:52 Temperature Pulse Rate 105 H Respiratory Rate 28 H Blood Pressure 167/72 H 128/63 Pulse Oximetry 94 Oxygen Delivery Method Oxygen Flow Rate Fraction of Inspired Oxygen 04/13/23 07:55 04/13/23 07:55 04/13/23 07:57 Temperature Pulse Rate 104 H Respiratory Rate 20 Blood Pressure 164/70 H 133/63 Pulse Oximetry 99 Oxygen Delivery Method Oxygen Flow Rate Fraction of Inspired Oxygen 04/13/23 07:57 04/13/23 08:00 04/13/23 08:00 Temperature Pulse Rate 108 H 102 H Respiratory Rate 13 16 Blood Pressure 130/61 Pulse Oximetry 98 99 Oxygen Delivery Method Oxygen Flow Rate Fraction of Inspired Oxygen Fraction of Inspired Oxygen 60 Oxygen Delivery Method High Flow Nasal Cannula,Simple Mask Oxygen Flow Rate 10 Narrative Exam Narrative: Gen-Elderly man sedated for [facility] ventilation. Cardiac-sinus tachycardia Abdomen-Distended no peritonitis Objective Labs 04/13/23 06:00 04/13/23 06:00 Labs: Laboratory Results - last 24 hr 04/12/23 04/12/23 04/12/23 10:05 11:25 15:12 WBC 12.5 H RBC 3.33 L Hgb 10.7 L Hct 31.8 L MCV 95.3 MCH 32.2 MCHC 33.8 RDW 14.0 Plt Count 279 Neut % (Auto) 77.1 H Lymph % (Auto) 15.3 L Bea[place]gard % (Auto) 7.1 Eos % (Auto) 0.0 L Baso % (Auto) 0.5 Neut # (Auto) 9600 H Lymph # (Auto) 1900 [place] # (Auto) 900 Eos # (Auto) 0 Baso # (Auto) 100 ABG pH ABG pCO2 ABG pO2 ABG HCO3 ABG Total CO2 ABG O2 Saturation ABG Base Excess FiO2 Sodium 130 L 132 L Potassium 4.5 4.2 Chloride 97 L 101 Carbon Dioxide 25 25 BUN 46 H 42 H Creatinine 2.46 H 2.28 H Estimated GFR 28 L 31 L BUN/Creatinine Ratio 18.7 18.4 Glucose 105 82 Lactate Calcium 8.3 L 7.9 L Magnesium Total Bilirubin 0.4 AST 27 ALT 21 Alkaline Phosphatase 55 Total Protein 6.1 L Albumin 3.8 Globulin 2.3 Albumin/Globulin Ratio 1.7 Lipase 102 04/13/23 04/13/23 04/13/23 05:43 06:00 06:00 WBC 8.5 RBC 3.54 L Hgb 11.3 L Hct 34.0 L MCV 96.0 MCH 32.0 MCHC 33.4 RDW 13.8 Plt Count 300 Neut % (Auto) 93.8 H Lymph % (Auto) 5.5 L Bea[place] % (Auto) 0.6 L Eos % (Auto) 0.0 L Baso % (Auto) 0.1 Neut # (Auto) 8000 H Lymph # (Auto) 500 L [place] # (Auto) 0 Eos # (Auto) 0 Baso # (Auto) 0 ABG pH 7.21 L* ABG pCO2 61.7 H* ABG pO2 51 L ABG HCO3 25 ABG Total CO2 26 ABG O2 Saturation 77 L* ABG Base Excess -3.0 L FiO2 60 Sodium 139 Potassium 4.5 Chloride 103 Carbon Dioxide 23 BUN 47 H Creatinine 2.76 H Estimated GFR 25 L BUN/Creatinine Ratio 17.0 Glucose 108 Lactate Calcium 7.9 L Magnesium 4.1 H Total Bilirubin AST ALT Alkaline Phosphatase Total Protein Albumin Globulin Albumin/Globulin Ratio Lipase 04/13/23 04/13/23 06:40 07:05 WBC RBC Hgb Hct MCV MCH MCHC RDW Plt Count Neut % (Auto) Lymph % (Auto) Bea[place]gard % (Auto) Eos % (Auto) Baso % (Auto) Neut # (Auto) Lymph # (Auto) [place] # (Auto) Eos # (Auto) Baso # (Auto) ABG pH 7.21 L* ABG pCO2 65.5 H* ABG pO2 59 L ABG HCO3 26 ABG Total CO2 28 H ABG O2 Saturation 83 L* ABG Base Excess -2.0 FiO2 60 Sodium Potassium Chloride Carbon Dioxide BUN Creatinine Estimated GFR BUN/Creatinine Ratio Glucose Lactate 1.3 Calcium Magnesium Total Bilirubin AST ALT Alkaline Phosphatase Total Protein Albumin Globulin Albumin/Globulin Ratio Lipase [facility] Medical History Acute on chronic respiratory failure with hypoxia CAD (coronary artery disease) (05/11/17) Centrilobular emphysema Cerebrovascular accident (CVA) due to stenosis of right posterior cerebral artery (05/28/17) Chronic hypoxemic respiratory failure (08/24/20) Chronic pain syndrome (08/25/15) COPD exacerbation Family history of coronary artery disease (05/11/17) Fatigue due to sleep pattern disturbance Former smoker (08/25/15) HTN (hypertension) 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 Hyperlipidemia Hypothyroidism Insomnia due to medical condition Nocturnal hypoxemia Obstructive sleep apnea, adult Periodic limb movement disorder (PLMD) PVD (peripheral vascular disease) (05/11/17) Rectal bleeding (05/28/17) Statin intolerance (05/28/17) 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) Surgical History Fusion of spine of thoracolumbar region (08/25/15) Fusion of spine, thoracolumbar region History of eye surgery History of spinal surgery (08/25/15) S/P hernia repair Family History Family/Other Heart disease Father Heart disease Mother Loud snoring Obesity Hypertension Depression Dementia Other Family history of coronary artery disease Social History household members: spouse Smoking Status: Former smoker alcohol intake: current Assessment & Plan Assessment & Plan narrative: 67 y.o man CKD, COPD with acute respiratory failure and a small bowel obstruction. Gastrografin study reviewed no passage of contrast out of the stomach. Bowel obstruction not resolving with conservative measures and abdominal distention is contributing to respiratory failure. Discussed findings with via telephone and recommended proceeding to OR for exploratory laparotomy. Overview of operation was discussed. Explained that this is a high risk operation given his severe comorbidities. We discussed risks of hemorrhage, infection, damage to surrounding structures, anastamotic leak, [place], CVA, renal failure, inability to extubate and . She expresses her understanding and provides consent for surgery and anaesthesia which was witnessed by the [employer] at bedside. Quality VTE Deep Vein Thrombosis/Pulmonary Embolism Present on Admission: No
--- NOTE | 2023-04-13 08:54 | PM.PROC.1 ---
Procedures Date/Time Date of procedure: 04/13/23 Time of procedure: 07:50 Intubation Time out performed: Yes Sedative: other (Propofol 120mg with 60 mg lidocaine) Paralytic: other (120mg sux given for RSI, followed by 50mg rocuronium once airway was secure) Laryngoscope: other (Optical stylet) ET tube size: 7.5 ET tube uncuffed: No Tube secured depth (cm): 23 Tube secured location: teeth Tube placement confirmation: visualized tube passing through cords, equal breath sounds bilaterally, no breath sounds over epigastrium and confirmation by capnometry Patient tolerated procedure: well and no complications Intubation complications: none Additional comments: 200mch phenyephrine also given with intubation for BP support after rapid sequence induction. OG tube was placed after airway secured and 1 L bilious fluid was evacuated
--- NOTE | 2023-04-13 08:56 | P.TELICUCN_ITS ---
History of Present Illness Consult details IF CAMERA ACTIVATED, patient seen via real-time interactive audiovisual communication: Camera activated Chief complaint: N/V/ abd/back pain T-2 Consent obtained for tele-projects manager care: Yes Patient Location: ICU Provider location (State): [place] Other participants/roles: hospitalist, RT, RN Narrative: HPI: Patient is a 63 yo man with PMH of COPD, DM, HL, Hypothyroidism, PVD, CVA, chronic back pain, and prior abdominal surgeries who was admitted 04/12/23 with bowel obstruction and GILMA. Overnight patient's abdominal pain worsened and he went into hypercapnic and hypoxic respiratory failure which required intubation. 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 Hyperlipidemia Hypothyroidism Insomnia due to medical condition Nocturnal hypoxemia Obstructive sleep apnea, adult Periodic limb movement disorder (PLMD) PVD (peripheral vascular disease) (05/11/17) Rectal bleeding (05/28/17) Statin intolerance (05/28/17) 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) Surgical History Fusion of spine of thoracolumbar region (08/25/15) Fusion of spine, thoracolumbar region History of eye surgery History of spinal surgery (08/25/15) S/P hernia repair Family History Family/Other Heart disease Father Heart disease Mother Loud snoring Obesity Hypertension Depression Dementia Other Family history of coronary artery disease Social History household members: spouse Smoking Status: Former smoker alcohol intake: current Current Medications Current Medications Medications: Home Medications C-Ketam 1 applic topical TID 06/11/18 [History Confirmed 04/12/23] Thermacare Heatwrap Joint 06/11/18 [History Confirmed 04/12/23] albuterol sulfate 90 mcg/actuation aerosol inhaler 1 puff inhalation PRN PRN Shortness Of Breath 06/11/18 [History Confirmed 04/12/23] amlodipine 10 mg tablet 10 mg PO QPM 06/11/18 [History Confirmed 04/12/23] ascorbic acid (vitamin C) 1,000 mg tablet 1 g PO BID 06/11/18 [History Confirmed 04/12/23] cholecalciferol (vitamin D3) 10 mcg (400 unit) capsule (Vitamin D3) 400 unit PO QPM 06/11/18 [History Confirmed 04/12/23] levothyroxine 175 mcg tablet 175 mcg PO DAILY 06/11/18 [History Confirmed 04/12/23] lidocaine 5 % topical patch 1 patch topical DAILY 06/11/18 [History Confirmed 04/12/23] magnesium citrate 1,000 mg PO BID 06/11/18 [History Confirmed 04/12/23] nitroglycerin 0.4 mg sublingual tablet (Nitrostat) 0.4 mg sublingual Q5-15M PRN Chest Pain 06/11/18 [History Confirmed 04/12/23] arformoterol 15 mcg/2 mL solution for nebulization (Brovana) 15 mcg inhalation DAILY 10/18/20 [History Confirmed 04/12/23] azithromycin 250 mg tablet 250 mg PO .tiw 10/18/20 [History Confirmed 04/12/23] budesonide 0.5 mg/2 mL suspension for nebulization 0.5 mg inhalation BID 10/18/20 [History Confirmed 04/12/23] clonidine HCl 0.3 mg tablet 0.3 mg PO TID 10/18/20 [History Confirmed 04/12/23] lorazepam 1 mg tablet 0.5 mg PO DAILY PRN Panic Attack(S) 10/18/20 [History Confirmed 04/12/23] benralizumab 30 mg/mL subcutaneous auto-injector 30 mg SUBCUT Q8W 02/13/23 [History Confirmed 04/12/23] evolocumab 140 mg/mL subcutaneous pen injector (Pedro Pablo Pfeiffer) 140 mg SUBCUT Q2W 02/13/23 [History Confirmed 04/12/23] ferrous sulfate 325 mg (65 mg iron) tablet,delayed release 65 mg PO 3XW 02/13/23 [History Confirmed 04/12/23] folic acid 1 mg tablet 1 mg PO DAILY 02/13/23 [History Confirmed 04/12/23] furosemide 40 mg tablet 40 mg PO DAILY 02/13/23 [History Confirmed 04/12/23] hydralazine 50 mg tablet 100 mg PO TID 02/13/23 [History Confirmed 04/12/23] lactulose 10 gram/15 mL oral solution (Enulose) 20 g PO TID 02/13/23 [History Confirmed 04/12/23] losartan 100 mg tablet 50 mg PO DAILY 02/13/23 [History Confirmed 04/12/23] montelukast 10 mg tablet 10 mg PO BEDTIME 02/13/23 [History Confirmed 04/12/23] oxybutynin chloride 10 mg tablet,extended release 24 hr 10 mg PO DAILY 02/13/23 [History Confirmed 04/12/23] red beet root 250 mg-sour alvarez extract 0.5 mg chewable tablet 2 tab PO DAILY 02/13/23 [History Confirmed 04/12/23] vitamin B complex (B Complex-Vitamin B12 tablet) 1 tab PO DAILY 02/13/23 [History Confirmed 04/12/23] oxycodone 10 mg tablet,crush resistant,extended release 12 hr (OxyContin) 10 mg PO BID PRN PAIN 04/12/23 [History Confirmed 04/12/23] sertraline 50 mg tablet (Zoloft) 150 mg PO BEDTIME 04/12/23 [History Confirmed 04/12/23] trazodone 100 mg tablet 150 mg PO QPM 04/12/23 [History Confirmed 04/12/23] Visit Medications (administered) Generic Name Dose Route Start Last Admin Trade Name Freq PRN Reason Stop Dose Admin Albuterol/Ipratropium 3 ml 04/12/23 19:00 04/12/23 19:53 Albuterol/Ipratropium 3 Ml Ampul INH 3 ml [id number] NAVARRO Administration Budesonide 0.5 mg 04/12/23 20:00 04/12/23 19:53 Budesonide 0.5 Mg/2 Ml Neb INH 0.5 mg RTBID NAVARRO Administration Sodium Chloride 1,000 mls @ 100 mls/hr 04/12/23 17:09 04/13/23 03:48 Normal Saline 0.9% IV 100 mls/hr CONT NAVARRO Administration Lorazepam 1 mg 04/12/23 18:09 04/13/23 02:19 Lorazepam 2 Mg/Ml Inj IV 1 mg Q4HR PRN Administration Anxiety Ondansetron HCl 4 mg 04/12/23 17:09 04/13/23 02:19 Ondansetron 4 Mg/2 Ml Inj IV 4 mg Q4HR PRN Administration Nausea And Vomiting Exam Vital Signs (past 8 hours): - 04/13/23 05:29 04/13/23 01:00 04/13/23 06:16 Temperature 97.5 F L Pulse Rate 113 H 109 H Respiratory Rate 25 H 23 Blood Pressure 160/55 H Pulse Oximetry 87 L 93 93 Oxygen Delivery Method Nasal Cannula Oxygen Flow Rate 16 2.5 Fraction of Inspired Oxygen 04/13/23 05:00 04/13/23 06:35 04/13/23 06:30 Temperature Pulse Rate Respiratory Rate Blood Pressure 102/55 L 102/55 L Pulse Oximetry 87 L Oxygen Delivery Method High Flow Nasal Cannula Simple Mask Oxygen Flow Rate 15 Fraction of Inspired Oxygen 60 04/13/23 06:30 04/13/23 06:47 04/13/23 06:47 Temperature Pulse Rate 111 H 110 H Respiratory Rate 24 37 H Blood Pressure 119/58 L Pulse Oximetry 96 87 L Oxygen Delivery Method Oxygen Flow Rate 10 Fraction of Inspired Oxygen 04/13/23 07:00 04/13/23 07:00 04/13/23 07:15 Temperature Pulse Rate 106 H 107 H Respiratory Rate 40 H 30 H Blood Pressure 114/58 L Pulse Oximetry 89 L 90 L Oxygen Delivery Method Oxygen Flow Rate Fraction of Inspired Oxygen 04/13/23 07:15 04/13/23 07:30 04/13/23 07:30 Temperature Pulse Rate 108 H Respiratory Rate 24 Blood Pressure 114/53 L 110/57 L Pulse Oximetry 92 Oxygen Delivery Method Oxygen Flow Rate Fraction of Inspired Oxygen 04/13/23 07:36 04/13/23 07:36 04/13/23 07:39 Temperature Pulse Rate 104 H 106 H Respiratory Rate 23 24 Blood Pressure 116/65 Pulse Oximetry 93 93 Oxygen Delivery Method Oxygen Flow Rate Fraction of Inspired Oxygen 04/13/23 07:39 04/13/23 07:42 04/13/23 07:42 Temperature Pulse Rate 107 H Respiratory Rate 24 Blood Pressure 152/94 H 157/70 H Pulse Oximetry 92 Oxygen Delivery Method Oxygen Flow Rate Fraction of Inspired Oxygen 04/13/23 07:45 04/13/23 07:45 04/13/23 07:48 Temperature Pulse Rate 106 H 108 H Respiratory Rate 23 26 H Blood Pressure 165/70 H Pulse Oximetry 92 92 Oxygen Delivery Method Oxygen Flow Rate Fraction of Inspired Oxygen 04/13/23 07:48 04/13/23 07:52 04/13/23 07:52 Temperature Pulse Rate 105 H Respiratory Rate 28 H Blood Pressure 167/72 H 128/63 Pulse Oximetry 94 Oxygen Delivery Method Oxygen Flow Rate Fraction of Inspired Oxygen 04/13/23 07:55 04/13/23 07:55 04/13/23 07:57 Temperature Pulse Rate 104 H Respiratory Rate 20 Blood Pressure 164/70 H 133/63 Pulse Oximetry 99 Oxygen Delivery Method Oxygen Flow Rate Fraction of Inspired Oxygen 04/13/23 07:57 04/13/23 08:00 04/13/23 08:00 Temperature Pulse Rate 108 H 102 H Respiratory Rate 13 16 Blood Pressure 130/61 Pulse Oximetry 98 99 Oxygen Delivery Method Oxygen Flow Rate Fraction of Inspired Oxygen Fraction of Inspired Oxygen 60 Oxygen Delivery Method High Flow Nasal Cannula,Simple Mask Oxygen Flow Rate 10 Objective Labs 04/13/23 06:00 04/13/23 06:00 Labs: Laboratory Results - last 24 hr 04/12/23 04/12/23 04/12/23 10:05 11:25 15:12 WBC 12.5 H RBC 3.33 L Hgb 10.7 L Hct 31.8 L MCV 95.3 MCH 32.2 MCHC 33.8 RDW 14.0 Plt Count 279 Neut % (Auto) 77.1 H Lymph % (Auto) 15.3 L [place] % (Auto) 7.1 Eos % (Auto) 0.0 L Baso % (Auto) 0.5 Neut # (Auto) 9600 H Lymph # (Auto) 1900 [place] # (Auto) 900 Eos # (Auto) 0 Baso # (Auto) 100 ABG pH ABG pCO2 ABG pO2 ABG HCO3 ABG Total CO2 ABG O2 Saturation ABG Base Excess FiO2 Sodium 130 L 132 L Potassium 4.5 4.2 Chloride 97 L 101 Carbon Dioxide 25 25 BUN 46 H 42 H Creatinine 2.46 H 2.28 H Estimated GFR 28 L 31 L BUN/Creatinine Ratio 18.7 18.4 Glucose 105 82 Lactate Calcium 8.3 L 7.9 L Magnesium Total Bilirubin 0.4 AST 27 ALT 21 Alkaline Phosphatase 55 Total Protein 6.1 L Albumin 3.8 Globulin 2.3 Albumin/Globulin Ratio 1.7 Lipase 102 04/13/23 04/13/23 04/13/23 05:43 06:00 06:00 WBC 8.5 RBC 3.54 L Hgb 11.3 L Hct 34.0 L MCV 96.0 MCH 32.0 MCHC 33.4 RDW 13.8 Plt Count 300 Neut % (Auto) 93.8 H Lymph % (Auto) 5.5 L [place] % (Auto) 0.6 L Eos % (Auto) 0.0 L Baso % (Auto) 0.1 Neut # (Auto) 8000 H Lymph # (Auto) 500 L [place] # (Auto) 0 Eos # (Auto) 0 Baso # (Auto) 0 ABG pH 7.21 L* ABG pCO2 61.7 H* ABG pO2 51 L ABG HCO3 25 ABG Total CO2 26 ABG O2 Saturation 77 L* ABG Base Excess -3.0 L FiO2 60 Sodium 139 Potassium 4.5 Chloride 103 Carbon Dioxide 23 BUN 47 H Creatinine 2.76 H Estimated GFR 25 L BUN/Creatinine Ratio 17.0 Glucose 108 Lactate Calcium 7.9 L Magnesium 4.1 H Total Bilirubin AST ALT Alkaline Phosphatase Total Protein Albumin Globulin Albumin/Globulin Ratio Lipase 04/13/23 04/13/23 06:40 07:05 WBC RBC Hgb Hct MCV MCH MCHC RDW Plt Count Neut % (Auto) Lymph % (Auto) [place] % (Auto) Eos % (Auto) Baso % (Auto) Neut # (Auto) Lymph # (Auto) [place] # (Auto) Eos # (Auto) Baso # (Auto) ABG pH 7.21 L* ABG pCO2 65.5 H* ABG pO2 59 L ABG HCO3 26 ABG Total CO2 28 H ABG O2 Saturation 83 L* ABG Base Excess -2.0 FiO2 60 Sodium Potassium Chloride Carbon Dioxide BUN Creatinine Estimated GFR BUN/Creatinine Ratio Glucose Lactate 1.3 Calcium Magnesium Total Bilirubin AST ALT Alkaline Phosphatase Total Protein Albumin Globulin Albumin/Globulin Ratio Lipase Assessment & Plan Assessment & Plan narrative: Assessment Acute hypercapnic and hypoxic respiratory failure COPD exacerbation Bowel obstruction GILMA 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: propofol and fentanyl drip as needed for patient comfort CV: currently BP and HR within normal limits Pulm: Pt has some wheezes on exam per bedside nurse and ABG shows persistent hypercapnia despite intubation so basilia lstart steroids -Solumedrol 60 mg BID -duonebs q4H -check ABG and adjust vent as needed ID: check blood and sputum culturem, check procal -start empiric Zosyn GI: Patient to go for Ex-lap today Heme: no acute issues FEN/Renal: LR 100 cc/hr Endo: check BG q6H PPx: famotidine, no heparin for now given surgeyr, plan to start SQ heparin for DVT prophylaxis when cleared by surgery Code status: FULL CODE
--- NOTE | 2023-04-13 08:58 | PM.PROC.1 ---
Procedures Date/Time Date of procedure: 04/13/23 Time of procedure: 08:15 Central Line Placement Time out performed: Yes Patient placed on monitor/pulse ox: Yes MD prep: mask, gown and gloves Central line prep: Chlorhexidine scrub and sterile drapes applied Local anesthesia used: other anesthetic (Patient was under propofol sedation after intubation) Ultrasound used for placement: Yes Central line lumen inserted: triple Post procedure: sutured in place, good blood return, all ports aspirated, flushed, capped and sterile dressing applied Post procedure x-ray: other (CXR ordered, will follow up for confirmation of placement) Patient tolerated procedure: well and no complications Complications: none
[2023-04-13] MEDS: fentaNYL 1,000 MCG in DEXTROSE 5% IN WATER 230 ML 11.025 MCG IV (09:23)
[2023-04-13] MEDS: methylPREDNISolone 125 MG/2 ML VIAL 80 MG IV (09:47)
[2023-04-13 09:56] LABS: Fractionated Inspired Oxygen 100; HCO3 ABG 26 mmol/L (23-27); Oxygen Saturation ABG 100 % (95-100); PCO2 ABG 75.9 mmHg (35-45); PO2 ABG 227 mmHg (80-100); TCO2 ABG 29 mmol/L (23-27)
[2023-04-13 09:57] LABS: pH ABG 7.15 (7.35-7.45)
[2023-04-13] MEDS: LACTATED RINGERS 1,000 ML 100 ML IV (10:05)
[2023-04-13 10:20] LABS: Fractionated Inspired Oxygen 70; HCO3 ABG 24 mmol/L (23-27); Oxygen Saturation ABG 89 % (95-100); PO2 ABG 74 mmHg (80-100); TCO2 ABG 26 mmol/L (23-27); pH ABG 7.16 (7.35-7.45)
[2023-04-13] MEDS: ALBUTEROL/IPRATROPIUM 3 ML AMPUL INH ×4 (10:40→23:02)
[2023-04-13] MEDS: PIPERACILLIN/TAZO 3.375 GM in SODIUM CHLORIDE 0.9% 100 ML IV (11:12)
[2023-04-13 12:06] LABS: Fractionated Inspired Oxygen 70; HCO3 ABG 24 mmol/L (23-27); Oxygen Saturation ABG 86 % (95-100); PCO2 ABG 75.6 mmHg (35-45); PO2 ABG 71 mmHg (80-100); TCO2 ABG 26 mmol/L (23-27); pH ABG 7.11 (7.35-7.45)
--- NOTE | 2023-04-13 12:20 | SUR.OPER ---
Supine on padded OR bed, head on pillow, arms secured on padded arm boards at <90 degrees abduction, legs uncrossed, safety belt at thigh, tape over blanket over lower legs.
[2023-04-13 13:31] LABS: Fractionated Inspired Oxygen 100; HCO3 ABG 24 mmol/L (23-27); Oxygen Saturation ABG 98 % (95-100); PO2 ABG 144 mmHg (80-100); TCO2 ABG 26 mmol/L (23-27); pH ABG 7.14 (7.35-7.45)
--- NOTE | 2023-04-13 14:04 | CM.DANOTE ---
Patient is a 67 yo male who was admitted on 04/12/23 for Back Pain/Weakness. Pt has [employer] and [facility] for insurance and his PCP is Nakia Marcus. EMR was reviewed. Per MD, pt with hx of end stage kidney disease and COPD and admitted for SBO and became hypoxic and had to be intubated this morning. Per Surgeon, pt to be taken off the floor for surgery today around 1200 since he is already intubated and will return with likely a need for a couple days before he can safely be extubated. SW met bedside with pt who is sedated and intubated and with his spouse Samira Escamilla and explained role and she confirms they live at home in [place] and their adult Dtr and son chitra also live there. 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 Pt typically uses a w/c for longer distances or puts on his prosthetic and uses a walker for ambulation. Spouse denies any hx of SNF but they used HH after discharging home from leg amputation. Spouse is hopeful that pt can d/c back home with her assist and maybe HH but aware that PT/OT will likely need to confirm pt is safe for home when more medically appropriate. Plan; SW to follow closely post surgical intervention today for SBO and then eventual attempts at extubation and then PT/OT eval when appropriate to determine discharge planning needs. KENNEDI Crawford Discharge Planning/Care Management CM Discharge Assessment Start: 04/13/23 13:57 Freq: Status: Active Protocol: Document 04/13/23 13:58 BF (Rec: 04/13/23 14:04 [id number]) Discharge Planning Assessment Assigned Jewelry Facer KENNEDI Solorzano DPOA/Assigned Designee Name informally spouse Samira Escamilla Contact Information [phone] Advance Directives? Yes Advance Directives on File No History Provided By Patient,Family Member, Significant Other,Medical Record Has Patient been admitted in last 30 No days? Prior Living Arrangements House Household Members spouse,family Comment Lives with spouse and Dtr and son chitra Type of transporation used prior to Relies on Others admit Independent with ADL's Yes: mostly Is patient alert and oriented? Yes Needs Assistance With Bathing,Meal Prep,Home Chores / Shopping Caregiver for Another No DME Already Rented / Owned Wheelchair,FWW / Walker,Other Comment prosthesis for his leg Comment Pending pt's progress SNF vs HH and awaiting extubation Barriers to Discharge No Discharge Plan Home with Home Health Community Services Physical Therapy,Occupational Therapy,Home Health Nurse Transportation Arrangement Spouse if safe for home Additional Comment Waiting for extubation and then eventual PT/OT Whiteboard Updated in Patient Room with Yes name and ext. # of Jewelry Facer Review Status In Process Please Provide Date Initial DC 04/13/23 Assessment Was Performed Next Review Type Continued Stay Review
[2023-04-13] MEDS: dexmedeTOMIDine in 0.9 % NaCL 400 MCG/100 ML PLAST..BAG IV (14:36)
--- NOTE | 2023-04-13 14:56 | P.OP_ITS ---
Operative Date/Time/Diagnoses Date of procedure: 04/13/23 Time of procedure: 14:56 Pre-op diagnosis: small bowel obstruction Post-op diagnosis: same Procedure & Clinicians Procedure: Exploratory laparotomy Lysis of adhesions Small-bowel resection Same procedure as scheduled: Yes Indications: 67-year-old man who presented with a small-bowel obstruction. Gastrografin challenge demonstrates no passage of contrast into the colon. He decompensated, had worsening metabolic acidosis and associated respiratory failure requiring intubation. His abdominal distention was impairing his respiration and he was taken to the operating room for an exploratory laparotomy. Surgeon: Adán Brink Click Yes if Unassisted: Yes Anesthesia Type: General Operative Notes Findings: Small-bowel obstruction transition point is adherent to intra-abdominal mesh along the anterior abdominal wall Specimen(s): other (Small-bowel) Estimated Blood Loss (mL): 100 Procedure in detail: Patient was brought to the operating room placed supine on the table. Bilateral lower extremity compression devices were applied. General anesthesia was induced he was intubated with an endotracheal tube. He would received Zosyn prior to skin incision. He was prepped and draped in sterile fashion time-out was performed. We began with a midline incision. The abdomen was entered atraumatically. Several adhesions were lysed in order to mobilize the small bowel. The small bowel was eviscerated. A transition point was found in the left upper abdomen. The transition point was found where the small bowel had adhered to a large sheet of intra abdominal mesh along the anterior wall of the abdomen. It was not possible to remove the mesh from the small bowel as it was adherent to the mesentery. Therefore a small-bowel resection was performed. A window within the mesentery was made on either side and then the bowel was divided using the DENISA stapler blue load. Mesentery was divided using the LigaSure device. We then formed a [id number] functional and end anastomosis. An enterotomy was weight in each limb and then a 3rd stapler load was used to create a common channel. The anastomosis was inspected it was hemostatic and well perfused. The common opening was then closed in a running fashion using 3- 0 PDS. The suture line was then imbricated using interrupted silk suture. As much of the intra abdominal mesh was removed as possible. The small bowel was then run from the ligament of Treitz to the terminal ileum there are few adhesions which were sharply lysed. The abdomen was then copiously lavaged with several L of sterile saline. Bowel was returned to the abdomen. The fascia was then closed in a running fashion using PDS suture. The skin was closed with santi. He tolerated the operation but remained in critical condition and was transferred intubated to the intensive care unit. Complications: none Post-operative Condition: critical Disposition: ICU
[2023-04-13] MEDS: DEXTROSE 5%-LACTATED RINGERS 1,000 ML 100 ML IV (15:10)
[2023-04-13 15:17] LABS: HCO3 ABG 23 mmol/L (23-27); PCO2 ABG 70.7 mmHg (35-45); PO2 ABG 86 mmHg (80-100)
[2023-04-13 15:18] LABS: Fractionated Inspired Oxygen 70; Oxygen Saturation ABG 92 % (95-100); TCO2 ABG 25 mmol/L (23-27); pH ABG 7.11 (7.35-7.45)
[2023-04-13] MEDS: propofoL 1,000 MG/100 ML VIAL 18.9 MG IV (15:49)
[2023-04-13 15:50] LABS: MRSA (Nasal) PCR Not Detected (Not Detect)
[2023-04-13] MEDS: SODIUM BICARB 8.4% SYRINGE 50 MEQ IV ×5 (16:24→18:39)
[2023-04-13 16:58] LABS: Fractionated Inspired Oxygen 70; HCO3 ABG 23 mmol/L (23-27); Oxygen Saturation ABG 94 % (95-100); PCO2 ABG 62.9 mmHg (35-45); PO2 ABG 90 mmHg (80-100); TCO2 ABG 24 mmol/L (23-27); pH ABG 7.16 (7.35-7.45)
[2023-04-13 17:54] LABS: Fractionated Inspired Oxygen 70; HCO3 VBG 29 mmol/L (24-28); Oxygen Saturation VBG 57 % (70-75); PCO2 VBG 67.6 mmHg (45-50); PO2 VBG 36 mmHg (35-45); Total CO2 VBG 31 mmol/L (24-29); pH VBG 7.25 (7.33-7.43)
--- NOTE | 2023-04-13 17:59 | PC.NURSE ---
Day shift: Pt on bipap at change of shift, restless, 10/10 pain reported from pt, abdomen distended. Day provider at bedside, anesthesia called. RSI equipment gathered, pt saturation 88%-90% on bipap, tachypneic and restless. See anesthesia procedure note. Pt intubated, OG placed. Triple lumen central line inserted. Keane catheter inserted. Pt became restless, drawing knees up, clenching fists. Sedation medication titrated as charted in SEP. Pt maxed per protocols for fentanyl and propofol. EICU provider ordered additional PRNs, see MAR. Pt taken down to OR at approximately 1140. Pt arrived postoperatively at approximately 1345. Pt still intubated, lifting off bed as bed entered the room. Pt grabbing for ET tube, IVs, and keane catheter. Spouse Samira at bedside. Spouse states pt is allergic to latex, reaction is blisters. Added to allergy list. Pt continued to be restless, Eicu provider on monitor, new orders received. Pt resting comfortably, RASS -1. Urinary output limited, provider aware. VSS, pt rousable. Care ongoing.
[2023-04-13] MEDS: methylPREDNISolone 125 MG/2 ML VIAL 60 MG IV (18:39)
--- NOTE | 2023-04-13 18:46 | PM.PN.1 ---
Subjective Subjective Date Patient Seen: 04/13/23 Time Patient Seen: 08:00 Interval history: Overnight he was lethargic, hypoxemic. He became more distended getting high dose IV opiates. He was given narcan and his mentation improved somewhat but he was still in respiratory distress. He was transferred to the ICU on BIPAP. On arrival, I immediately called for anesthesia for intubation. He was intubated, central line was placed. Dark, thick secretions were suctioned back. He was placed on antibiotics. He was quite acidotic and his rate and tidal volume were increased. He then went to OR for ex lap which showed bowel adhered to mesh, he had small bowel resection done. Exam Vital Signs (past 8 hours): - 04/13/23 11:00 04/13/23 11:00 04/13/23 11:14 Temperature Pulse Rate 100 H 97 H Respiratory Rate 29 H 17 Blood Pressure 168/73 H Pulse Oximetry 93 92 Oxygen Delivery Method Fraction of Inspired Oxygen 04/13/23 11:14 04/13/23 11:30 04/13/23 11:30 Temperature Pulse Rate 96 H Respiratory Rate 16 Blood Pressure 146/65 H 155/69 H Pulse Oximetry 93 Oxygen Delivery Method Fraction of Inspired Oxygen 04/13/23 13:51 04/13/23 13:51 04/13/23 14:00 Temperature Pulse Rate 79 Respiratory Rate Blood Pressure 168/72 H 155/70 H Pulse Oximetry 98 Oxygen Delivery Method Fraction of Inspired Oxygen 04/13/23 14:00 04/13/23 14:30 04/13/23 14:30 Temperature Pulse Rate 75 76 Respiratory Rate 10 L 26 H Blood Pressure 156/70 H Pulse Oximetry 98 98 Oxygen Delivery Method Fraction of Inspired Oxygen 04/13/23 15:00 04/13/23 15:00 04/13/23 15:00 Temperature 98.3 F Pulse Rate 77 Respiratory Rate 21 Blood Pressure 145/62 H Pulse Oximetry 99 Oxygen Delivery Method Fraction of Inspired Oxygen 04/13/23 15:03 04/13/23 13:50 04/13/23 17:00 Temperature 98.7 F Pulse Rate 83 Respiratory Rate Blood Pressure Pulse Oximetry 99 Oxygen Delivery Method Mechanical Ventilation Mechanical Ventilation Fraction of Inspired Oxygen 70 04/13/23 15:30 04/13/23 15:30 04/13/23 16:00 Temperature Pulse Rate 78 Respiratory Rate 20 Blood Pressure 142/63 H 127/58 L Pulse Oximetry 98 Oxygen Delivery Method Fraction of Inspired Oxygen 04/13/23 16:00 04/13/23 16:30 04/13/23 16:30 Temperature Pulse Rate 78 76 Respiratory Rate 20 20 Blood Pressure 119/57 L Pulse Oximetry 98 98 Oxygen Delivery Method Fraction of Inspired Oxygen 04/13/23 17:00 04/13/23 17:00 04/13/23 17:30 Temperature Pulse Rate 78 Respiratory Rate 20 Blood Pressure 125/61 122/58 L Pulse Oximetry 99 Oxygen Delivery Method Fraction of Inspired Oxygen 04/13/23 17:30 04/13/23 18:00 04/13/23 18:00 Temperature Pulse Rate 77 78 Respiratory Rate 20 20 Blood Pressure 103/56 L Pulse Oximetry 99 98 Oxygen Delivery Method Fraction of Inspired Oxygen 04/13/23 18:30 04/13/23 18:30 Temperature Pulse Rate 79 Respiratory Rate 20 Blood Pressure 112/54 L Pulse Oximetry 98 Oxygen Delivery Method Fraction of Inspired Oxygen Fraction of Inspired Oxygen 70 SaO2/FiO2 Ratio 141 Oxygen Delivery Method Mechanical Ventilation Oxygen Flow Rate 10 Narrative Exam Narrative: GEN: intubated, sedated CV: tachycardic PULM: coarse breath sounds bilaterally ABD: distended, firm EXT: warm and well perfused NEURO: sedated, intubated Objective Labs 04/13/23 06:00 04/13/23 06:00 Labs: Laboratory Results - last 24 hr 04/13/23 04/13/23 04/13/23 05:43 06:00 06:00 WBC 8.5 RBC 3.54 L Hgb 11.3 L Hct 34.0 L MCV 96.0 MCH 32.0 MCHC 33.4 RDW 13.8 Plt Count 300 Neut % (Auto) 93.8 H Lymph % (Auto) 5.5 L Mcleod % (Auto) 0.6 L Eos % (Auto) 0.0 L Baso % (Auto) 0.1 Neut # (Auto) 8000 H Lymph # (Auto) 500 L Mcleod # (Auto) 0 Eos # (Auto) 0 Baso # (Auto) 0 ABG pH 7.21 L* ABG pCO2 61.7 H* ABG pO2 51 L ABG HCO3 25 ABG Total CO2 26 ABG O2 Saturation 77 L* ABG Base Excess -3.0 L VBG pH VBG pCO2 VBG pO2 VBG HCO3 VBG Total CO2 VBG O2 Saturation VBG Base Excess FiO2 60 Sodium 139 Potassium 4.5 Chloride 103 Carbon Dioxide 23 BUN 47 H Creatinine 2.76 H Estimated GFR 25 L BUN/Creatinine Ratio 17.0 Glucose 108 Lactate Calcium 7.9 L Magnesium 4.1 H Procalcitonin Nasal Screen MRSA (PCR) 04/13/23 04/13/23 04/13/23 06:00 06:40 07:05 WBC RBC Hgb Hct MCV MCH MCHC RDW Plt Count Neut % (Auto) Lymph % (Auto) Mcleod % (Auto) Eos % (Auto) Baso % (Auto) Neut # (Auto) Lymph # (Auto) Mcleod # (Auto) Eos # (Auto) Baso # (Auto) ABG pH 7.21 L* ABG pCO2 65.5 H* ABG pO2 59 L ABG HCO3 26 ABG Total CO2 28 H ABG O2 Saturation 83 L* ABG Base Excess -2.0 VBG pH VBG pCO2 VBG pO2 VBG HCO3 VBG Total CO2 VBG O2 Saturation VBG Base Excess FiO2 60 Sodium Potassium Chloride Carbon Dioxide BUN Creatinine Estimated GFR BUN/Creatinine Ratio Glucose Lactate 1.3 Calcium Magnesium Procalcitonin 0.30 Nasal Screen MRSA (PCR) 04/13/23 04/13/23 04/13/23 08:37 09:26 11:36 WBC RBC Hgb Hct MCV MCH MCHC RDW Plt Count Neut % (Auto) Lymph % (Auto) Mcleod % (Auto) Eos % (Auto) Baso % (Auto) Neut # (Auto) Lymph # (Auto) Mcleod # (Auto) Eos # (Auto) Baso # (Auto) ABG pH 7.15 L* 7.16 L* 7.11 L* ABG pCO2 75.9 H* 68.0 H* 75.6 H* ABG pO2 227 H 74 L 71 L ABG HCO3 26 24 24 ABG Total CO2 29 H 26 26 ABG O2 Saturation 100 89 L 86 L ABG Base Excess -3.0 L -4.0 L -5.0 L VBG pH VBG pCO2 VBG pO2 VBG HCO3 VBG Total CO2 VBG O2 Saturation VBG Base Excess FiO2 100 70 70 Sodium Potassium Chloride Carbon Dioxide BUN Creatinine Estimated GFR BUN/Creatinine Ratio Glucose Lactate Calcium Magnesium Procalcitonin Nasal Screen MRSA (PCR) 0904/13/23 04/13/23 13:19 14:08 14:28 WBC RBC Hgb Hct MCV MCH MCHC RDW Plt Count Neut % (Auto) Lymph % (Auto) Mcleod % (Auto) Eos % (Auto) Baso % (Auto) Neut # (Auto) Lymph # (Auto) Mcleod # (Auto) Eos # (Auto) Baso # (Auto) ABG pH 7.14 L* 7.11 L* ABG pCO2 72.0 H* 70.7 H* ABG pO2 144 H 86 ABG HCO3 24 23 ABG Total CO2 26 25 ABG O2 Saturation 98 92 L ABG Base Excess -5.0 L -7.0 L VBG pH VBG pCO2 VBG pO2 VBG HCO3 VBG Total CO2 VBG O2 Saturation VBG Base Excess FiO2 100 70 Sodium Potassium Chloride Carbon Dioxide BUN Creatinine Estimated GFR BUN/Creatinine Ratio Glucose Lactate Calcium Magnesium Procalcitonin Nasal Screen MRSA (PCR) Not detected 04/13/23 04/13/23 15:48 17:40 WBC RBC Hgb Hct MCV MCH MCHC RDW Plt Count Neut % (Auto) Lymph % (Auto) Mcleod % (Auto) Eos % (Auto) Baso % (Auto) Neut # (Auto) Lymph # (Auto) Mcleod # (Auto) Eos # (Auto) Baso # (Auto) ABG pH 7.16 L* ABG pCO2 62.9 H* ABG pO2 90 ABG HCO3 23 ABG Total CO2 24 ABG O2 Saturation 94 L ABG Base Excess -6.0 L VBG pH 7.25 L VBG pCO2 67.6 H VBG pO2 36 VBG HCO3 29 H VBG Total CO2 31 H VBG O2 Saturation 57 L VBG Base Excess 2.0 FiO2 70 70 Sodium Potassium Chloride Carbon Dioxide BUN Creatinine Estimated GFR BUN/Creatinine Ratio Glucose Lactate Calcium Magnesium Procalcitonin Nasal Screen MRSA (PCR) [facility] Medical History Acute on chronic respiratory failure with hypoxia CAD (coronary artery disease) (05/11/17) Centrilobular emphysema Cerebrovascular accident (CVA) due to stenosis of right posterior cerebral artery (05/28/17) Chronic hypoxemic respiratory failure (08/24/20) Chronic pain syndrome (08/25/15) COPD exacerbation Family history of coronary artery disease (05/11/17) Fatigue due to sleep pattern disturbance Former smoker (08/25/15) HTN (hypertension) 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 Hyperlipidemia Hypothyroidism Insomnia due to medical condition Nocturnal hypoxemia Obstructive sleep apnea, adult Periodic limb movement disorder (PLMD) PVD (peripheral vascular disease) (05/11/17) Rectal bleeding (05/28/17) Statin intolerance (05/28/17) 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 Small bowel obstruction -s/p ex-lap on 04/13, had resection of small bowel that was adhered to mesh -continue ng tube -management per surgery 3. GILMA -secondary to above -judicious use of fluids due to concern for ARDS -trend daily -holding diuretics, losartan 4. Hypertension -holding medications 5. Type 2 Diabetes -continue with insulin sliding scale -check glucose achs 6. Hypothyroidism -continue synthroid 7. PVD s/p R extremity amputation -stable 8. History of CVA Quality VTE Deep Vein Thrombosis/Pulmonary Embolism Present on Admission: No
[2023-04-13 20:12] LABS: pH VBG 7.33 (7.33-7.43)
[2023-04-13 20:13] LABS: Fractionated Inspired Oxygen 70; HCO3 VBG 28 mmol/L (24-28); Oxygen Saturation VBG 69 % (70-75); PCO2 VBG 52.8 mmHg (45-50); PO2 VBG 39 mmHg (35-45); Total CO2 VBG 29 mmol/L (24-29)
[2023-04-13] MEDS: BUDESONIDE 0.5 MG/2 ML NEB INH (20:52)
--- NOTE | 2023-04-13 20:53 | PM.ICURNDS ---
- :: This patient was seen via real time interactive two-way audiovisual telecommunication. Note: Sedated with propofol , fentanyl and precedex, better vent synchrony, blood gas showing respiratory and metabolic acidosis, vent sitting & CXR reviwed, 150 meq of bicarb Iv, stopped IV fluid given the concern of development of volume overload and worsening hypoxia ? moderate ARDS . HD stable.
[2023-04-13] MEDS: HYDROMORPHONE 0.5 MG INJ IV (21:00)
[2023-04-13] MEDS: propofoL 1,000 MG/100 ML VIAL 15.12 MG IV (21:00)
[2023-04-13] MEDS: dexmedeTOMIDine in 0.9 % NaCL 400 MCG/100 ML PLAST..BAG 9.225 MCG IV (21:00)
[2023-04-13] MEDS: fentaNYL 1,000 MCG in DEXTROSE 5% IN WATER 230 ML 31.5 MCG IV (21:00)
[2023-04-13] MEDS: FAMOTIDINE 20 MG/2 ML VIAL IV (21:10)
[2023-04-13] MEDS: DEXTROSE 5% IV ×3 (22:21→23:30)
[2023-04-13] MEDS: SODIUM BICARB IV ×3 (22:21→23:30)
[2023-04-13] MEDS: WATER IV ×3 (22:21→23:30)
--- NOTE | 2023-04-13 23:05 | PM.EVENT ---
Event Note Date Patient Seen: 04/13/23 Time Patient Seen: 23:05 Event Note (Rapid Response, Code, or fall): Notified by RN patient is hypotensive with SBP ~70s. Levophed ordered to titrate for MAP goal > 65. Will monitor UOP if improved with vasopressor. D/w bedside RN.
[2023-04-13] MEDS: NOREPINEPHRINE BITARTRATE/D5W 4 MG/250 ML PLAST..BAG 23.625 MG IV (23:14)
[2023-04-13] MEDS: SODIUM BICARB 8.4% SYRINGE 150 MEQ IV (23:39)
[2023-04-14] VITALS (53 sets, daily range): BP systolic 91–183; BP diastolic 49–74; PULSE 72–103; RESP 18–24; TEMP 37.5–38.4; O2SAT 94–99
[2023-04-14] MEDS: PIPERACILLIN/TAZO 3.375 GM in SODIUM CHLORIDE 0.9% 100 ML IV (01:51)
[2023-04-14] MEDS: propofoL 1,000 MG/100 ML VIAL 17.01 MG IV ×3 (02:02→11:12)
[2023-04-14 04:23] LABS: Hematocrit 24.9 % (41-53); Hemoglobin 8.5 g/dL (13.5-17.5); Mean Corpuscular HGB Conc 33.9 % (30-36); Mean Corpuscular Hemoglobin 31.9 PG (26-34); Platelet Count 208 X10^3/uL (150-400); Red Blood Cell Count 2.65 X10^6/uL (4.5-5.9); Red Cell Distribution Width 13.7 % (11.6-14.8); White Blood Cell Count 17.7 X10^3/uL (4.5-11.0)
[2023-04-14 04:24] LABS: Add Manual Diff / Slide Review YES
[2023-04-14 04:29] LABS: BUN Creatinine Ratio 19.8 (6-22); Blood Urea Nitrogen 64 mg/dL (9-20); Calcium 6.8 mg/dL (8.4-10.2); Carbon Dioxide 36 mmol/L (22-32); Chloride 100 mmol/L (98-107); Estimated Glomerular Filt Rate 20 mL/min (>60); Glucose 124 mg/dL (80-110); HEMOLYSIS < 15 (0-50); Magnesium 3.8 mg/dL (1.6-2.3); Potassium 4.5 mmol/L (3.4-5.1); Sodium 140 mmol/L (137-145)
[2023-04-14] MEDS: dexmedeTOMIDine in 0.9 % NaCL 400 MCG/100 ML PLAST..BAG 15.375 MCG IV (04:30)
[2023-04-14] MEDS: fentaNYL 1,000 MCG in DEXTROSE 5% IN WATER 230 ML 39.375 MCG IV ×2 (04:31→10:52)
[2023-04-14] MEDS: HYDROMORPHONE 0.5 MG INJ IV (04:32)
[2023-04-14 06:22] LABS: PCO2 ABG 53.4 mmHg (35-45); PO2 ABG 107 mmHg (80-100); pH ABG 7.43 (7.35-7.45)
[2023-04-14 06:23] LABS: Fractionated Inspired Oxygen 70; HCO3 ABG 35 mmol/L (23-27); Oxygen Saturation ABG 98 % (95-100); TCO2 ABG 37 mmol/L (23-27)
[2023-04-14] MEDS: NOREPINEPHRINE BITARTRATE/D5W 4 MG/250 ML PLAST..BAG 35.438 MG IV (06:25)
[2023-04-14] MEDS: methylPREDNISolone 125 MG/2 ML VIAL 60 MG IV (06:28)
[2023-04-14 06:48] LABS: Neutrophils Absolute Manual 15576 /uL (3000-5900); Total Cells Counted 100
[2023-04-14 06:49] LABS: Platelet Estimate Adequate on smear; RBC Morphology Normal Morphology
--- NOTE | 2023-04-14 08:29 | PM.PN.EICU ---
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 04/13/23:patient's abdominal pain worsened and he went into hypercapnic and hypoxic respiratory failure which required intubation. Respiratory acidosis difficult to control even on vent. Patient went to OR for ex-lap, lysis of adhesions, and small bowel resection. Recent events: Overnight BP dropped and Levophed drip had to be started. Renal function is worse thought pt. still making about 20 cc/hr of urine. Patient given bicarb and tidal volume on vent increased so pH is better now. Patient will be transferred to higher of level care hospital given worsening renal failure that might require HD. Current Medications Current Medications Medications: Home Medications C-Ketam 1 applic topical TID 06/11/18 [History Confirmed 04/12/23] Thermacare Heatwrap Joint 06/11/18 [History Confirmed 04/12/23] albuterol sulfate 90 mcg/actuation aerosol inhaler 1 puff inhalation PRN PRN Shortness Of Breath 06/11/18 [History Confirmed 04/12/23] amlodipine 10 mg tablet 10 mg PO QPM 06/11/18 [History Confirmed 04/12/23] ascorbic acid (vitamin C) 1,000 mg tablet 1 g PO BID 06/11/18 [History Confirmed 04/12/23] cholecalciferol (vitamin D3) 10 mcg (400 unit) capsule (Vitamin D3) 400 unit PO QPM 06/11/18 [History Confirmed 04/12/23] levothyroxine 175 mcg tablet 175 mcg PO DAILY 06/11/18 [History Confirmed 04/12/23] lidocaine 5 % topical patch 1 patch topical DAILY 06/11/18 [History Confirmed 04/12/23] magnesium citrate 1,000 mg PO BID 06/11/18 [History Confirmed 04/12/23] nitroglycerin 0.4 mg sublingual tablet (Nitrostat) 0.4 mg sublingual Q5-15M PRN Chest Pain 06/11/18 [History Confirmed 04/12/23] arformoterol 15 mcg/2 mL solution for nebulization (Brovana) 15 mcg inhalation DAILY 10/18/20 [History Confirmed 04/12/23] azithromycin 250 mg tablet 250 mg PO .tiw 10/18/20 [History Confirmed 04/12/23] budesonide 0.5 mg/2 mL suspension for nebulization 0.5 mg inhalation BID 10/18/20 [History Confirmed 04/12/23] clonidine HCl 0.3 mg tablet 0.3 mg PO TID 10/18/20 [History Confirmed 04/12/23] lorazepam 1 mg tablet 0.5 mg PO DAILY PRN Panic Attack(S) 10/18/20 [History Confirmed 04/12/23] benralizumab 30 mg/mL subcutaneous auto-injector 30 mg SUBCUT Q8W 02/13/23 [History Confirmed 04/12/23] evolocumab 140 mg/mL subcutaneous pen injector (Pedro Pablo Pfeiffer) 140 mg SUBCUT Q2W 02/13/23 [History Confirmed 04/12/23] ferrous sulfate 325 mg (65 mg iron) tablet,delayed release 65 mg PO 3XW 02/13/23 [History Confirmed 04/12/23] folic acid 1 mg tablet 1 mg PO DAILY 02/13/23 [History Confirmed 04/12/23] furosemide 40 mg tablet 40 mg PO DAILY 02/13/23 [History Confirmed 04/12/23] hydralazine 50 mg tablet 100 mg PO TID 02/13/23 [History Confirmed 04/12/23] lactulose 10 gram/15 mL oral solution (Enulose) 20 g PO TID 02/13/23 [History Confirmed 04/12/23] losartan 100 mg tablet 50 mg PO DAILY 02/13/23 [History Confirmed 04/12/23] montelukast 10 mg tablet 10 mg PO BEDTIME 02/13/23 [History Confirmed 04/12/23] oxybutynin chloride 10 mg tablet,extended release 24 hr 10 mg PO DAILY 02/13/23 [History Confirmed 04/12/23] red beet root 250 mg-sour alvarez extract 0.5 mg chewable tablet 2 tab PO DAILY 02/13/23 [History Confirmed 04/12/23] vitamin B complex (B Complex-Vitamin B12 tablet) 1 tab PO DAILY 02/13/23 [History Confirmed 04/12/23] oxycodone 10 mg tablet,crush resistant,extended release 12 hr (OxyContin) 10 mg PO BID PRN PAIN 04/12/23 [History Confirmed 04/12/23] sertraline 50 mg tablet (Zoloft) 150 mg PO BEDTIME 04/12/23 [History Confirmed 04/12/23] trazodone 100 mg tablet 150 mg PO QPM 04/12/23 [History Confirmed 04/12/23] Visit Medications (administered) Generic Name Dose Route Start Last Admin Trade Name Freq PRN Reason Stop Dose Admin Albuterol/Ipratropium 3 ml 04/12/23 19:00 04/13/23 23:02 Albuterol/Ipratropium 3 Ml Ampul INH 3 ml [id number] NAVARRO Administration Budesonide 0.5 mg 04/12/23 20:00 04/13/23 20:52 Budesonide 0.5 Mg/2 Ml Neb INH 0.5 mg RTBID NAVARRO Administration Famotidine 20 mg 04/13/23 21:00 04/13/23 21:10 Famotidine 20 Mg/2 Ml Vial IV 20 mg Q24H NAVARRO Administration Fentanyl 25 mcg 04/13/23 08:49 04/13/23 10:47 Fentanyl 100 Mcg/2 Ml Inj IV 25 mcg Q1H PRN Administration Pain, Severe (7-10) Hydromorphone HCl 0.5 mg 04/13/23 05:05 04/14/23 04:32 Hydromorphone 0.5 Mg Inj IV 0.5 mg Q2H PRN Administration Pain, Severe (7-10) Propofol 1,000 mg in 100 mls @ 1.89 mls/hr 04/13/23 07:30 04/14/23 04:31 Propofol IV 45 mcg/kg/min TITRATE NAVARRO 17.01 mls/hr Administration Protocol 5 MCG/KG/MIN NOREPINEPHRINE BITARTRATE/D5W 4 mg in 250 mls @ 23.625 mls/hr 04/13/23 07:23 04/14/23 06:25 Levophed IV 0.15 mcg/kg/min TITRATE NAVARRO 35.438 mls/hr Administration Protocol 0.1 MCG/KG/MIN Fentanyl 1,000 mcg/ Dextrose 250 mls @ 11.025 mls/hr 04/13/23 09:00 04/14/23 04:31 IV 2.5 mcg/kg/hr TITRATE NAVARRO 39.375 mls/hr Administration Protocol 0.7 MCG/KG/HR Piperacillin Sod/Tazobactam 100 mls @ 25 mls/hr 04/13/23 10:15 04/14/23 06:15 Sod 3.375 gm/ Sodium Chloride IV Infused Q8H NAVARRO Infusion dexmedeTOMIDine in 0.9 % NaCL 400 mcg in 100 mls @ 3.075 mls/hr 04/13/23 14:30 04/14/23 07:25 Precedex IV 1.2 mcg/kg/hr TITRATE NAVARRO 18.45 mls/hr Titration Protocol 0.2 MCG/KG/HR Lorazepam 1 mg 04/12/23 18:09 04/13/23 02:19 Lorazepam 2 Mg/Ml Inj IV 1 mg Q4HR PRN Administration Anxiety Methylprednisolone 60 mg 04/13/23 18:00 04/14/23 06:28 Methylprednisolone 125 Mg/2 Ml Vial IV 04/16/23 06:01 60 mg Q12H NAVARRO Administration Ondansetron HCl 4 mg 04/12/23 17:09 04/13/23 02:19 Ondansetron 4 Mg/2 Ml Inj IV 4 mg Q4HR PRN Administration Nausea And Vomiting Objective Ventilator Parameters: Ventilator Settings FiO2 60 RT Vent Frequency 18 Ventilator Tidal Volume 560 Exhaled Positive End Expiratory 8 Pressure Inspiratory Phase Time 0.8 I:E Ratio 1:3.2 Patient Position HOB >= 30 degrees Labs 04/14/23 04:05 04/14/23 04:05 Labs: Laboratory Results - last 24 hr 04/13/23 04/13/23 04/13/23 06:00 08:37 09:26 WBC RBC Hgb Hct MCV MCH MCHC RDW Plt Count Neut % (Auto) Lymph % (Auto) [place] % (Auto) Eos % (Auto) Baso % (Auto) Lymph # (Auto) [place] # (Auto) Baso # (Auto) Total Counted Seg Neutrophils % Band Neutrophils % Lymphocytes % (Manual) Monocytes % (Manual) Metamyelocytes % Neutrophils # (Manual) Platelet Estimate RBC Morphology ABG pH 7.15 L* 7.16 L* ABG pCO2 75.9 H* 68.0 H* ABG pO2 227 H 74 L ABG HCO3 26 24 ABG Total CO2 29 H 26 ABG O2 Saturation 100 89 L ABG Base Excess -3.0 L -4.0 L VBG pH VBG pCO2 VBG pO2 VBG HCO3 VBG Total CO2 VBG O2 Saturation VBG Base Excess FiO2 100 70 Sodium Potassium Chloride Carbon Dioxide BUN Creatinine Estimated GFR BUN/Creatinine Ratio Glucose Calcium Magnesium Procalcitonin 0.30 Nasal Screen MRSA (PCR) 04/13/23 04/13/23 04/13/23 11:36 13:19 14:08 WBC RBC Hgb Hct MCV MCH MCHC RDW Plt Count Neut % (Auto) Lymph % (Auto) [place] % (Auto) Eos % (Auto) Baso % (Auto) Lymph # (Auto) [place] # (Auto) Baso # (Auto) Total Counted Seg Neutrophils % Band Neutrophils % Lymphocytes % (Manual) Monocytes % (Manual) Metamyelocytes % Neutrophils # (Manual) Platelet Estimate RBC Morphology ABG pH 7.11 L* 7.14 L* 7.11 L* ABG pCO2 75.6 H* 72.0 H* 70.7 H* ABG pO2 71 L 144 H 86 ABG HCO3 24 24 23 ABG Total CO2 26 26 25 ABG O2 Saturation 86 L 98 92 L ABG Base Excess -5.0 L -5.0 L -7.0 L VBG pH VBG pCO2 VBG pO2 VBG HCO3 VBG Total CO2 VBG O2 Saturation VBG Base Excess FiO2 70 100 70 Sodium Potassium Chloride Carbon Dioxide BUN Creatinine Estimated GFR BUN/Creatinine Ratio Glucose Calcium Magnesium Procalcitonin Nasal Screen MRSA (PCR) 04/13/23 04/13/23 04/13/23 14:28 15:48 17:40 WBC RBC Hgb Hct MCV MCH MCHC RDW Plt Count Neut % (Auto) Lymph % (Auto) [place] % (Auto) Eos % (Auto) Baso % (Auto) Lymph # (Auto) [place] # (Auto) Baso # (Auto) Total Counted Seg Neutrophils % Band Neutrophils % Lymphocytes % (Manual) Monocytes % (Manual) Metamyelocytes % Neutrophils # (Manual) Platelet Estimate RBC Morphology ABG pH 7.16 L* ABG pCO2 62.9 H* ABG pO2 90 ABG HCO3 23 ABG Total CO2 24 ABG O2 Saturation 94 L ABG Base Excess -6.0 L VBG pH 7.25 L VBG pCO2 67.6 H VBG pO2 36 VBG HCO3 29 H VBG Total CO2 31 H VBG O2 Saturation 57 L VBG Base Excess 2.0 FiO2 70 70 Sodium Potassium Chloride Carbon Dioxide BUN Creatinine Estimated GFR BUN/Creatinine Ratio Glucose Calcium Magnesium Procalcitonin Nasal Screen MRSA (PCR) Not detected 04/13/23 04/14/23 04/14/23 19:48 04:05 04:05 WBC 17.7 H D RBC 2.65 L Hgb 8.5 L Hct 24.9 L MCV 94.0 MCH 31.9 MCHC 33.9 RDW 13.7 Plt Count 208 Neut % (Auto) Not Reportable Lymph % (Auto) Not Reportable [place] % (Auto) Not Reportable Eos % (Auto) Not Reportable Baso % (Auto) Not Reportable Lymph # (Auto) Not Reportable [place] # (Auto) Not Reportable Baso # (Auto) Not Reportable Total Counted 100 Seg Neutrophils % 44.0 Band Neutrophils % 44.0 H Lymphocytes % (Manual) 2.0 L Monocytes % (Manual) 2.0 Metamyelocytes % 8.0 H Neutrophils # (Manual) 79095 H Platelet Estimate Adequate on smear RBC Morphology Normal morphology ABG pH ABG pCO2 ABG pO2 ABG HCO3 ABG Total CO2 ABG O2 Saturation ABG Base Excess VBG pH 7.33 VBG pCO2 52.8 H VBG pO2 39 VBG HCO3 28 VBG Total CO2 29 VBG O2 Saturation 69 L VBG Base Excess 2.0 FiO2 70 Sodium 140 Potassium 4.5 Chloride 100 Carbon Dioxide 36 H BUN 64 H Creatinine 3.23 H Estimated GFR 20 L BUN/Creatinine Ratio 19.8 Glucose 124 H Calcium 6.8 L Magnesium 3.8 H Procalcitonin Nasal Screen MRSA (PCR) 04/14/23 05:54 WBC RBC Hgb Hct MCV MCH MCHC RDW Plt Count Neut % (Auto) Lymph % (Auto) [place] % (Auto) Eos % (Auto) Baso % (Auto) Lymph # (Auto) [place] # (Auto) Baso # (Auto) Total Counted Seg Neutrophils % Band Neutrophils % Lymphocytes % (Manual) Monocytes % (Manual) Metamyelocytes % Neutrophils # (Manual) Platelet Estimate RBC Morphology ABG pH 7.43 ABG pCO2 53.4 H ABG pO2 107 H ABG HCO3 35 H ABG Total CO2 37 H ABG O2 Saturation 98 ABG Base Excess 11.0 H VBG pH VBG pCO2 VBG pO2 VBG HCO3 VBG Total CO2 VBG O2 Saturation VBG Base Excess FiO2 70 Sodium Potassium Chloride Carbon Dioxide BUN Creatinine Estimated GFR BUN/Creatinine Ratio Glucose Calcium Magnesium Procalcitonin Nasal Screen MRSA (PCR) Exam Vital Signs (past 8 hours): - 04/14/23 00:30 04/14/23 00:30 04/14/23 00:45 Temperature Pulse Rate 74 Respiratory Rate 20 Blood Pressure 103/51 L 94/55 L Pulse Oximetry 98 Oxygen Delivery Method 04/14/23 00:45 04/14/23 01:00 04/14/23 01:00 Temperature Pulse Rate 74 75 Respiratory Rate 19 20 Blood Pressure 120/58 L Pulse Oximetry 98 98 Oxygen Delivery Method 04/14/23 01:02 04/14/23 01:15 04/14/23 01:15 Temperature Pulse Rate 75 75 Respiratory Rate 20 21 Blood Pressure 115/56 L Pulse Oximetry 98 98 Oxygen Delivery Method 04/14/23 01:30 04/14/23 01:30 04/14/23 01:45 Temperature Pulse Rate 77 75 Respiratory Rate 20 20 Blood Pressure 112/55 L Pulse Oximetry 98 97 Oxygen Delivery Method 04/14/23 01:45 04/14/23 02:00 04/14/23 02:00 Temperature Pulse Rate 75 Respiratory Rate 20 Blood Pressure 97/49 L 104/53 L Pulse Oximetry 97 Oxygen Delivery Method 04/14/23 02:04 04/14/23 02:15 04/14/23 02:15 Temperature Pulse Rate 75 75 Respiratory Rate 20 20 Blood Pressure 102/53 L Pulse Oximetry 97 97 Oxygen Delivery Method 04/14/23 02:30 04/14/23 02:30 04/14/23 02:45 Temperature Pulse Rate 75 75 Respiratory Rate 20 20 Blood Pressure 102/52 L Pulse Oximetry 98 98 Oxygen Delivery Method 04/14/23 02:45 04/14/23 03:00 04/14/23 03:00 Temperature Pulse Rate 75 Respiratory Rate 20 Blood Pressure 102/53 L 103/52 L Pulse Oximetry 98 Oxygen Delivery Method 04/14/23 03:04 04/14/23 04:32 04/14/23 03:15 Temperature 100.5 F H Pulse Rate 75 75 Respiratory Rate 20 20 Blood Pressure Pulse Oximetry 98 98 Oxygen Delivery Method 04/14/23 03:15 04/14/23 03:30 04/14/23 03:30 Temperature Pulse Rate 75 Respiratory Rate 20 Blood Pressure 103/53 L 107/55 L Pulse Oximetry 98 Oxygen Delivery Method 04/14/23 03:45 04/14/23 03:45 04/14/23 04:00 Temperature Pulse Rate 75 75 Respiratory Rate 20 20 Blood Pressure 105/53 L Pulse Oximetry 98 98 Oxygen Delivery Method 04/14/23 04:00 04/14/23 04:16 04/14/23 04:16 Temperature 100.4 F H Pulse Rate 96 H Respiratory Rate 21 Blood Pressure 103/53 L 183/74 H Pulse Oximetry 99 Oxygen Delivery Method 04/14/23 04:31 04/14/23 04:31 04/14/23 04:34 Temperature Pulse Rate 75 74 Respiratory Rate 18 20 Blood Pressure 91/52 L Pulse Oximetry 99 99 Oxygen Delivery Method 04/14/23 03:00 04/14/23 04:15 04/14/23 04:30 Temperature Pulse Rate 103 H 75 Respiratory Rate 24 20 Blood Pressure Pulse Oximetry 97 99 Oxygen Delivery Method Mechanical Ventilation 04/14/23 04:45 04/14/23 04:45 04/14/23 05:00 Temperature Pulse Rate 74 Respiratory Rate 20 Blood Pressure 95/55 L 102/50 L Pulse Oximetry 99 Oxygen Delivery Method 04/14/23 05:00 04/14/23 05:15 04/14/23 05:15 Temperature Pulse Rate 73 73 Respiratory Rate 20 20 Blood Pressure 99/50 L Pulse Oximetry 99 99 Oxygen Delivery Method 04/14/23 05:30 04/14/23 05:30 04/14/23 05:45 Temperature Pulse Rate 72 72 Respiratory Rate 20 20 Blood Pressure 98/54 L Pulse Oximetry 99 98 Oxygen Delivery Method 04/14/23 05:45 04/14/23 06:00 04/14/23 06:00 Temperature Pulse Rate 72 Respiratory Rate 20 Blood Pressure 101/55 L 102/50 L Pulse Oximetry 98 Oxygen Delivery Method 04/14/23 06:14 04/14/23 06:15 04/14/23 06:15 Temperature Pulse Rate 73 73 Respiratory Rate 20 20 Blood Pressure 96/54 L Pulse Oximetry 96 96 Oxygen Delivery Method 04/14/23 06:30 04/14/23 06:30 04/14/23 06:45 Temperature Pulse Rate 72 Respiratory Rate 20 Blood Pressure 97/54 L 100/55 L Pulse Oximetry 95 Oxygen Delivery Method 04/14/23 06:45 04/14/23 07:00 04/14/23 07:00 Temperature Pulse Rate 73 73 Respiratory Rate 20 20 Blood Pressure 100/54 L Pulse Oximetry 95 95 Oxygen Delivery Method 04/14/23 07:15 04/14/23 07:15 04/14/23 07:30 Temperature Pulse Rate 73 Respiratory Rate 20 Blood Pressure 102/50 L 105/51 L Pulse Oximetry 94 Oxygen Delivery Method 04/14/23 07:30 04/14/23 07:45 04/14/23 07:45 Temperature Pulse Rate 73 74 Respiratory Rate 20 20 Blood Pressure 110/53 L Pulse Oximetry 94 94 Oxygen Delivery Method 04/14/23 08:00 04/14/23 08:00 04/14/23 08:15 Temperature Pulse Rate 74 Respiratory Rate 18 Blood Pressure 114/55 L 111/54 L Pulse Oximetry 94 Oxygen Delivery Method 04/14/23 08:15 04/14/23 08:17 Temperature 99.8 F H Pulse Rate 74 Respiratory Rate 18 Blood Pressure Pulse Oximetry 94 Oxygen Delivery Method Fraction of Inspired Oxygen 70 SaO2/FiO2 Ratio 140 Oxygen Delivery Method Mechanical Ventilation Oxygen Flow Rate 10 Narrative Exam Narrative: Patient seen over two way audio visual system. His eyes are open and he is trying to pull at [employer] TeleICU VTE Deep Vein Thrombosis/Pulmonary Embolism Present on Admission: No Assessment & Plan Assessment & Plan narrative: Assessment Acute hypercapnic and hypoxic respiratory failure COPD exacerbation Bowel obstruction s/p exlap, lysis of adhesions, and small bowel resection Septic shock GILMA Plan [employer]: Dex, propofol, and fentanyl drip as needed for patient comfort, versed IV for acute agitation CV: Levophed drip to keep MAP 65-80 Pulm: -Solumedrol 60 mg BID -duonebs q4H -check ABG and adjust vent as needed ID:f/u on cultures -continue empiric Zosyn GI: NPO -defer to surgeon when to start tube feeds Heme: hgb dropped from 11 to 8 after surgery -continue to monitor CBC FEN/Renal: LR 100 cc/hr Endo: check BG q6H PPx: famotidine, no heparin for now given surgery, plan to start SQ heparin for DVT prophylaxis when cleared by surgeon Code status: FULL CODE Dispo: transfer to higher level hospital CCT spent 55 min
--- NOTE | 2023-04-14 08:42 | DI.RAD.S_ITS ---
PROCEDURE: XR CHEST 1V INDICATIONS: confirm ET tube and OGT TECHNIQUE: One view of the chest was acquired. COMPARISON: [facility], CR, XR CHEST 1V, 04/13/2023, 8:32. [facility], CR, XR CHEST 1V, 06/15/2021, 8:18. FINDINGS: Surgical changes and devices: Enteric tube terminates in the gastric fundus and loops close to the gastroesophageal junction. A right central line terminates in SVC. ET tube terminates in the proximal trachea. Lungs and pleura: Left greater right airspace consolidations. These are similar to prior. Mediastinum: Heart size within normal limits. Bones and chest wall: Degenerative changes. IMPRESSION: ET tube terminates in the proximal trachea. Enteric tube terminates in the fundus, looping close to the gastroesophageal junction. Right central line terminates in the SVC. Left greater right pulmonary opacities again seen. Consider future imaging surveillance to assess for resolution. Dictated by: Joseph Joy M.D. on 04/14/2023 at 9:53 Approved by: Joseph Joy M.D. on 04/14/2023 at 9:54
--- NOTE | 2023-04-14 08:51 | P.PN_ITS ---
Subjective Subjective Date Patient Seen: 04/13/23 Time Patient Seen: 08:00 Interval history: Overnight he was lethargic, hypoxemic. He became more distended getting high dose IV opiates. He was given narcan and his mentation improved somewhat but he was still in respiratory distress. He was transferred to the ICU on BIPAP. On arrival, I immediately called for anesthesia for intubation. He was intubated, central line was placed. Dark, thick secretions were suctioned back. He was placed on antibiotics. He was quite acidotic and his rate and tidal volume were increased. He then went to OR for ex lap which showed bowel adhered to mesh, he had small bowel resection done. Exam Vital Signs (past 8 hours): - 04/14/23 01:00 04/14/23 01:00 04/14/23 01:02 Temperature Pulse Rate 75 75 Respiratory Rate 20 20 Blood Pressure 120/58 L Pulse Oximetry 98 98 Oxygen Delivery Method 04/14/23 01:15 04/14/23 01:15 04/14/23 01:30 Temperature Pulse Rate 75 77 Respiratory Rate 21 20 Blood Pressure 115/56 L Pulse Oximetry 98 98 Oxygen Delivery Method 04/14/23 01:30 04/14/23 01:45 04/14/23 01:45 Temperature Pulse Rate 75 Respiratory Rate 20 Blood Pressure 112/55 L 97/49 L Pulse Oximetry 97 Oxygen Delivery Method 04/14/23 02:00 04/14/23 02:00 04/14/23 02:04 Temperature Pulse Rate 75 75 Respiratory Rate 20 20 Blood Pressure 104/53 L Pulse Oximetry 97 97 Oxygen Delivery Method 04/14/23 02:15 04/14/23 02:15 04/14/23 02:30 Temperature Pulse Rate 75 75 Respiratory Rate 20 20 Blood Pressure 102/53 L Pulse Oximetry 97 98 Oxygen Delivery Method 04/14/23 02:30 04/14/23 02:45 04/14/23 02:45 Temperature Pulse Rate 75 Respiratory Rate 20 Blood Pressure 102/52 L 102/53 L Pulse Oximetry 98 Oxygen Delivery Method 04/14/23 03:00 04/14/23 03:00 04/14/23 03:04 Temperature Pulse Rate 75 75 Respiratory Rate 20 20 Blood Pressure 103/52 L Pulse Oximetry 98 98 Oxygen Delivery Method 04/14/23 04:32 04/14/23 03:15 04/14/23 03:15 Temperature 100.5 F H Pulse Rate 75 Respiratory Rate 20 Blood Pressure 103/53 L Pulse Oximetry 98 Oxygen Delivery Method 04/14/23 03:30 04/14/23 03:30 04/14/23 03:45 Temperature Pulse Rate 75 75 Respiratory Rate 20 20 Blood Pressure 107/55 L Pulse Oximetry 98 98 Oxygen Delivery Method 04/14/23 03:45 04/14/23 04:00 04/14/23 04:00 Temperature 100.4 F H Pulse Rate 75 Respiratory Rate 20 Blood Pressure 105/53 L 103/53 L Pulse Oximetry 98 Oxygen Delivery Method 04/14/23 04:16 04/14/23 04:16 04/14/23 04:31 Temperature Pulse Rate 96 H 75 Respiratory Rate 21 18 Blood Pressure 183/74 H Pulse Oximetry 99 99 Oxygen Delivery Method 04/14/23 04:31 04/14/23 04:34 04/14/23 03:00 Temperature Pulse Rate 74 Respiratory Rate 20 Blood Pressure 91/52 L Pulse Oximetry 99 Oxygen Delivery Method Mechanical Ventilation 04/14/23 04:15 04/14/23 04:30 04/14/23 04:45 Temperature Pulse Rate 103 H 75 Respiratory Rate 24 20 Blood Pressure 95/55 L Pulse Oximetry 97 99 Oxygen Delivery Method 04/14/23 04:45 04/14/23 05:00 04/14/23 05:00 Temperature Pulse Rate 74 73 Respiratory Rate 20 20 Blood Pressure 102/50 L Pulse Oximetry 99 99 Oxygen Delivery Method 04/14/23 05:15 04/14/23 05:15 04/14/23 05:30 Temperature Pulse Rate 73 Respiratory Rate 20 Blood Pressure 99/50 L 98/54 L Pulse Oximetry 99 Oxygen Delivery Method 04/14/23 05:30 04/14/23 05:45 04/14/23 05:45 Temperature Pulse Rate 72 72 Respiratory Rate 20 20 Blood Pressure 101/55 L Pulse Oximetry 99 98 Oxygen Delivery Method 04/14/23 06:00 04/14/23 06:00 04/14/23 06:14 Temperature Pulse Rate 72 73 Respiratory Rate 20 20 Blood Pressure 102/50 L Pulse Oximetry 98 96 Oxygen Delivery Method 04/14/23 06:15 04/14/23 06:15 04/14/23 06:30 Temperature Pulse Rate 73 Respiratory Rate 20 Blood Pressure 96/54 L 97/54 L Pulse Oximetry 96 Oxygen Delivery Method 04/14/23 06:30 04/14/23 06:45 04/14/23 06:45 Temperature Pulse Rate 72 73 Respiratory Rate 20 20 Blood Pressure 100/55 L Pulse Oximetry 95 95 Oxygen Delivery Method 04/14/23 07:00 04/14/23 07:00 04/14/23 07:15 Temperature Pulse Rate 73 Respiratory Rate 20 Blood Pressure 100/54 L 102/50 L Pulse Oximetry 95 Oxygen Delivery Method 04/14/23 07:15 04/14/23 07:30 04/14/23 07:30 Temperature Pulse Rate 73 73 Respiratory Rate 20 20 Blood Pressure 105/51 L Pulse Oximetry 94 94 Oxygen Delivery Method 04/14/23 07:45 04/14/23 07:45 04/14/23 08:00 Temperature Pulse Rate 74 Respiratory Rate 20 Blood Pressure 110/53 L 114/55 L Pulse Oximetry 94 Oxygen Delivery Method 04/14/23 08:00 04/14/23 08:15 04/14/23 08:15 Temperature Pulse Rate 74 74 Respiratory Rate 18 18 Blood Pressure 111/54 L Pulse Oximetry 94 94 Oxygen Delivery Method 04/14/23 08:17 Temperature 99.8 F H Pulse Rate Respiratory Rate Blood Pressure Pulse Oximetry Oxygen Delivery Method Fraction of Inspired Oxygen 70 SaO2/FiO2 Ratio 140 Oxygen Delivery Method Mechanical Ventilation Oxygen Flow Rate 10 Narrative Exam Narrative: GEN: intubated, sedated CV: tachycardic PULM: coarse breath sounds bilaterally ABD: distended, firm EXT: warm and well perfused NEURO: sedated, intubated Objective Labs 04/14/23 04:05 04/14/23 04:05 Labs: Laboratory Results - last 24 hr 04/13/23 04/13/23 04/13/23 06:00 08:37 09:26 WBC RBC Hgb Hct MCV MCH MCHC RDW Plt Count Neut % (Auto) Lymph % (Auto) Bath % (Auto) Eos % (Auto) Baso % (Auto) Lymph # (Auto) Bath # (Auto) Baso # (Auto) Total Counted Seg Neutrophils % Band Neutrophils % Lymphocytes % (Manual) Monocytes % (Manual) Metamyelocytes % Neutrophils # (Manual) Platelet Estimate RBC Morphology ABG pH 7.15 L* 7.16 L* ABG pCO2 75.9 H* 68.0 H* ABG pO2 227 H 74 L ABG HCO3 26 24 ABG Total CO2 29 H 26 ABG O2 Saturation 100 89 L ABG Base Excess -3.0 L -4.0 L VBG pH VBG pCO2 VBG pO2 VBG HCO3 VBG Total CO2 VBG O2 Saturation VBG Base Excess FiO2 100 70 Sodium Potassium Chloride Carbon Dioxide BUN Creatinine Estimated GFR BUN/Creatinine Ratio Glucose Calcium Magnesium Procalcitonin 0.30 Nasal Screen MRSA (PCR) 04/13/23 04/13/23 04/13/23 11:36 13:19 14:08 WBC RBC Hgb Hct MCV MCH MCHC RDW Plt Count Neut % (Auto) Lymph % (Auto) Bath % (Auto) Eos % (Auto) Baso % (Auto) Lymph # (Auto) Bath # (Auto) Baso # (Auto) Total Counted Seg Neutrophils % Band Neutrophils % Lymphocytes % (Manual) Monocytes % (Manual) Metamyelocytes % Neutrophils # (Manual) Platelet Estimate RBC Morphology ABG pH 7.11 L* 7.14 L* 7.11 L* ABG pCO2 75.6 H* 72.0 H* 70.7 H* ABG pO2 71 L 144 H 86 ABG HCO3 24 24 23 ABG Total CO2 26 26 25 ABG O2 Saturation 86 L 98 92 L ABG Base Excess -5.0 L -5.0 L -7.0 L VBG pH VBG pCO2 VBG pO2 VBG HCO3 VBG Total CO2 VBG O2 Saturation VBG Base Excess FiO2 70 100 70 Sodium Potassium Chloride Carbon Dioxide BUN Creatinine Estimated GFR BUN/Creatinine Ratio Glucose Calcium Magnesium Procalcitonin Nasal Screen MRSA (PCR) 04/13/23 04/13/23 04/13/23 14:28 15:48 17:40 WBC RBC Hgb Hct MCV MCH MCHC RDW Plt Count Neut % (Auto) Lymph % (Auto) Bath % (Auto) Eos % (Auto) Baso % (Auto) Lymph # (Auto) Bath # (Auto) Baso # (Auto) Total Counted Seg Neutrophils % Band Neutrophils % Lymphocytes % (Manual) Monocytes % (Manual) Metamyelocytes % Neutrophils # (Manual) Platelet Estimate RBC Morphology ABG pH 7.16 L* ABG pCO2 62.9 H* ABG pO2 90 ABG HCO3 23 ABG Total CO2 24 ABG O2 Saturation 94 L ABG Base Excess -6.0 L VBG pH 7.25 L VBG pCO2 67.6 H VBG pO2 36 VBG HCO3 29 H VBG Total CO2 31 H VBG O2 Saturation 57 L VBG Base Excess 2.0 FiO2 70 70 Sodium Potassium Chloride Carbon Dioxide BUN Creatinine Estimated GFR BUN/Creatinine Ratio Glucose Calcium Magnesium Procalcitonin Nasal Screen MRSA (PCR) Not detected 04/13/23 04/14/23 04/14/23 19:48 04:05 04:05 WBC 17.7 H D RBC 2.65 L Hgb 8.5 L Hct 24.9 L MCV 94.0 MCH 31.9 MCHC 33.9 RDW 13.7 Plt Count 208 Neut % (Auto) Not Reportable Lymph % (Auto) Not Reportable Bath % (Auto) Not Reportable Eos % (Auto) Not Reportable Baso % (Auto) Not Reportable Lymph # (Auto) Not Reportable Bath # (Auto) Not Reportable Baso # (Auto) Not Reportable Total Counted 100 Seg Neutrophils % 44.0 Band Neutrophils % 44.0 H Lymphocytes % (Manual) 2.0 L Monocytes % (Manual) 2.0 Metamyelocytes % 8.0 H Neutrophils # (Manual) 06985 H Platelet Estimate Adequate on smear RBC Morphology Normal morphology ABG pH ABG pCO2 ABG pO2 ABG HCO3 ABG Total CO2 ABG O2 Saturation ABG Base Excess VBG pH 7.33 VBG pCO2 52.8 H VBG pO2 39 VBG HCO3 28 VBG Total CO2 29 VBG O2 Saturation 69 L VBG Base Excess 2.0 FiO2 70 Sodium 140 Potassium 4.5 Chloride 100 Carbon Dioxide 36 H BUN 64 H Creatinine 3.23 H Estimated GFR 20 L BUN/Creatinine Ratio 19.8 Glucose 124 H Calcium 6.8 L Magnesium 3.8 H Procalcitonin Nasal Screen MRSA (PCR) 04/14/23 05:54 WBC RBC Hgb Hct MCV MCH MCHC RDW Plt Count Neut % (Auto) Lymph % (Auto) Bath % (Auto) Eos % (Auto) Baso % (Auto) Lymph # (Auto) Bath # (Auto) Baso # (Auto) Total Counted Seg Neutrophils % Band Neutrophils % Lymphocytes % (Manual) Monocytes % (Manual) Metamyelocytes % Neutrophils # (Manual) Platelet Estimate RBC Morphology ABG pH 7.43 ABG pCO2 53.4 H ABG pO2 107 H ABG HCO3 35 H ABG Total CO2 37 H ABG O2 Saturation 98 ABG Base Excess 11.0 H VBG pH VBG pCO2 VBG pO2 VBG HCO3 VBG Total CO2 VBG O2 Saturation VBG Base Excess FiO2 70 Sodium Potassium Chloride Carbon Dioxide BUN Creatinine Estimated GFR BUN/Creatinine Ratio Glucose Calcium Magnesium Procalcitonin Nasal Screen MRSA (PCR) [facility] Medical History Acute on chronic respiratory failure with hypoxia CAD (coronary artery disease) (05/11/17) Centrilobular emphysema Cerebrovascular accident (CVA) due to stenosis of right posterior cerebral artery (05/28/17) Chronic hypoxemic respiratory failure (08/24/20) Chronic pain syndrome (08/25/15) COPD exacerbation Family history of coronary artery disease (05/11/17) Fatigue due to sleep pattern disturbance Former smoker (08/25/15) HTN (hypertension) 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 Hyperlipidemia Hypothyroidism Insomnia due to medical condition Nocturnal hypoxemia Obstructive sleep apnea, adult Periodic limb movement disorder (PLMD) PVD (peripheral vascular disease) (05/11/17) Rectal bleeding (05/28/17) Statin intolerance (05/28/17) 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 Acute hypoxemic/hypercarbic respiratory failure -suspect secondary to possible pneumonia (possibly aspiration), vs COPD exacerbation, vs mechanical due to gastric contents -currently intubated -suspect possible ARDS, ARDSnet protocol -continue with zosyn -follow up cultures -has been receiving bicarb for persistent acidosis for energy sales consultant recommendations -continue steroids for possible COPD exacerbation per energy sales consultant -sedated on propofol, fentanyl 2. Small bowel obstruction -s/p ex-lap on 04/13, had resection of small bowel that was adhered to mesh -continue ng tube -management per surgery 3. GILMA -secondary to above -judicious use of fluids due to concern for ARDS -trend daily -holding diuretics, losartan 4. Hypertension -holding medications 5. Type 2 Diabetes -continue with insulin sliding scale -check glucose achs 6. Hypothyroidism -continue synthroid 7. PVD s/p R extremity amputation -stable 8. History of CVA Quality VTE Deep Vein Thrombosis/Pulmonary Embolism Present on Admission: No
[2023-04-14] MEDS: SODIUM CHLORIDE 0.9% 500 ML 1000 ML IV (09:15)
[2023-04-14] MEDS: VANCOMYCIN 1,000 MG/200 ML PIGGYBACK 200 MG IV (09:15)
[2023-04-14] MEDS: MIDAZOLAM 2 MG/2 ML VIAL IV (09:20)
--- NOTE | 2023-04-14 09:25 | PM.DS.1 ---
History of Present Illness History of Present Illness Date Patient Seen: 04/12/23 Time Patient Seen: 16:38 Chief complaint: N/V/ abd/back pain T-2 Narrative: Thang Jimenes is a 63-year-old male patient with history significant for hypertension, COPD, diabetes, hypothyroidism, hyperlipidemia, PVD with R leg amputation, prior CVA, and chronic low back pain with prior abdominal hernia surgeries who presents with abdominal pain, nausea, and vomiting for the past two days. He has been trying to manage at home but has had worsening abdominal pain, predominantly lower quadrant but now more diffuse with abdominal distension, nausea, and NBNB emesis. His last bowel movement was 3 days ago, he does not remember the last time he passed any gas. He has never had a bowel obstruction before. In the ER, patient was hypertensive. CT scan showed small bowel obstruction. Gastrografin study was ordered by the general surgeon. He appears uncomfortable but has no nausea or vomiting and does not currently have an NG tube. He was admitted to medicine given multiple medical comorbidities with general surgery consultation. Discharge Providers Provider Date of admission: 04/12/23 16:20 Discharge Date: 04/14/23 Primary care physician: Nakia Marcus MD Consults: 04/12/23 16:37 Consult to General Surgery Routine Comment: Consulting Provider: Adán Brink Reason for consultation: SBO Has provider been notified: Yes 04/13/23 08:42 Consult to Tele-literature professor Routine Comment: Consulting Provider: Corby [employer]intensiv[employer] Reason for consultation: [employer] Has provider been notified: Yes Discharge provider: Anthony Antoine DO Summary Hospital Course Discharge Diagnosis: 1. Acute hypoxemic/hypercarbic respiratory failure -suspect secondary to possible pneumonia (possibly aspiration), vs COPD exacerbation, vs mechanical due to gastric contents -currently intubated -suspect possible ARDS, ARDSnet protocol -continue with zosyn, vanc -sputum culture growing GNB -has been receiving bicarb for persistent acidosis for literature professor recommendations -continue steroids for possible COPD exacerbation per teleintensivist -sedated on propofol, precedex, fentanyl, versed, difficult to sedate even then -vent settings 70% FiO2 and 8 of PEEP 2. Small bowel obstruction -s/p ex-lap on 04/13, had resection of small bowel that was adhered to mesh and anastomosis -continue ng tube -management per surgery 3. GILMA, worsening -secondary to above -judicious use of fluids due to concern for ARDS -trend daily -holding diuretics, losartan 4. Hypertension -holding medications 5. Type 2 Diabetes -continue with insulin sliding scale -check glucose achs 6. Hypothyroidism -continue synthroid 7. PVD s/p R extremity amputation -stable 8. History of CVA Hospital Course: Admitted for abd pain and NV and found to have SBO. Underwent gastrografin with gen surg which showed no contrast passing through. Pain continued to worsen so given higher and higher doses of IV dilaudid. NG was not placed. Overnight became obtunded and bipap placed by telenight provider. The next daytime physician came on and immediately had patient intubated given high risk for aspiration with Bipap and SBO. After intubation patient went for ex-lap which showed adhered bowel to [facility] and small bowel resection done with anastomosis. Patient continued to worsen requiring lots of sedation, levophed and Cr was uptrending. CXR showed bilateral infiltrates L>R. Transferred to [facility] for higher level of care and nephrology consult. Time Spent with Patient Time spent: Greater than 30 minutes Exam Vital Signs (past 8 hours): - 04/14/23 01:30 04/14/23 01:30 04/14/23 01:45 Temperature Pulse Rate 77 75 Respiratory Rate 20 20 Blood Pressure 112/55 L Pulse Oximetry 98 97 Oxygen Delivery Method 04/14/23 01:45 04/14/23 02:00 04/14/23 02:00 Temperature Pulse Rate 75 Respiratory Rate 20 Blood Pressure 97/49 L 104/53 L Pulse Oximetry 97 Oxygen Delivery Method 04/14/23 02:04 04/14/23 02:15 04/14/23 02:15 Temperature Pulse Rate 75 75 Respiratory Rate 20 20 Blood Pressure 102/53 L Pulse Oximetry 97 97 Oxygen Delivery Method 04/14/23 02:30 04/14/23 02:30 04/14/23 02:45 Temperature Pulse Rate 75 75 Respiratory Rate 20 20 Blood Pressure 102/52 L Pulse Oximetry 98 98 Oxygen Delivery Method 04/14/23 02:45 04/14/23 03:00 04/14/23 03:00 Temperature Pulse Rate 75 Respiratory Rate 20 Blood Pressure 102/53 L 103/52 L Pulse Oximetry 98 Oxygen Delivery Method 04/14/23 03:04 04/14/23 04:32 04/14/23 03:15 Temperature 100.5 F H Pulse Rate 75 75 Respiratory Rate 20 20 Blood Pressure Pulse Oximetry 98 98 Oxygen Delivery Method 04/14/23 03:15 04/14/23 03:30 04/14/23 03:30 Temperature Pulse Rate 75 Respiratory Rate 20 Blood Pressure 103/53 L 107/55 L Pulse Oximetry 98 Oxygen Delivery Method 04/14/23 03:45 04/14/23 03:45 04/14/23 04:00 Temperature Pulse Rate 75 75 Respiratory Rate 20 20 Blood Pressure 105/53 L Pulse Oximetry 98 98 Oxygen Delivery Method 04/14/23 04:00 04/14/23 04:16 04/14/23 04:16 Temperature 100.4 F H Pulse Rate 96 H Respiratory Rate 21 Blood Pressure 103/53 L 183/74 H Pulse Oximetry 99 Oxygen Delivery Method 04/14/23 04:31 04/14/23 04:31 04/14/23 04:34 Temperature Pulse Rate 75 74 Respiratory Rate 18 20 Blood Pressure 91/52 L Pulse Oximetry 99 99 Oxygen Delivery Method 04/14/23 03:00 04/14/23 04:15 04/14/23 04:30 Temperature Pulse Rate 103 H 75 Respiratory Rate 24 20 Blood Pressure Pulse Oximetry 97 99 Oxygen Delivery Method Mechanical Ventilation 04/14/23 04:45 04/14/23 04:45 04/14/23 05:00 Temperature Pulse Rate 74 Respiratory Rate 20 Blood Pressure 95/55 L 102/50 L Pulse Oximetry 99 Oxygen Delivery Method 04/14/23 05:00 04/14/23 05:15 04/14/23 05:15 Temperature Pulse Rate 73 73 Respiratory Rate 20 20 Blood Pressure 99/50 L Pulse Oximetry 99 99 Oxygen Delivery Method 04/14/23 05:30 04/14/23 05:30 04/14/23 05:45 Temperature Pulse Rate 72 72 Respiratory Rate 20 20 Blood Pressure 98/54 L Pulse Oximetry 99 98 Oxygen Delivery Method 04/14/23 05:45 04/14/23 06:00 04/14/23 06:00 Temperature Pulse Rate 72 Respiratory Rate 20 Blood Pressure 101/55 L 102/50 L Pulse Oximetry 98 Oxygen Delivery Method 04/14/23 06:14 04/14/23 06:15 04/14/23 06:15 Temperature Pulse Rate 73 73 Respiratory Rate 20 20 Blood Pressure 96/54 L Pulse Oximetry 96 96 Oxygen Delivery Method 04/14/23 06:30 04/14/23 06:30 04/14/23 06:45 Temperature Pulse Rate 72 Respiratory Rate 20 Blood Pressure 97/54 L 100/55 L Pulse Oximetry 95 Oxygen Delivery Method 04/14/23 06:45 04/14/23 07:00 04/14/23 07:00 Temperature Pulse Rate 73 73 Respiratory Rate 20 20 Blood Pressure 100/54 L Pulse Oximetry 95 95 Oxygen Delivery Method 04/14/23 07:15 04/14/23 07:15 04/14/23 07:30 Temperature Pulse Rate 73 Respiratory Rate 20 Blood Pressure 102/50 L 105/51 L Pulse Oximetry 94 Oxygen Delivery Method 04/14/23 07:30 04/14/23 07:45 04/14/23 07:45 Temperature Pulse Rate 73 74 Respiratory Rate 20 20 Blood Pressure 110/53 L Pulse Oximetry 94 94 Oxygen Delivery Method 04/14/23 08:00 04/14/23 08:00 04/14/23 08:15 Temperature Pulse Rate 74 Respiratory Rate 18 Blood Pressure 114/55 L 111/54 L Pulse Oximetry 94 Oxygen Delivery Method 04/14/23 08:15 04/14/23 08:17 Temperature 99.8 F H Pulse Rate 74 Respiratory Rate 18 Blood Pressure Pulse Oximetry 94 Oxygen Delivery Method Fraction of Inspired Oxygen 70 SaO2/FiO2 Ratio 140 Oxygen Delivery Method Mechanical Ventilation Oxygen Flow Rate 10 Narrative Exam Narrative: GEN: intubated, sedated CV: tachycardic PULM: coarse breath sounds bilaterally ABD: distended, firm EXT: warm and well perfused NEURO: sedated, intubated Objective Labs 04/14/23 04:05 04/14/23 04:05 Labs: Laboratory Results - last 24 hr 04/13/23 04/13/23 04/13/23 06:00 08:37 09:26 WBC RBC Hgb Hct MCV MCH MCHC RDW Plt Count Neut % (Auto) Lymph % (Auto) [place] % (Auto) Eos % (Auto) Baso % (Auto) Lymph # (Auto) [place] # (Auto) Baso # (Auto) Total Counted Seg Neutrophils % Band Neutrophils % Lymphocytes % (Manual) Monocytes % (Manual) Metamyelocytes % Neutrophils # (Manual) Platelet Estimate RBC Morphology ABG pH 7.15 L* 7.16 L* ABG pCO2 75.9 H* 68.0 H* ABG pO2 227 H 74 L ABG HCO3 26 24 ABG Total CO2 29 H 26 ABG O2 Saturation 100 89 L ABG Base Excess -3.0 L -4.0 L VBG pH VBG pCO2 VBG pO2 VBG HCO3 VBG Total CO2 VBG O2 Saturation VBG Base Excess FiO2 100 70 Sodium Potassium Chloride Carbon Dioxide BUN Creatinine Estimated GFR BUN/Creatinine Ratio Glucose Calcium Magnesium Procalcitonin 0.30 Nasal Screen MRSA (PCR) 04/13/23 04/13/23 04/13/23 11:36 13:19 14:08 WBC RBC Hgb Hct MCV MCH MCHC RDW Plt Count Neut % (Auto) Lymph % (Auto) [place] % (Auto) Eos % (Auto) Baso % (Auto) Lymph # (Auto) [place] # (Auto) Baso # (Auto) Total Counted Seg Neutrophils % Band Neutrophils % Lymphocytes % (Manual) Monocytes % (Manual) Metamyelocytes % Neutrophils # (Manual) Platelet Estimate RBC Morphology ABG pH 7.11 L* 7.14 L* 7.11 L* ABG pCO2 75.6 H* 72.0 H* 70.7 H* ABG pO2 71 L 144 H 86 ABG HCO3 24 24 23 ABG Total CO2 26 26 25 ABG O2 Saturation 86 L 98 92 L ABG Base Excess -5.0 L -5.0 L -7.0 L VBG pH VBG pCO2 VBG pO2 VBG HCO3 VBG Total CO2 VBG O2 Saturation VBG Base Excess FiO2 70 100 70 Sodium Potassium Chloride Carbon Dioxide BUN Creatinine Estimated GFR BUN/Creatinine Ratio Glucose Calcium Magnesium Procalcitonin Nasal Screen MRSA (PCR) 04/13/23 04/13/23 04/13/23 14:28 15:48 17:40 WBC RBC Hgb Hct MCV MCH MCHC RDW Plt Count Neut % (Auto) Lymph % (Auto) [place] % (Auto) Eos % (Auto) Baso % (Auto) Lymph # (Auto) [place] # (Auto) Baso # (Auto) Total Counted Seg Neutrophils % Band Neutrophils % Lymphocytes % (Manual) Monocytes % (Manual) Metamyelocytes % Neutrophils # (Manual) Platelet Estimate RBC Morphology ABG pH 7.16 L* ABG pCO2 62.9 H* ABG pO2 90 ABG HCO3 23 ABG Total CO2 24 ABG O2 Saturation 94 L ABG Base Excess -6.0 L VBG pH 7.25 L VBG pCO2 67.6 H VBG pO2 36 VBG HCO3 29 H VBG Total CO2 31 H VBG O2 Saturation 57 L VBG Base Excess 2.0 FiO2 70 70 Sodium Potassium Chloride Carbon Dioxide BUN Creatinine Estimated GFR BUN/Creatinine Ratio Glucose Calcium Magnesium Procalcitonin Nasal Screen MRSA (PCR) Not detected 04/13/23 04/14/23 04/14/23 19:48 04:05 04:05 WBC 17.7 H D RBC 2.65 L Hgb 8.5 L Hct 24.9 L MCV 94.0 MCH 31.9 MCHC 33.9 RDW 13.7 Plt Count 208 Neut % (Auto) Not Reportable Lymph % (Auto) Not Reportable [place] % (Auto) Not Reportable Eos % (Auto) Not Reportable Baso % (Auto) Not Reportable Lymph # (Auto) Not Reportable [place] # (Auto) Not Reportable Baso # (Auto) Not Reportable Total Counted 100 Seg Neutrophils % 44.0 Band Neutrophils % 44.0 H Lymphocytes % (Manual) 2.0 L Monocytes % (Manual) 2.0 Metamyelocytes % 8.0 H Neutrophils # (Manual) 70080 H Platelet Estimate Adequate on smear RBC Morphology Normal morphology ABG pH ABG pCO2 ABG pO2 ABG HCO3 ABG Total CO2 ABG O2 Saturation ABG Base Excess VBG pH 7.33 VBG pCO2 52.8 H VBG pO2 39 VBG HCO3 28 VBG Total CO2 29 VBG O2 Saturation 69 L VBG Base Excess 2.0 FiO2 70 Sodium 140 Potassium 4.5 Chloride 100 Carbon Dioxide 36 H BUN 64 H Creatinine 3.23 H Estimated GFR 20 L BUN/Creatinine Ratio 19.8 Glucose 124 H Calcium 6.8 L Magnesium 3.8 H Procalcitonin Nasal Screen MRSA (PCR) 04/14/23 05:54 WBC RBC Hgb Hct MCV MCH MCHC RDW Plt Count Neut % (Auto) Lymph % (Auto) [place] % (Auto) Eos % (Auto) Baso % (Auto) Lymph # (Auto) [place] # (Auto) Baso # (Auto) Total Counted Seg Neutrophils % Band Neutrophils % Lymphocytes % (Manual) Monocytes % (Manual) Metamyelocytes % Neutrophils # (Manual) Platelet Estimate RBC Morphology ABG pH 7.43 ABG pCO2 53.4 H ABG pO2 107 H ABG HCO3 35 H ABG Total CO2 37 H ABG O2 Saturation 98 ABG Base Excess 11.0 H VBG pH VBG pCO2 VBG pO2 VBG HCO3 VBG Total CO2 VBG O2 Saturation VBG Base Excess FiO2 70 Sodium Potassium Chloride Carbon Dioxide BUN Creatinine Estimated GFR BUN/Creatinine Ratio Glucose Calcium Magnesium Procalcitonin Nasal Screen MRSA (PCR) PFSH Medical History Acute on chronic respiratory failure with hypoxia CAD (coronary artery disease) (05/11/17) Centrilobular emphysema Cerebrovascular accident (CVA) due to stenosis of right posterior cerebral artery (05/28/17) Chronic hypoxemic respiratory failure (08/24/20) Chronic pain syndrome (08/25/15) COPD exacerbation Family history of coronary artery disease (05/11/17) Fatigue due to sleep pattern disturbance Former smoker (08/25/15) HTN (hypertension) 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 Hyperlipidemia Hypothyroidism Insomnia due to medical condition Nocturnal hypoxemia Obstructive sleep apnea, adult Periodic limb movement disorder (PLMD) PVD (peripheral vascular disease) (05/11/17) Rectal bleeding (05/28/17) Statin intolerance (05/28/17) 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) Surgical History Fusion of spine of thoracolumbar region (08/25/15) Fusion of spine, thoracolumbar region History of eye surgery History of spinal surgery (08/25/15) S/P hernia repair Family History Family/Other Heart disease Father Heart disease Mother Loud snoring Obesity Hypertension Depression Dementia Other Family history of coronary artery disease Social History household members: spouse and family Smoking Status: Former smoker alcohol intake: current Discharge Plan Discharge Plan Patient Disposition: Xfer Acute Care Hospital Discharge Data Primary Care Provider: Nakia Marcus VTE Deep Vein Thrombosis/Pulmonary Embolism Present on Admission: No
[2023-04-14] MEDS: CALCIUM GLUCONATE 9.3 MEQ in SODIUM CHLORIDE 0.9% 50 ML 140 MEQ IV (09:29)
[2023-04-14] MEDS: dexmedeTOMIDine in 0.9 % NaCL 400 MCG/100 ML PLAST..BAG 21.525 MCG IV (09:47)
--- NOTE | 2023-04-14 11:59 | PC.NURSE ---
Patient discharged via [facility] to [facility] in [place]. All medication rates and ventilation settings remained the same upon discharge.
== END 2023-04-14 12:02 | disposition short-term general hospital (02) | DRG 329 ==
LOC: ED 12:43 → ICU 04-13 06:23 → AC 04-13 12:27 → ICU 04-13 12:27
PROVIDERS: Hospitalist; Internal Medicine; Internal Medicine Critical Care Medicine; Nurse Anesthetist, Certified Registered; Surgery; Admitting Provider Internal Medicine; Emergency Provider Emergency Medicine; PCP Internal Medicine; Referring Provider Emergency Medicine; Visit Provider Internal Medicine
PROC: 0DB80ZZ Excision of Small Intestine, Open Approach (ICD-10-PCS; CPT 49000; principal; 2023-04-13 12:00)
DX: K56.50 Intestinal adhesions [bands], unspecified as to partial versus complete obstruction (principal); J96.01 Acute respiratory failure with hypoxia; J96.02 Acute respiratory failure with hypercapnia; N17.9 Acute kidney failure, unspecified; J44.1 Chronic obstructive pulmonary disease with (acute) exacerbation; I10 Essential (primary) hypertension; E11.9 Type 2 diabetes mellitus without complications; E03.9 Hypothyroidism, unspecified; Z79.4 Long term (current) use of insulin; Z89.611 Acquired absence of right leg above knee; Z87.891 Personal history of nicotine dependence
CPT/HCPCS: 36415; 36592; 36600; 44005; 71045; 74018; 74177; 80048; 80053; 82805; 82962; 83605; 83690; 83735; 84145; 85007; 85025; 87040; 87070; 87077; 87186; 87205; 87797; 94002; 94003; 94640; 94660; 94760; 94762; 94799; 96374; 96375; 96376; 99222; 99284; 99285; 99291; J0330; J0612; J1100; J1170; J2060; J2250; J2310; J2405; J2543; J2704; J2930; J3010; J7121; Q9967

== ENCOUNTER 2023-04-29 11:34 | Emergency (ER) | payer BC, MEDICARE, SELFPAY ==
[2023-04-12 17:14] VITALS: BMI 18.8
[2023-04-14 07:45] VITALS: PULSE 74; RESP 20; O2SAT 94
[2023-04-29] VITALS (7 sets, daily range): BP systolic 140–160; BP diastolic 62–71; PULSE 63–73; RESP 16–24; TEMP 37.1; O2SAT 96–97; BMI 19.3
--- NOTE | 2023-04-29 12:18 | ED_ITS ---
HPI - Extremity Problem General Chief complaint: Extremity Problem,Nontraumatic Stated complaint: stomach staple removal/blisters on legs/post surg Time Seen by Provider: 04/29/23 12:18 Source: patient and family Mode of arrival: Wheelchair History of Present Illness HPI Narrative: 67-year-old gentleman with a history of small-bowel obstructions most recent hospitalization April 14 with subsequent complications transfer to [place] and discharged on April 27. 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 He presents today because he still has anand in his abdomen from his prior surgery, he states he did not get any follow up instructions does not know when the anand need to come out he complains that his left leg is swollen. Patient complains that his leg is swollen exactly as it had been in the hospital when they ?completely ignored it?. He is concerned that there is a small vesicle developing on the inner aspect of the distal acosta. He is not noticing fevers, pain, increasing redness. He has not noticed a significant increase in his baseline orthopnea and dyspnea and continues with his home oxygen at 3 L. He has not had any recurrent chest pain Related Data Home Medications Medication Instructions Recorded Confirmed C-Ketam 1 applic topical TID 06/11/18 04/12/23 Thermacare Heatwrap Joint 06/11/18 04/12/23 albuterol sulfate 90 mcg/actuation 1 puff inhalation PRN PRN 06/11/18 04/12/23 aerosol inhaler Shortness Of Breath amlodipine 10 mg tablet 10 mg PO QPM 06/11/18 04/12/23 ascorbic acid (vitamin C) 1,000 mg 1 g PO BID 06/11/18 04/12/23 tablet cholecalciferol (vitamin D3) 10 400 unit PO QPM 06/11/18 04/12/23 mcg (400 unit) capsule (Vitamin D3) levothyroxine 175 mcg tablet 175 mcg PO DAILY 06/11/18 04/12/23 lidocaine 5 % topical patch 1 patch topical DAILY 06/11/18 04/12/23 magnesium citrate 1,000 mg PO BID 06/11/18 04/12/23 nitroglycerin 0.4 mg sublingual 0.4 mg sublingual Q5-15M PRN Chest 06/11/18 04/12/23 tablet (Nitrostat) Pain arformoterol 15 mcg/2 mL solution 15 mcg inhalation DAILY 10/18/20 04/12/23 for nebulization (Brovana) azithromycin 250 mg tablet 250 mg PO .tiw 10/18/20 04/12/23 budesonide 0.5 mg/2 mL suspension 0.5 mg inhalation BID 10/18/20 04/12/23 for nebulization clonidine HCl 0.3 mg tablet 0.3 mg PO TID 10/18/20 04/12/23 lorazepam 1 mg tablet 0.5 mg PO DAILY PRN Panic Attack(S) 10/18/20 04/12/23 benralizumab 30 mg/mL subcutaneous 30 mg SUBCUT Q8W 02/13/23 04/12/23 auto-injector evolocumab 140 mg/mL subcutaneous 140 mg SUBCUT Q2W 02/13/23 04/12/23 pen injector (Pedro Pablo Pfeiffer) ferrous sulfate 325 mg (65 mg 65 mg PO 3XW 02/13/23 04/12/23 iron) tablet,delayed release folic acid 1 mg tablet 1 mg PO DAILY 02/13/23 04/12/23 furosemide 40 mg tablet 40 mg PO DAILY 02/13/23 04/12/23 hydralazine 50 mg tablet 100 mg PO TID 02/13/23 04/12/23 lactulose 10 gram/15 mL oral 20 g PO TID 02/13/23 04/12/23 solution (Enulose) losartan 100 mg tablet 50 mg PO DAILY 02/13/23 04/12/23 montelukast 10 mg tablet 10 mg PO BEDTIME 02/13/23 04/12/23 oxybutynin chloride 10 mg 10 mg PO DAILY 02/13/23 04/12/23 tablet,extended release 24 hr red beet root 250 mg-sour alvarez 2 tab PO DAILY 02/13/23 04/12/23 extract 0.5 mg chewable tablet vitamin B complex (B 1 tab PO DAILY 02/13/23 04/12/23 Complex-Vitamin B12 tablet) oxycodone 10 mg tablet,crush 10 mg PO BID PRN PAIN 04/12/23 04/12/23 resistant,extended release 12 hr (OxyContin) sertraline 50 mg tablet (Zoloft) 150 mg PO BEDTIME 04/12/23 04/12/23 trazodone 100 mg tablet 150 mg PO QPM 04/12/23 04/12/23 Allergies Allergy/AdvReac Type Severity Reaction Status Date / Time doxazosin [DOXAZOSIN] Allergy Severe swelling Verified 04/12/23 10:06 bempedoic acid Allergy Verified 04/12/23 10:06 [From Nexletol] gabapentin Allergy Verified 04/12/23 10:06 spironolactone Allergy Verified 04/12/23 10:06 Latex, Natural Rubber AdvReac Intermediate Blister Verified 04/13/23 19:26 varenicline [From CHANTIX] AdvReac Mild aggitation Verified 04/13/23 09:40 atorvastatin [ATORVASTATIN] AdvReac Unknown MUSCLE ACHE Verified 04/12/23 10:06 carvedilol [CARVEDILOL] AdvReac Unknown DIZZINESS Verified 04/12/23 10:06 lisinopril [LISINOPRIL] AdvReac Unknown COUGH Verified 04/13/23 09:40 morphine AdvReac Unknown GOES Verified 04/13/23 09:40 CRAZY fentanyl AdvReac Agitated Verified 04/29/23 13:30 Review of Systems Review of Systems Narrative: Pertinent positive and negative findings as per HPI Patient History Medical History Acute on chronic respiratory failure with hypoxia 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 Insomnia due to medical condition Centrilobular emphysema CAD (coronary artery disease) (05/11/17) Cerebrovascular accident (CVA) due to stenosis of right posterior cerebral artery (05/28/17) Chronic hypoxemic respiratory failure (08/24/20) Family history of coronary artery disease (05/11/17) PVD (peripheral vascular disease) (05/11/17) Rectal bleeding (05/28/17) Statin intolerance (05/28/17) Nocturnal hypoxemia Fatigue due to sleep pattern disturbance Obstructive sleep apnea, adult Periodic limb movement disorder (PLMD) Hyperlipidemia COPD exacerbation Hypothyroidism HTN (hypertension) 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) Former smoker (08/25/15) Chronic pain syndrome (08/25/15) Surgical History History of eye surgery S/P hernia repair History of spinal surgery (08/25/15) Fusion of spine of thoracolumbar region (08/25/15) Fusion of spine, thoracolumbar region Family History Family/Other Heart disease Father Heart disease Mother Loud snoring Obesity Hypertension Depression Dementia Other Family history of coronary artery disease Social History household members: spouse and family Smoking Status: Former smoker alcohol intake: current Smoking Status: Former smoker alcohol intake frequency: a few times a week Substance Use Type: does not use Exam Initial Vital Signs Initial Vital Signs: Vital Signs Temperature 98.7 F 04/29/23 11:41 Pulse Rate 73 04/29/23 11:41 Respiratory Rate 16 04/29/23 11:41 Blood Pressure 140/62 04/29/23 11:41 Pulse Oximetry 96 04/29/23 11:41 Oxygen Delivery Method Nasal Cannula 04/29/23 11:41 Oxygen Flow Rate 3 04/29/23 11:41 General: Chronically ill-appearing, in no acute distress. Able to give a complete and coherent history. Well-nourished well-developed HEENT: Moist mucous membranes, normal sclera with reactive pupils, Neck: No significant JVD, Respiratory: Lungs are clear to auscultation, no wheezing no rales no rhonchi. Full and symmetrical air movement, able to speak in complete sentences Cardiac: Regular rate and rhythm no murmurs no bruits Abdomen: Soft, nontender, good bowel tones, no flank pain. Well-healed lower abdominal midline incision with anand in place Skin: Warm and dry, no rashes Neurologic: Grossly neurologically intact with no obvious asymmetries or abnormalities Extremities: Right BKA amputation. Left side with 2+ edema small vesicle developing in the medial aspect of left anterior acosta without erythema or signs of infection. He has good capillary refill but pulses are difficult to palpate Psych: Cooperative, appropriate insight and affect Course Orders Ordered: ED Orders 04/29/23 13:12 Complete Blood Count AUTO DIFF Stat Comprehensive Metabolic Panel Stat Discontinued Medications Furosemide 60 mg/ Sodium (Chloride) 56 mls @ 112 mls/hr IV NOW ONE Stop: 04/29/23 13:00 Last Infusion: 04/29/23 14:01 Dose: Infused Documented By: Admin: 04/29/23 13:25 Dose: 112 mls/hr Documented By: ZANDRA Vital Signs Vital signs: Vital Signs - 8 hr 04/29/23 11:41 Temperature 98.7 F Pulse Rate 73 Respiratory Rate 16 Blood Pressure 140/62 Pulse Oximetry 96 Oxygen Delivery Method Nasal Cannula Oxygen Flow Rate 3 MDM - Extremity (Nontraumatic) Lab Data 04/29/23 13:12 04/29/23 13:12 Labs: Lab Results 04/29/23 Range/Units 13:12 WBC 9.8 (4.5-11.0) X10^3/uL RBC 2.73 L (4.5-5.9) X10^6/uL Hgb 8.5 L (13.5-17.5) g/dL Hct 25.3 L (41-53) % MCV 92.8 (80-100) fL MCH 31.1 (26-34) PG MCHC 33.5 (30-36) % RDW 16.3 H (11.6-14.8) % Plt Count 425 H (150-400) X10^3/uL Neut % (Auto) 81.6 H (50-75) % Lymph % (Auto) 9.4 L (25-40) % Ness % (Auto) 8.8 (3-14) % Eos % (Auto) 0.0 L (2-4) % Baso % (Auto) 0.2 (0-2) % Neut # (Auto) 8000 H (3527-1202) /uL Lymph # (Auto) 900 L (6628-6621) /uL Ness # (Auto) 900 (0-900) /uL Eos # (Auto) 0 (0-450) /uL Baso # (Auto) 0 (0-100) /uL Sodium 137 (137-145) mmol/L Potassium 4.6 (3.4-5.1) mmol/L Chloride 106 (98-107) mmol/L Carbon Dioxide 25 (22-32) mmol/L BUN 44 H (9-20) mg/dL Creatinine 1.95 H (0.66-1.25) mg/dL Estimated GFR 37 L (>60) mL/min BUN/Creatinine Ratio 22.6 H (6-22) Glucose 103 (80-110) mg/dL Calcium 8.6 (8.4-10.2) mg/dL Total Bilirubin 0.2 (0.2-1.3) mg/dL AST 26 (17-59) IU/L ALT 36 (<50) IU/L Alkaline Phosphatase 58 (38-126) U/L Total Protein 5.5 L (6.3-8.2) g/dL Albumin 3.2 L (3.5-5.0) g/dL Globulin 2.3 (1.7-4.1) g/dL Albumin/Globulin Ratio 1.4 (1.0-2.8) MDM Narrative Medical decision making narrative: CC: Unsure about recent hospital discharge instructions, complains that his left lower extremity is still swollen and developing some vesicles Complicating co-morbidities: Extensive recent hospitalization with laparotomy for small-bowel obstruction, sepsis with complicating pneumonia and ARDS with subsequent NSTEMI and then signing out against medical advice Data collected from: patient, Social determinants of health that may influence the patients condition: Free will and irrascabilty Medical records reviewed: Hospitalization at [facility] on April 13 is reviewed. Notes from [facility] with discharge on April 27 are reviewed. It looks like he did have a laparotomy with small-bowel resection related to adhesions and prior abdominal mesh. Apparently had progressive symptoms with acute renal failure, septic shock, was transferred to the intensive care unit where he was intubated and developed ARDS. EKG changes and elevated troponin suggested NSTEMI with heart catheterization on the . It does look like the patient eventually left Against Medical Advice on April 27 Differential considered: Worsening congestive heart failure, worsening renal failure, DVT, sepsis or other infection Exam documented above, pertinent findings include: Aside from the left lower extremity edema (which per the patient has been unchanged for the last number of days) he does not have significant signs of volume overload. He notes that he has been voiding frequently. Lab Test results independently reviewed as above. Pertinent findings: CBC on April 27 at time of discharge from [facility] showed a white count at 12.4 with an H&H of 9.6 and 30.5. Platelets at 404 Chemistries show discharge creatinine down to 1.97 with a GFR of 37. Labs today show a CBC with a normal white blood cell count slight left shift but otherwise stable anemia Chemistry show significant improvement in renal function and are otherwise fairly reassuring Independently reviewed EKG as above Imaging studies independently reviewed: Echocardiogram from [facility] on April 17 shows severe left ventricular dysfunction with 30% EF Treatments: His abdominal surgery was on April 17, the wound is nicely healed and it is appropriate to remove anand. Anand are removed and Steri- Strips are placed. He tolerates the procedure well. Again, the wound looks good. He has an approximately 2 mm section just distal to the umbilicus where dermal edges were over riding and healing is not perfect. Again Steri-Strips were used to reapproximate edges. IV Lasix 60mg, DuoNeb Re-evaluations: 3pm has begun to void after the 60 mg IV Lasix dose. It is feeling better. Requests DuoNeb prior to discharge. Discussion: 67-year-old gentleman with recent complicated hospitalization with small-bowel obstruction requiring surgery and partial small-bowel resection with complicating pneumonia/sepsis/ARDS and then subsequent NSTEMI and then leaving against medical advice after being frustrated with care given when ?nothing had been done? at [facility]. His abdominal wound is healing nicely and 2-1/2 weeks appropriate for anand to come out. They are removed and Steri-Strips are placed without complication. He does have some mild swelling in his left leg. Will increase his Lasix to 60 mg daily for the next 10 days. He has an appointment with his geochemical laboratory technician in 10 days and will ask her to review Lasix dosing. He is uncomfortable with continuing metoprolol however, particularly in light of the recent NSTEMI, it does seem like it is the most appropriate medication for him. Encouraged him to continue it until he is had a chance to review it with his own geochemical laboratory technician. He is willing to do so. Details from his recent hospital stay are reviewed with him and questions are answered. Reassurance is given. Discussed reasons to return to the emergency department. At this point there is no indication of severe heart failure, reason for hospital admission or advanced imaging. Reassurance is given and he is safe for discharge Discharge Plan Departure Patient Disposition: Home Clinical Impression: Encounter for removal of anand Chronic CHF (congestive heart failure) Qualifiers: Heart failure type: unspecified Qualified Code(s): I50.9 - Heart failure, unspecified Chronic obstructive pulmonary disease Qualifiers: COPD type: unspecified COPD Qualified Code(s): J44.9 - Chronic obstructive pulmonary disease, unspecified Instructions: DI for Heart Failure, How to Care for a Surgical Wound-Anand Activity Restrictions/Additional Instructions: Thank you for coming in today The anand after your small bowel surgery were removed today. Your stomach appears to be healing nicely. Please leave the Steri-Strips in place until they begin to peel off by themselves You do have a bit of volume overload and I have given you an extra dose of Lasix in the emergency department. I am going to ask that you increase your dose from the current 40 mg of Lasix up to 60 mg. This means that you are currently taking 1 pill a day and I want you to increase to 1-1/2 pills daily until you are seen by your geochemical laboratory technician next week. The remainder of your blood work looks good. Your acute kidney issues do look like they are significantly improving. I do not see any signs of infection and no reason for additional imaging or reason to stay in the hospital today If you find that you are getting worse or develop any new symptoms, please feel free to return to the emergency department for further evaluation. Prescriptions: No Action oxycodone [OxyContin] 10 mg tablet,oral only,ext.rel.12 hr 10 mg PO BID PRN (Reason: PAIN) trazodone 100 MG tablet 150 mg PO QPM sertraline [Zoloft] 50 mg tablet 150 mg PO BEDTIME levothyroxine 175 mcg tablet 175 mcg PO DAILY amlodipine 10 mg tablet 10 mg PO QPM albuterol sulfate 90 mcg/actuation HFA aerosol inhaler 1 puff Inhalation PRN PRN (Reason: Shortness Of Breath) nitroglycerin [Nitrostat] 0.4 mg Tablet, Sublingual 0.4 mg SUBLINGUAL Q5-15M PRN (Reason: Chest Pain) (DME) Thermacare Heatwrap Joint lidocaine 5 % Adhesive Patch,Medicated 1 patch TOPICAL DAILY ascorbic acid (vitamin C) 1,000 mg Tablet 1 g PO BID cholecalciferol (vitamin D3) [Vitamin D3] 400 unit Capsule 400 unit PO QPM C-Ketam 1 applic Topical TID Patient Comments: C-Ketam 10%/KETO 5%/BACL 2%/PHOTOENGRAVING ETCHER 2%Lipoderm magnesium citrate 500 mg 1,000 mg PO BID losartan 100 mg tablet 50 mg PO DAILY furosemide 40 mg tablet 40 mg PO DAILY benralizumab 30 mg/mL auto-injector 30 mg SUBCUT Q8W Repatha SureClick 140 mg/mL pen injector 140 mg SUBCUT Q2W montelukast 10 mg tablet 10 mg PO BEDTIME oxybutynin chloride 10 mg tablet extended release 24hr 10 mg PO DAILY lactulose [Enulose] 10 gram/15 mL solution 20 g PO TID ferrous sulfate 325 mg (65 mg iron) tablet,delayed release (DR/EC) 65 mg PO 3XW vitamin B complex [B Complex-Vitamin B12] Tablet 1 tab PO DAILY red beet root-sour alvarez ext 250-0.5 mg tablet,chewable 2 tab PO DAILY folic acid 1 mg tablet 1 mg PO DAILY lorazepam 1 mg tablet 0.5 mg PO DAILY PRN (Reason: Panic Attack(S)) clonidine HCl 0.3 mg tablet 0.3 mg PO TID azithromycin 250 mg tablet 250 mg PO .tiw Brovana 15 mcg/2 mL solution for nebulization 15 mcg inhalation DAILY budesonide 0.5 mg/2 mL suspension for nebulization 0.5 mg inhalation BID hydralazine 50 mg tablet 100 mg PO TID Referrals: Nakia Marcus MD [Primary Care Provider] - Stand Alone Forms: Patient Portal/API
--- NOTE | 2023-04-29 13:17 | PC.NURSE ---
patient has multiple, small blisters on his feet/legs with multiple, small red rashes, mainly at his toes.
[2023-04-29] MEDS: FUROSEMIDE 60 MG in SODIUM CHLORIDE 0.9% 50 ML 112 MG IV (13:25)
[2023-04-29 13:30] LABS: Add Manual Diff / Slide Review NO; Basophils Absolute Auto 0 /uL (0-100); Basophils Percent Auto 0.2 % (0-2); Eosinophils Absolute Auto 0 /uL (0-450); Hematocrit 25.3 % (41-53); Hemoglobin 8.5 g/dL (13.5-17.5); Lymphocytes Absolute Auto 900 /uL (1100-4500); Lymphocytes Percent Auto 9.4 % (25-40); Mean Corpuscular HGB Conc 33.5 % (30-36); Mean Corpuscular Hemoglobin 31.1 PG (26-34); Mean Corpuscular Volume 92.8 fL (80-100); Monocytes Absolute Auto 900 /uL (0-900); Monocytes Percent Auto 8.8 % (3-14); Neutrophils Absolute Auto 8000 /uL (1500-7000); Neutrophils Percent Auto 81.6 % (50-75); Platelet Count 425 X10^3/uL (150-400); Red Blood Cell Count 2.73 X10^6/uL (4.5-5.9); Red Cell Distribution Width 16.3 % (11.6-14.8); White Blood Cell Count 9.8 X10^3/uL (4.5-11.0)
[2023-04-29 13:34] LABS: Alanine Aminotransferase 36 IU/L (<50); Albumin 3.2 g/dL (3.5-5.0); Albumin Globulin Ratio 1.4 (1.0-2.8); Alkaline Phosphatase 58 U/L (38-126); Aspartate Aminotransferase 26 IU/L (17-59); BUN Creatinine Ratio 22.6 (6-22); Bilirubin Total 0.2 mg/dL (0.2-1.3); Blood Urea Nitrogen 44 mg/dL (9-20); Calcium 8.6 mg/dL (8.4-10.2); Carbon Dioxide 25 mmol/L (22-32); Chloride 106 mmol/L (98-107); Estimated Glomerular Filt Rate 37 mL/min (>60); Globulin 2.3 g/dL (1.7-4.1); Glucose 103 mg/dL (80-110); HEMOLYSIS < 15 (0-50); Potassium 4.6 mmol/L (3.4-5.1); Sodium 137 mmol/L (137-145); Total Protein 5.5 g/dL (6.3-8.2)
[2023-04-29] MEDS: ALBUTEROL/IPRATROPIUM 3 ML AMPUL INH (14:57)
== END 2023-04-29 15:12 | disposition home or self-care (01) ==
PROVIDERS: Emergency Provider Emergency Medicine; PCP Internal Medicine
DX: I50.9 Heart failure, unspecified (principal); J44.9 Chronic obstructive pulmonary disease, unspecified; Z79.899 Other long term (current) drug therapy; Z48.02 Encounter for removal of sutures
CPT/HCPCS: 36415; 80053; 85025; 94640; 96365; 99284; 99285; J1940

== ENCOUNTER → 2023-06-25 08:44 | Outpatient (CLI) | payer BC, MEDICARE, SELFPAY ==
[2023-04-12 17:14] VITALS: BMI 18.8
[2023-04-14 07:45] VITALS: PULSE 74; RESP 20; O2SAT 94
== END ==
PROVIDERS: PCP Internal Medicine; Referring Provider Internal Medicine; Visit Provider Surgery
DX: E11.621 Type 2 diabetes mellitus with foot ulcer (principal); M77.32 Calcaneal spur, left foot; L97.322 Non-pressure chronic ulcer of left ankle with fat layer exposed; I73.9 Peripheral vascular disease, unspecified; I10 Essential (primary) hypertension; R60.0 Localized edema; E11.622 Type 2 diabetes mellitus with other skin ulcer
CPT/HCPCS: 11042; 73610; 87070; 87075; 87077; 87186; 87205; 99214

== ENCOUNTER → 2023-06-25 09:52 | Outpatient (CLI) | payer BC, MEDICARE, SELFPAY ==
[2023-04-12 17:14] VITALS: BMI 18.8
[2023-04-14 07:45] VITALS: PULSE 74; RESP 20; O2SAT 94
--- NOTE | 2023-06-25 09:56 | DI.RAD.S_ITS ---
PROCEDURE: XR ANKLE LT MIN 3V INDICATIONS: non-healing ulcers on left anterior ankle and lateral ankle TECHNIQUE: 3 views of the ankle were acquired. COMPARISON: None. FINDINGS: Bones: No fractures or dislocations. Ankle mortise is normally aligned. No suspicious bony lesions. Moderate calcaneal spur Soft tissues: No tibiotalar joint effusion. Achilles tendon appears normal. IMPRESSION: Moderate calcaneal spur Approved by: Alejandro Almanza M.D. on 06/25/2023 at 18:48
== END ==
PROVIDERS: PCP Internal Medicine; Referring Provider Surgery; Visit Provider Surgery
DX: E11.621 Type 2 diabetes mellitus with foot ulcer (principal); M77.32 Calcaneal spur, left foot
CPT/HCPCS: 73610

== ENCOUNTER → 2023-06-29 09:02 | Outpatient (CLI) | payer BC, MEDICARE, SELFPAY ==
[2023-04-12 17:14] VITALS: BMI 18.8
[2023-04-14 07:45] VITALS: PULSE 74; RESP 20; O2SAT 94
--- NOTE | 2023-06-29 09:04 | DI.US.S_ITS ---
PROCEDURE: US ARTERIAL DUPLEX LE LT INDICATIONS: NON-HEALING WOUND - LEFT ANKLE TECHNIQUE: Color and pulse Doppler interrogation was performed of the left lower extremity arterial system, with image documentation. COMPARISON: [facility], CT, CT ABDOMEN PELVIS W CON, 04/12/2023, 11:34. [facility], US, ARTERIAL LOW.EXTREM.BILATERAL, 03/02/2014, 8:45. FINDINGS: Common femoral artery: 174.7 cm/sec, with monophasic flow. Deep femoral artery: 121.5 cm/sec, with monophasic flow. Proximal superficial femoral artery: 35 cm/sec, with monophasic flow. Mid superficial femoral artery: Occluded Distal superficial femoral artery: Occluded Popliteal artery: Occluded Posterior tibial artery: Occluded Anterior tibial artery/dorsalis pedis: Unable to examine secondary to wounds Najera-scale imaging description: Extensive calcified plaque. The compared CT of the abdomen and pelvis demonstrates a severe immediately infrarenal abdominal aortic stenosis as well as significant bilateral iliac disease with possible focal calcified occlusion involving the left proximal external iliac artery. IMPRESSION: 1. Recent CT demonstrates significant inflow disease with significant stenosis of the aorta just below the renal arteries as well as extensive left iliac disease with possible focal short segment calcified occlusion. 2. Monophasic waveforms in the region of the common femoral support the findings on CT. 3. Occluded vasculature below the level of the proximal left SFA, with long segment SFA occlusion, popliteal occlusion, as well as occluded runoff vessels. Comment: In this patient with extensively calcified vessels, would recommend MR angiography for better evaluation. MR angiography should include the abdominal aorta and pelvis and runoff vessels. Due to the extensive vascular calcifications, MRI would be peripheral to CTA. Dictated by: Venancio Morris M.D. on 06/29/2023 at 11:12 Approved by: Venancio Morris M.D. on 06/29/2023 at 11:19
== END ==
PROVIDERS: PCP Internal Medicine; Referring Provider Surgery; Visit Provider Surgery
DX: E11.621 Type 2 diabetes mellitus with foot ulcer (principal); L97.329 Non-pressure chronic ulcer of left ankle with unspecified severity; L97.529 Non-pressure chronic ulcer of other part of left foot with unspecified severity; I70.202 Unspecified atherosclerosis of native arteries of extremities, left leg; I70.0 Atherosclerosis of aorta; I77.1 Stricture of artery
CPT/HCPCS: 93926

== ENCOUNTER → 2023-07-02 08:41 | Outpatient (CLI) | payer BC, MEDICARE, SELFPAY ==
[2023-04-12 17:14] VITALS: BMI 18.8
[2023-04-14 07:45] VITALS: PULSE 74; RESP 20; O2SAT 94
== END ==
PROVIDERS: PCP Internal Medicine; Referring Provider Internal Medicine; Visit Provider Surgery
DX: L97.322 Non-pressure chronic ulcer of left ankle with fat layer exposed (principal); E11.622 Type 2 diabetes mellitus with other skin ulcer; I73.9 Peripheral vascular disease, unspecified; I10 Essential (primary) hypertension
CPT/HCPCS: 11042

== ENCOUNTER 2023-07-05 13:44 | Emergency (ER) | payer BC, MEDICARE, SELFPAY ==
[2023-04-12 17:14] VITALS: BMI 18.8
[2023-04-14 07:45] VITALS: PULSE 74; RESP 20; O2SAT 94
[2023-07-05 13:47] VITALS: PULSE 90; RESP 22; TEMP 36.6; O2SAT 96; BMI 17.3
[2023-07-05] MEDS: OXYMETAZOLINE NASAL SPRAY 30 ML 2 SPRAYS NASAL (14:03)
--- NOTE | 2023-07-05 14:22 | ED_ITS ---
HPI - Epistaxis <Fozia Waldrop PA-C - Last Filed: 07/05/23 15:56> General Chief complaint: Nasal Problem Stated complaint: bloody nose 2hrs Time Seen by Provider: 07/05/23 14:10 Source: patient Mode of arrival: Wheelchair History of Present Illness HPI Narrative: Patient is a 68-year-old male with a history of COPD on home oxygen, hypertension, history of stroke and NSTEMI who presents with epistaxis x2 hours. He reports a long history of easy bleeding. He currently takes a daily baby aspirin and is on Cipro for or a sinus infection, in addition to his maintenance medications. He reports frequent bloody noses since his intubation earlier this fall, but generally they are self-resolving. Today it has not stopped despite pressure. He is on 2 L of oxygen at home for COPD. He has been having copious green nasal discharge due to his sinus infection and frequently blows his nose. Dr. Marcus is his PCP. Related Data Home Medications Medication Instructions Recorded Confirmed C-Ketam 1 applic topical TID 06/11/18 04/12/23 Thermacare Heatwrap Joint 06/11/18 04/12/23 albuterol sulfate 90 mcg/actuation 1 puff inhalation PRN PRN 06/11/18 04/12/23 aerosol inhaler Shortness Of Breath amlodipine 10 mg tablet 10 mg PO QPM 06/11/18 04/12/23 ascorbic acid (vitamin C) 1,000 mg 1 g PO BID 06/11/18 04/12/23 tablet cholecalciferol (vitamin D3) 10 400 unit PO QPM 06/11/18 04/12/23 mcg (400 unit) capsule (Vitamin D3) levothyroxine 175 mcg tablet 175 mcg PO DAILY 06/11/18 04/12/23 lidocaine 5 % topical patch 1 patch topical DAILY 06/11/18 04/12/23 magnesium citrate 1,000 mg PO BID 06/11/18 04/12/23 nitroglycerin 0.4 mg sublingual 0.4 mg sublingual Q5-15M PRN Chest 06/11/18 04/12/23 tablet (Nitrostat) Pain arformoterol 15 mcg/2 mL solution 15 mcg inhalation DAILY 10/18/20 04/12/23 for nebulization (Brovana) azithromycin 250 mg tablet 250 mg PO .tiw 10/18/20 04/12/23 budesonide 0.5 mg/2 mL suspension 0.5 mg inhalation BID 10/18/20 04/12/23 for nebulization clonidine HCl 0.3 mg tablet 0.3 mg PO TID 10/18/20 04/12/23 lorazepam 1 mg tablet 0.5 mg PO DAILY PRN Panic Attack(S) 10/18/20 04/12/23 benralizumab 30 mg/mL subcutaneous 30 mg SUBCUT Q8W 02/13/23 04/12/23 auto-injector evolocumab 140 mg/mL subcutaneous 140 mg SUBCUT Q2W 02/13/23 04/12/23 pen injector (Pedro Pablo Pfeiffer) ferrous sulfate 325 mg (65 mg 65 mg PO 3XW 02/13/23 04/12/23 iron) tablet,delayed release folic acid 1 mg tablet 1 mg PO DAILY 02/13/23 04/12/23 furosemide 40 mg tablet 40 mg PO DAILY 02/13/23 04/12/23 hydralazine 50 mg tablet 100 mg PO TID 02/13/23 04/12/23 lactulose 10 gram/15 mL oral 20 g PO TID 02/13/23 04/12/23 solution (Enulose) losartan 100 mg tablet 50 mg PO DAILY 02/13/23 04/12/23 montelukast 10 mg tablet 10 mg PO BEDTIME 02/13/23 04/12/23 oxybutynin chloride 10 mg 10 mg PO DAILY 02/13/23 04/12/23 tablet,extended release 24 hr red beet root 250 mg-sour alvarez 2 tab PO DAILY 02/13/23 04/12/23 extract 0.5 mg chewable tablet vitamin B complex (B 1 tab PO DAILY 02/13/23 04/12/23 Complex-Vitamin B12 tablet) oxycodone 10 mg tablet,crush 10 mg PO BID PRN PAIN 04/12/23 04/12/23 resistant,extended release 12 hr (OxyContin) sertraline 50 mg tablet (Zoloft) 150 mg PO BEDTIME 04/12/23 04/12/23 trazodone 100 mg tablet 150 mg PO QPM 04/12/23 04/12/23 Allergies Allergy/AdvReac Type Severity Reaction Status Date / Time doxazosin [DOXAZOSIN] Allergy Severe swelling Verified 04/12/23 10:06 bempedoic acid Allergy Verified 04/12/23 10:06 [From Nexletol] gabapentin Allergy Verified 04/12/23 10:06 spironolactone Allergy Verified 04/12/23 10:06 Latex, Natural Rubber AdvReac Intermediate Blister Verified 04/13/23 19:26 varenicline [From CHANTIX] AdvReac Mild aggitation Verified 04/13/23 09:40 atorvastatin [ATORVASTATIN] AdvReac Unknown MUSCLE ACHE Verified 04/12/23 10:06 carvedilol [CARVEDILOL] AdvReac Unknown DIZZINESS Verified 04/12/23 10:06 lisinopril [LISINOPRIL] AdvReac Unknown COUGH Verified 04/13/23 09:40 morphine AdvReac Unknown GOES Verified 04/13/23 09:40 CRAZY fentanyl AdvReac Agitated Verified 04/29/23 13:30 Review of Systems <Fozia Waldrop PA-C - Last Filed: 07/05/23 15:56> Review of Systems ROS Unobtainable: All systems reviewed & are unremarkable except as noted in HPI and below Patient History <Fozia Waldrop PA-C - Last Filed: 07/05/23 15:56> Medical History Acute on chronic respiratory failure with hypoxia 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 Insomnia due to medical condition Centrilobular emphysema CAD (coronary artery disease) (05/11/17) Cerebrovascular accident (CVA) due to stenosis of right posterior cerebral artery (05/28/17) Chronic hypoxemic respiratory failure (08/24/20) Family history of coronary artery disease (05/11/17) PVD (peripheral vascular disease) (05/11/17) Rectal bleeding (05/28/17) Statin intolerance (05/28/17) Nocturnal hypoxemia Fatigue due to sleep pattern disturbance Obstructive sleep apnea, adult Periodic limb movement disorder (PLMD) Hyperlipidemia COPD exacerbation Hypothyroidism HTN (hypertension) 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) Former smoker (08/25/15) Chronic pain syndrome (08/25/15) Surgical History History of eye surgery S/P hernia repair History of spinal surgery (08/25/15) Fusion of spine of thoracolumbar region (08/25/15) Fusion of spine, thoracolumbar region Family History Family/Other Heart disease Father Heart disease Mother Loud snoring Obesity Hypertension Depression Dementia Other Family history of coronary artery disease Social History household members: spouse and family Smoking Status: Former smoker alcohol intake: current Smoking Status: Former smoker alcohol intake frequency: a few times a week Substance Use Type: does not use Exam <Fozia Wadlrop PA-C - Last Filed: 07/05/23 15:56> Narrative Exam Narrative: GENERAL: 68 year old patient appears stated age. Well-developed patient, in no distress. NEURO: AOx3. HEAD: Atraumatic. Normocephalic. EYES: Pupils equal round and reactive. Extraocular motions intact. No scleral icterus. No injection or drainage. ENT: Nose without bleeding or purulent drainage. Airway patent. Dried blood in bilateral nares. Pinpoint oozing lesion at the tip of his nose, likely from repeated blowing of his nose. NECK: Trachea midline. Non tender CARDIOVASCULAR: Regular rate and rhythm without murmurs, gallops, or rubs. RESPIRATORY: Clear to auscultation with distant wheeze. Patient on 2 L via mask while in ER. EXTREMITIES: No edema or joint tenderness. SKIN: No rash or erythema of visible areas Initial Vital Signs Initial Vital Signs: Vital Signs Temperature 98 F 07/05/23 13:47 Pulse Rate 90 07/05/23 13:47 Respiratory Rate 22 07/05/23 13:47 Pulse Oximetry 96 07/05/23 13:47 Oxygen Delivery Method Nasal Cannula 07/05/23 13:47 Oxygen Flow Rate 2 07/05/23 13:47 <Loli Ruvalcaba DO - Last Filed: 07/06/23 11:06> Initial Vital Signs Initial Vital Signs: Vital Signs Temperature 98 F 07/05/23 13:47 Pulse Rate 90 07/05/23 13:47 Respiratory Rate 22 07/05/23 13:47 Pulse Oximetry 96 07/05/23 13:47 Oxygen Delivery Method Nasal Cannula 07/05/23 13:47 Oxygen Flow Rate 2 07/05/23 13:47 Course <Fozia Waldrop PA-C - Last Filed: 07/05/23 15:56> Orders Ordered: Discontinued Medications Albuterol/Ipratropium (Albuterol/Ipratropium 3 Ml Ampul) 3 ml INH NOW ONE Stop: 07/05/23 14:45 Last Admin: 07/05/23 14:59 Dose: 3 ml Documented By: NL Oxymetazoline HCl (Oxymetazoline Nasal Mayer 30 Ml) 2 sprays NASAL NOW ONE Stop: 07/05/23 13:59 Last Admin: 07/05/23 14:03 Dose: 2 sprays Documented By: AMV Vital Signs Vital signs: Vital Signs - 8 hr 07/05/23 13:47 07/05/23 14:59 07/05/23 15:25 Temperature 98 F Pulse Rate 90 79 87 Respiratory Rate 22 20 18 Pulse Oximetry 96 99 96 Oxygen Delivery Method Nasal Cannula Oximask Room Air Oxygen Flow Rate 2 4 <Loli Ruvalcaba DO - Last Filed: 07/06/23 11:06> Orders Ordered: Discontinued Medications Albuterol/Ipratropium (Albuterol/Ipratropium 3 Ml Ampul) 3 ml INH NOW ONE Stop: 07/05/23 14:45 Last Admin: 07/05/23 14:59 Dose: 3 ml Documented By: EFREN Oxymetazoline HCl (Oxymetazoline Nasal Mayer 30 Ml) 2 sprays NASAL NOW ONE Stop: 07/05/23 13:59 Last Admin: 07/05/23 14:03 Dose: 2 sprays Documented By: AMV Vital Signs Vital signs: Vital Signs - 8 hr 07/05/23 13:47 07/05/23 14:59 07/05/23 15:25 Temperature 98 F Pulse Rate 90 79 87 Respiratory Rate 22 20 18 Pulse Oximetry 96 99 96 Oxygen Delivery Method Nasal Cannula Oximask Room Air Oxygen Flow Rate 2 4 MDM - Epistaxis <Fozia Waldrop PA-C - Last Filed: 07/05/23 15:56> MDM Narrative Medical decision making narrative: Multiple etiologies for patient's symptoms considered including, but not limited to: Epistaxis. Patient has a history of bleeding easily, recurrent nosebleeds since after his intubation earlier this year. He is also on home oxygen. He is currently undergoing treatment for a sinus infection and has copious nasal discharge. His bleeding was easily controlled in the emergency room with Afrin and a nose clamp. He was observed for at least 30 minutes after with no recurrent bleeding. Did have oozing from a tiny laceration on the tip of his nose, hemostasis was achieved by applying Surgicel to this area. Discussed home management including applying antibiotic ointment 2-3 times daily to the inside of his nose, home use of Afrin, nose clamp. Discussed that he should continue to take his baby aspirin as the risk of not taking this is greater than the benefit. Strict return precautions given. Patient should follow up with his PCP if he does not feel like he is getting better after his treatment for sinus infection. Patient requested DuoNeb breathing treatment while in the emergency room as he had not had one prior to arrival. This was administered and he felt better Patient's symptoms improved over duration of stay with above-stated therapies. Findings and discharge diagnosis discussed with patient/family followed by verbalization of understanding Return precautions discussed with patient/family whom verbalize understanding of diagnosis and plan Discharge Plan Departure Patient Disposition: Home Clinical Impression: Epistaxis not due to trauma Instructions: DI for Nosebleed Activity Restrictions/Additional Instructions: *You have been diagnosed with nosebleed. *If you have another nosebleed, use the clamp from the emergency room to apply pressure to the soft part of the nose for 15-20 minutes without removing it. You do not want to disturb the clot formation. After this time, if you are still bleeding, blow your nose and use 2 squirts of Afrin in each nostril. After the Afrin, reapply the nose clamp for 15-20 minutes without removing it. If you are still bleeding after this, you should come back to the emergency room. It can be normal to cough up some blood clots or bloody secretions after a nosebleed. *What to do: *Please continue to take your regular medications as directed. [ ] New medication prescriptions sent to your pharmacy: [ ] [ ] New medication written as a paper prescription [x] No new medications given *Please follow up with your primary care provider in 2-3 days, call for an appointment. Let them know you were seen in the Emergency Department and that we ask that you be seen in follow up. We will electronically transmit a record of today's note if your PCP is in our system *If you do not have a primary care provider please contact the [facility] Resource line at [phone]. They will ask some questions about your medical history and help get you set up with a doctor in the community. *Return to Emergency Department if you should have any new, worsening or concerning symptoms, such as [fever greater than 101 F, shaking chills, worsening pain, persistent vomiting or other concerning symptoms]. Prescriptions: No Action oxycodone [OxyContin] 10 mg tablet,oral only,ext.rel.12 hr 10 mg PO BID PRN (Reason: PAIN) trazodone 100 MG tablet 150 mg PO QPM sertraline [Zoloft] 50 mg tablet 150 mg PO BEDTIME levothyroxine 175 mcg tablet 175 mcg PO DAILY amlodipine 10 mg tablet 10 mg PO QPM albuterol sulfate 90 mcg/actuation HFA aerosol inhaler 1 puff Inhalation PRN PRN (Reason: Shortness Of Breath) nitroglycerin [Nitrostat] 0.4 mg Tablet, Sublingual 0.4 mg SUBLINGUAL Q5-15M PRN (Reason: Chest Pain) (DME) Thermacare Heatwrap Joint lidocaine 5 % Adhesive Patch,Medicated 1 patch TOPICAL DAILY ascorbic acid (vitamin C) 1,000 mg Tablet 1 g PO BID cholecalciferol (vitamin D3) [Vitamin D3] 400 unit Capsule 400 unit PO QPM C-Ketam 1 applic Topical TID Patient Comments: C-Ketam 10%/KETO 5%/BACL 2%/OBIEE OBIA SOLUTION ARCHITECT 2%Lipoderm magnesium citrate 500 mg 1,000 mg PO BID losartan 100 mg tablet 50 mg PO DAILY furosemide 40 mg tablet 40 mg PO DAILY benralizumab 30 mg/mL auto-injector 30 mg SUBCUT Q8W Repatha SureClick 140 mg/mL pen injector 140 mg SUBCUT Q2W montelukast 10 mg tablet 10 mg PO BEDTIME oxybutynin chloride 10 mg tablet extended release 24hr 10 mg PO DAILY lactulose [Enulose] 10 gram/15 mL solution 20 g PO TID ferrous sulfate 325 mg (65 mg iron) tablet,delayed release (DR/EC) 65 mg PO 3XW vitamin B complex [B Complex-Vitamin B12] Tablet 1 tab PO DAILY red beet root-sour alvarez ext 250-0.5 mg tablet,chewable 2 tab PO DAILY folic acid 1 mg tablet 1 mg PO DAILY lorazepam 1 mg tablet 0.5 mg PO DAILY PRN (Reason: Panic Attack(S)) clonidine HCl 0.3 mg tablet 0.3 mg PO TID azithromycin 250 mg tablet 250 mg PO .tiw Brovana 15 mcg/2 mL solution for nebulization 15 mcg inhalation DAILY budesonide 0.5 mg/2 mL suspension for nebulization 0.5 mg inhalation BID hydralazine 50 mg tablet 100 mg PO TID Referrals: Nakia Marcus MD [Primary Care Provider] - Stand Alone Forms: Patient Portal/API ED Sign-out <Loli Ruvalcaba DO - Last Filed: 07/06/23 11:06> Cosign ED Attending Cosignature Attestation: I was available for consultation.
[2023-07-05 14:59] VITALS: PULSE 79; RESP 20; O2SAT 99
[2023-07-05] MEDS: ALBUTEROL/IPRATROPIUM 3 ML AMPUL INH (14:59)
[2023-07-05 15:25] VITALS: PULSE 87; RESP 18; O2SAT 96
--- NOTE | 2023-07-05 15:25 | PC.NURSE ---
No nasal bleeding for 30 min
--- NOTE | 2023-07-05 15:26 | RT ---
pt stevie lopez tx well, on 4 lpm oximask, pt states he wears 2 lpm nc at home. No distress noted
== END 2023-07-05 15:25 | disposition home or self-care (01) ==
PROVIDERS: Emergency Provider Physician Assistant; PCP Internal Medicine
DX: R04.0 Epistaxis (principal)
CPT/HCPCS: 94640; 99284

== ENCOUNTER → 2023-07-09 09:25 | Outpatient (CLI) | payer BC, MEDICARE, SELFPAY ==
[2023-04-12 17:14] VITALS: BMI 18.8
[2023-04-14 07:45] VITALS: PULSE 74; RESP 20; O2SAT 94
== END ==
PROVIDERS: PCP Internal Medicine; Referring Provider Internal Medicine; Visit Provider Surgery
DX: L97.322 Non-pressure chronic ulcer of left ankle with fat layer exposed (principal); E11.622 Type 2 diabetes mellitus with other skin ulcer; I73.9 Peripheral vascular disease, unspecified
CPT/HCPCS: 11042

== ENCOUNTER → 2023-07-25 09:18 | Outpatient (CLI) | payer BC, MEDICARE, SELFPAY ==
[2023-04-12 17:14] VITALS: BMI 18.8
[2023-04-14 07:45] VITALS: PULSE 74; RESP 20; O2SAT 94
== END ==
LOC: WC 09:22
PROVIDERS: PCP Internal Medicine; Referring Provider Internal Medicine; Visit Provider Surgery
DX: E11.622 Type 2 diabetes mellitus with other skin ulcer (principal); L97.322 Non-pressure chronic ulcer of left ankle with fat layer exposed; R23.4 Changes in skin texture; E11.51 Type 2 diabetes mellitus with diabetic peripheral angiopathy without gangrene; E63.9 Nutritional deficiency, unspecified; I10 Essential (primary) hypertension; I25.10 Atherosclerotic heart disease of native coronary artery without angina pectoris; J44.9 Chronic obstructive pulmonary disease, unspecified; Z99.81 Dependence on supplemental oxygen; Z86.73 Personal history of transient ischemic attack (TIA), and cerebral infarction without residual deficits; Z89.611 Acquired absence of right leg above knee; Z95.820 Peripheral vascular angioplasty status with implants and grafts; Z87.891 Personal history of nicotine dependence
CPT/HCPCS: 11042; 99212; 99213

== ENCOUNTER → 2023-07-30 08:47 | Outpatient (CLI) | payer BC, MEDICARE, SELFPAY ==
[2023-04-12 17:14] VITALS: BMI 18.8
[2023-04-14 07:45] VITALS: PULSE 74; RESP 20; O2SAT 94
== END ==
LOC: WC 08:48
PROVIDERS: PCP Internal Medicine; Referring Provider Internal Medicine; Visit Provider Surgery
DX: E11.621 Type 2 diabetes mellitus with foot ulcer (principal); L97.322 Non-pressure chronic ulcer of left ankle with fat layer exposed; L53.9 Erythematous condition, unspecified; I73.9 Peripheral vascular disease, unspecified; I10 Essential (primary) hypertension; J44.9 Chronic obstructive pulmonary disease, unspecified
CPT/HCPCS: 11042

== ENCOUNTER → 2023-08-06 09:09 | Outpatient (CLI) | payer BC, MEDICARE, SELFPAY ==
[2023-04-12 17:14] VITALS: BMI 18.8
[2023-04-14 07:45] VITALS: PULSE 74; RESP 20; O2SAT 94
== END ==
LOC: WC 09:10
PROVIDERS: PCP Internal Medicine; Referring Provider Internal Medicine; Visit Provider Physician Assistant
DX: L97.322 Non-pressure chronic ulcer of left ankle with fat layer exposed (principal); E11.621 Type 2 diabetes mellitus with foot ulcer; I73.9 Peripheral vascular disease, unspecified; J44.9 Chronic obstructive pulmonary disease, unspecified; I10 Essential (primary) hypertension
CPT/HCPCS: 11042; 99214

== ENCOUNTER → 2023-08-13 09:00 | Outpatient (CLI) | payer BC, MEDICARE, SELFPAY ==
[2023-04-12 17:14] VITALS: BMI 18.8
[2023-04-14 07:45] VITALS: PULSE 74; RESP 20; O2SAT 94
== END ==
PROVIDERS: PCP Internal Medicine; Referring Provider Internal Medicine; Visit Provider Surgery
DX: E11.621 Type 2 diabetes mellitus with foot ulcer (principal); L97.322 Non-pressure chronic ulcer of left ankle with fat layer exposed; I96 Gangrene, not elsewhere classified; I73.9 Peripheral vascular disease, unspecified; I10 Essential (primary) hypertension; J44.9 Chronic obstructive pulmonary disease, unspecified; Z89.611 Acquired absence of right leg above knee
CPT/HCPCS: 11042

== ENCOUNTER → 2023-08-20 08:47 | Outpatient (CLI) | payer BC, MEDICARE, SELFPAY ==
[2023-04-12 17:14] VITALS: BMI 18.8
[2023-04-14 07:45] VITALS: PULSE 74; RESP 20; O2SAT 94
== END ==
LOC: WC 08:48
PROVIDERS: PCP Internal Medicine; Referring Provider Internal Medicine; Visit Provider Surgery
DX: E11.621 Type 2 diabetes mellitus with foot ulcer (principal); L97.322 Non-pressure chronic ulcer of left ankle with fat layer exposed; I73.9 Peripheral vascular disease, unspecified; L53.9 Erythematous condition, unspecified; J44.9 Chronic obstructive pulmonary disease, unspecified; I10 Essential (primary) hypertension; Z89.611 Acquired absence of right leg above knee
CPT/HCPCS: 11042

== ENCOUNTER → 2023-08-27 08:43 | Outpatient (CLI) | payer BC, MEDICARE, SELFPAY ==
[2023-04-12 17:14] VITALS: BMI 18.8
[2023-04-14 07:45] VITALS: PULSE 74; RESP 20; O2SAT 94
== END ==
LOC: WC 08:50
PROVIDERS: PCP Internal Medicine; Referring Provider Internal Medicine; Visit Provider Surgery
DX: E11.621 Type 2 diabetes mellitus with foot ulcer (principal); L97.322 Non-pressure chronic ulcer of left ankle with fat layer exposed; E11.51 Type 2 diabetes mellitus with diabetic peripheral angiopathy without gangrene; M25.572 Pain in left ankle and joints of left foot
CPT/HCPCS: 11042; 87070; 87075; 87205; 99213

== ENCOUNTER → 2023-09-03 09:05 | Outpatient (CLI) | payer BC, MEDICARE, SELFPAY ==
[2023-04-12 17:14] VITALS: BMI 18.8
[2023-04-14 07:45] VITALS: PULSE 74; RESP 20; O2SAT 94
== END ==
PROVIDERS: PCP Internal Medicine; Referring Provider Internal Medicine; Visit Provider Surgery
DX: E11.621 Type 2 diabetes mellitus with foot ulcer (principal); L97.322 Non-pressure chronic ulcer of left ankle with fat layer exposed; I73.9 Peripheral vascular disease, unspecified; Z79.01 Long term (current) use of anticoagulants; I10 Essential (primary) hypertension; J44.9 Chronic obstructive pulmonary disease, unspecified
CPT/HCPCS: 11042

== ENCOUNTER → 2023-09-10 08:58 | Outpatient (CLI) | payer BC, MEDICARE, SELFPAY ==
[2023-04-12 17:14] VITALS: BMI 18.8
[2023-04-14 07:45] VITALS: PULSE 74; RESP 20; O2SAT 94
== END ==
LOC: WC 09:00
PROVIDERS: PCP Internal Medicine; Referring Provider Internal Medicine; Visit Provider Surgery
DX: L97.322 Non-pressure chronic ulcer of left ankle with fat layer exposed (principal); E11.621 Type 2 diabetes mellitus with foot ulcer; I73.9 Peripheral vascular disease, unspecified; I10 Essential (primary) hypertension; I25.10 Atherosclerotic heart disease of native coronary artery without angina pectoris; Z79.01 Long term (current) use of anticoagulants
CPT/HCPCS: 11042; 99213

== ENCOUNTER → 2023-09-17 09:45 | Outpatient (CLI) | payer BC, MEDICARE, SELFPAY ==
[2023-04-12 17:14] VITALS: BMI 18.8
[2023-04-14 07:45] VITALS: PULSE 74; RESP 20; O2SAT 94
== END ==
LOC: WC 10:14
PROVIDERS: PCP Internal Medicine; Referring Provider Internal Medicine; Visit Provider Surgery
DX: E11.621 Type 2 diabetes mellitus with foot ulcer (principal); L97.322 Non-pressure chronic ulcer of left ankle with fat layer exposed; I73.9 Peripheral vascular disease, unspecified; I10 Essential (primary) hypertension; Z79.01 Long term (current) use of anticoagulants
CPT/HCPCS: 11042

== ENCOUNTER → 2023-09-26 09:22 | Outpatient (CLI) | payer BC, MEDICARE, SELFPAY ==
[2023-04-12 17:14] VITALS: BMI 18.8
[2023-04-14 07:45] VITALS: PULSE 74; RESP 20; O2SAT 94
== END ==
LOC: WC 09:32
PROVIDERS: PCP Internal Medicine; Referring Provider Internal Medicine; Visit Provider Nurse Practitioner Family
DX: E11.621 Type 2 diabetes mellitus with foot ulcer (principal); L97.322 Non-pressure chronic ulcer of left ankle with fat layer exposed; I73.9 Peripheral vascular disease, unspecified; I10 Essential (primary) hypertension; Z79.01 Long term (current) use of anticoagulants
CPT/HCPCS: 11042; 99213

== ENCOUNTER → 2023-10-01 08:41 | Outpatient (CLI) | payer BC, MEDICARE, SELFPAY ==
[2023-04-12 17:14] VITALS: BMI 18.8
[2023-04-14 07:45] VITALS: PULSE 74; RESP 20; O2SAT 94
== END ==
LOC: WC 08:42
PROVIDERS: PCP Internal Medicine; Referring Provider Internal Medicine; Visit Provider Surgery
DX: L97.322 Non-pressure chronic ulcer of left ankle with fat layer exposed (principal); E11.621 Type 2 diabetes mellitus with foot ulcer; I73.9 Peripheral vascular disease, unspecified; Z79.01 Long term (current) use of anticoagulants
CPT/HCPCS: 11042

== ENCOUNTER → 2023-10-08 08:33 | Outpatient (CLI) | payer BC, MEDICARE, SELFPAY ==
[2023-04-12 17:14] VITALS: BMI 18.8
[2023-04-14 07:45] VITALS: PULSE 74; RESP 20; O2SAT 94
== END ==
PROVIDERS: PCP Internal Medicine; Referring Provider Internal Medicine; Visit Provider Surgery
DX: L97.322 Non-pressure chronic ulcer of left ankle with fat layer exposed (principal); I73.9 Peripheral vascular disease, unspecified; E11.621 Type 2 diabetes mellitus with foot ulcer; I10 Essential (primary) hypertension; J44.9 Chronic obstructive pulmonary disease, unspecified; Z79.01 Long term (current) use of anticoagulants
CPT/HCPCS: 11042

== ENCOUNTER → 2023-10-15 08:41 | Outpatient (CLI) | payer BC, MEDICARE, SELFPAY ==
[2023-04-12 17:14] VITALS: BMI 18.8
[2023-04-14 07:45] VITALS: PULSE 74; RESP 20; O2SAT 94
== END ==
LOC: WC 08:42
PROVIDERS: PCP Internal Medicine; Referring Provider Internal Medicine; Visit Provider Surgery
DX: E11.621 Type 2 diabetes mellitus with foot ulcer (principal); L97.322 Non-pressure chronic ulcer of left ankle with fat layer exposed; I73.9 Peripheral vascular disease, unspecified; I10 Essential (primary) hypertension; I25.10 Atherosclerotic heart disease of native coronary artery without angina pectoris; J44.9 Chronic obstructive pulmonary disease, unspecified; Z79.01 Long term (current) use of anticoagulants
CPT/HCPCS: 11042; 99213

== ENCOUNTER → 2023-10-22 09:21 | Outpatient (CLI) | payer BC, MEDICARE, SELFPAY ==
[2023-04-12 17:14] VITALS: BMI 18.8
[2023-04-14 07:45] VITALS: PULSE 74; RESP 20; O2SAT 94
== END ==
LOC: WC 09:24
PROVIDERS: PCP Internal Medicine; Referring Provider Internal Medicine; Visit Provider Surgery
DX: E11.621 Type 2 diabetes mellitus with foot ulcer (principal); L97.322 Non-pressure chronic ulcer of left ankle with fat layer exposed; I73.9 Peripheral vascular disease, unspecified; M25.572 Pain in left ankle and joints of left foot; I10 Essential (primary) hypertension; J44.9 Chronic obstructive pulmonary disease, unspecified; Z79.01 Long term (current) use of anticoagulants; Z79.2 Long term (current) use of antibiotics
CPT/HCPCS: 11042; 87070; 87075; 87077; 87205; 99213

== ENCOUNTER → 2023-10-29 09:16 | Outpatient (CLI) | payer BC, MEDICARE, SELFPAY ==
[2023-04-12 17:14] VITALS: BMI 18.8
[2023-04-14 07:45] VITALS: PULSE 74; RESP 20; O2SAT 94
== END ==
LOC: WC 09:17
PROVIDERS: PCP Internal Medicine; Referring Provider Internal Medicine; Visit Provider Surgery
DX: L97.322 Non-pressure chronic ulcer of left ankle with fat layer exposed (principal); E11.621 Type 2 diabetes mellitus with foot ulcer; I73.9 Peripheral vascular disease, unspecified; Z79.01 Long term (current) use of anticoagulants; I10 Essential (primary) hypertension; J44.9 Chronic obstructive pulmonary disease, unspecified
CPT/HCPCS: 11042

== ENCOUNTER → 2023-11-05 08:36 | Outpatient (CLI) | payer BC, MEDICARE, SELFPAY ==
[2023-04-12 17:14] VITALS: BMI 18.8
[2023-04-14 07:45] VITALS: PULSE 74; RESP 20; O2SAT 94
== END ==
LOC: WC 08:40
PROVIDERS: PCP Internal Medicine; Referring Provider Internal Medicine; Visit Provider Surgery
DX: E11.621 Type 2 diabetes mellitus with foot ulcer (principal); L97.322 Non-pressure chronic ulcer of left ankle with fat layer exposed; I73.9 Peripheral vascular disease, unspecified; I10 Essential (primary) hypertension; Z79.01 Long term (current) use of anticoagulants
CPT/HCPCS: 11042

== ENCOUNTER → 2023-11-12 08:52 | Outpatient (CLI) | payer BC, MEDICARE, SELFPAY ==
[2023-04-12 17:14] VITALS: BMI 18.8
[2023-04-14 07:45] VITALS: PULSE 74; RESP 20; O2SAT 94
== END ==
LOC: WC 08:53
PROVIDERS: PCP Internal Medicine; Referring Provider Internal Medicine; Visit Provider Surgery
DX: E11.621 Type 2 diabetes mellitus with foot ulcer (principal); L97.322 Non-pressure chronic ulcer of left ankle with fat layer exposed; L97.326 Non-pressure chronic ulcer of left ankle with bone involvement without evidence of necrosis; I73.9 Peripheral vascular disease, unspecified; Z79.01 Long term (current) use of anticoagulants; I25.10 Atherosclerotic heart disease of native coronary artery without angina pectoris; I10 Essential (primary) hypertension
CPT/HCPCS: 11042; 99213

== ENCOUNTER → 2023-11-19 08:48 | Outpatient (CLI) | payer BC, MEDICARE, SELFPAY ==
[2023-04-12 17:14] VITALS: BMI 18.8
[2023-04-14 07:45] VITALS: PULSE 74; RESP 20; O2SAT 94
== END ==
PROVIDERS: PCP Internal Medicine; Referring Provider Internal Medicine; Visit Provider Surgery
DX: E11.621 Type 2 diabetes mellitus with foot ulcer (principal); L97.322 Non-pressure chronic ulcer of left ankle with fat layer exposed; L97.326 Non-pressure chronic ulcer of left ankle with bone involvement without evidence of necrosis; I73.9 Peripheral vascular disease, unspecified; Z79.01 Long term (current) use of anticoagulants; J44.9 Chronic obstructive pulmonary disease, unspecified; I10 Essential (primary) hypertension
CPT/HCPCS: 11042; 15271; Q4101

== ENCOUNTER → 2023-11-26 08:59 | Outpatient (CLI) | payer BC, MEDICARE, SELFPAY ==
[2023-04-12 17:14] VITALS: BMI 18.8
[2023-04-14 07:45] VITALS: PULSE 74; RESP 20; O2SAT 94
== END ==
LOC: WC 09:00
PROVIDERS: PCP Internal Medicine; Referring Provider Internal Medicine; Visit Provider Surgery
DX: L97.322 Non-pressure chronic ulcer of left ankle with fat layer exposed (principal); I73.9 Peripheral vascular disease, unspecified; E11.621 Type 2 diabetes mellitus with foot ulcer; E63.9 Nutritional deficiency, unspecified; Z79.01 Long term (current) use of anticoagulants
CPT/HCPCS: 15271; Q4101

== ENCOUNTER → 2023-12-04 08:44 | Outpatient (CLI) | payer BC, MEDICARE, SELFPAY ==
[2023-04-12 17:14] VITALS: BMI 18.8
[2023-04-14 07:45] VITALS: PULSE 74; RESP 20; O2SAT 94
== END ==
LOC: WC 08:46
PROVIDERS: PCP Internal Medicine; Referring Provider Internal Medicine; Visit Provider Surgery
DX: L97.322 Non-pressure chronic ulcer of left ankle with fat layer exposed (principal); L97.326 Non-pressure chronic ulcer of left ankle with bone involvement without evidence of necrosis; I73.9 Peripheral vascular disease, unspecified; E11.621 Type 2 diabetes mellitus with foot ulcer; Z79.01 Long term (current) use of anticoagulants; E44.1 Mild protein-calorie malnutrition; I10 Essential (primary) hypertension; J44.9 Chronic obstructive pulmonary disease, unspecified
CPT/HCPCS: 15271; Q4101

== ENCOUNTER → 2023-12-08 07:19 | Outpatient (CLI) | payer BC, MEDICARE, SELFPAY ==
[2023-04-12 17:14] VITALS: BMI 18.8
[2023-04-14 07:45] VITALS: PULSE 74; RESP 20; O2SAT 94
--- NOTE | 2023-12-08 07:21 | DI.MRI.S_ITS ---
PROCEDURE: MR ANKLE LT WO/W CON INDICATIONS: Ulcers of L ankle TECHNIQUE: Noncontrast sagittal T1 spin echo and T2 fast spin echo with fat saturation, axial proton density fast spin echo and T2 fast spin echo with fat saturation, axial T1 spin echo with fat saturation, coronal T1 spin echo and T2 fast spin echo with fat saturation through the ankle/hindfoot. Post-contrast axial, coronal, and sagittal T1 spin echo with fat saturation through the ankle/hindfoot. COMPARISON: None. FINDINGS: Image quality: Excellent. Bones and joints: There is marrow edema and enhancement involving lateral malleolus without discrete fracture line. Subtle cortical thinning over lateral cortex of lateral malleolus is also seen. No other area of abnormal marrow signal or enhancement is seen. No osteochondral injuries of talar dome. Moderate midfoot and hindfoot joint osteoarthritic changes are seen. Small plantar and dorsal calcaneal enthesophytes are also noted. Small to moderate tibiotalar joint effusion is seen, no loose bodies. Medial structures: Ulceration over antral medial aspect of distal lower leg at the level of distal tibial shaft is seen with surrounding soft tissue edema and swelling. No discrete drainable peripherally enhancing fluid collection is seen. The posterior tibialis tendon is thickened at its distal insertion. The flexor digitorum longus, and flexor hallucis longus tendons are intact. The posterior tibial neurovascular bundle appears normal within the tarsal tunnel, without extrinsic mass effect. The deltoid ligament and spring ligament are grossly intact. Lateral structures: Ulceration is noted in lateral ankle joint adjacent to lateral malleolus with extensive surrounding soft tissue edema and swelling. No discrete drainable abscess collection. The anterior talofibular ligament is thickened. The calcaneofibular, and posterior talofibular ligaments appear intact. More superiorly, the anterior and posterior tibiofibular ligaments appear intact, as is the intermalleolar ligament. The tibiofibular syndesmosis is normal in width at 2 mm or less. The peroneus longus and brevis tendons are both thickened at the level of mid to distal calcaneus extending to their distal insertions. The sinus tarsi demonstrates normal fatty signal, without edema, fibrosis, or cyst formation. Visualized sinus tarsi components (cervical ligament, interosseous talocalcaneal ligament, roots of the inferior extensor retinaculum) appear normal. Anterior structures: The tibialis anterior, extensor hallucis longus, and extensor digitorum longus tendons appear intact. The dorsal talonavicular ligament appears intact. Posterior and plantar structures: Achilles tendon is intact. Medial and lateral bands of the plantar fascia are of normal thickness. Extensive edema involving visualized plantar foot muscles concerning for myositis. No intramuscular fluid collection or enhancing mass is seen. IMPRESSION: 1. Ulceration in antral medial and lateral aspect of ankle joint with extensive cellulitis throughout midfoot and hindfoot. No discrete drainable peripherally enhancing abscess collection. 2. Extensive edema involving visualized plantar foot muscles suggestive of myositis. No intramuscular abscess collection or enhancing mass. 3. Moderate midfoot and hindfoot joint osteoarthritis. Marrow edema involving lateral malleolus deep to the ulceration and show subtle cortical thinning concerning for osteomyelitis. No acute fracture or dislocation. No osteochondral injuries. Small to moderate joint effusion, no loose bodies. 4. Distal posterior tibialis tendinosis near its distal insertion. Tendinosis involving peroneus tendons at the level of mid to distal calcaneus extending to their distal insertions. No full-thickness tendon rupture. 5. Low-grade ATFL sprain. Dictated by: Hermann Padilla M.D. on 12/10/2023 at 12:32 Approved by: Hermann Padilla M.D. on 12/10/2023 at 12:41
== END ==
LOC: MRI 07:20
PROVIDERS: PCP Internal Medicine; Referring Provider Surgery; Visit Provider Surgery
DX: E11.621 Type 2 diabetes mellitus with foot ulcer (principal); L97.322 Non-pressure chronic ulcer of left ankle with fat layer exposed; L03.116 Cellulitis of left lower limb; M19.072 Primary osteoarthritis, left ankle and foot; S93.492A Sprain of other ligament of left ankle, initial encounter; R60.0 Localized edema; M25.472 Effusion, left ankle
CPT/HCPCS: 73723; A9579

== ENCOUNTER → 2023-12-10 08:42 | Outpatient (CLI) | payer BC, MEDICARE, SELFPAY ==
[2023-04-12 17:14] VITALS: BMI 18.8
[2023-04-14 07:45] VITALS: PULSE 74; RESP 20; O2SAT 94
== END ==
LOC: WC 08:43
PROVIDERS: PCP Internal Medicine; Referring Provider Internal Medicine; Visit Provider Surgery
DX: L97.322 Non-pressure chronic ulcer of left ankle with fat layer exposed (principal); L97.326 Non-pressure chronic ulcer of left ankle with bone involvement without evidence of necrosis; E11.621 Type 2 diabetes mellitus with foot ulcer; R60.0 Localized edema; I73.9 Peripheral vascular disease, unspecified; Z79.01 Long term (current) use of anticoagulants; I10 Essential (primary) hypertension; J44.9 Chronic obstructive pulmonary disease, unspecified
CPT/HCPCS: 11042; 99213

== ENCOUNTER → 2023-12-19 09:53 | Outpatient (CLI) | payer BC, MEDICARE, SELFPAY ==
[2023-04-12 17:14] VITALS: BMI 18.8
[2023-04-14 07:45] VITALS: PULSE 74; RESP 20; O2SAT 94
== END ==
PROVIDERS: PCP Internal Medicine; Referring Provider Internal Medicine; Visit Provider Surgery
DX: E11.621 Type 2 diabetes mellitus with foot ulcer (principal); L97.322 Non-pressure chronic ulcer of left ankle with fat layer exposed; L97.326 Non-pressure chronic ulcer of left ankle with bone involvement without evidence of necrosis; I73.9 Peripheral vascular disease, unspecified; Z79.01 Long term (current) use of anticoagulants; I10 Essential (primary) hypertension; I25.10 Atherosclerotic heart disease of native coronary artery without angina pectoris
CPT/HCPCS: 11042; 99212; 99213

== ENCOUNTER → 2023-12-24 08:52 | Outpatient (CLI) | payer BC, MEDICARE, SELFPAY ==
[2023-04-12 17:14] VITALS: BMI 18.8
[2023-04-14 07:45] VITALS: PULSE 74; RESP 20; O2SAT 94
== END ==
LOC: WC 08:53
PROVIDERS: PCP Internal Medicine; Referring Provider Internal Medicine; Visit Provider Surgery
DX: E11.621 Type 2 diabetes mellitus with foot ulcer (principal); L97.322 Non-pressure chronic ulcer of left ankle with fat layer exposed; L97.326 Non-pressure chronic ulcer of left ankle with bone involvement without evidence of necrosis; I73.9 Peripheral vascular disease, unspecified; Z79.01 Long term (current) use of anticoagulants; L53.9 Erythematous condition, unspecified
CPT/HCPCS: 11042; 87070; 87075; 87077; 87186; 87205

== ENCOUNTER → 2023-12-31 09:55 | Outpatient (CLI) | payer BC, MEDICARE, SELFPAY ==
[2023-04-12 17:14] VITALS: BMI 18.8
[2023-04-14 07:45] VITALS: PULSE 74; RESP 20; O2SAT 94
== END ==
LOC: WC 10:08
PROVIDERS: PCP Internal Medicine; Referring Provider Internal Medicine; Visit Provider Surgery
DX: E11.621 Type 2 diabetes mellitus with foot ulcer (principal); L97.322 Non-pressure chronic ulcer of left ankle with fat layer exposed; L97.326 Non-pressure chronic ulcer of left ankle with bone involvement without evidence of necrosis; L97.222 Non-pressure chronic ulcer of left calf with fat layer exposed; I73.9 Peripheral vascular disease, unspecified; R23.3 Spontaneous ecchymoses; L53.9 Erythematous condition, unspecified; Z79.01 Long term (current) use of anticoagulants
CPT/HCPCS: 11042; 99213

== ENCOUNTER → 2024-01-07 09:04 | Outpatient (CLI) | payer BC, MEDICARE, SELFPAY ==
[2024-01-02 10:38] VITALS: PULSE 74; RESP 20; O2SAT 94; BMI 18.8
== END ==
LOC: WC 09:06
PROVIDERS: PCP Internal Medicine; Referring Provider Internal Medicine; Visit Provider Surgery
DX: L97.322 Non-pressure chronic ulcer of left ankle with fat layer exposed (principal); L97.222 Non-pressure chronic ulcer of left calf with fat layer exposed; I73.9 Peripheral vascular disease, unspecified; E11.621 Type 2 diabetes mellitus with foot ulcer; L97.326 Non-pressure chronic ulcer of left ankle with bone involvement without evidence of necrosis; L53.9 Erythematous condition, unspecified; R23.3 Spontaneous ecchymoses; M79.662 Pain in left lower leg; Z79.01 Long term (current) use of anticoagulants
CPT/HCPCS: 11042

== ENCOUNTER → 2024-01-14 09:30 | Outpatient (CLI) | payer BC, MEDICARE, SELFPAY ==
[2024-01-02 10:38] VITALS: PULSE 74; RESP 20; O2SAT 94; BMI 18.8
== END ==
PROVIDERS: PCP Internal Medicine; Referring Provider Internal Medicine; Visit Provider Surgery
DX: E11.621 Type 2 diabetes mellitus with foot ulcer (principal); L97.322 Non-pressure chronic ulcer of left ankle with fat layer exposed; L97.326 Non-pressure chronic ulcer of left ankle with bone involvement without evidence of necrosis; L97.222 Non-pressure chronic ulcer of left calf with fat layer exposed; I73.9 Peripheral vascular disease, unspecified; Z79.01 Long term (current) use of anticoagulants; M79.662 Pain in left lower leg; L53.9 Erythematous condition, unspecified; R23.3 Spontaneous ecchymoses; R60.0 Localized edema
CPT/HCPCS: 11042; 11045; 87070; 87077; 87186; 87205; 99213

== ENCOUNTER → 2024-01-19 07:32 | Outpatient (CLI) | payer BC, MEDICARE, SELFPAY ==
[2024-01-02 10:38] VITALS: PULSE 74; RESP 20; O2SAT 94; BMI 18.8
--- NOTE | 2024-01-19 07:39 | DI.RAD.S_ITS ---
PROCEDURE: XR CHEST 2V INDICATIONS: Evaluate for HBO treatment TECHNIQUE: 2 views of the chest were acquired. COMPARISON: [facility], , XR CHEST 1V, 04/14/2023, 8:43. [facility], CR, XR CHEST 1V, 04/13/2023, 8:32. FINDINGS: Surgical changes and devices: Partially visualized surgical fusion hardware of the lumbar spine. Lungs and pleura: Retrocardiac opacity present. No pleural effusion. Mediastinum: Mediastinal contours are normal. Heart size is normal. Bones and chest wall: No suspicious bony abnormalities. Soft tissues appear unremarkable. IMPRESSION: Retrocardiac opacity could represent infection or atelectasis. Dictated by: Rambo Liu M.D. on 01/19/2024 at 14:05 Approved by: Rambo Liu M.D. on 01/19/2024 at 14:06
== END ==
PROVIDERS: PCP Internal Medicine; Referring Provider Surgery; Visit Provider Surgery
DX: E11.622 Type 2 diabetes mellitus with other skin ulcer (principal)
CPT/HCPCS: 71046

== ENCOUNTER → 2024-01-21 09:02 | Outpatient (CLI) | payer BC, MEDICARE, SELFPAY ==
[2024-01-02 10:38] VITALS: PULSE 74; RESP 20; O2SAT 94; BMI 18.8
== END ==
PROVIDERS: PCP Internal Medicine; Referring Provider Internal Medicine; Visit Provider Surgery
DX: E11.621 Type 2 diabetes mellitus with foot ulcer (principal); L97.322 Non-pressure chronic ulcer of left ankle with fat layer exposed; L97.222 Non-pressure chronic ulcer of left calf with fat layer exposed; I73.9 Peripheral vascular disease, unspecified; R60.0 Localized edema; R23.3 Spontaneous ecchymoses; L53.9 Erythematous condition, unspecified; Z79.01 Long term (current) use of anticoagulants; I25.10 Atherosclerotic heart disease of native coronary artery without angina pectoris; I10 Essential (primary) hypertension
CPT/HCPCS: 11042; 11045; 99213

== ENCOUNTER → 2024-01-22 08:37 | Outpatient (CLI) | payer BC, MEDICARE, SELFPAY ==
[2024-01-02 10:38] VITALS: PULSE 74; RESP 20; O2SAT 94; BMI 18.8
== END ==
PROVIDERS: PCP Internal Medicine; Referring Provider Internal Medicine; Visit Provider Surgery
DX: L97.322 Non-pressure chronic ulcer of left ankle with fat layer exposed (principal); I73.9 Peripheral vascular disease, unspecified; E11.621 Type 2 diabetes mellitus with foot ulcer; M86.172 Other acute osteomyelitis, left ankle and foot; L97.222 Non-pressure chronic ulcer of left calf with fat layer exposed
CPT/HCPCS: 99183; G0277

== ENCOUNTER 2024-01-22 17:02 | Inpatient (IN) | payer BC, MEDICARE, SELFPAY ==
[2024-01-02 10:38] VITALS: PULSE 74; RESP 20; O2SAT 94; BMI 18.8
[2024-01-22] VITALS (33 sets, daily range): BP systolic 163–208; BP diastolic 70–95; PULSE 83–156; RESP 16–34; TEMP 37.1; O2SAT 83–99; BMI 19.6; BMI 18.5
--- NOTE | 2024-01-22 17:15 | DI.CT.S_ITS ---
PROCEDURE: CT ANGIO CHEST PE PROTOCOL INDICATIONS: respiratory distress TECHNIQUE: After the administration of intravenous contrast, 2 mm thick sections acquired from the pulmonary apices to the posterior costophrenic angles. 3-dimensional maximum intensity projection (MIP) coronal and sagittal reformats were then acquired through the thorax. For radiation dose reduction, the following was used: automated exposure control, adjustment of mA and/or kV according to patient size. COMPARISON: [facility], CT, CT ABDOMEN PELVIS W CON, 01/22/2024, 18:07. [facility], CT, CT LOW DOSE LUNG CA SCREENING, 02/18/2022, 11:35. [facility], CR, XR CHEST 1V, 01/22/2024, 17:33. [facility], CT, CT ANGIO CHEST, 06/01/2020, 10:46. FINDINGS: Image quality: Portions of the spine are suboptimally evaluated secondary to metallic streak artifact from spinal fusion hardware. Pulmonary arteries: Pulmonary arteries are normal in size, and demonstrate no intraluminal filling defects to suggest central pulmonary embolism. Lower Neck: No enlarged lymph nodes. Thyroid: No thyroid nodules which require sonographic follow up, per consensus guidelines. Axillae: No enlarged lymph nodes. Chest Wall: Unremarkable. Bones: Unremarkable. Lungs and Pleura: No pneumothorax or pleural effusions. No consolidation or suspicious nodules. Emphysematous changes are present. Heart: Heart size is normal. No pericardial effusion. Thoracic Vessels: No aortic aneurysm. Mediastinum and Berenice: No enlarged lymph nodes. Esophagus: No wall thickening. No hiatal hernia. Upper Abdomen: Visualized upper abdomen solid organs and bowel loops appear normal. IMPRESSION: No pulmonary embolus. No acute cardiopulmonary process. Dictated by: Jewell Monahan M.D. on 01/22/2024 at 19:10 Approved by: Jewell Monahan M.D. on 01/22/2024 at 19:13
--- NOTE | 2024-01-22 17:15 | EKG_ITS ---
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 Electronically Signed On 01-23-2024 8:21:32 PDT by Cesario Momin
--- NOTE | 2024-01-22 17:15 | DI.RAD.S_ITS ---
PROCEDURE: XR CHEST 1V INDICATIONS: acute resp distress TECHNIQUE: One view of the chest was acquired. COMPARISON: [facility], CR, XR CHEST 2V, 01/19/2024, 8:03. FINDINGS: Surgical changes and devices: Partially visualized thoracolumbar fixation rods. Lungs and pleura: Less prominent appearance of retrocardiac opacity when compared to prior exam. Minimal interstitial prominence, stable. Mediastinum: Mediastinal contours appear normal. Heart size is enlarged. Bones and chest wall: No suspicious bony lesions. Overlying soft tissues appear unremarkable. IMPRESSION: No definitive consolidations. Minimal interstitial prominence which could represent edema or less likely interstitial pneumonia. Dictated by: Jewell Monahan M.D. on 01/22/2024 at 18:28 Approved by: Jewell Monahan M.D. on 01/22/2024 at 18:28
[2024-01-22] MEDS: ALBUTEROL/IPRATROPIUM 3 ML AMPUL INH ×2 (17:16→22:32)
[2024-01-22] MEDS: methylPREDNISolone 125 MG/2 ML VIAL IV (17:20)
[2024-01-22] MEDS: ASPIRIN 81 MG CHEW TAB 324 MG PO (17:20)
[2024-01-22] MEDS: SODIUM CHLORIDE 0.9% 1,000 ML 1000 ML IV (17:27)
[2024-01-22 17:31] LABS: Add Manual Diff / Slide Review NO; Basophils Absolute Auto 0 /uL (0-100); Basophils Percent Auto 0.3 % (0-2); Eosinophils Absolute Auto 0 /uL (0-450); Hematocrit 25.1 % (41-53); Hemoglobin 8.4 g/dL (13.5-17.5); Lymphocytes Absolute Auto 1200 /uL (1100-4500); Lymphocytes Percent Auto 9.4 % (25-40); Mean Corpuscular HGB Conc 33.3 % (30-36); Mean Corpuscular Hemoglobin 31.4 PG (26-34); Mean Corpuscular Volume 94.4 fL (80-100); Monocytes Absolute Auto 900 /uL (0-900); Monocytes Percent Auto 7.1 % (3-14); Neutrophils Absolute Auto 10300 /uL (1500-7000); Neutrophils Percent Auto 83.2 % (50-75); Platelet Count 364 X10^3/uL (150-400); Red Blood Cell Count 2.66 X10^6/uL (4.5-5.9); Red Cell Distribution Width 15.4 % (11.6-14.8); White Blood Cell Count 12.4 X10^3/uL (4.5-11.0)
[2024-01-22] MEDS: ALBUTEROL 2.5 MG/3 ML NEB (ADULT) 5 MG INH ×3 (17:45→18:27)
[2024-01-22 17:51] LABS: Alanine Aminotransferase 24 IU/L (<50); Albumin 3.7 g/dL (3.5-5.0); Albumin Globulin Ratio 1.5 (1.0-2.8); Alkaline Phosphatase 74 U/L (38-126); Aspartate Aminotransferase 34 IU/L (17-59); BUN Creatinine Ratio 29.8 (6-22); Bilirubin Total 0.3 mg/dL (0.2-1.3); Blood Urea Nitrogen 54 mg/dL (9-20); Calcium 8.4 mg/dL (8.4-10.2); Carbon Dioxide 32 mmol/L (22-32); Chloride 92 mmol/L (98-107); Estimated Glomerular Filt Rate 41 mL/min (>60); Globulin 2.4 g/dL (1.7-4.1); Glucose 102 mg/dL (80-110); HEMOLYSIS < 15 (0-50); Lipase 74 U/L (23-300); Magnesium 2.4 mg/dL (1.6-2.3); Potassium 5.2 mmol/L (3.4-5.1); Sodium 128 mmol/L (137-145); Total Protein 6.1 g/dL (6.3-8.2)
[2024-01-22 17:52] LABS: Lactate (Lactic Acid) 0.8 mmol/L (0.7-2.1)
--- NOTE | 2024-01-22 18:03 | DI.CT.S_ITS ---
PROCEDURE: CT HEAD/BRAIN WO CON INDICATIONS: off balance TECHNIQUE: Noncontrast 4.5 mm thick angled axial sections acquired from the foramen magnum to the vertex, with coronal and sagittal reformats. For radiation dose reduction, the following was used: automated exposure control, adjustment of mA and/or kV according to patient size. COMPARISON: CT, CT HEAD WITHOUT CONTRAST, 09/13/2020, 19:11. [facility], CT, HEAD WITHOUT CONTRAST, 04/11/2017, 7:39. FINDINGS: Image quality: Diagnostic. CSF spaces: Basal cisterns are patent. No extra-axial fluid collections. Ventricles are normal in size and shape. Brain: No midline shift. No intracranial masses or hemorrhage. Najera-white matter interface is normal. Low-attenuation the right parietal occipital lobe unchanged consistent with prior infarction. Skull and face: Calvarium and visualized facial bones are intact, without suspicious lesions. Sinuses: Visualized sinuses demonstrate prominent mucosal thickening in the left maxillary sinus. IMPRESSION: No acute intracranial pathology. Dictated by: Jewell Monahan M.D. on 01/22/2024 at 19:09 Approved by: Jewell Monahan M.D. on 01/22/2024 at 19:10
--- NOTE | 2024-01-22 18:03 | DI.CT.S_ITS ---
PROCEDURE: CT ABDOMEN PELVIS W CON INDICATIONS: pain hx of sbo TECHNIQUE: After the administration of intravenous contrast, axial sections acquired from the lung bases to the pubic symphysis. Coronal and sagittal reformats were performed. For radiation dose reduction, the following was used: automated exposure control, adjustment of mA and/or kV according to patient size. COMPARISON: [facility], CT, CT ABDOMEN PELVIS W CON, 04/12/2023, 11:34. FINDINGS: Image quality: Portions of the spine/pelvis are suboptimally evaluated secondary to metallic streak artifact from spinal fusion hardware. In addition, motion is present limiting areas of fine detail evaluation. Lower Chest: No significant findings. ABDOMEN: Liver: No solid mass. Liver measures 18.5 cm. Gallbladder: Removed Biliary ducts: No biliary dilation. Pancreas: No ductal dilation. Spleen: Size is within normal limits. Adrenal Glands: No adrenal nodules. Kidneys and Ureters: No hydronephrosis. No solid mass. No complex renal cystic lesion which requires follow up. Stomach and Bowel: Normal colonic caliber, without significant wall thickening. Scattered colonic stool. Peritoneum: No abnormal intraperitoneal fluid. No free air. Ventral Wall: No significant ventral hernia. Abdominal Nodes: No retroperitoneal or mesenteric adenopathy by size criteria. Vessels: Aorta and inferior vena cava are normal in size. PELVIS: Pelvic Organs: Unremarkable. Bladder: No bladder wall thickening, accounting for underdistention. Pelvic Nodes: No enlarged lymph nodes. Miscellaneous: No inguinal hernias are seen. Bones: No aggressive osseous abnormality. L2 through L5 fusion. Multilevel degenerative changes. IMPRESSION: No visualized acute intra-abdominal or pelvic process. No obstruction. Dictated by: Jewell Monahan M.D. on 01/22/2024 at 19:13 Approved by: Jewell Monahan M.D. on 01/22/2024 at 19:15
[2024-01-22 18:04] LABS: Appearance Urine UA CLEAR; Bilirubin Urine UA NEGATIVE (NEGATIVE); Color Urine UA YELLOW; Glucose Urine UA NEGATIVE (Negative); Ketones Urine UA NEGATIVE (NEGATIVE); Nitrite Urine UA NEGATIVE (Negative); Occult Blood Urine UA NEGATIVE (Negative); Urobilinogen Urine UA 0.2 E.U./dL (0.2)
[2024-01-22 18:04] LABS: NT-proBNP (BNP-Adult 18+) 3570 pg/mL (<125); Troponin I 0.015 ng/mL (0.01-0.034)
[2024-01-22 18:08] LABS: Procalcitonin 0.199 ng/mL (<0.5)
[2024-01-22] MEDS: MAGNESIUM SULFATE 2 GM/50 ML PIGGYBACK IV (18:09)
[2024-01-22 18:12] LABS: RBC Urine None Seen (0-5/HPF); Urine Volume 10mL (spun)
[2024-01-22 18:13] LABS: Squamous Epithelial Cell Urine 0-1 /HPF (0-5/HPF)
[2024-01-22 18:14] LABS: Base Excess ABG 7.4 mmol/L (-2-3); PCO2 ABG 58.5 mmHg (35-45); PO2 ABG 68 mmHg (80-100); pH ABG 7.37 (7.35-7.45)
[2024-01-22 18:15] LABS: Delivery System NC; Fractionated Inspired Oxygen 32; HCO3 ABG 34 mmol/L (23-27); Oxygen Saturation ABG 92 % (95-100); TCO2 ABG 34 mmol/L (23-27)
[2024-01-22 18:16] LABS: Leukocyte Esterase Urine UA NEGATIVE (NEGATIVE); Protein Urine UA 3+ (Negative); Specific Gravity Urine UA 1.015 (1.000-1.035); pH Urine UA 6.5 (4.5-8.0)
--- NOTE | 2024-01-22 18:16 | ED.SOB ---
HPI - SOB/Dyspnea General Chief Complaint: Shortness of Breath/Dyspnea Stated Complaint: fellx3 Time Seen by Provider: 01/22/24 17:03 Source: patient Mode of arrival: Wheelchair History of Present Illness HPI Narrative: Is a 68-year-old male history of COPD on 3 L of oxygen at home, hypertension diabetes with right leg amputation secondary to peripheral vascular disease, prior stroke, history of small-bowel obstructions with intubation presenting today with increasing shortness of breath. He has chronic wounds on his left leg for which he went to wound care and hyperbaric therapy today and had increased sudden onset shortness of breath. He is having some chest pain. He also reports some off balance issues stating that he just keeps falling out of his chair he has some chest pain. No fever. He has an obvious respiratory distress upon arrival. He reports he does not tolerate BiPAP previously was intubated but does not do well with fentanyl. Last time he was ultimately transferred up to [facility] Related Data Home Medications Medication Instructions Recorded Confirmed C-Ketam 1 applic topical TID 06/11/18 01/22/24 ascorbic acid (vitamin C) 1,000 mg 1 g PO BID 06/11/18 01/22/24 tablet cholecalciferol (vitamin D3) 10 400 unit PO QPM 06/11/18 01/22/24 mcg (400 unit) capsule (Vitamin D3) lidocaine 5 % topical patch 2 patch topical DAILY 06/11/18 01/22/24 nitroglycerin 0.4 mg sublingual 0.4 mg sublingual Q5-15M PRN Chest 06/11/18 01/22/24 tablet (Nitrostat) Pain azithromycin 250 mg tablet 250 mg PO .tiw 10/18/20 01/22/24 clonidine HCl 0.3 mg tablet 0.3 mg PO TID 10/18/20 01/22/24 lorazepam 1 mg tablet 1 mg PO BID PRN panic attacks 10/18/20 01/22/24 ferrous sulfate 325 mg (65 mg 65 mg PO 3XW 02/13/23 01/22/24 iron) tablet,delayed release hydralazine 50 mg tablet 100 mg PO TID 02/13/23 01/22/24 losartan 100 mg tablet 50 mg PO BEDTIME 02/13/23 01/22/24 montelukast 10 mg tablet 10 mg PO BEDTIME 02/13/23 01/22/24 oxybutynin chloride 10 mg 10 mg PO DAILY 02/13/23 01/22/24 tablet,extended release 24 hr red beet root 250 mg-sour alvarez 2 tab PO DAILY 02/13/23 01/22/24 extract 0.5 mg chewable tablet oxycodone 10 mg tablet,crush 10 mg PO BID PRN PAIN 04/12/23 01/22/24 resistant,extended release 12 hr (OxyContin) trazodone 100 mg tablet 150 mg PO QPM 04/12/23 01/22/24 furosemide 40 mg tablet 40 mg PO BID 11/16/23 01/22/24 activated [id number] 01/22/24 01/22/24 bandage (ThermaCare HeatWrap Back-Hip L-XL bandage) aspirin 81 mg capsule 81 mg PO DAILY 01/22/24 01/22/24 budesonide 1 mg/2 mL suspension 1 mg inhalation BID 01/22/24 01/22/24 for nebulization calcium 500 mg tablet 500 mg PO BID 01/22/24 01/22/24 coQ10 (ubiquinol) 100 mg capsule 100 mg PO DAILY 01/22/24 01/22/24 (Qunol Jarred CoQ10) cyanocobalamin (vitamin B-12) See Rx Instructions .Route .COMPLEX 01/22/24 01/22/24 1,000 mcg tablet (Vitamin B-12) doxycycline hyclate 100 mg capsule 100 mg PO BID 01/22/24 01/22/24 evolocumab 140 mg/mL subcutaneous 140 mg SUBCUT Q2W 01/22/24 01/22/24 pen injector (Pedro Pablo Pfeiffer) folic acid 1 mg tablet 1 mg PO DAILY 01/22/24 01/22/24 insulin glargine-yfgn 100 unit/mL 14 unit SUBCUT DAILY 01/22/24 01/22/24 (3 mL) subcutaneous pen levothyroxine 200 mcg tablet 200 mcg PO DAILY 01/22/24 01/22/24 magnesium 500 mg tablet 1,000 mg PO BEDTIME 01/22/24 01/22/24 omega 3-nrz-aek-fish oil 900 1 cap PO DAILY 01/22/24 01/22/24 mg-1,400 mg capsule,delayed release (Fish Oil) sennosides 8.6 mg-docusate sodium 1 tab-cap PO BEDTIME 01/22/24 01/22/24 50 mg tablet (Senokot-S) sertraline 100 mg tablet 100 mg PO BEDTIME 01/22/24 01/22/24 tamsulosin 0.4 mg capsule 0.4 mg PO BEDTIME 01/22/24 01/22/24 Previous Rx's Medication Instructions Recorded benralizumab 30 mg/mL subcutaneous 30 mg SUBCUT Q8W #1 mL 07/24/23 auto-injector ipratropium 0.5 mg-albuterol 3 mg 3 ml inhalation Q6H #1,080 mL 10/31/23 (2.5 mg base)/3 mL nebulization soln Brovana 15 mcg/2 mL solution for 2 ml inhalation BID #120 mL 01/10/24 nebulization (arformoterol) Allergies Allergy/AdvReac Type Severity Reaction Status Date / Time doxazosin [DOXAZOSIN] Allergy Severe swelling Verified 01/22/24 17:17 bempedoic acid Allergy Verified 01/22/24 17:17 [From Nexletol] gabapentin Allergy Verified 01/22/24 17:17 spironolactone Allergy Verified 01/22/24 17:17 Latex, Natural Rubber AdvReac Intermediate Blister Verified 01/22/24 17:17 varenicline [From CHANTIX] AdvReac Mild aggitation Verified 01/22/24 17:17 atorvastatin [ATORVASTATIN] AdvReac Unknown MUSCLE ACHE Verified 01/22/24 17:17 carvedilol [CARVEDILOL] AdvReac Unknown DIZZINESS Verified 01/22/24 17:17 lisinopril [LISINOPRIL] AdvReac Unknown COUGH Verified 01/22/24 17:17 morphine AdvReac Unknown GOES Verified 01/22/24 17:17 CRAZY fentanyl AdvReac Agitated Verified 01/22/24 17:17 Patient History Medical History Acute on chronic respiratory failure with hypoxia 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 Insomnia due to medical condition Centrilobular emphysema CAD (coronary artery disease) (05/11/17) Cerebrovascular accident (CVA) due to stenosis of right posterior cerebral artery (05/28/17) Chronic hypoxemic respiratory failure (08/24/20) Family history of coronary artery disease (05/11/17) PVD (peripheral vascular disease) (05/11/17) Rectal bleeding (05/28/17) Statin intolerance (05/28/17) Nocturnal hypoxemia Fatigue due to sleep pattern disturbance Obstructive sleep apnea, adult Periodic limb movement disorder (PLMD) Hyperlipidemia COPD exacerbation Hypothyroidism HTN (hypertension) 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) Former smoker (08/25/15) Chronic pain syndrome (08/25/15) Surgical History History of eye surgery S/P hernia repair History of spinal surgery (08/25/15) Fusion of spine of thoracolumbar region (08/25/15) Fusion of spine, thoracolumbar region Family History Family/Other Heart disease Father Heart disease Mother Loud snoring Obesity Hypertension Depression Dementia Other Family history of coronary artery disease Social History household members: spouse and family Smoking Status: Former smoker alcohol intake: never Smoking Status: Former smoker alcohol intake frequency: a few times a week Substance Use Type: does not use Exam Initial Vital Signs Initial Vital Signs: Vital Signs Temperature 98.7 F 01/22/24 17:13 Pulse Rate 89 01/22/24 17:13 Respiratory Rate 32 H 01/22/24 17:13 Blood Pressure 179/74 H 01/22/24 17:13 Pulse Oximetry 83 L 01/22/24 17:13 Oxygen Delivery Method Nasal Cannula 01/22/24 17:13 Oxygen Flow Rate 3 01/22/24 17:13 GENERAL: Pale 68-year-old male appears in acute respiratory distress, currently on high-flow HEENT: Head atraumatic,EOMI, pupils reactive, face symmetric, [moist] mucous membranes [EARS:] [Tympanic membranes visualized, no erythema or bulging, no hemotympanum] CARDIOVASCULAR: Regular rate and rhythm without murmurs, rubs or gallops. RESPIRATORY: Significant decreased breath sounds bilaterally minimal wheeze ABDOMEN: Soft, nontender. Normoactive bowel sounds all 4 quadrants. No guarding or rebound. EXTREMITIES: Normal range of motion, no clubbing or edema. Neurovascularly intact NEUROLOGICAL: Alert and oriented x4. Moving extremities SKIN: Chronic wounds on left lower leg Course Orders Ordered: ED Orders 01/22/24 17:34 Urinalysis and Microscopic Stat 01/22/24 17:58 Respiratory Panel (Film Array) Stat 01/22/24 18:03 CT abdomen pelvis w con Stat CT head/brain wo con Stat 01/22/24 19:38 CMP [Comprehensive Metabolic Panel] Stat MAG [Magnesium] Stat Trop I [Troponin I] Stat Acetaminophen (Acetaminophen 325 Mg Tablet) 650 mg PO Q6H PRN PRN Reason: Fever/Mild Pain (1-3) Albuterol (Albuterol 2.5 Mg/3 Ml Neb (Adult)) 2.5 mg INH [id number] PRN PRN Reason: Shortness Of Breath Last Admin: 01/22/24 22:31 Dose: 2.5 mg Documented By: Albuterol/Ipratropium (Albuterol/Ipratropium 3 Ml Ampul) 3 ml INH Q6H NAVARRO Last Admin: 01/22/24 22:32 Dose: 3 ml Documented By: Clonidine HCl (Clonidine 0.1 Mg Tablet) 0.3 mg PO TID NAVARRO Enoxaparin Sodium (Enoxaparin 40 Mg/0.4 Ml Syringe) 40 mg SUBCUT DAILY NAVARRO Furosemide (Furosemide 40 Mg Tablet) 40 mg PO BID NAVARRO Hydralazine HCl (Hydralazine 25 Mg Tablet) 100 mg PO TID NAVARRO Levothyroxine Sodium (Levothyroxine 100 Mcg Tablet) 100 mcg PO 0600 NAVARRO Levothyroxine Sodium (Levothyroxine 75 Mcg Tablet) 75 mcg PO 0600 NAVARRO Lorazepam (Lorazepam 1 Mg Tablet) 0.5 mg PO DAILY PRN PRN Reason: Panic Attack(S) Last Admin: 01/22/24 22:36 Dose: 0.5 mg Documented By: [facility] Methylprednisolone (Methylprednisolone 125 Mg/2 Ml Vial) 60 mg IV Q12H NAVARRO Montelukast Sodium (Montelukast 10 Mg Tablet) 10 mg PO BEDTIME NAVARRO Naloxone HCl (Naloxone 0.4 Mg/Ml Vial) 0.2 mg IV Q2MIN PRN PRN Reason: Opiate Reversal Nitroglycerin (Nitroglycerin 0.4 Mg Sl Tab) 0.4 mg SL Q5MIN PRN PRN Reason: chest pain Pantoprazole Sodium (Pantoprazole 40 Mg Vial) 40 mg IV DAILY NAVARRO Last Admin: 01/22/24 22:36 Dose: 40 mg Documented By: ELLIOT Sertraline HCl (Sertraline 50 Mg Tablet) 150 mg PO BEDTIME NAVARRO Sodium Chloride (Sodium Chloride 0.9% Flush) 10 ml IV PRN PRN PRN Reason: Flush Sodium Chloride (Sodium Chloride 0.9% Flush) 10 ml IV BID NAVARRO Discontinued Medications Albuterol (Albuterol 2.5 Mg/3 Ml Neb (Adult)) 5 mg INH NOW ONE Stop: 01/22/24 17:33 Last Admin: 01/22/24 17:45 Dose: 5 mg Documented By: TIERNEY Albuterol (Albuterol 2.5 Mg/3 Ml Neb (Adult)) 5 mg INH NOW ONE Stop: 01/22/24 18:11 Last Admin: 01/22/24 18:08 Dose: 5 mg Documented By: TIERNEY Albuterol (Albuterol 2.5 Mg/3 Ml Neb (Adult)) 5 mg INH NOW ONE Stop: 01/22/24 18:21 Last Admin: 01/22/24 18:27 Dose: 5 mg Documented By: TIERNEY Albuterol/Ipratropium (Albuterol/Ipratropium 3 Ml Ampul) 3 ml INH NOW ONE Stop: 01/22/24 17:14 Last Admin: 01/22/24 17:16 Dose: 3 ml Documented By: TIERNEY Aspirin (Aspirin 81 Mg Chew Tab) 324 mg PO NOW ONE Stop: 01/22/24 17:14 Last Admin: 01/22/24 17:20 Dose: 324 mg Documented By: ADALGISA Furosemide (Furosemide 40 Mg/4 Ml Vial) 40 mg IV NOW ONE Stop: 01/22/24 18:10 Last Admin: 01/22/24 18:46 Dose: 40 mg Documented By: Hydromorphone HCl (Hydromorphone 0.5 Mg Inj) 0.5 mg IV NOW ONE Stop: 01/22/24 19:12 Last Admin: 01/22/24 19:15 Dose: 0.5 mg Documented By: Sodium Chloride (Normal Saline 0.9%) 1,000 mls @ 1,000 mls/hr IV BOLUS ONE Stop: 01/22/24 18:12 Last Infusion: 01/22/24 18:20 Dose: Infused Documented By: Admin: 01/22/24 17:27 Dose: 1,000 mls/hr Documented By: SB Sodium Chloride (Normal Saline 0.9%) 1,000 mls @ 125 mls/hr IV CONT NAVARRO Magnesium Sulfate (Magnesium Sulfate) 2 gm in 50 mls @ 150 mls/hr IV NOW ONE Stop: 01/22/24 18:22 Last Infusion: 01/22/24 18:29 Dose: Infused Documented By: Co-signed By: GC Admin: 01/22/24 18:09 Dose: 150 mls/hr Documented By: Co-signed By: NATACHA Piperacillin Sod/Tazobactam (Sod 4.5 gm/ Sodium Chloride) 100 mls @ 200 mls/hr IV NOW ONE Stop: 01/22/24 19:37 Last Infusion: 01/22/24 20:24 Dose: Infused Documented By: Admin: 01/22/24 19:50 Dose: 200 mls/hr Documented By: Lidocaine HCl (Lidocaine 2% (Glydo) 6 Ml Gel) 6 ml TOP NOW ONE Stop: 01/22/24 18:19 Last Admin: 01/22/24 18:45 Dose: 6 ml Documented By: Lorazepam (Lorazepam 2 Mg/Ml Inj) 0.5 mg IV NOW ONE Stop: 01/22/24 19:54 Last Admin: 01/22/24 20:05 Dose: 0.5 mg Documented By: Methylprednisolone (Methylprednisolone 125 Mg/2 Ml Vial) 125 mg IV NOW ONE Stop: 01/22/24 17:16 Last Admin: 01/22/24 17:20 Dose: 125 mg Documented By: [facility] Non-Formulary Medication (Levothyroxine) 175 mcg PO DAILY NAVARRO Vital Signs Vital signs: Vital Signs - 8 hr 01/22/24 18:45 01/22/24 19:00 01/22/24 19:04 Pulse Rate 86 92 H 92 H Respiratory Rate 20 24 22 Blood Pressure 172/70 H Pulse Oximetry 93 90 L Oxygen Delivery Method High Flow Nasal Cannula Oxygen Flow Rate 01/22/24 19:15 01/22/24 19:45 01/22/24 20:00 Pulse Rate 92 H 92 H 93 H Respiratory Rate 22 21 22 Blood Pressure 163/74 H 177/79 H 174/80 H Pulse Oximetry 89 L 89 L 89 L Oxygen Delivery Method High Flow Nasal Cannula High Flow Nasal Cannula High Flow Nasal Cannula Oxygen Flow Rate 50 50 01/22/24 20:05 01/22/24 20:11 01/22/24 20:15 Pulse Rate 93 H 92 H 92 H Respiratory Rate 22 24 20 Blood Pressure 170/79 H 170/79 H Pulse Oximetry 85 L 93 94 Oxygen Delivery Method High Flow Nasal Cannula High Flow Nasal Cannula Oxygen Flow Rate 50 50 01/22/24 20:30 01/22/24 20:45 01/22/24 21:00 Pulse Rate 94 H 96 H 100 H Respiratory Rate 23 26 H 34 H Blood Pressure 168/78 H 196/95 H 208/88 H Pulse Oximetry 95 94 88 L Oxygen Delivery Method High Flow Nasal Cannula High Flow Nasal Cannula Oxygen Flow Rate 50 50 01/22/24 21:15 Pulse Rate 96 H Respiratory Rate 23 Blood Pressure 198/88 H Pulse Oximetry 97 Oxygen Delivery Method High Flow Nasal Cannula Oxygen Flow Rate 50 MDM - SOB/Dyspnea Lab Data 01/22/24 17:15 01/22/24 19:38 Labs: Lab Results 01/22/24 01/22/24 01/22/24 Range/Units 17:15 17:18 17:28 WBC 12.4 H (4.5-11.0) X10^3/uL RBC 2.66 L (4.5-5.9) X10^6/uL Hgb 8.4 L (13.5-17.5) g/dL Hct 25.1 L (41-53) % MCV 94.4 (80-100) fL MCH 31.4 (26-34) PG MCHC 33.3 (30-36) % RDW 15.4 H (11.6-14.8) % Plt Count 364 (150-400) X10^3/uL Neut % (Auto) 83.2 H (50-75) % Lymph % (Auto) 9.4 L (25-40) % [place] % (Auto) 7.1 (3-14) % Eos % (Auto) 0.0 L (2-4) % Baso % (Auto) 0.3 (0-2) % Neut # (Auto) 26323 H (2295-3729) /uL Lymph # (Auto) 1200 (5179-0828) /uL [place] # (Auto) 900 (0-900) /uL Eos # (Auto) 0 (0-450) /uL Baso # (Auto) 0 (0-100) /uL ABG pH 7.37 (7.35-7.45) ABG pCO2 58.5 H (35-45) mmHg ABG pO2 68 L (80-100) mmHg ABG HCO3 34 H (23-27) mmol/L ABG Total CO2 34 H (23-27) mmol/L ABG O2 Saturation 92 L (95-100) % ABG Base Excess 7.4 H (-2-3) mmol/L O2 Delivery Device Nc Oxygen Liter Flow 3 LPM FiO2 32 Sodium 128 L (137-145) mmol/L Potassium 5.2 H (3.4-5.1) mmol/L Chloride 92 L (98-107) mmol/L Carbon Dioxide 32 (22-32) mmol/L BUN 54 H (9-20) mg/dL Creatinine 1.81 H (0.66-1.25) mg/dL Estimated GFR 41 L (>60) mL/min BUN/Creatinine Ratio 29.8 H (6-22) Glucose 102 (80-110) mg/dL Lactate 0.8 (0.7-2.1) mmol/L Calcium 8.4 (8.4-10.2) mg/dL Magnesium 2.4 H (1.6-2.3) mg/dL Total Bilirubin 0.3 (0.2-1.3) mg/dL AST 34 (17-59) IU/L ALT 24 (<50) IU/L Alkaline Phosphatase 74 (38-126) U/L Troponin I 0.015 (0.01-0.034) ng/mL NT-Pro-B Natriuret Pep 3570 H (<125) pg/mL Total Protein 6.1 L (6.3-8.2) g/dL Albumin 3.7 (3.5-5.0) g/dL Globulin 2.4 (1.7-4.1) g/dL Albumin/Globulin Ratio 1.5 (1.0-2.8) Lipase 74 (23-300) U/L Procalcitonin 0.199 (<0.5) ng/mL Urine Color Urine Appearance Urine pH (4.5-8.0) Ur Specific [place] (1.000-1.035) Urine Protein (Negative) Urine Glucose (UA) (Negative) g/dL Urine Ketones (NEGATIVE) Urine Occult Blood (Negative) Urine Nitrate (Negative) Urine Bilirubin (NEGATIVE) Urine Urobilinogen (0.2) E.U./dL Ur Leukocyte Esterase (NEGATIVE) Urine RBC (0-5/HPF) Urine WBC (0-5/HPF) Ur Squamous Epith Cells (0-5/HPF) Urine Bacteria (None) Ur Culture Indicated? Vol Urine Centrifuged Chlamy pneumoniae PCR (Not Detect) Adenovirus (PCR) (Not Detect) B.parapertussis DNA PCR (Not Detecte) Coronavirus OC43 (PCR) (Not Detect) Coronavirus HKU1 (PCR) (Not Detect) Coronavirus 229E (PCR) (Not Detect) SARS-CoV-2 (PCR) (Not Detecte) Coronavirus NL63 (PCR) (Not Detect) Human Metapneumovir PCR (Not Detect) Influenza Type A (PCR) (Not Detect) Influenza Type B (PCR) (Not Detect) M. pneumoniae (PCR) (Not Detect) Parainfluenza 1 (PCR) (Not Detect) Parainfluenza 2 (PCR) (Not Detect) Parainfluenza 3 (PCR) (Not Detect) Parainfluenza 4 (PCR) (Not Detect) RSV (PCR) (Not Detect) Entero/Rhino (PCR) (Not Detect) 01/22/24 01/22/24 01/22/24 Range/Units 17:34 17:58 19:38 WBC (4.5-11.0) X10^3/uL RBC (4.5-5.9) X10^6/uL Hgb (13.5-17.5) g/dL Hct (41-53) % MCV (80-100) fL MCH (26-34) PG MCHC (30-36) % RDW (11.6-14.8) % Plt Count (150-400) X10^3/uL Neut % (Auto) (50-75) % Lymph % (Auto) (25-40) % [place] % (Auto) (3-14) % Eos % (Auto) (2-4) % Baso % (Auto) (0-2) % Neut # (Auto) (9087-4460) /uL Lymph # (Auto) (4804-4607) /uL [place] # (Auto) (0-900) /uL Eos # (Auto) (0-450) /uL Baso # (Auto) (0-100) /uL ABG pH (7.35-7.45) ABG pCO2 (35-45) mmHg ABG pO2 (80-100) mmHg ABG HCO3 (23-27) mmol/L ABG Total CO2 (23-27) mmol/L ABG O2 Saturation (95-100) % ABG Base Excess (-2-3) mmol/L O2 Delivery Device Oxygen Liter Flow LPM FiO2 Sodium 128 L (137-145) mmol/L Potassium 4.9 (3.4-5.1) mmol/L Chloride 94 L (98-107) mmol/L Carbon Dioxide 30 (22-32) mmol/L BUN 52 H (9-20) mg/dL Creatinine 1.69 H (0.66-1.25) mg/dL Estimated GFR 44 L (>60) mL/min BUN/Creatinine Ratio 30.8 H (6-22) Glucose 92 (80-110) mg/dL Lactate (0.7-2.1) mmol/L Calcium 8.1 L (8.4-10.2) mg/dL Magnesium 2.9 H (1.6-2.3) mg/dL Total Bilirubin 0.3 (0.2-1.3) mg/dL AST 36 (17-59) IU/L ALT 24 (<50) IU/L Alkaline Phosphatase 79 (38-126) U/L Troponin I 0.015 (0.01-0.034) ng/mL NT-Pro-B Natriuret Pep (<125) pg/mL Total Protein 6.1 L (6.3-8.2) g/dL Albumin 3.6 (3.5-5.0) g/dL Globulin 2.5 (1.7-4.1) g/dL Albumin/Globulin Ratio 1.4 (1.0-2.8) Lipase (23-300) U/L Procalcitonin (<0.5) ng/mL Urine Color Yellow Urine Appearance Clear Urine pH 6.5 (4.5-8.0) Ur Specific [place] 1.015 (1.000-1.035) Urine Protein 3+ H (Negative) Urine Glucose (UA) Negative (Negative) g/dL Urine Ketones Negative (NEGATIVE) Urine Occult Blood Negative (Negative) Urine Nitrate Negative (Negative) Urine Bilirubin Negative (NEGATIVE) Urine Urobilinogen 0.2 (0.2) E.U./dL Ur Leukocyte Esterase Negative (NEGATIVE) Urine RBC None seen (0-5/HPF) Urine WBC None seen (0-5/HPF) Ur Squamous Epith Cells 0-1 /hpf (0-5/HPF) Urine Bacteria None seen (None) Ur Culture Indicated? Cult not indicated Vol Urine Centrifuged 10ml (spun) Chlamy pneumoniae PCR Not detected (Not Detect) Adenovirus (PCR) Not detected (Not Detect) B.parapertussis DNA PCR Not detected (Not Detecte) Coronavirus OC43 (PCR) Not detected (Not Detect) Coronavirus HKU1 (PCR) Not detected (Not Detect) Coronavirus 229E (PCR) Not detected (Not Detect) SARS-CoV-2 (PCR) Not detected (Not Detecte) Coronavirus NL63 (PCR) Not detected (Not Detect) Human Metapneumovir PCR Not detected (Not Detect) Influenza Type A (PCR) Not detected (Not Detect) Influenza Type B (PCR) Not detected (Not Detect) M. pneumoniae (PCR) Not detected (Not Detect) Parainfluenza 1 (PCR) Not detected (Not Detect) Parainfluenza 2 (PCR) Not detected (Not Detect) Parainfluenza 3 (PCR) Not detected (Not Detect) Parainfluenza 4 (PCR) Not detected (Not Detect) RSV (PCR) Not detected (Not Detect) Entero/Rhino (PCR) Not detected (Not Detect) Imaging Data Chest x-ray: Radiologist's Impression: PROCEDURE: XR CHEST 1V INDICATIONS: acute resp distress TECHNIQUE: One view of the chest was acquired. COMPARISON: [facility], CR, XR CHEST 2V, 01/19/2024, 8:03. FINDINGS: Surgical changes and devices: Partially visualized thoracolumbar fixation rods. Lungs and pleura: Less prominent appearance of retrocardiac opacity when compared to prior exam. Minimal interstitial prominence, stable. Mediastinum: Mediastinal contours appear normal. Heart size is enlarged. Bones and chest wall: No suspicious bony lesions. Overlying soft tissues appear unremarkable. IMPRESSION: No definitive consolidations. Minimal interstitial prominence which could represent edema or less likely interstitial pneumonia. Dictated by: Jewell Monahan M.D. on 01/22/2024 at 18:28 CT scan - head: Radiologist's Impression: PROCEDURE: CT HEAD/BRAIN WO CON INDICATIONS: off balance TECHNIQUE: Noncontrast 4.5 mm thick angled axial sections acquired from the foramen magnum to the vertex, with coronal and sagittal reformats. For radiation dose reduction, the following was used: automated exposure control, adjustment of mA and/or kV according to patient size. COMPARISON: CT, CT HEAD WITHOUT CONTRAST, 09/13/2020, 19:11. [facility], CT, HEAD WITHOUT CONTRAST, 04/11/2017, 7:39. FINDINGS: Image quality: Diagnostic. CSF spaces: Basal cisterns are patent. No extra-axial fluid collections. Ventricles are normal in size and shape. Brain: No midline shift. No intracranial masses or hemorrhage. [place]aj[place]-white matter interface is normal. Low-attenuation the right parietal occipital lobe unchanged consistent with prior infarction. Skull and face: Calvarium and visualized facial bones are intact, without suspicious lesions. Sinuses: Visualized sinuses demonstrate prominent mucosal thickening in the left maxillary sinus. IMPRESSION: No acute intracranial pathology. Dictated by: Jewell Monahan M.D. on 01/22/2024 at 19:09 CT scan - chest: Radiologist's Impression: PROCEDURE: CT ANGIO CHEST PE PROTOCOL INDICATIONS: respiratory distress TECHNIQUE: After the administration of intravenous contrast, 2 mm thick sections acquired from the pulmonary apices to the posterior costophrenic angles. 3-dimensional maximum intensity projection (MIP) coronal and sagittal reformats were then acquired through the thorax. For radiation dose reduction, the following was used: automated exposure control, adjustment of mA and/or kV according to patient size. COMPARISON: [facility], CT, CT ABDOMEN PELVIS W CON, 01/22/2024, 18:07. [facility], CT, CT LOW DOSE LUNG CA SCREENING, 02/18/2022, 11:35. [facility], CR, XR CHEST 1V, 01/22/2024, 17:33. [facility], CT, CT ANGIO CHEST, 06/01/2020, 10:46. FINDINGS: Image quality: Portions of the spine are suboptimally evaluated secondary to metallic streak artifact from spinal fusion hardware. Pulmonary arteries: Pulmonary arteries are normal in size, and demonstrate no intraluminal filling defects to suggest central pulmonary embolism. Lower Neck: No enlarged lymph nodes. Thyroid: No thyroid nodules which require sonographic follow up, per consensus guidelines. Axillae: No enlarged lymph nodes. Chest Wall: Unremarkable. Bones: Unremarkable. Lungs and Pleura: No pneumothorax or pleural effusions. No consolidation or suspicious nodules. Emphysematous changes are present. Heart: Heart size is normal. No pericardial effusion. Thoracic Vessels: No aortic aneurysm. Mediastinum and Berenice: No enlarged lymph nodes. Esophagus: No wall thickening. No hiatal hernia. Upper Abdomen: Visualized upper abdomen solid organs and bowel loops appear normal. IMPRESSION: No pulmonary embolus. No acute cardiopulmonary process. Dictated by: Jewell Monahan M.D. on 01/22/2024 at 19:10 CT scan - abdomen/pelvis: Radiologist's Impression: PROCEDURE: CT ABDOMEN PELVIS W CON INDICATIONS: pain hx of sbo TECHNIQUE: After the administration of intravenous contrast, axial sections acquired from the lung bases to the pubic symphysis. Coronal and sagittal reformats were performed. For radiation dose reduction, the following was used: automated exposure control, adjustment of mA and/or kV according to patient size. COMPARISON: [facility], CT, CT ABDOMEN PELVIS W CON, 04/12/2023, 11:34. FINDINGS: Image quality: Portions of the spine/pelvis are suboptimally evaluated secondary to metallic streak artifact from spinal fusion hardware. In addition, motion is present limiting areas of fine detail evaluation. Lower Chest: No significant findings. ABDOMEN: Liver: No solid mass. Liver measures 18.5 cm. Gallbladder: Removed Biliary ducts: No biliary dilation. Pancreas: No ductal dilation. Spleen: Size is within normal limits. Adrenal Glands: No adrenal nodules. Kidneys and Ureters: No hydronephrosis. No solid mass. No complex renal cystic lesion which requires follow up. Stomach and Bowel: Normal colonic caliber, without significant wall thickening. Scattered colonic stool. Peritoneum: No abnormal intraperitoneal fluid. No free air. Ventral Wall: No significant ventral hernia. Abdominal Nodes: No retroperitoneal or mesenteric adenopathy by size criteria. Vessels: Aorta and inferior vena cava are normal in size. PELVIS: Pelvic Organs: Unremarkable. Bladder: No bladder wall thickening, accounting for underdistention. Pelvic Nodes: No enlarged lymph nodes. Miscellaneous: No inguinal hernias are seen. Bones: No aggressive osseous abnormality. L2 through L5 fusion. Multilevel degenerative changes. IMPRESSION: No visualized acute intra-abdominal or pelvic process. No obstruction. Dictated by: Jewell Monahan M.D. on 01/22/2024 at 19:13 ECG Data Attestation: I personally reviewed and interpreted this ECG as follows: Prior ECG tracings: available for review Interpretation: Normal sinus rhythm rate 83 ID interval 172 QRS 96 QTC 439 no ischemic changes mild artifact similar to previous EKG in 2020 MDM Narrative Medical decision making narrative: [facility] CC: Shortness of breath Complicating co-morbidities: COPD on home oxygen chronic left lower extremity on doxycycline peripheral vascular disease diabetes Data collected from: Family Medical records reviewed: Last admission Differential considered: Pneumothorax pulmonary embolism COPD exacerbation CHF pneumonia Exam documented above, pertinent findings include: Significantly decreased breath sounds bilaterally with acute respiratory, chronic wounds on left lower leg Lab Test results independently reviewed as above. Pertinent findings: WBC 12.4 8.4 previously 7.3 hematocrit 25.1 previously 21.8 platelets 364 Sodium 128 previously 137, potassium 5.2 chloride 92 BUN 54 creatinine 1.81 previously 1.95, Mag 2.4, lactate 0.8 troponin negative x2, BNP 3570 previously 498 ABG #1 pH of 7.37, CO2 58.5 previously he has been in the 70s, PO2 68, bicarb 34 #2PH 7.28 CO2 63, PO2 96, bicarb 29.4 on 34% and 50 L Independently reviewed EKG as above: Sinus rhythm Imaging studies independently reviewed: Head CT CT angio CT abdomen pelvis and checks chest x-ray do not find any acute abnormality. No pulmonary embolus no pneumothorax chest x-ray does suggest some mild edema Consultations: Dr. Gonzalez, accepts patient. Treatments: Multiple albuterol DuoNeb treatments total of 20 mg of albuterol, Solu-Medrol, magnesium, Lasix, Zosyn, Dilaudid, Ativan Re-evaluations: After DuoNeb treatments he did start to move air. After Lasix he urinated over a L and breathing again improved. Discussion: Patient presents in pretty significant respiratory distress. Conversation with him including BiPAP and intubation he reports he does not tolerate BiPAP and he is willing to be intubated. He is did actually improve with DuoNeb treatments and treatment for COPD. However he is found to have an elevated BNP and x-ray does suggest maybe some pulmonary edema. He clinically does not appear hypervolemic. He is given Lasix. Family reports he is very agitated and confused with certain medications including fentanyl and morphine however they state that Dilaudid he generally does well with any takes Ativan regularly. He was given both of these medications and quickly became a little more agitated once his breathing had improved. Patient does have concern for infection with mild leukocytosis of 12.4, he is given Zosyn for possible COPD exacerbation. He is already taking doxycycline for chronic wounds on the left foot for which he is going to hyperbaric for. Blood cultures are pending. Patient is monitored he has repeat blood work he starting half some twitches which family states he actually has had twitches for about the last week which is new. Electrolytes and things appear stable from earlier he is mildly hyponatremic with a stable sodium of 128. His magnesium is slightly elevated at 2.4 he was also given 2 g of magnesium for COPD exacerbation and difficulty breathing. Potassium has improved from 5.2-4.9. Patient has had multiple CTs no obvious abnormalities. I suspect patient is having COPD exacerbation along with congestive heart failure covered for infection with a dose of Zosyn. He does turn around but was quite severe knee still decompensates with very little movement. Critical Care Time Critical Care Time Critical Care Time: Yes Total Critical Care Time: 69 Attestation: The high probability of a clinically significant, sudden or life threatening deterioration of the [cardiovascular] system(s) required my full and direct attention, intervention and personal management. The aggregate critical care time was 69 minutes. This time is in addition to time spent performing reported procedures but includes the following: [x] Data Review and interpretation [x] Patient assessment and monitoring of vital signs [x] Documentation [x] Medication orders and management Discharge Plan Departure Patient Disposition: Admitted As Inpatient Clinical Impression: COPD exacerbation, CHF (congestive heart failure) Admit Date/Time: 01/22/24 21:15 Admit Provider: Frederick Bull
[2024-01-22 18:26] LABS: Bacteria Urine None Seen; Culture Indicated Urine Cult Not Indicated; WBC Urine None Seen (0-5/HPF)
[2024-01-22] MEDS: LIDOCAINE 2% (GLYDO) 6 ML GEL TOP (18:45)
[2024-01-22] MEDS: FUROSEMIDE 40 MG/4 ML VIAL IV (18:46)
[2024-01-22 18:53] LABS: Adenovirus Not Detected (Not Detect); B. parapertussis Not Detected (Not Detecte); Bordetella pertussis Not Detected (Not Detect); Chlamydophila pneumoniae Not Detected (Not Detect); Coronavirus 229E Not Detected (Not Detect); Coronavirus HKU1 Not Detected (Not Detect); Coronavirus NL 63 Not Detected (Not Detect); Coronavirus OC43 Not Detected (Not Detect); Human Metapneumovirus Not Detected (Not Detect); Human Rhinovirus/Enterovirus Not Detected (Not Detect); Influenza A Not Detected (Not Detect); Influenza B Not Detected (Not Detect); Mycoplasma pneumoniae Not Detected (Not Detect); Parainfluenza Virus 1 Not Detected (Not Detect); Parainfluenza Virus 2 Not Detected (Not Detect); Parainfluenza Virus 3 Not Detected (Not Detect); Parainfluenza Virus 4 Not Detected (Not Detect); Respiratory Syncytial Virus Not Detected (Not Detect); SARS- CoV-2 Not Detected (Not Detecte)
[2024-01-22] MEDS: HYDROMORPHONE 0.5 MG INJ IV (19:15)
[2024-01-22] MEDS: PIPERACILLIN/TAZO 4.5 GM in SODIUM CHLORIDE 0.9% 100 ML IV (19:50)
[2024-01-22 19:57] LABS: Alanine Aminotransferase 24 IU/L (<50); Albumin 3.6 g/dL (3.5-5.0); Albumin Globulin Ratio 1.4 (1.0-2.8); Alkaline Phosphatase 79 U/L (38-126); Aspartate Aminotransferase 36 IU/L (17-59); BUN Creatinine Ratio 30.8 (6-22); Bilirubin Total 0.3 mg/dL (0.2-1.3); Blood Urea Nitrogen 52 mg/dL (9-20); Calcium 8.1 mg/dL (8.4-10.2); Carbon Dioxide 30 mmol/L (22-32); Chloride 94 mmol/L (98-107); Estimated Glomerular Filt Rate 44 mL/min (>60); Globulin 2.5 g/dL (1.7-4.1); Glucose 92 mg/dL (80-110); HEMOLYSIS < 15 (0-50); Magnesium 2.9 mg/dL (1.6-2.3); Potassium 4.9 mmol/L (3.4-5.1); Sodium 128 mmol/L (137-145); Total Protein 6.1 g/dL (6.3-8.2)
[2024-01-22] MEDS: LORazepam 2 MG/ML INJ 0.5 MG IV (20:05)
[2024-01-22 20:09] LABS: Troponin I 0.015 ng/mL (0.01-0.034)
--- NOTE | 2024-01-22 21:35 | PC.NURSE ---
Addendum entered by Denise Woo R.N. 01/22/24 21:43: Repeat ABG also performed by Resp. therapy at this time. Original Note: Pt became agitated about keane and wanted keane removed. This RN asked pt if there was anything he needed to make him comfortable with the keane, offering things like more glydo, IV pain medication, anxiety medication. Pt declined, pt then asked to have his left leg dangle off the side of the bed. This RN allowed pt to do that, then pt began to sit himself up and becoming more agitated. Pt's spo2 then dropped down 70s, pt appearing in more resp. distress. Pt assisted back to supine position on stretcher with HOB, oxygen support increased with improvement of spO2 and pt appearing more comfortable now. Pt does wax and wane with mentation status. High flow currently fiO2 34% 50L/min.
[2024-01-22] MEDS: ALBUTEROL 2.5 MG/3 ML NEB (ADULT) INH (22:31)
[2024-01-22] MEDS: PANTOPRAZOLE 40 MG VIAL IV (22:36)
[2024-01-22] MEDS: LORazepam 1 MG TABLET 0.5 MG PO (22:36)
[2024-01-22 23:57] LABS: Lactate (Lactic Acid) < 0.5 mmol/L (0.7-2.1)
[2024-01-22 23:58] LABS: MRSA (Nasal) PCR NOT DETECTED (Not Detect)
[2024-01-23] VITALS (22 sets, daily range): BP systolic 126–216; BP diastolic 58–98; PULSE 76–89; RESP 12–23; TEMP 36.8–37.1; O2SAT 90–98
[2024-01-23] MEDS: ALBUTEROL/IPRATROPIUM 3 ML AMPUL INH ×4 (03:30→17:25)
[2024-01-23 04:07] LABS: Add Manual Diff / Slide Review NO; Basophils Absolute Auto 0 /uL (0-100); Eosinophils Absolute Auto 0 /uL (0-450); Hematocrit 24.3 % (41-53); Hemoglobin 8.2 g/dL (13.5-17.5); Lymphocytes Absolute Auto 800 /uL (1100-4500); Lymphocytes Percent Auto 7.1 % (25-40); Mean Corpuscular HGB Conc 33.6 % (30-36); Mean Corpuscular Hemoglobin 31.8 PG (26-34); Mean Corpuscular Volume 94.6 fL (80-100); Monocytes Absolute Auto 400 /uL (0-900); Monocytes Percent Auto 4.1 % (3-14); Neutrophils Absolute Auto 9700 /uL (1500-7000); Neutrophils Percent Auto 88.8 % (50-75); Platelet Count 340 X10^3/uL (150-400); Red Blood Cell Count 2.57 X10^6/uL (4.5-5.9); Red Cell Distribution Width 15.5 % (11.6-14.8); White Blood Cell Count 10.9 X10^3/uL (4.5-11.0)
[2024-01-23 04:18] LABS: BUN Creatinine Ratio 27.4 (6-22); Blood Urea Nitrogen 51 mg/dL (9-20); Calcium 8.3 mg/dL (8.4-10.2); Carbon Dioxide 32 mmol/L (22-32); Chloride 93 mmol/L (98-107); Estimated Glomerular Filt Rate 39 mL/min (>60); Glucose 117 mg/dL (80-110); HEMOLYSIS < 15 (0-50); Potassium 4.9 mmol/L (3.4-5.1); Sodium 129 mmol/L (137-145)
--- NOTE | 2024-01-23 05:00 | DI.RAD.S_ITS ---
PROCEDURE: XR CHEST 1V INDICATIONS: COPD TECHNIQUE: One view of the chest was acquired. COMPARISON: [facility], CR, XR CHEST 1V, 01/22/2024, 17:33. FINDINGS: Surgical changes and devices: None. Lungs and pleura: Mild patchy opacity in the right lower lobe lungs are incompletely visualized as bases/costophrenic angles are not fully included in the field of view. Mediastinum: Mediastinal contours appear normal. Heart size is enlarged. Bones and chest wall: No suspicious bony lesions. Overlying soft tissues appear unremarkable. IMPRESSION: Patchy right basilar opacity suspicious for pneumonia. The above findings are concordant with preliminary report. Dictated by: Jewell Monahan M.D. on 01/23/2024 at 9:24 Approved by: Jewell Monahan M.D. on 01/23/2024 at 9:25
[2024-01-23] MEDS: ACETAMINOPHEN 325 MG TABLET 650 MG PO (05:08)
[2024-01-23] MEDS: LEVOTHYROXINE 75 MCG TABLET PO (05:08)
[2024-01-23] MEDS: LEVOTHYROXINE 100 MCG TABLET PO (05:08)
[2024-01-23] MEDS: cloNIDine 0.1 MG TABLET 0.3 MG PO (05:41)
[2024-01-23] MEDS: HYDRALAZINE 25 MG TABLET 100 MG PO (05:44)
[2024-01-23] MEDS: ALBUTEROL 2.5 MG/3 ML NEB (ADULT) INH (06:02)
[2024-01-23] MEDS: methylPREDNISolone 125 MG/2 ML VIAL 60 MG IV (06:17)
[2024-01-23] MEDS: LORazepam 1 MG TABLET 0.5 MG PO ×2 (06:17→09:11)
--- NOTE | 2024-01-23 06:42 | PC.ADMIT ---
[email or web address] [facility] Admission Note: Patient brought to ICU room 227 at 2205. On 15L NRB for the transport with SpO2 100%, then placed on HHF at 50L/50%, neb tx given throughout night, FIO2 40% by am. RR 16-26, LS dim with underlying coarseness. Patient has significant anxiety, medicated with 0.5mg PO Ativan per prn order, was able to rest from [id number]. BP intermittently elevated 200s/80-90s, am doses of clonidine and hydralazine given at 0600 per patient request. Dressings to RBKA and LLE D/I, recently changed by [facility]. Total 1650ml UOP in [place]. The patient,Ross Jimenes,68 y/o, was given written information regarding hospital policies, unit procedures and contact persons. Patient's smoking status: Former smoker. Vital Signs - 8 hr 01/22/24 23:00 01/23/24 00:00 01/23/24 00:28 Temperature 98.8 F 98.8 F Pulse Rate 90 85 Respiratory Rate 20 15 Blood Pressure 186/78 H 141/63 H Pulse Oximetry 97 95 96 Oxygen Delivery Method Oxygen Flow Rate 50 50 Fraction of Inspired Oxygen 45 45 01/23/24 00:40 01/23/24 01:00 01/23/24 02:00 Temperature 98.6 F 98.8 F 98.4 F Pulse Rate 79 87 76 Respiratory Rate 12 17 12 Blood Pressure 179/79 H 209/84 H 179/79 H Pulse Oximetry 94 95 96 Oxygen Delivery Method Oxygen Flow Rate 50 50 Fraction of Inspired Oxygen 45 45 01/23/24 03:00 01/23/24 03:31 01/23/24 03:32 Temperature 98.4 F Pulse Rate 76 Respiratory Rate 16 Blood Pressure 151/70 H Pulse Oximetry 96 98 Oxygen Delivery Method High Flow Nasal Cannula Oxygen Flow Rate 50 50 Fraction of Inspired Oxygen 45 40 01/23/24 04:00 01/23/24 04:00 01/23/24 05:00 Temperature 98.2 F 98.6 F Pulse Rate 87 87 Respiratory Rate 23 16 Blood Pressure 214/89 H 204/90 H Pulse Oximetry 92 94 Oxygen Delivery Method Heated High Flow Oxygen Flow Rate 50 50 Fraction of Inspired Oxygen 40 40 01/23/24 05:41 01/23/24 05:44 07/03/24 06:00 Temperature 98.6 F Pulse Rate 86 86 85 Respiratory Rate 16 Blood Pressure 204/90 H 204/90 H 216/98 H Pulse Oximetry 91 Oxygen Delivery Method Oxygen Flow Rate 50 Fraction of Inspired Oxygen 40 01/23/24 06:03 01/23/24 06:04 Temperature Pulse Rate Respiratory Rate Blood Pressure Pulse Oximetry 94 Oxygen Delivery Method High Flow Nasal Cannula Oxygen Flow Rate 50 Fraction of Inspired Oxygen 40
--- NOTE | 2024-01-23 07:26 | P.HP_ITS ---
History of Present Illness History of Present Illness Chief complaint: fellx3 Narrative: 68 y/o with PMH of 3L-oxygen dependent COPD, HTN, DM, PVD, prior stroke, presented today with increasing shortness of breath. He has chronic wounds on his left leg for which he went to wound care and hyperbaric therapy today and had increased sudden onset shortness of breath. In the ED hypoxemic and also hypercapnic. He was hospitalized at [place] in the past for similar reason when he had difficulty tolerating BiPAP, likely due to anxiety disorder, so needed to be intubated and transferred to [facility] where it took him a while to wean off the ventilator. On admission to ICU he is anxious, on high-flow, requesting removal of [place] placed earlier. BNP elevated, given Lasix. 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 Insomnia due to medical condition Centrilobular emphysema CAD (coronary artery disease) (05/11/17) Cerebrovascular accident (CVA) due to stenosis of right posterior cerebral artery (05/28/17) Chronic hypoxemic respiratory failure (08/24/20) Family history of coronary artery disease (05/11/17) PVD (peripheral vascular disease) (05/11/17) Rectal bleeding (05/28/17) Statin intolerance (05/28/17) Nocturnal hypoxemia Fatigue due to sleep pattern disturbance Obstructive sleep apnea, adult Periodic limb movement disorder (PLMD) Hyperlipidemia COPD exacerbation Hypothyroidism HTN (hypertension) 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) Former smoker (08/25/15) Chronic pain syndrome (08/25/15) Surgical History History of eye surgery S/P hernia repair History of spinal surgery (08/25/15) Fusion of spine of thoracolumbar region (08/25/15) Fusion of spine, thoracolumbar region Family History Family/Other Heart disease Father Heart disease Mother Loud snoring Obesity Hypertension Depression Dementia Other Family history of coronary artery disease Social History household members: spouse and family Smoking Status: Former smoker alcohol intake: never Meds Home Medications and Allergies Home Medications Medication Instructions Recorded Confirmed Type C-Ketam 1 applic topical TID 06/11/18 01/22/24 History ascorbic acid (vitamin C) 1,000 mg 1 g PO BID 06/11/18 01/22/24 History tablet cholecalciferol (vitamin D3) 10 400 unit PO QPM 06/11/18 01/22/24 History mcg (400 unit) capsule (Vitamin D3) lidocaine 5 % topical patch 2 patch topical DAILY 06/11/18 01/22/24 History nitroglycerin 0.4 mg sublingual 0.4 mg sublingual Q5-15M PRN Chest 06/11/18 01/22/24 History tablet (Nitrostat) Pain azithromycin 250 mg tablet 250 mg PO .tiw 10/18/20 01/22/24 History clonidine HCl 0.3 mg tablet 0.3 mg PO TID 10/18/20 01/22/24 History lorazepam 1 mg tablet 1 mg PO BID PRN panic attacks 10/18/20 01/22/24 History ferrous sulfate 325 mg (65 mg 65 mg PO 3XW 02/13/23 01/22/24 History iron) tablet,delayed release hydralazine 50 mg tablet 100 mg PO TID 02/13/23 01/22/24 History losartan 100 mg tablet 50 mg PO BEDTIME 02/13/23 01/22/24 History montelukast 10 mg tablet 10 mg PO BEDTIME 02/13/23 01/22/24 History oxybutynin chloride 10 mg 10 mg PO DAILY 02/13/23 01/22/24 History tablet,extended release 24 hr red beet root 250 mg-sour alvarez 2 tab PO DAILY 02/13/23 01/22/24 History extract 0.5 mg chewable tablet oxycodone 10 mg tablet,crush 10 mg PO BID PRN PAIN 04/12/23 01/22/24 History resistant,extended release 12 hr (OxyContin) trazodone 100 mg tablet 150 mg PO QPM 04/12/23 01/22/24 History benralizumab 30 mg/mL subcutaneous 30 mg SUBCUT Q8W #1 mL 07/24/23 01/22/24 Rx auto-injector ipratropium 0.5 mg-albuterol 3 mg 3 ml inhalation Q6H #1,080 mL 10/31/23 01/22/24 Rx (2.5 mg base)/3 mL nebulization soln furosemide 40 mg tablet 40 mg PO BID 11/16/23 01/22/24 History Brovana 15 mcg/2 mL solution for 2 ml inhalation BID #120 mL 01/10/24 01/22/24 Rx nebulization (arformoterol) activated [id number] 01/22/24 01/22/24 History bandage (ThermaCare HeatWrap Back-Hip L-XL bandage) aspirin 81 mg capsule 81 mg PO DAILY 01/22/24 01/22/24 History budesonide 1 mg/2 mL suspension 1 mg inhalation BID 01/22/24 01/22/24 History for nebulization calcium 500 mg tablet 500 mg PO BID 01/22/24 01/22/24 History coQ10 (ubiquinol) 100 mg capsule 100 mg PO DAILY 01/22/24 01/22/24 History (Qunol Jarred CoQ10) cyanocobalamin (vitamin B-12) See Rx Instructions .Route .COMPLEX 01/22/24 01/22/24 History 1,000 mcg tablet (Vitamin B-12) doxycycline hyclate 100 mg capsule 100 mg PO BID 01/22/24 01/22/24 History evolocumab 140 mg/mL subcutaneous 140 mg SUBCUT Q2W 01/22/24 01/22/24 History pen injector (Pedro Pablo Pfeiffer) folic acid 1 mg tablet 1 mg PO DAILY 01/22/24 01/22/24 History insulin glargine-yfgn 100 unit/mL 14 unit SUBCUT DAILY 01/22/24 01/22/24 History (3 mL) subcutaneous pen levothyroxine 200 mcg tablet 200 mcg PO DAILY 01/22/24 01/22/24 History magnesium 500 mg tablet 1,000 mg PO BEDTIME 01/22/24 01/22/24 History omega 8-phw-rth-fish oil 900 1 cap PO DAILY 01/22/24 01/22/24 History mg-1,400 mg capsule,delayed release (Fish Oil) sennosides 8.6 mg-docusate sodium 1 tab-cap PO BEDTIME 01/22/24 01/22/24 History 50 mg tablet (Senokot-S) sertraline 100 mg tablet 100 mg PO BEDTIME 01/22/24 01/22/24 History tamsulosin 0.4 mg capsule 0.4 mg PO BEDTIME 01/22/24 01/22/24 History Allergies Allergy/AdvReac Type Severity Reaction Status Date / Time doxazosin [DOXAZOSIN] Allergy Severe swelling Verified 01/22/24 17:17 bempedoic acid Allergy Verified 01/22/24 17:17 [From Nexletol] gabapentin Allergy Verified 01/22/24 17:17 spironolactone Allergy Verified 01/22/24 17:17 Latex, Natural Rubber AdvReac Intermediate Blister Verified 01/22/24 17:17 varenicline [From CHANTIX] AdvReac Mild aggitation Verified 01/22/24 17:17 atorvastatin [ATORVASTATIN] AdvReac Unknown MUSCLE ACHE Verified 01/22/24 17:17 carvedilol [CARVEDILOL] AdvReac Unknown DIZZINESS Verified 01/22/24 17:17 lisinopril [LISINOPRIL] AdvReac Unknown COUGH Verified 01/22/24 17:17 morphine AdvReac Unknown GOES Verified 01/22/24 17:17 CRAZY fentanyl AdvReac Agitated Verified 01/22/24 17:17 Review of Systems Review of Systems Narrative: poor historian Constitutional Comments: w/o reported fever or chills Cardiovascular Comments: w/o chest pain Respiratory Comments: see HPI Gastrointestinal Comments: w/o complaints Genitourinary Comments: chronic difficulty voiding Psychiatric Comments: anxious Exam Vital Signs (past 8 hours): - 01/23/24 00:00 01/23/24 00:28 01/23/24 00:40 Temperature 98.8 F 98.6 F Pulse Rate 85 79 Respiratory Rate 15 12 Blood Pressure 141/63 H 179/79 H Pulse Oximetry 95 96 94 Oxygen Delivery Method Oxygen Flow Rate 50 Fraction of Inspired Oxygen 45 01/23/24 01:00 01/23/24 02:00 01/23/24 03:00 Temperature 98.8 F 98.4 F 98.4 F Pulse Rate 87 76 76 Respiratory Rate 17 12 16 Blood Pressure 209/84 H 179/79 H 151/70 H Pulse Oximetry 95 96 96 Oxygen Delivery Method Oxygen Flow Rate 50 50 50 Fraction of Inspired Oxygen 45 45 45 01/23/24 03:31 01/23/24 03:32 01/23/24 04:00 Temperature 98.2 F Pulse Rate 87 Respiratory Rate 23 Blood Pressure 214/89 H Pulse Oximetry 98 92 Oxygen Delivery Method High Flow Nasal Cannula Oxygen Flow Rate 50 50 Fraction of Inspired Oxygen 40 40 01/23/24 04:00 01/23/24 05:00 01/23/24 05:41 Temperature 98.6 F Pulse Rate 87 86 Respiratory Rate 16 Blood Pressure 204/90 H 204/90 H Pulse Oximetry 94 Oxygen Delivery Method Heated High Flow Oxygen Flow Rate 50 Fraction of Inspired Oxygen 40 01/23/24 05:44 01/23/24 06:00 01/23/24 06:03 Temperature 98.6 F Pulse Rate 86 85 Respiratory Rate 16 Blood Pressure 204/90 H 216/98 H Pulse Oximetry 91 Oxygen Delivery Method High Flow Nasal Cannula Oxygen Flow Rate 50 50 Fraction of Inspired Oxygen 40 40 01/23/24 06:04 01/23/24 07:18 Temperature Pulse Rate 79 Respiratory Rate Blood Pressure 181/74 H Pulse Oximetry 94 Oxygen Delivery Method Oxygen Flow Rate Fraction of Inspired Oxygen Fraction of Inspired Oxygen 40 SaO2/FiO2 Ratio 235 Oxygen Delivery Method High Flow Nasal Cannula Oxygen Flow Rate 50 Const Other: in no distress, sitting in bed HENMT Other: high-flow oxygen, normocephalic Eyes Other: EOMI Neck Other: supple Resp Other: end-expiratory wheezes Cardio Other: RRR GI Other: w/o abdominal distension Skin Other: w/o rashes Extrem Other: s/p Rt AKA Psych Other: anxious, unreliable historian Objective Labs 01/23/24 03:57 01/23/24 03:57 Labs: Laboratory Results - last 24 hr 01/22/24 01/22/24 01/22/24 17:15 17:18 17:28 WBC 12.4 H RBC 2.66 L Hgb 8.4 L Hct 25.1 L MCV 94.4 MCH 31.4 MCHC 33.3 RDW 15.4 H Plt Count 364 Neut % (Auto) 83.2 H Lymph % (Auto) 9.4 L [place] % (Auto) 7.1 Eos % (Auto) 0.0 L Baso % (Auto) 0.3 Neut # (Auto) 38820 H Lymph # (Auto) 1200 [place] # (Auto) 900 Eos # (Auto) 0 Baso # (Auto) 0 ABG pH 7.37 ABG pCO2 58.5 H ABG pO2 68 L ABG HCO3 34 H ABG Total CO2 34 H ABG O2 Saturation 92 L ABG Base Excess 7.4 H O2 Delivery Device Nc Oxygen Liter Flow 3 FiO2 32 Sodium 128 L Potassium 5.2 H Chloride 92 L Carbon Dioxide 32 BUN 54 H Creatinine 1.81 H Estimated GFR 41 L BUN/Creatinine Ratio 29.8 H Glucose 102 Lactate 0.8 Calcium 8.4 Magnesium 2.4 H Total Bilirubin 0.3 AST 34 ALT 24 Alkaline Phosphatase 74 Troponin I 0.015 NT-Pro-B Natriuret Pep 3570 H Total Protein 6.1 L Albumin 3.7 Globulin 2.4 Albumin/Globulin Ratio 1.5 Lipase 74 Procalcitonin 0.199 Urine Color Urine Appearance Urine pH Ur Specific [place] Urine Protein Urine Glucose (UA) Urine Ketones Urine Occult Blood Urine Nitrate Urine Bilirubin Urine Urobilinogen Ur Leukocyte Esterase Urine RBC Urine WBC Ur Squamous Epith Cells Urine Bacteria Ur Culture Indicated? Vol Urine Centrifuged Nasal Screen MRSA (PCR) Chlamy pneumoniae PCR Adenovirus (PCR) B.parapertussis DNA PCR Coronavirus OC43 (PCR) Coronavirus HKU1 (PCR) Coronavirus 229E (PCR) SARS-CoV-2 (PCR) Coronavirus NL63 (PCR) Human Metapneumovir PCR Influenza Type A (PCR) Influenza Type B (PCR) M. pneumoniae (PCR) Parainfluenza 1 (PCR) Parainfluenza 2 (PCR) Parainfluenza 3 (PCR) Parainfluenza 4 (PCR) RSV (PCR) Entero/Rhino (PCR) 01/22/24 01/22/24 01/22/24 17:34 17:58 19:38 WBC RBC Hgb Hct MCV MCH MCHC RDW Plt Count Neut % (Auto) Lymph % (Auto) [place] % (Auto) Eos % (Auto) Baso % (Auto) Neut # (Auto) Lymph # (Auto) [place] # (Auto) Eos # (Auto) Baso # (Auto) ABG pH ABG pCO2 ABG pO2 ABG HCO3 ABG Total CO2 ABG O2 Saturation ABG Base Excess O2 Delivery Device Oxygen Liter Flow FiO2 Sodium 128 L Potassium 4.9 Chloride 94 L Carbon Dioxide 30 BUN 52 H Creatinine 1.69 H Estimated GFR 44 L BUN/Creatinine Ratio 30.8 H Glucose 92 Lactate Calcium 8.1 L Magnesium 2.9 H Total Bilirubin 0.3 AST 36 ALT 24 Alkaline Phosphatase 79 Troponin I 0.015 NT-Pro-B Natriuret Pep Total Protein 6.1 L Albumin 3.6 Globulin 2.5 Albumin/Globulin Ratio 1.4 Lipase Procalcitonin Urine Color Yellow Urine Appearance Clear Urine pH 6.5 Ur Specific [place] 1.015 Urine Protein 3+ H Urine Glucose (UA) Negative Urine Ketones Negative Urine Occult Blood Negative Urine Nitrate Negative Urine Bilirubin Negative Urine Urobilinogen 0.2 Ur Leukocyte Esterase Negative Urine RBC None seen Urine WBC None seen Ur Squamous Epith Cells 0-1 /hpf Urine Bacteria None seen Ur Culture Indicated? Cult not indicated Vol Urine Centrifuged 10ml (spun) Nasal Screen MRSA (PCR) Chlamy pneumoniae PCR Not detected Adenovirus (PCR) Not detected B.parapertussis DNA PCR Not detected Coronavirus OC43 (PCR) Not detected Coronavirus HKU1 (PCR) Not detected Coronavirus 229E (PCR) Not detected SARS-CoV-2 (PCR) Not detected Coronavirus NL63 (PCR) Not detected Human Metapneumovir PCR Not detected Influenza Type A (PCR) Not detected Influenza Type B (PCR) Not detected M. pneumoniae (PCR) Not detected Parainfluenza 1 (PCR) Not detected Parainfluenza 2 (PCR) Not detected Parainfluenza 3 (PCR) Not detected Parainfluenza 4 (PCR) Not detected RSV (PCR) Not detected Entero/Rhino (PCR) Not detected 01/22/24 01/22/24 01/23/24 22:20 23:30 03:57 WBC 10.9 RBC 2.57 L Hgb 8.2 L Hct 24.3 L MCV 94.6 MCH 31.8 MCHC 33.6 RDW 15.5 H Plt Count 340 Neut % (Auto) 88.8 H Lymph % (Auto) 7.1 L [place] % (Auto) 4.1 Eos % (Auto) 0.0 L Baso % (Auto) 0.0 Neut # (Auto) 9700 H Lymph # (Auto) 800 L [place] # (Auto) 400 Eos # (Auto) 0 Baso # (Auto) 0 ABG pH ABG pCO2 ABG pO2 ABG HCO3 ABG Total CO2 ABG O2 Saturation ABG Base Excess O2 Delivery Device Oxygen Liter Flow FiO2 Sodium 129 L Potassium 4.9 Chloride 93 L Carbon Dioxide 32 BUN 51 H Creatinine 1.86 H Estimated GFR 39 L BUN/Creatinine Ratio 27.4 H Glucose 117 H Lactate < 0.5 L Calcium 8.3 L Magnesium Total Bilirubin AST ALT Alkaline Phosphatase Troponin I NT-Pro-B Natriuret Pep Total Protein Albumin Globulin Albumin/Globulin Ratio Lipase Procalcitonin Urine Color Urine Appearance Urine pH Ur Specific [place] Urine Protein Urine Glucose (UA) Urine Ketones Urine Occult Blood Urine Nitrate Urine Bilirubin Urine Urobilinogen Ur Leukocyte Esterase Urine RBC Urine WBC Ur Squamous Epith Cells Urine Bacteria Ur Culture Indicated? Vol Urine Centrifuged Nasal Screen MRSA (PCR) Not detected Chlamy pneumoniae PCR Adenovirus (PCR) B.parapertussis DNA PCR Coronavirus OC43 (PCR) Coronavirus HKU1 (PCR) Coronavirus 229E (PCR) SARS-CoV-2 (PCR) Coronavirus NL63 (PCR) Human Metapneumovir PCR Influenza Type A (PCR) Influenza Type B (PCR) M. pneumoniae (PCR) Parainfluenza 1 (PCR) Parainfluenza 2 (PCR) Parainfluenza 3 (PCR) Parainfluenza 4 (PCR) RSV (PCR) Entero/Rhino (PCR) Assessment & Plan Assessment and plan (1) Acute on chronic respiratory failure with hypoxia and hypercapnia: Status: Acute (2) Diabetes: Status: Acute (3) CAD (coronary artery disease): Status: Acute (4) Hypothyroidism: Status: Chronic (5) HTN (hypertension): Status: Chronic (6) PVD (peripheral vascular disease): Status: Chronic (7) Hyperlipidemia: Status: Acute Assessment & Plan narrative: Acute COPD Exacerbation, hypoxemic / hypercapnic, acute on chronic respiratory failure - Solumedrol, nebulized bronchodilators, Singulair, budesonide - high-flow oxygen tolerated last night - elevated BNP w/o Lt leg swelling, JVD or pujlmonary edema, ECHO pending, Lasix Hx of CVA, PVD, CAD, HTN - ASA - intolerant of statins - continue home antihypertensives IDDMT2 - Lantus, SS, CCD Anxiety - Zoloft, prn Ativan - Ativan titrated last night as to avoid sedation, hypoventilation and intubation Hypothyroidism - levothyroxine GERD -PPI BPH - Flomax CKD stage 3b - at baseline - monitored BMP, on Lasix DVT prophylaxis - Lovenox
[2024-01-23] MEDS: INSULIN GLARGINE 100 UNIT/ML 3ML PEN 14 UNIT SUBCUT (08:25)
[2024-01-23] MEDS: ENOXAPARIN 30 MG/0.3 ML SYRINGE SUBCUT (08:26)
--- NOTE | 2024-01-23 08:34 | PC.NURSE ---
Patient states they don't want to do this anymore. When questioned further, stated they wanted to stop receiving medical treatment and discuss goals of care with doctor. No SI's present, patient agreeable to some care and medications. Patient spoke with spouse on their cell phone and they will be coming in soon. Provider made aware.
[2024-01-23] MEDS: SODIUM CHLORIDE 0.9% FLUSH 10 ML IV (09:00)
--- NOTE | 2024-01-23 09:04 | PM.PN.1 ---
Subjective Subjective Interval history: He was on high-flow and states that he was done. He would like to either go home on hospice or pursue comfort measures here. He denies any pain. No other changes, I asked him to have his and daughter come in so that we could talk about his wishes and next steps. Exam Vital Signs (past 8 hours): - 01/23/24 02:00 01/23/24 03:00 01/23/24 03:31 Temperature 98.4 F 98.4 F Pulse Rate 76 76 Respiratory Rate 12 16 Blood Pressure 179/79 H 151/70 H Pulse Oximetry 96 96 Oxygen Delivery Method High Flow Nasal Cannula Oxygen Flow Rate 50 50 50 Fraction of Inspired Oxygen 45 45 40 01/23/24 03:32 01/23/24 04:00 01/23/24 04:00 Temperature 98.2 F Pulse Rate 87 Respiratory Rate 23 Blood Pressure 214/89 H Pulse Oximetry 98 92 Oxygen Delivery Method Heated High Flow Oxygen Flow Rate 50 Fraction of Inspired Oxygen 40 01/23/24 05:00 01/23/24 05:41 01/23/24 05:44 Temperature 98.6 F Pulse Rate 87 86 86 Respiratory Rate 16 Blood Pressure 204/90 H 204/90 H 204/90 H Pulse Oximetry 94 Oxygen Delivery Method Oxygen Flow Rate 50 Fraction of Inspired Oxygen 40 01/23/24 06:00 01/23/24 06:03 01/23/24 06:04 Temperature 98.6 F Pulse Rate 85 Respiratory Rate 16 Blood Pressure 216/98 H Pulse Oximetry 91 94 Oxygen Delivery Method High Flow Nasal Cannula Oxygen Flow Rate 50 50 Fraction of Inspired Oxygen 40 40 01/23/24 07:18 01/23/24 08:00 01/23/24 08:38 Temperature 98.7 F Pulse Rate 79 83 Respiratory Rate 18 Blood Pressure 181/74 H 180/81 H Pulse Oximetry 95 Oxygen Delivery Method Heated High Flow Oxygen Flow Rate 0 Fraction of Inspired Oxygen Fraction of Inspired Oxygen 40 SaO2/FiO2 Ratio 235 Oxygen Delivery Method Heated High Flow Oxygen Flow Rate 0 Narrative Exam Narrative: Uncomfortable, slight increased respiratory rate. Fluent speech. Heart is regular Lungs are with reasonable air movement. He was on high-flow. Abdomen is non-distended. Legs are free of edema. Objective Labs 01/23/24 03:57 01/23/24 03:57 Labs: Laboratory Results - last 24 hr 01/22/24 01/22/24 01/22/24 17:15 17:18 17:28 WBC 12.4 H RBC 2.66 L Hgb 8.4 L Hct 25.1 L MCV 94.4 MCH 31.4 MCHC 33.3 RDW 15.4 H Plt Count 364 Neut % (Auto) 83.2 H Lymph % (Auto) 9.4 L Osborne % (Auto) 7.1 Eos % (Auto) 0.0 L Baso % (Auto) 0.3 Neut # (Auto) 13421 H Lymph # (Auto) 1200 Osborne # (Auto) 900 Eos # (Auto) 0 Baso # (Auto) 0 ABG pH 7.37 ABG pCO2 58.5 H ABG pO2 68 L ABG HCO3 34 H ABG Total CO2 34 H ABG O2 Saturation 92 L ABG Base Excess 7.4 H O2 Delivery Device Nc Oxygen Liter Flow 3 FiO2 32 Sodium 128 L Potassium 5.2 H Chloride 92 L Carbon Dioxide 32 BUN 54 H Creatinine 1.81 H Estimated GFR 41 L BUN/Creatinine Ratio 29.8 H Glucose 102 Lactate 0.8 Calcium 8.4 Magnesium 2.4 H Total Bilirubin 0.3 AST 34 ALT 24 Alkaline Phosphatase 74 Troponin I 0.015 NT-Pro-B Natriuret Pep 3570 H Total Protein 6.1 L Albumin 3.7 Globulin 2.4 Albumin/Globulin Ratio 1.5 Lipase 74 Procalcitonin 0.199 Urine Color Urine Appearance Urine pH Ur Specific [place] Urine Protein Urine Glucose (UA) Urine Ketones Urine Occult Blood Urine Nitrate Urine Bilirubin Urine Urobilinogen Ur Leukocyte Esterase Urine RBC Urine WBC Ur Squamous Epith Cells Urine Bacteria Ur Culture Indicated? Vol Urine Centrifuged Nasal Screen MRSA (PCR) Chlamy pneumoniae PCR Adenovirus (PCR) B.parapertussis DNA PCR Coronavirus OC43 (PCR) Coronavirus HKU1 (PCR) Coronavirus 229E (PCR) SARS-CoV-2 (PCR) Coronavirus NL63 (PCR) Human Metapneumovir PCR Influenza Type A (PCR) Influenza Type B (PCR) M. pneumoniae (PCR) Parainfluenza 1 (PCR) Parainfluenza 2 (PCR) Parainfluenza 3 (PCR) Parainfluenza 4 (PCR) RSV (PCR) Entero/Rhino (PCR) 01/22/24 01/22/24 01/22/24 17:34 17:58 19:38 WBC RBC Hgb Hct MCV MCH MCHC RDW Plt Count Neut % (Auto) Lymph % (Auto) Osborne % (Auto) Eos % (Auto) Baso % (Auto) Neut # (Auto) Lymph # (Auto) Osborne # (Auto) Eos # (Auto) Baso # (Auto) ABG pH ABG pCO2 ABG pO2 ABG HCO3 ABG Total CO2 ABG O2 Saturation ABG Base Excess O2 Delivery Device Oxygen Liter Flow FiO2 Sodium 128 L Potassium 4.9 Chloride 94 L Carbon Dioxide 30 BUN 52 H Creatinine 1.69 H Estimated GFR 44 L BUN/Creatinine Ratio 30.8 H Glucose 92 Lactate Calcium 8.1 L Magnesium 2.9 H Total Bilirubin 0.3 AST 36 ALT 24 Alkaline Phosphatase 79 Troponin I 0.015 NT-Pro-B Natriuret Pep Total Protein 6.1 L Albumin 3.6 Globulin 2.5 Albumin/Globulin Ratio 1.4 Lipase Procalcitonin Urine Color Yellow Urine Appearance Clear Urine pH 6.5 Ur Specific [place] 1.015 Urine Protein 3+ H Urine Glucose (UA) Negative Urine Ketones Negative Urine Occult Blood Negative Urine Nitrate Negative Urine Bilirubin Negative Urine Urobilinogen 0.2 Ur Leukocyte Esterase Negative Urine RBC None seen Urine WBC None seen Ur Squamous Epith Cells 0-1 /hpf Urine Bacteria None seen Ur Culture Indicated? Cult not indicated Vol Urine Centrifuged 10ml (spun) Nasal Screen MRSA (PCR) Chlamy pneumoniae PCR Not detected Adenovirus (PCR) Not detected B.parapertussis DNA PCR Not detected Coronavirus OC43 (PCR) Not detected Coronavirus HKU1 (PCR) Not detected Coronavirus 229E (PCR) Not detected SARS-CoV-2 (PCR) Not detected Coronavirus NL63 (PCR) Not detected Human Metapneumovir PCR Not detected Influenza Type A (PCR) Not detected Influenza Type B (PCR) Not detected M. pneumoniae (PCR) Not detected Parainfluenza 1 (PCR) Not detected Parainfluenza 2 (PCR) Not detected Parainfluenza 3 (PCR) Not detected Parainfluenza 4 (PCR) Not detected RSV (PCR) Not detected Entero/Rhino (PCR) Not detected 01/22/24 01/22/24 01/23/24 22:20 23:30 03:57 WBC 10.9 RBC 2.57 L Hgb 8.2 L Hct 24.3 L MCV 94.6 MCH 31.8 MCHC 33.6 RDW 15.5 H Plt Count 340 Neut % (Auto) 88.8 H Lymph % (Auto) 7.1 L Osborne % (Auto) 4.1 Eos % (Auto) 0.0 L Baso % (Auto) 0.0 Neut # (Auto) 9700 H Lymph # (Auto) 800 L Osborne # (Auto) 400 Eos # (Auto) 0 Baso # (Auto) 0 ABG pH ABG pCO2 ABG pO2 ABG HCO3 ABG Total CO2 ABG O2 Saturation ABG Base Excess O2 Delivery Device Oxygen Liter Flow FiO2 Sodium 129 L Potassium 4.9 Chloride 93 L Carbon Dioxide 32 BUN 51 H Creatinine 1.86 H Estimated GFR 39 L BUN/Creatinine Ratio 27.4 H Glucose 117 H Lactate < 0.5 L Calcium 8.3 L Magnesium Total Bilirubin AST ALT Alkaline Phosphatase Troponin I NT-Pro-B Natriuret Pep Total Protein Albumin Globulin Albumin/Globulin Ratio Lipase Procalcitonin Urine Color Urine Appearance Urine pH Ur Specific [place] Urine Protein Urine Glucose (UA) Urine Ketones Urine Occult Blood Urine Nitrate Urine Bilirubin Urine Urobilinogen Ur Leukocyte Esterase Urine RBC Urine WBC Ur Squamous Epith Cells Urine Bacteria Ur Culture Indicated? Vol Urine Centrifuged Nasal Screen MRSA (PCR) Not detected Chlamy pneumoniae PCR Adenovirus (PCR) B.parapertussis DNA PCR Coronavirus OC43 (PCR) Coronavirus HKU1 (PCR) Coronavirus 229E (PCR) SARS-CoV-2 (PCR) Coronavirus NL63 (PCR) Human Metapneumovir PCR Influenza Type A (PCR) Influenza Type B (PCR) M. pneumoniae (PCR) Parainfluenza 1 (PCR) Parainfluenza 2 (PCR) Parainfluenza 3 (PCR) Parainfluenza 4 (PCR) RSV (PCR) Entero/Rhino (PCR) [facility] Medical History Acute on chronic respiratory failure with hypoxia 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 Insomnia due to medical condition Centrilobular emphysema CAD (coronary artery disease) (05/11/17) Cerebrovascular accident (CVA) due to stenosis of right posterior cerebral artery (05/28/17) Chronic hypoxemic respiratory failure (08/24/20) Family history of coronary artery disease (10/20/17) PVD (peripheral vascular disease) (05/11/17) Rectal bleeding (05/28/17) Statin intolerance (05/28/17) Nocturnal hypoxemia Fatigue due to sleep pattern disturbance Obstructive sleep apnea, adult Periodic limb movement disorder (PLMD) Hyperlipidemia COPD exacerbation Hypothyroidism HTN (hypertension) 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 Acute on chronic hypoxic respiratory failure, present on admission and active. 2. COPD exacerbation was negative respiratory PCR, present on admission and active. The patient has indicated and he would like to pursue either comfort care in the hospital versus home with hospice. Plan: -meet with family when they arrived today to discuss options to fulfill his wishes and support him.
[2024-01-23] MEDS: ASPIRIN EC 81 MG TABLET PO (09:11)
[2024-01-23] MEDS: FUROSEMIDE 40 MG TABLET PO (09:11)
[2024-01-23] MEDS: BUDESONIDE 0.5 MG/2 ML NEB 1 MG INH ×2 (10:21→17:25)
--- NOTE | 2024-01-23 11:00 | DIET.CONS2 ---
Dietary Inpatient Consultation Note Admission Date: 01/22/2024 21:15 68 y M admitted for resp failure, COPD exacerbation. Nutrition screened for low MNA. Per EMR and hospitalist in rounds, pt would like to go home on hospice or pursue comfort care. Will f/u prn/change in GOC. Diet: 01/23/24 Breakfast Carbohydrate Consistent Diet Diet Modifications: Carbohydrate level: Medium (3 CHO) Reflex DM orders: No Food Texture: Level 7 - Regular Liquid Consistency: Level 0 - Thin Nutrition Percent Meal Consumed 0% 01/23/24 09:22 Electronically Signed by: Paige Contreras 01/23/24 11:00 Clinical Dietitian [address] [id number]
[2024-01-23] MEDS: LORazepam 2 MG/ML INJ 1 MG IV ×3 (11:37→21:43)
[2024-01-23] MEDS: HYDROMORPHONE PF 10 MG in SODIUM CHLORIDE 0.9% 100 ML 2.525 MG IV (12:00)
[2024-01-23] MEDS: HYDROMORPHONE PF 10 MG in SODIUM CHLORIDE 0.9% 100 ML 24.038 MG IV (22:34)
[2024-01-24 00:04] VITALS: RESP 16
[2024-01-24] MEDS: HYDROMORPHONE PF 10 MG in SODIUM CHLORIDE 0.9% 100 ML 24.038 MG IV (02:50)
[2024-01-24 03:11] VITALS: RESP 20
[2024-01-24 06:10] VITALS: RESP 12
[2024-01-24] MEDS: ALBUTEROL/IPRATROPIUM 3 ML AMPUL INH (06:10)
[2024-01-24] MEDS: HYDROMORPHONE IV (07:22)
[2024-01-24] MEDS: SODIUM CHLORIDE 0.9% IV (07:22)
--- NOTE | 2024-01-24 12:11 | PC.NURSE ---
Patient time of 102, Dr Toribio notified
--- NOTE | 2024-01-24 15:54 | P.DS_ITS ---
History of Present Illness History of Present Illness Date Patient Seen: 01/24/24 Time Patient Seen: 10:10 Date of Onset of Symptoms: 01/22/24 Chief complaint: fellx3 Narrative: 68 y/o with PMH of 3L-oxygen dependent COPD, HTN, DM, PVD, prior stroke, presented today with increasing shortness of breath. He has chronic wounds on his left leg for which he went to wound care and hyperbaric therapy today and had increased sudden onset shortness of breath. In the ED hypoxemic and also hypercapnic. He was hospitalized at [facility] in the past for similar reason when he had difficulty tolerating BiPAP, likely due to anxiety disorder, so needed to be intubated and transferred to [facility] where it took him a while to wean off the ventilator. On admission to ICU he is anxious, on high-flow, requesting removal of Sherman placed earlier. BNP elevated, given Lasix. Discharge Providers Provider Date of admission: 01/22/24 21:15 Discharge Date: 01/24/24 Primary care physician: Nakia Marcus MD Consults: 01/23/24 11:24 Consult to Discharge Planning Routine Comment: Consult to Hospice Referral Urgent Comment: Discharge provider: Javy Toribio MD Summary Hospital Course Discharge Diagnosis: 1. Acute COPD exacerbation 2. Acute on chronic hypoxic and hypercapnic respiratory failure due to 1. 3. Coronary artery disease, stable 4. Diabetes mellitus, type 2 5. Hypertension 6. Hyperlipidemia 7. Chronic kidney disease, stage IIIB 8. Hypothyroidism 9. Peripheral vascular disease 10. Anxiety 12. Gastroesophageal reflux disease 13. BPH Hospital Course: The patient was admitted and treated with IV steroids, frequently administered nebulized bronchodilators and high-flow oxygen. Anxiolytics were administered and titrated to avoid over-sedation, hypoventilation with intubation. In discussion the patient stated that he wished to proceed with comfort measures or home on hospice. Discussion was held with the patient, , daughter and physician in shared decision making. The patient's wishes were respected and he was administered anxiety lytics and opioids with the primary goal of comfort care. The patient at 10:22 a.m. on 01/24/2024 with multiple family members and friends present. Time Spent with Patient Time spent: Less than 30 minutes Exam Vital Signs (past 8 hours): Fraction of Inspired Oxygen 60 SaO2/FiO2 Ratio 184 Oxygen Delivery Method Heated High Flow Oxygen Flow Rate 50 Narrative Exam Narrative: Appears comfortable, unresponsive with decreased respirations. Heart is regular Lungs are with decreased air movement. Abdomen is non-distended. Legs are free of edema. Objective Imaging Chest x-ray: Radiologist's impression: No definitive consolidations. Minimal interstitial prominence which could represent edema or less likely interstitial pneumonia. CT scan - chest: Radiologist's impression: No pulmonary embolus. No acute cardiopulmonary process. CT scan - abdomen: Radiologist's impression: No visualized acute intra-abdominal or pelvic process. No obstruction. CT scan - head: Radiologist's impression: No acute intracranial pathology. Chest xray 01/23/2024: Radiologist's impression: Patchy right basilar opacity suspicious for pneumonia. The above findings are concordant with preliminary report. Labs 01/23/24 03:57 01/23/24 03:57 [facility] Medical History Acute on chronic respiratory failure with hypoxia 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 Insomnia due to medical condition Centrilobular emphysema CAD (coronary artery disease) (05/11/17) Cerebrovascular accident (CVA) due to stenosis of right posterior cerebral artery (05/28/17) Chronic hypoxemic respiratory failure (08/24/20) Family history of coronary artery disease (05/11/17) PVD (peripheral vascular disease) (05/11/17) Rectal bleeding (05/28/17) Statin intolerance (05/28/17) Nocturnal hypoxemia Fatigue due to sleep pattern disturbance Obstructive sleep apnea, adult Periodic limb movement disorder (PLMD) Hyperlipidemia COPD exacerbation Hypothyroidism HTN (hypertension) 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) Former smoker (08/25/15) Chronic pain syndrome (08/25/15) Surgical History History of eye surgery S/P hernia repair History of spinal surgery (08/25/15) Fusion of spine of thoracolumbar region (08/25/15) Fusion of spine, thoracolumbar region Family History Family/Other Heart disease Father Heart disease Mother Loud snoring Obesity Hypertension Depression Dementia Other Family history of coronary artery disease Social History household members: spouse and family Smoking Status: Former smoker alcohol intake: never Discharge Plan Discharge Plan Patient Disposition: Discharge Data Primary Care Provider: Nakia Marcus MIPS - Admit I confirm the patient?s Advance Care Plan is present, Code status is documented, Surrogate decision maker is in patient?s record [If Yes, STOP here]: Yes MIPS - Meds 'Current medications' to include all prescriptions, [id number] products, herbals, cannabis/cannabidiol products, and vitamin/mineral/dietary (nutritional) supplements. I have utilized all available resources to obtain, update, or review the patient?s current medications. [If Yes, STOP here]: Yes MIPS - DC The patient has a history of heart transplant or Left Ventricular Assist Device (LVAD). If yes, STOP here.: No The patient has current or prior documentation of left ventricular ejection fraction (LVEF) less than or equal to 40%, or moderate or severely depressed left ventricular systolic function.: No A. The patient was prescribed or already taking an Angiotensin-Converting Enzyme (JENNIFER) Inhibitor, or Angiotensin Receptor Mandy (ARB).: No B. The patient was prescribed or already taking a beta-mandy. [If Yes to Both A & B, STOP here]: No Patient not prescribed/taking JENNIFER or ARB, no reason given.: No Patient not prescribed/taking beta-mandy, no reason given.: No [facility] PROFEE Charge Codes Discharge inpatient/observation: 86283
== END 2024-01-24 12:45 | disposition expired | DRG 189 ==
LOC: ED 20:56 → AC 21:16 → ICU 21:33
PROVIDERS: Emergency Medicine; Admitting Provider Internal Medicine; Emergency Provider Emergency Medicine; PCP Internal Medicine; Referring Provider Emergency Medicine; Visit Provider Internal Medicine
DX: J96.21 Acute and chronic respiratory failure with hypoxia (principal); J44.1 Chronic obstructive pulmonary disease with (acute) exacerbation; I13.0 Hypertensive heart and chronic kidney disease with heart failure and stage 1 through stage 4 chronic kidney disease, or unspecified chronic kidney disease; L97.322 Non-pressure chronic ulcer of left ankle with fat layer exposed; L97.222 Non-pressure chronic ulcer of left calf with fat layer exposed; J96.22 Acute and chronic respiratory failure with hypercapnia; I25.10 Atherosclerotic heart disease of native coronary artery without angina pectoris; E03.9 Hypothyroidism, unspecified; I73.9 Peripheral vascular disease, unspecified; E78.5 Hyperlipidemia, unspecified; F41.9 Anxiety disorder, unspecified; K21.9 Gastro-esophageal reflux disease without esophagitis; E11.22 Type 2 diabetes mellitus with diabetic chronic kidney disease; I50.9 Heart failure, unspecified; N18.32 Chronic kidney disease, stage 3b; Z51.5 Encounter for palliative care; Z86.73 Personal history of transient ischemic attack (TIA), and cerebral infarction without residual deficits; Z99.81 Dependence on supplemental oxygen; Z79.4 Long term (current) use of insulin; Z87.891 Personal history of nicotine dependence; E11.621 Type 2 diabetes mellitus with foot ulcer; R60.0 Localized edema; R23.3 Spontaneous ecchymoses; L53.9 Erythematous condition, unspecified; Z79.01 Long term (current) use of anticoagulants
CPT/HCPCS: 11042; 11045; 36415; 36600; 70450; 71045; 71046; 71275; 74177; 80048; 80053; 81001; 82805; 82962; 83605; 83690; 83735; 83880; 84145; 84484; 85025; 87040; 87633; 87797; 93005; 94640; 94762; 96365; 96367; 96375; 99285; 99291; J1170; J1650; J1815; J1940; J2060; J2470; J2543; J2919; J3475; J7613